=== PATIENT | male | born 1965 | race African-American/Black ===

== ENCOUNTER 2016-03-12 13:58 | Inpatient (IN) | payer MEDICARE, OTHER ==
--- NOTE | 2016-03-12 14:06 | HP ---
CIWA Score - CIWA Score Nausea/Vomitin-Mild Nausea/No Vomiting Muscle Tremors: 2 Anxiety: 4-Mod. Anxious/Guarded Agitation: 1-Slight > Activity Paroxysmal Sweats: 1-Minimal Palms Moist Orientation: 0-Oriented Tacttile Disturbances: 1-Very Mild Itch/Numbness Auditory Disturbances: 2-Mild Harshness/Frighten Visual Disturbances: 1-Very Mild Sensitivity Headache: 2-Mild CIWA-Ar Total Score: 15 Admission ROS S - HPI Chief Complaint: I want to get my life back on track, drinking doesn't help Allergies/Adverse Reactions: Allergies Allergy/AdvReac Type Severity Reaction Status Date / Time escitalopram Allergy Severe ITCHING Verified 12/10/14 14:54 WITH LEXAPRO fluphenazine [Fluphenazine] Allergy Severe Itching Verified 12/10/14 14:54 sertraline HCl [From Zoloft] Allergy Severe abdominal Verified 12/10/14 14:54 swelling ziprasidone Allergy Severe Swelling Verified 05/17/14 12:16 ziprasidone HCl [From Geodon] Allergy Severe Swelling Verified 12/10/14 14:54 ziprasidone mesylate Allergy Severe sweating Verified 05/17/14 12:16 [From Geodon] risperidone [From Risperdal] Allergy Intermediate sweating Verified 12/10/14 14: 54 History of Present Illness: 50 yo gentleman here for detox from alcohol and crack - last detox october 2015 in [place]. No seizures but does have black outs. Patient asking for thiamine to not be given - states it makes his mouth dry and asked me to discontinue it. Exam Limitations: Clinical Condition - Ebola screening Have you traveled outside of the country in the last 21 days: No Have you had contact with anyone from an Ebola affected area: No Do you have a fever: No - Review of Systems Constitutional: Loss of Appetite, Malaise, Changes in sleep EENT: reports: No Symptoms Reported Respiratory: reports: No Symptoms reported Cardiac: reports: No Symptoms Reported GI: reports: Poor Appetite, Indigestion : reports: Frequency Musculoskeletal: reports: Back Pain Integumentary: reports: Dryness Neuro: reports: Headache Endocrine: reports: No Symptoms Reported Hematology: reports: No Symptoms Reported Psychiatric: reports: Judgement Intact, Mood/Affect Appropiate, Orientated x3, Anxious Other Systems: Reviewed and Negative Patient History - Patient Medical History Hx Anemia: No Hx Asthma: No Hx Chronic Obstructive Pulmonary Disease (COPD): No Hx Cancer: No Hx Cardiac Disorders: No Hx Congestive Heart Failure: No Hx Hypertension: No Hx Hypercholesterolemia: No Hx Pacemaker: No HX Cerebrovascular Accident: No Hx Seizures: No Hx Dementia: No Hx Diabetes: No Hx Gastrointestinal Disorders: Yes (acid reflux) Hx Liver Disease: No Hx Genitourinary Disorders: No Hx Sexually Transmitted Disorders: No Hx Renal Disease (ESRD): No Hx Thyroid Disease: No Hx Human Immunodeficiency Virus (HIV): No (NEGATIVE HX) Hx Hepatitis C: No Hx Depression: Yes Hx Suicide Attempt: No Hx Bipolar Disorder: No Hx Schizophrenia: Yes - Patient Surgical History Past Surgical History: Yes Hx Neurologic Surgery: No Hx Cataract Extraction: No Hx Cardiac Surgery: No Hx Lung Surgery: No Hx Breast Surgery: No Hx Breast Biopsy: No Hx Abdominal Surgery: Yes (spleen repair 12/2014) Hx Appendectomy: Yes (IN 1987) Hx Cholecystectomy: No Hx Genitourinary Surgery: No Hx Section: No Hx Orthopedic Surgery: Yes (left ankle sx x2 1985 - plate with 5 screws) Other Surgical History: I & D abscess on right buttocks 5 years ago Anesthesia Reaction: No - PPD History Previous Implant?: Yes Documented Results: Negative w/o proof Implanted On Prior R Admission?: Yes Date: 09/02/13 Results: 0 mm PPD to be Administered?: Yes - Reproductive History Patient is a Female of Child Bearing Age (11 -55 yrs old): No (male) - Smoking Cessation Smoking history: Current every day smoker Have you smoked in the past 12 months: Yes Aproximately how many cigarettes per day: 5 Cigars Per Day: 0 Hx Chewing Tobacco Use: No Initiated information on smoking cessation: Yes 'Breaking Loose' booklet given: 03/12/16 (give on floor) - Substance & Tx. 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) - Substances Abused Alcohol Route: Oral Frequency: Daily Amount used: 4 pints liquor, 8 cans sixteen oz beer Age of first use: 15 Date of Last Use: 03/12/16 Crack Route: Inhalation Frequency: 1-2 times per week Amount used: $50 Age of first use: 20 Date of Last Use: 03/12/16 Family Disease History - Family Disease History Family Disease History: Diabetes: Brother (HTN), Heart Disease: Father (HTN ), Mother (HTN), Brother Admission Physical Exam [facility] - Vital Signs Vital Signs: Vital Signs Period Temp Pulse Resp BP Sys/Garcia Pulse Ox Last 24 Hr 95.9 F 18 18 100/72 - Physical General Appearance: Yes: Nourished, Appropriately Dressed, Mild Distress, Irritable, Anxious HEENTM: Yes: Hearing grossly Normal, Normal ENT Inspection, Normocephalic, Normal Voice, Pharynx Normal Respiratory: Yes: Normal Breath Sounds, No Respiratory Distress Neck: Yes: No masses,lesions,Nodules, Supple Breast: Yes: Breast Exam Deferred Cardiology: Yes: Regular Rhythm, Regular Rate Abdominal: Yes: Soft Genitourinary: Yes: Frequency Back: Yes: Normal Inspection Musculoskeletal: Yes: full range of Motion, Gait Steady, Joint Stiffness Extremities: Yes: Normal Inspection, Normal Range of Motion, Non-Tender Neurological: Yes: Fully Oriented, Alert, Normal Mood/Affect, Normal Response Integumentary: Yes: Normal Color, Dry, Warm Lymphatic: Yes: Within Normal Limits - Diagnostic (1) Alcohol dependence Current Visit: Yes Status: Chronic (2) Low back pain Current Visit: Yes Status: Chronic (3) Nicotine dependence Current Visit: Yes Status: Chronic (4) Cocaine abuse Current Visit: Yes Status: Chronic Cleared for Admission [facility] - Detox or Rehab [facility] Level of Care: Medically Managed Detox Regimen/Protocol: Librium S Breath Alcohol Content Breath Alcohol Content: 0
[2016-03-12] MEDS ORDERED: guaiFENesin/D-METHORPHAN HB 10 ML UNIT-DOSE CUPS PO PRN (14:12)
[2016-03-12] MEDS ORDERED: ACETAMINOPHEN 325 MG TABLET (FP) PO PRN (14:12)
[2016-03-12] MEDS ORDERED: MAGNESIUM CITRATE 300 ML BOTTLE PO PRN (14:12)
[2016-03-12] MEDS ORDERED: chlordiazePOXIDE HCL 25 MG CAPSULE PO PRN (14:12)
[2016-03-12] MEDS ORDERED: P-EPHED 60MG/TRIPROLIDI 2.5MG TABLET PO PRN (14:12)
[2016-03-12] MEDS ORDERED: MENTHOL/PHENOL 1 EACH UD MM PRN (14:12)
[2016-03-12] MEDS ORDERED: NICOTINE POLACRILEX 2 MG GUM BUC PRN (14:12)
[2016-03-12] MEDS ORDERED: MAG HYDROX/AL HYDROX/SIMETH 30 ML UNIT-DOSE CUP PO PRN (14:12)
[2016-03-12] MEDS ORDERED: MAGNESIUM HYDROX 2400MG/30ML ORAL SUSPENSION 30 ML CUP PO PRN (14:12)
[2016-03-12] MEDS ORDERED: IBUPROFEN 400 MG TABLET (FP) PO PRN (14:12)
[2016-03-12] MEDS ORDERED: LOPERAMIDE HCL 2 MG CAPSULE PO PRN (14:12)
[2016-03-12] MEDS ORDERED: CYCLOBENZAPRINE HCL 10 MG TABLET (FP) PO PRN (14:14)
[2016-03-12 14:18] VITALS: BMI 28.8
[2016-03-12] MEDS ORDERED: chlordiazePOXIDE HCL 25 MG CAPSULE PO ONE (14:30)
[2016-03-12 16:33] LABS: URINE APPEARANCE CLEAR; URINE BILIRUBIN NEGATIVE (NEGATIVE); URINE BLOOD NEGATIVE (NEGATIVE); URINE COLOR YELLOW; URINE GLUCOSE (UA) NEGATIVE (NEGATIVE); URINE KETONE NEGATIVE (NEGATIVE); URINE LEUK ESTERASE NEGATIVE (NEGATIVE); URINE NITRITE NEGATIVE (NEGATIVE); URINE PROTEIN NEGATIVE (NEGATIVE); URINE UROBILINOGEN 4.0 E.U/dl E.U./dl (0.2-1.0)
[2016-03-12] MEDS: chlordiazePOXIDE HCL 25 MG CAPSULE PO SCH ×2 (17:56→22:55)
[2016-03-12] MEDS ORDERED: diphenhydrAMINE HCL 50 MG CAPSULE PO PRN (22:00)
[2016-03-13] MEDS: chlordiazePOXIDE HCL 25 MG CAPSULE PO SCH ×4 (05:57→22:27)
--- NOTE | 2016-03-13 09:45 | EKG ---
Test Reason : Blood Pressure : / mmHG Vent. Rate : 070 BPM Atrial Rate : 070 BPM P-R Int : 140 ms QRS Dur : 086 ms QT Int : 348 ms P-R-T Axes : 057 022 045 degrees QTc Int : 375 ms NORMAL SINUS RHYTHM NORMAL ECG NO PREVIOUS ECGS AVAILABLE Confirmed by HUMA CAMARILLO MD ([id number]) on 03/13/2016 9:45:18 AM Referred By: Confirmed By:HUMA CAMARILLO MD
[2016-03-13 10:17] LABS: MCH 28.4 pg (25.7-33.7); MCHC 34.4 g/dl (32.0-35.9); MEAN CELL VOLUME 82.7 fl (80-96); MEAN PLT VOLUME 10.4 fl (7.5-11.1); PLATELET COUNT 126 K/MM3 (134-434); RDW 16.1 % (11.9-15.9); WHITE BLOOD COUNT 9.2 K/mm3 (4.0-10.0)
[2016-03-13 10:52] LABS: ALBUMIN 3.3 g/dl (3.4-5.0); BILIRUBIN,TOTAL 0.5 mg/dL (0.2-1.0); CALCIUM 8.7 mg/dL (8.5-10.1); CREATININE 1.3 mg/dL (0.7-1.3); TOT PROT 7.2 g/dl (6.4-8.2)
[2016-03-13] MEDS: PRENATAL VITAMINS W/ FOLIC ACID TABLET (FP) PO SCH (11:00)
[2016-03-13] MEDS: hydrOXYzine PAMOATE 50 MG CAPSULE (FP) PO PRN (12:17)
--- NOTE | 2016-03-13 13:41 | PN ---
S CIWA - CIWA Score Nausea/Vomitin-No Nausea/No Vomiting Muscle Tremors: 3 Anxiety: 4-Mod. Anxious/Guarded Agitation: 4-Moderately Restless Paroxysmal Sweats: 3 Orientation: 0-Oriented Tacttile Disturbances: 0-None Auditory Disturbances: 0-None Visual Disturbances: 0-None Headache: 0-None Present CIWA-Ar Total Score: 14 BHS Progress Note (SOAP) Subjective: sweating,anxiety,tremors,restless,interrupted sleep. Objective: 03/13/16 13:40 Vital Signs - 8 hr 03/13/16 03/13/16 06:00 10:00 Temperature 97.7 F 97.9 F Pulse Rate 60 103 H Respiratory 18 18 Rate Blood Pressure 104/59 111/71 Laboratory Tests 03/12/16 03/13/16 03/13/16 14:00 07:20 07:20 WBC 9.2 RBC 5.06 Hgb 14.4 Hct 41.9 MCV 82.7 MCHC 34.4 RDW 16.1 H Plt Count 126 L D MPV 10.4 Sodium 140 Potassium 4.3 Chloride 106 Carbon Dioxide 23 Anion Gap 11 BUN 17 D Creatinine 1.3 Creat Clearance w eGFR 58.43 Random Glucose 85 D Calcium 8.7 Total Bilirubin 0.5 D AST 27 D ALT 30 D Alkaline Phosphatase 58 Total Protein 7.2 Albumin 3.3 L Urine Color Yellow Urine Appearance Clear Urine pH 7.0 D Ur Specific [place] 1.021 Urine Protein Negative Urine Glucose (UA) Negative Urine Ketones Negative Urine Blood Negative Urine Nitrite Negative Urine Bilirubin Negative Urine Urobilinogen 4.0 e.u/dl Ur Leukocyte Esterase Negative RPR Titer 03/13/16 07:20 WBC RBC Hgb Hct MCV MCHC RDW Plt Count MPV Sodium Potassium Chloride Carbon Dioxide Anion Gap BUN Creatinine Creat Clearance w eGFR Random Glucose Calcium Total Bilirubin AST ALT Alkaline Phosphatase Total Protein Albumin Urine Color Urine Appearance Urine pH Ur Specific [place] Urine Protein Urine Glucose (UA) Urine Ketones Urine Blood Urine Nitrite Urine Bilirubin Urine Urobilinogen Ur Leukocyte Esterase RPR Titer Nonreactive labs noted Assessment: 03/13/16 13:41 withdrawal sx. Plan: continue detox
[2016-03-13] MEDS: DOCUSATE SODIUM 100 MG CAPSULE (FP) PO PRN ×2 (15:04→22:30)
[2016-03-14] MEDS: chlordiazePOXIDE HCL 25 MG CAPSULE PO SCH ×2 (05:19→10:09)
--- NOTE | 2016-03-14 09:29 | CONSULT ---
[id number] [facility] Identifying data: This is 50 years vold male with no psychiatric hospitalization history intoxicated with: Alcohol. Nicotine, Cocaine Substance Abuse History: - Smoking Cessation. Smoking history: Current every day smoker. Have you smoked in the past 12 months: Yes. Aproximately how many cigarettes per day: 5. Cigars Per Day: 0. Hx Chewing Tobacco Use: No. Initiated information on smoking cessation: Yes. 'Breaking Loose' booklet given : 03/12/16 (give on floor). - Substance & Tx. History. Hx Alcohol Use: Yes. Hx Substance Use: Yes. Substance Use Type: Alcohol, Cocaine. Hx Substance Use Treatment: Yes (detox, rehab). - Substances Abused. Alcohol. Route: Oral. Frequency: Daily. Amount used: 4 pints liquor, 8 cans sixteen oz beer. Age of first use: 15. Date of Last Use: 03/12/16. Crack. Route: Inhalation. Frequency: 1-2 times per week. Amount used: $50. Age of first use: 20. Date of Last Use: 03/12/16 Medical History: Denies Psychiatric History: Patient reports history of Depression, reports history of Schizophrenia, denies psychiatric admissions history, reports taking prior to admission: Zyprexa 5mg poqd. Prozac 10mg poqd Physical/Sexual Abuse/Trauma History: Denies Additional Comment: Zyprexa 5mg poqd. Prozac 10mg poqd Mental Status Exam - Mental Status Exam Alert and Oriented to: Person Cognitive Function: Fair Patient Appearance: Unkempt Mood: Sad Affect: Flat Patient Behavior: Sedated Speech Pattern: Delayed Voice Loudness: Mildly Soft/Quiet Thought Process: Circumstantial Thought Disorder: Being Controlled Hallucinations: Denies Suicidal Ideation: Denies Homicidal Ideation: Denies Insight/Judgement: Fair Sleep: Difficulty falling asleep Appetite: Weight gain Muscle strength/Tone: Normal Gait/Station: Shuffling Additional Comments: Zyprexa 5mg poqd. Prozac 10mg poqd Psychiatric Findings - Problem List ([place] 1, 2,3) (1) Alcohol dependence Status: Chronic (2) Cocaine abuse Status: Chronic (3) Nicotine dependence Status: Chronic (4) Cocaine dependence Status: Acute Comment: Abilify 10mg poqd (5) Schizophrenia, paranoid Status: Chronic - Initial Treatment Plan Initial Treatment Plan: Zyprexa 5mg poqd. Prozac 10mg poqd
[2016-03-14] MEDS ORDERED: FLUoxetine HCL 10 MG CAPSULE (FP) PO SCH (10:00)
[2016-03-14] MEDS ORDERED: OLANZapine 5 MG TABLET PO SCH (10:00)
[2016-03-14] MEDS: PRENATAL VITAMINS W/ FOLIC ACID TABLET (FP) PO SCH (10:08)
--- NOTE | 2016-03-14 10:26 | PN ---
S CIWA - CIWA Score Nausea/Vomitin-No Nausea/No Vomiting Muscle Tremors: 4-Moderate,w/Arms Extend Anxiety: 3 Agitation: 3 Paroxysmal Sweats: 3 Orientation: 0-Oriented Tacttile Disturbances: 0-None Auditory Disturbances: 0-None Visual Disturbances: 0-None Headache: 0-None Present CIWA-Ar Total Score: 13 BHS Progress Note (SOAP) Subjective: irritable agitation anxiety interrupted sleep Objective: 03/14/16 10:25 Vital Signs Temperature 97.3 F L 03/14/16 10:18 Pulse Rate 92 H 03/14/16 10:18 Respiratory Rate 18 03/14/16 10:18 Blood Pressure 128/73 03/14/16 10:18 O2 Sat by Pulse Oximetry (%) Laboratory Tests 03/12/16 03/13/16 03/13/16 14:00 07:20 07:20 WBC 9.2 RBC 5.06 Hgb 14.4 Hct 41.9 MCV 82.7 MCHC 34.4 RDW 16.1 H Plt Count 126 L D MPV 10.4 Sodium 140 Potassium 4.3 Chloride 106 Carbon Dioxide 23 Anion Gap 11 BUN 17 D Creatinine 1.3 Creat Clearance w eGFR 58.43 Random Glucose 85 D Calcium 8.7 Total Bilirubin 0.5 D AST 27 D ALT 30 D Alkaline Phosphatase 58 Total Protein 7.2 Albumin 3.3 L Urine Color Yellow Urine Appearance Clear Urine pH 7.0 D Ur Specific [place] 1.021 Urine Protein Negative Urine Glucose (UA) Negative Urine Ketones Negative Urine Blood Negative Urine Nitrite Negative Urine Bilirubin Negative Urine Urobilinogen 4.0 e.u/dl Ur Leukocyte Esterase Negative RPR Titer 03/13/16 07:20 WBC RBC Hgb Hct MCV MCHC RDW Plt Count MPV Sodium Potassium Chloride Carbon Dioxide Anion Gap BUN Creatinine Creat Clearance w eGFR Random Glucose Calcium Total Bilirubin AST ALT Alkaline Phosphatase Total Protein Albumin Urine Color Urine Appearance Urine pH Ur Specific [place] Urine Protein Urine Glucose (UA) Urine Ketones Urine Blood Urine Nitrite Urine Bilirubin Urine Urobilinogen Ur Leukocyte Esterase RPR Titer Nonreactive awake/alert ambulating no acute distress Assessment: 03/14/16 10:26 withdrawal sx Plan: continue detox increase fluids
[2016-03-14] MEDS: hydrOXYzine PAMOATE 50 MG CAPSULE (FP) PO PRN (12:10)
[2016-03-14] MEDS ORDERED: chlordiazePOXIDE 5 MG CAPSULE PO SCH (17:00)
[2016-03-14 17:12] VITALS: BP 119/66; PULSE 76; TEMP 98.1
--- NOTE | 2016-03-14 23:39 | DS ---
[facility] Detox Discharge Summary Admission Date: 03/12/16 Discharge Date: 03/14/16 - History Present History: Alcohol Dependence Additional Comments: patient insists to leave the unit to go to the court to retrieve his money patient is unwilling to wait face to face with the provider Pertinent Past History: gerd - Physical Exam Results Vital Signs: Vital Signs Temperature 98.1 F 03/14/16 17:11 Pulse Rate 76 03/14/16 17:11 Respiratory Rate 18 03/14/16 17:11 Blood Pressure 119/66 03/14/16 17:11 O2 Sat by Pulse Oximetry (%) - Treatment Hospital Course: Detox Protocol Followed, Responded well - Medication Discharge Medications: Ambulatory Orders Fluoxetine HCl [Prozac -] 10 mg PO DAILY 03/12/16 Ibuprofen [Motrin -] 400 mg PO QID PRN 03/12/16 Methocarbamol [Robaxin -] 500 mg PO TID 03/12/16 Olanzapine [Zyprexa -] 5 mg PO DAILY 03/12/16 Fluoxetine HCl [Prozac -] 10 mg PO DAILY #30 tablet 03/14/16 Olanzapine [Zyprexa -] 5 mg PO DAILY #30 tablet 03/14/16 - Diagnosis (1) GERD (gastroesophageal reflux disease) Status: Acute Qualifiers: Esophagitis presence: without esophagitis Qualified Code(s): K21.9 - Gastro-esophageal reflux disease without esophagitis (2) Schizophrenia, paranoid Status: Suspected (3) Alcohol dependence with uncomplicated withdrawal Status: Acute - AMA Did Patient Leave Against Medical Advice: Yes
[2016-03-15] MEDS ORDERED: chlordiazePOXIDE HCL 10 MG CAPSULE PO SCH (17:00)
== END 2016-03-14 19:10 | disposition left against medical advice (07) | DRG 894 ==
LOC: YASAS 13:58 → Y6N 14:20
PROVIDERS: ADMIT Internal Medicine Addiction Medicine; ATTEND Internal Medicine Addiction Medicine
PROC: HZ2ZZZZ Detoxification Services for Substance Abuse Treatment (ICD-10-PCS; principal; 2016-03-14)
DX: F19.230 Other psychoactive substance dependence with withdrawal, uncomplicated (principal); F14.20 Cocaine dependence, uncomplicated; F20.0 Paranoid schizophrenia; F10.230 Alcohol dependence with withdrawal, uncomplicated; F17.210 Nicotine dependence, cigarettes, uncomplicated; K21.9 Gastro-esophageal reflux disease without esophagitis; M54.5 Low back pain
CPT/HCPCS: 36415; 80053; 81003; 85027; 86593; 93005; 93010

== ENCOUNTER 2016-12-05 22:13 | Inpatient (IN) | payer OTHER ==
[2016-12-05 22:54] VITALS: BMI 28.7
--- NOTE | 2016-12-05 23:07 | HP ---
CIWA Score - CIWA Score Nausea/Vomitin-Mild Nausea/No Vomiting Muscle Tremors: 4-Moderate,w/Arms Extend Anxiety: 4-Mod. Anxious/Guarded Agitation: 4-Moderately Restless Paroxysmal Sweats: 1-Minimal Palms Moist Orientation: 0-Oriented Tacttile Disturbances: 0-None Auditory Disturbances: 0-None Visual Disturbances: 0-None Headache: 0-None Present CIWA-Ar Total Score: 14 Admission ROS S - HPI Chief Complaint: withdrawal sx Allergies/Adverse Reactions: Allergies Allergy/AdvReac Type Severity Reaction Status Date / Time escitalopram Allergy Severe ITCHING Verified 12/10/14 14:54 WITH LEXAPRO fluphenazine [Fluphenazine] Allergy Severe Itching Verified 12/10/14 14:54 sertraline HCl [From Zoloft] Allergy Severe abdominal Verified 12/10/14 14:54 swelling ziprasidone Allergy Severe Swelling Verified 05/17/14 12:16 ziprasidone HCl [From Geodon] Allergy Severe Swelling Verified 12/10/14 14:54 ziprasidone mesylate Allergy Severe sweating Verified 05/17/14 12:16 [From Geodon] risperidone [From Risperdal] Allergy Intermediate sweating Verified 12/10/14 14: 54 History of Present Illness: 51 years old male with long history of alcohol nicotine cocaine dependence has gerd and anxiety is admitted to detox Exam Limitations: No Limitations - Ebola screening Have you traveled outside of the country in the last 21 days: No (N) Have you had contact with anyone from an Ebola affected area: No Have you been sick,other than usual withdrawal symptoms: No Do you have a fever: No - Review of Systems Constitutional: Changes in sleep, Weight Stable EENT: reports: Blurred Vision (wear eye glasses) Respiratory: reports: No Symptoms reported GI: reports: Nausea, Poor Fluid Intake, Indigestion, Abdominal cramping : reports: No Symptoms Reported Musculoskeletal: reports: Back Pain (1985 fall) Integumentary: reports: No Symptoms Reported Neuro: reports: Tremors Endocrine: reports: No Symptoms Reported Hematology: reports: No Symptoms Reported Psychiatric: reports: Judgement Intact, Mood/Affect Appropiate, Orientated x3 Other Systems: Reviewed and Negative Patient History - Patient Medical History Hx Anemia: No Hx Asthma: No Hx Chronic Obstructive Pulmonary Disease (COPD): No Hx Cancer: No Hx Cardiac Disorders: No Hx Congestive Heart Failure: No Hx Hypertension: No Hx Hypercholesterolemia: No Hx Pacemaker: No HX Cerebrovascular Accident: No Hx Seizures: No Hx Dementia: No Hx Diabetes: No Hx Gastrointestinal Disorders: Yes (acid reflux) Hx Liver Disease: No Hx Genitourinary Disorders: No Hx Sexually Transmitted Disorders: No Hx Renal Disease (ESRD): No Hx Thyroid Disease: No Hx Human Immunodeficiency Virus (HIV): No (NEGATIVE HX) Hx Hepatitis C: No Hx Depression: Yes Hx Suicide Attempt: No Hx Bipolar Disorder: No Hx Schizophrenia: No - Patient Surgical History Past Surgical History: Yes Hx Neurologic Surgery: No Hx Cataract Extraction: No Hx Cardiac Surgery: No Hx Lung Surgery: No Hx Breast Surgery: No Hx Breast Biopsy: No Hx Abdominal Surgery: Yes (spleen repair 12/2014) Hx Appendectomy: Yes (IN 1987) Hx Cholecystectomy: No Hx Genitourinary Surgery: No Hx Orthopedic Surgery: Yes (left ankle sx x2 1986 - plate with 5 screws) Other Surgical History: I & D abscess on right buttocks 5 years ago Anesthesia Reaction: No - PPD History Previous Implant?: Yes Documented Results: Negative w/proof Implanted On Prior R Admission?: Yes Date: 03/14/16 Results: 0 mm PPD to be Administered?: No - Smoking Cessation Smoking history: Current every day smoker Have you smoked in the past 12 months: Yes Aproximately how many cigarettes per day: 5 Cigars Per Day: 0 Hx Chewing Tobacco Use: No Initiated information on smoking cessation: Yes 'Breaking Loose' booklet given: 12/05/16 - Substance & Tx. 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 Use Treatment: Yes (09/2016) - Substances Abused Alcohol Route: Oral Frequency: Daily Amount used: 3 pints kathe +3 beerx 24-16oz Age of first use: 15 Date of Last Use: 12/04/16 Alprazolam (Xanax) Route: Oral Frequency: 3-6 times per week Amount used: 5 mg Age of first use: 35 Date of Last Use: 12/03/16 Family Disease History - Family Disease History Family Disease History: Diabetes: Brother (HTN), Heart Disease: Father (HTN ), Mother (HTN), Brother Admission Physical Exam [facility] - Vital Signs Vital Signs: Vital Signs - 24 hr 12/05/16 22:51 Temperature 97.6 F Pulse Rate 64 Respiratory 18 Rate Blood Pressure 126/80 - Physical General Appearance: Yes: Appropriately Dressed, Mild Distress, Tremorous, Irritable, Sweating, Anxious HEENTM: Yes: Hearing grossly Normal, Normal ENT Inspection, Normocephalic, Normal Voice Respiratory: Yes: Chest Non-Tender, Lungs Clear, Normal Breath Sounds, No Respiratory Distress, No Accessory Muscle Use Neck: Yes: Supple, Trachea in good position Breast: Yes: Breasts Symetrical Cardiology: Yes: Regular Rhythm, Regular Rate, S1, S2 Abdominal: Yes: Non Tender, Soft Genitourinary: Yes: Within Normal Limits Back: Yes: Normal Inspection Musculoskeletal: Yes: full range of Motion, Gait Steady, Back pain, Muscle Pain Extremities: Yes: Normal Inspection, Normal Range of Motion, Non-Tender, Tremors Neurological: Yes: Fully Oriented, Alert, Motor Strength 5/5, Normal Response, Depressed Affect Integumentary: Yes: Warm Lymphatic: Yes: Within Normal Limits - Diagnostic (1) Alcohol dependence with uncomplicated withdrawal Current Visit: Yes Status: Acute (2) GERD (gastroesophageal reflux disease) Current Visit: Yes Status: Chronic Qualifiers: Esophagitis presence: without esophagitis Qualified Code(s): K21.9 - Gastro-esophageal reflux disease without esophagitis; K21.9 - Gastro- esophageal reflux disease without esophagitis; K21.9 - Gastro-esophageal reflux disease without esophagitis (3) Low back pain Current Visit: Yes Status: Chronic (4) Nicotine dependence Current Visit: Yes Status: Acute (5) Cocaine dependence, uncomplicated Current Visit: Yes Status: Chronic (6) Sedative, hypnotic or anxiolytic dependence with withdrawal, uncomplicated Current Visit: Yes Status: Acute Cleared for Admission [facility] - Detox or Rehab [facility] Level of Care: Medically Managed Detox Regimen/Protocol: Librium [facility] Breath Alcohol Content Breath Alcohol Content: 0 Urine Drug Screen - Results Drug Screen Negative: No Urine Drug Screen Results: DEBBIE-Cocaine, BZO-Benzodiazepines
[2016-12-05] MEDS ORDERED: chlordiazePOXIDE HCL 25 MG CAPSULE PO ONE (23:16)
[2016-12-05] MEDS ORDERED: guaiFENesin/D-METHORPHAN HB 10 ML UNIT-DOSE CUPS PO PRN (23:16)
[2016-12-05] MEDS ORDERED: ACETAMINOPHEN 325 MG TABLET (FP) PO PRN (23:16)
[2016-12-05] MEDS ORDERED: MAGNESIUM CITRATE 300 ML BOTTLE PO PRN (23:16)
[2016-12-05] MEDS ORDERED: chlordiazePOXIDE HCL 25 MG CAPSULE PO PRN (23:16)
[2016-12-05] MEDS ORDERED: diphenhydrAMINE HCL 50 MG CAPSULE PO PRN (23:16)
[2016-12-05] MEDS ORDERED: NICOTINE POLACRILEX 2 MG GUM BUC PRN (23:16)
[2016-12-05] MEDS ORDERED: P-EPHED 60MG/TRIPROLIDI 2.5MG TABLET PO PRN (23:16)
[2016-12-05] MEDS ORDERED: MAGNESIUM HYDROX 2400MG/30ML ORAL SUSPENSION 30 ML CUP PO PRN (23:16)
[2016-12-05] MEDS ORDERED: MENTHOL/PHENOL 1 EACH UD MM PRN (23:16)
[2016-12-05] MEDS ORDERED: LOPERAMIDE HCL 2 MG CAPSULE PO PRN (23:16)
[2016-12-06] MEDS: chlordiazePOXIDE HCL 25 MG CAPSULE PO SCH ×5 (01:40→22:45)
[2016-12-06 09:58] LABS: MCH 27.2 pg (25.7-33.7); MCHC 33.9 g/dl (32.0-35.9); MEAN CELL VOLUME 80.2 fl (80-96); MEAN PLT VOLUME 10.9 fl (7.5-11.1); PLATELET COUNT 161 K/MM3 (134-434); RDW 15.3 % (11.9-15.9)
--- NOTE | 2016-12-06 10:02 | CONSULT ---
[facility] Psychiatric Consult - Data Date of interview: 12/06/16 Admission source: Self-referred Identifying data: Mr Garsia is a 51 years old single Black male, father of 2 children, unemployed on SSD. domiciled Substance Abuse History: RReports history of alcohol, and xanax use. Refer to addiction counselor's note for further information Medical History: Significant for history of GERD, chronic LBP and a history of abdominal surgery for splenectomy, appendectomy frature left ankle and I & D abscess right buttock. Smokes 5 cigarettes daily Psychiatric History: Reports that his first psychiatric contact was in 1985 when he was admitted to [facility] and diagnosed with Paranoid Schizophrenia. Reports multiple subsequent admissions to [facility] in 2007 , [facility] for 9 months and most recently in 2014 to [facility]. Reports non-compliance with psychiatric outpatient sevices but visits [facility] ED for medication refills. Claims that he takes Zyprexa 5 mg po daily. Physical/Sexual Abuse/Trauma History: Denies history of verbal, physical or sexual abuse as well as DV relationship Additional Comment: Reports history of multiple arrests including one felony conviction Mental Status Exam - Mental Status Exam Alert and Oriented to: Time, Place, Person Cognitive Function: Fair Patient Appearance: Disheveled Mood: Hopeful, Euthymic Affect: Blunted Patient Behavior: Cooperative Speech Pattern: Clear Voice Loudness: Normal Thought Process: Intact, Goal Oriented Hallucinations: Denies Suicidal Ideation: Denies Homicidal Ideation: Denies Insight/Judgement: Poor Sleep: Well Appetite: Good Muscle strength/Tone: Normal Gait/Station: Normal Psychiatric Findings - Problem List ([place] 1, 2,3) (1) Schizophrenia, paranoid Current Visit: No Status: Chronic (2) Alcohol dependence with uncomplicated withdrawal Current Visit: Yes Status: Acute (3) Sedative, hypnotic or anxiolytic dependence with withdrawal, uncomplicated Current Visit: Yes Status: Acute (4) Cocaine dependence Current Visit: No Status: Acute Comment: Abilify 10mg poqd (5) Nicotine dependence Current Visit: Yes Status: Acute (6) GERD (gastroesophageal reflux disease) Current Visit: Yes Status: Chronic Qualifiers: Esophagitis presence: without esophagitis Qualified Code(s): K21.9 - Gastro-esophageal reflux disease without esophagitis; K21.9 - Gastro- esophageal reflux disease without esophagitis; K21.9 - Gastro-esophageal reflux disease without esophagitis (7) Low back pain Current Visit: Yes Status: Chronic - Initial Treatment Plan Initial Treatment Plan: 1) Continue Zyprexa 5 mg po daily. 2) Continue inpatient detoxification
[2016-12-06 10:29] LABS: ALBUMIN 3.4 g/dl (3.4-5.0); ANION GAP 10 (8-16); CALCIUM 8.5 mg/dL (8.5-10.1); CO2 25 mmol/L (21-32); GLUCOSE,RANDOM 82 mg/dL (74-106)
[2016-12-06 10:34] LABS: ALK PHOS 68 U/L (45-117); BILIRUBIN,TOTAL 0.9 mg/dL (0.2-1.0); SGOT/AST 18 U/L (15-37); SGPT/ALT 27 U/L (12-78); TOT PROT 7.3 g/dl (6.4-8.2)
[2016-12-06] MEDS: NICOTINE 14 MG/24 HOURS TOPICAL PATCH TD SCH (11:17)
[2016-12-06] MEDS: OLANZapine 5 MG TABLET PO SCH (11:18)
[2016-12-06] MEDS: PRENATAL VITAMINS W/ FOLIC ACID TABLET (FP) PO SCH (11:18)
[2016-12-06] MEDS: RANITIDINE HCL 150 MG TABLET (FP) PO SCH ×2 (11:18→22:45)
--- NOTE | 2016-12-06 13:45 | PN ---
S CIWA - CIWA Score Nausea/Vomitin-No Nausea/No Vomiting Muscle Tremors: 3 Anxiety: 4-Mod. Anxious/Guarded Agitation: 3 Paroxysmal Sweats: 3 Orientation: 0-Oriented Tacttile Disturbances: 2-Mild Itch/Numbness/Burn Auditory Disturbances: 1-Very Mild Visual Disturbances: 1-Very Mild Sensitivity Headache: 3-Moderate CIWA-Ar Total Score: 20 BHS Progress Note (SOAP) Subjective: Tremors, Stomach cramping, H/A, Sweating. Objective: PT. A & O X 3. NO ACUTE DISTRESS. 12/06/16 13:44 Vital Signs Temperature 98.2 F 12/06/16 09:46 Pulse Rate 76 12/06/16 09:46 Respiratory Rate 18 12/06/16 09:46 Blood Pressure 106/65 12/06/16 09:46 O2 Sat by Pulse Oximetry (%) Laboratory Tests 12/06/16 12/06/16 12/06/16 07:00 07:00 07:00 WBC 9.0 RBC 5.18 Hgb 14.1 Hct 41.5 MCV 80.2 MCH 27.2 MCHC 33.9 RDW 15.3 Plt Count 161 D MPV 10.9 Sodium 141 Potassium 3.8 Chloride 106 Carbon Dioxide 25 Anion Gap 10 BUN 11 D Creatinine 1.0 D Creat Clearance w eGFR > 60 Random Glucose 82 Calcium 8.5 Total Bilirubin 0.9 D AST 18 D ALT 27 Alkaline Phosphatase 68 Total Protein 7.3 Albumin 3.4 RPR Titer Nonreactive LABS NOTED. ADMISSION UA RESULTS PENDING. 12/06/16 13:45 Assessment: 12/06/16 13:45 WITHDRAWAL SYMPTOMS. Plan: CONTINUE DETOX. INCREASE DAILY PO FLUID INTAKE.
[2016-12-06] MEDS: MAG HYDROX/AL HYDROX/SIMETH 30 ML UNIT-DOSE CUP PO PRN (16:55)
[2016-12-06] MEDS: IBUPROFEN 400 MG TABLET (FP) PO PRN (17:00)
--- NOTE | 2016-12-06 20:26 | EKG ---
Test Reason : Blood Pressure : / mmHG Vent. Rate : 060 BPM Atrial Rate : 060 BPM P-R Int : 150 ms QRS Dur : 086 ms QT Int : 422 ms P-R-T Axes : 031 015 021 degrees QTc Int : 422 ms NORMAL SINUS RHYTHM NORMAL ECG WHEN COMPARED WITH ECG OF 12-MAR-2016 15:28, SMALL Q WAVE IN V2 REPEAT EKG IF CLINICALLY INDICATED Confirmed by REX ALVARENGA MD ([id number]) on 12/06/2016 8:25:52 PM Referred By: Confirmed By:REX ALVARENGA MD
[2016-12-06] MEDS: THIAMINE HCL 100 MG TABLET (FP) PO SCH (22:45)
[2016-12-07] MEDS: chlordiazePOXIDE HCL 25 MG CAPSULE PO SCH ×3 (06:21→17:09)
[2016-12-07 10:37] LABS: HIV 1 & 2 AB NEGATIVE; HIV 1 AGp24 NEGATIVE
[2016-12-07] MEDS: RANITIDINE HCL 150 MG TABLET (FP) PO SCH ×2 (10:54→22:27)
[2016-12-07] MEDS: PRENATAL VITAMINS W/ FOLIC ACID TABLET (FP) PO SCH (10:54)
[2016-12-07] MEDS: NICOTINE 14 MG/24 HOURS TOPICAL PATCH TD SCH (10:55)
[2016-12-07] MEDS: OLANZapine 5 MG TABLET PO SCH (10:55)
--- NOTE | 2016-12-07 11:47 | PN ---
[facility] CIWA - CIWA Score Nausea/Vomitin-No Nausea/No Vomiting Muscle Tremors: 4-Moderate,w/Arms Extend Anxiety: 4-Mod. Anxious/Guarded Agitation: 4-Moderately Restless Paroxysmal Sweats: 1-Minimal Palms Moist Orientation: 0-Oriented Tacttile Disturbances: 3-Moderate Itch/Numb/Burn Auditory Disturbances: 0-None Visual Disturbances: 0-None Headache: 0-None Present CIWA-Ar Total Score: 16 BHS Progress Note (SOAP) Subjective: ANXIETY,SWEATS,FATIGUE. Objective: 12/07/16 11:46 Vital Signs Temperature 97.2 F L 12/07/16 09:57 Pulse Rate 65 12/07/16 09:57 Respiratory Rate 18 12/07/16 09:57 Blood Pressure 109/65 12/07/16 09:57 O2 Sat by Pulse Oximetry (%) Laboratory Last Values WBC 9.0 K/mm3 (4.0-10.0) 12/06/16 07:00 RBC 5.18 M/mm3 (4.00-5.60) 12/06/16 07:00 Hgb 14.1 GM/dL (11.7-16.9) 12/06/16 07:00 Hct 41.5 % (35.4-49) 12/06/16 07:00 MCV 80.2 fl (80-96) 12/06/16 07:00 MCH 27.2 pg (25.7-33.7) 12/06/16 07:00 MCHC 33.9 g/dl (32.0-35.9) 12/06/16 07:00 RDW 15.3 % (11.9-15.9) 12/06/16 07:00 Plt Count 161 K/MM3 (134-434) D 12/06/16 07:00 MPV 10.9 fl (7.5-11.1) 12/06/16 07:00 Sodium 141 mmol/L (136-145) 12/06/16 07:00 Potassium 3.8 mmol/L (3.5-5.1) 12/06/16 07:00 Chloride 106 mmol/L (98-107) 12/06/16 07:00 Carbon Dioxide 25 mmol/L (21-32) 12/06/16 07:00 Anion Gap 10 (8-16) 12/06/16 07:00 BUN 11 mg/dL (7-18) D 12/06/16 07:00 Creatinine 1.0 mg/dL (0.7-1.3) D 12/06/16 07:00 Creat Clearance w eGFR > 60 (>60) 12/06/16 07:00 Random Glucose 82 mg/dL (74-106) 12/06/16 07:00 Calcium 8.5 mg/dL (8.5-10.1) 12/06/16 07:00 Total Bilirubin 0.9 mg/dL (0.2-1.0) D 12/06/16 07:00 AST 18 U/L (15-37) D 12/06/16 07:00 ALT 27 U/L (12-78) 12/06/16 07:00 Alkaline Phosphatase 68 U/L (45-117) 12/06/16 07:00 Total Protein 7.3 g/dl (6.4-8.2) 12/06/16 07:00 Albumin 3.4 g/dl (3.4-5.0) 12/06/16 07:00 RPR Titer Nonreactive (NONREACTIVE) 12/06/16 07:00 HIV 1&2 Antibody Screen Negative 12/07/16 07:00 HIV P24 Antigen Negative 12/07/16 07:00 Assessment: 12/07/16 11:46 WITHDRAWAL SX Plan: CONTINUE DETOX
[2016-12-07 13:25] LABS: URINE APPEARANCE SLCLOUDY; URINE BILIRUBIN NEGATIVE (NEGATIVE); URINE BLOOD NEGATIVE (NEGATIVE); URINE COLOR YELLOW; URINE GLUCOSE (UA) NEGATIVE (NEGATIVE); URINE KETONE NEGATIVE (NEGATIVE); URINE NITRITE NEGATIVE (NEGATIVE); URINE PROTEIN NEGATIVE (NEGATIVE)
[2016-12-07] MEDS: METHOCARBAMOL 500 MG TABLET PO PRN (17:10)
[2016-12-07 17:18] LABS: URINE LEUK ESTERASE 1+ (NEGATIVE)
[2016-12-07] MEDS: MAG HYDROX/AL HYDROX/SIMETH 30 ML UNIT-DOSE CUP PO PRN (17:42)
[2016-12-07 18:43] LABS: CALCIUM OXALATE CRYSTALS MODERATE /hpf (NONE SEEN); URINE BACTERIA MODERATE /hpf (NEGATIVE); URINE RBC 0-2 /hpf (0-3); URINE WBC 20-30 (3-5)
[2016-12-07] MEDS: chlordiazePOXIDE 5 MG CAPSULE PO SCH (22:27)
[2016-12-07] MEDS: THIAMINE HCL 100 MG TABLET (FP) PO SCH (22:27)
[2016-12-08] MEDS: chlordiazePOXIDE 5 MG CAPSULE PO SCH ×3 (06:18→17:23)
[2016-12-08] MEDS: METHOCARBAMOL 500 MG TABLET PO PRN (06:21)
[2016-12-08] MEDS: PRENATAL VITAMINS W/ FOLIC ACID TABLET (FP) PO SCH (10:52)
[2016-12-08] MEDS: RANITIDINE HCL 150 MG TABLET (FP) PO SCH ×2 (10:52→22:39)
[2016-12-08] MEDS: IBUPROFEN 400 MG TABLET (FP) PO PRN (10:53)
[2016-12-08] MEDS: NICOTINE 14 MG/24 HOURS TOPICAL PATCH TD SCH (10:54)
[2016-12-08] MEDS: OLANZapine 5 MG TABLET PO SCH (10:54)
--- NOTE | 2016-12-08 11:15 | PN ---
BHS Progress Note (SOAP) Subjective: ANXIETY,SWEATS,FATIGUE. Objective: 12/08/16 11:14 Vital Signs Temperature 97.4 F L 12/08/16 09:14 Pulse Rate 66 12/08/16 09:14 Respiratory Rate 18 12/08/16 09:14 Blood Pressure 99/67 12/08/16 09:14 O2 Sat by Pulse Oximetry (%) Laboratory Last Values WBC 9.0 K/mm3 (4.0-10.0) 12/06/16 07:00 RBC 5.18 M/mm3 (4.00-5.60) 12/06/16 07:00 Hgb 14.1 GM/dL (11.7-16.9) 12/06/16 07:00 Hct 41.5 % (35.4-49) 12/06/16 07:00 MCV 80.2 fl (80-96) 12/06/16 07:00 MCH 27.2 pg (25.7-33.7) 12/06/16 07:00 MCHC 33.9 g/dl (32.0-35.9) 12/06/16 07:00 RDW 15.3 % (11.9-15.9) 12/06/16 07:00 Plt Count 161 K/MM3 (134-434) D 12/06/16 07:00 MPV 10.9 fl (7.5-11.1) 12/06/16 07:00 Sodium 141 mmol/L (136-145) 12/06/16 07:00 Potassium 3.8 mmol/L (3.5-5.1) 12/06/16 07:00 Chloride 106 mmol/L (98-107) 12/06/16 07:00 Carbon Dioxide 25 mmol/L (21-32) 12/06/16 07:00 Anion Gap 10 (8-16) 12/06/16 07:00 BUN 11 mg/dL (7-18) D 12/06/16 07:00 Creatinine 1.0 mg/dL (0.7-1.3) D 12/06/16 07:00 Creat Clearance w eGFR > 60 (>60) 12/06/16 07:00 Random Glucose 82 mg/dL (74-106) 12/06/16 07:00 Calcium 8.5 mg/dL (8.5-10.1) 12/06/16 07:00 Total Bilirubin 0.9 mg/dL (0.2-1.0) D 12/06/16 07:00 AST 18 U/L (15-37) D 12/06/16 07:00 ALT 27 U/L (12-78) 12/06/16 07:00 Alkaline Phosphatase 68 U/L (45-117) 12/06/16 07:00 Total Protein 7.3 g/dl (6.4-8.2) 12/06/16 07:00 Albumin 3.4 g/dl (3.4-5.0) 12/06/16 07:00 Urine Color Yellow 12/07/16 09:50 Urine Appearance Slcloudy 12/07/16 09:50 Urine pH 6.0 (5.0-8.0) 12/07/16 09:50 Ur Specific [place] 1.015 (1.005-1.025) 12/07/16 09:50 Urine Protein Negative (NEGATIVE) 12/07/16 09:50 Urine Glucose (UA) Negative (NEGATIVE) 12/07/16 09:50 Urine Ketones Negative (NEGATIVE) 12/07/16 09:50 Urine Blood Negative (NEGATIVE) 12/07/16 09:50 Urine Nitrite Negative (NEGATIVE) 12/07/16 09:50 Urine Bilirubin Negative (NEGATIVE) 12/07/16 09:50 Urine Urobilinogen 2.0 mg/dL (0.2-1.0) 12/07/16 09:50 Ur Leukocyte Esterase 1+ (NEGATIVE) H 12/07/16 09:50 Urine RBC 0-2 /hpf (0-3) 12/07/16 09:50 Urine WBC 20-30 (3-5) 12/07/16 09:50 Calcium Oxalate Crystal Moderate /hpf (NONE SEEN) 12/07/16 09:50 Urine Bacteria Moderate /hpf (NEGATIVE) 12/07/16 09:50 RPR Titer Nonreactive (NONREACTIVE) 12/06/16 07:00 HIV 1&2 Antibody Screen Negative 12/07/16 07:00 HIV P24 Antigen Negative 12/07/16 07:00 UA RESULT NOTED. Assessment: 12/08/16 11:15 WITHDRAWAL SX R/O UTI Plan: CONTINUE DETOX REPEAT UA;UC TODAY
[2016-12-08] MEDS: THIAMINE HCL 100 MG TABLET (FP) PO SCH (22:38)
[2016-12-08] MEDS: chlordiazePOXIDE HCL 10 MG CAPSULE PO SCH (22:38)
[2016-12-09] MEDS: chlordiazePOXIDE HCL 10 MG CAPSULE PO SCH ×2 (06:09→12:19)
--- NOTE | 2016-12-09 08:45 | DS ---
[facility] Detox Discharge Summary Admission Date: 12/06/16 Discharge Date: 12/09/16 - History Present History: Alcohol Dependence, Cocaine Dependence, Sedative Dependence Pertinent Past History: nicotine dependence, GERD, depression, anxiety, insomnia - Physical Exam Results Vital Signs: Vital Signs Temperature 96.4 F L 12/09/16 06:15 Pulse Rate 54 L 12/09/16 06:15 Respiratory Rate 18 12/09/16 06:15 Blood Pressure 113/61 12/09/16 06:15 O2 Sat by Pulse Oximetry (%) Pertinent Admission Physical Exam Findings: withdrawal sx - Treatment Hospital Course: Detox Protocol Followed, Detoxed Safely, Responded well, Discharged Condition Good, Rehab Referral Accepted Patient has Accepted a Rehab Referral to: NO patient refused, given refsied f/u [facility] for medical care - Medication Discharge Medications: Ambulatory Orders Olanzapine [Zyprexa -] 5 mg PO DAILY #30 tablet 03/14/16 Ranitidine [Zantac -] 150 mg PO BID #30 tablet 12/09/16 - Diagnosis (1) Alcohol dependence with uncomplicated withdrawal Current Visit: Yes Status: Acute (2) Cocaine dependence, uncomplicated Current Visit: Yes Status: Acute (3) Nicotine dependence Current Visit: Yes Status: Acute (4) Sedative, hypnotic or anxiolytic dependence with withdrawal, uncomplicated Current Visit: Yes Status: Acute (5) GERD (gastroesophageal reflux disease) Current Visit: Yes Status: Acute Qualifiers: Esophagitis presence: without esophagitis Qualified Code(s): K21.9 - Gastro-esophageal reflux disease without esophagitis; K21.9 - Gastro- esophageal reflux disease without esophagitis; K21.9 - Gastro-esophageal reflux disease without esophagitis (6) Low back pain Current Visit: Yes Status: Chronic (7) Schizophrenia, paranoid Current Visit: No Status: Chronic - AMA Did Patient Leave Against Medical Advice: No
[2016-12-09 10:42] VITALS: BP 112/71; PULSE 70; TEMP 97
[2016-12-09] MEDS: RANITIDINE HCL 150 MG TABLET (FP) PO SCH (12:18)
[2016-12-09] MEDS: PRENATAL VITAMINS W/ FOLIC ACID TABLET (FP) PO SCH (12:18)
[2016-12-09] MEDS: NICOTINE 14 MG/24 HOURS TOPICAL PATCH TD SCH (12:18)
[2016-12-09] MEDS: OLANZapine 5 MG TABLET PO SCH (12:19)
== END 2016-12-09 09:45 | disposition home or self-care (01) | DRG 897 ==
LOC: YASAS 22:13 → Y3N 12-06 00:29
PROVIDERS: ADMIT Internal Medicine; ATTEND Internal Medicine
PROC: HZ2ZZZZ Detoxification Services for Substance Abuse Treatment (ICD-10-PCS; principal; 2016-12-06)
DX: F19.230 Other psychoactive substance dependence with withdrawal, uncomplicated (principal); F14.20 Cocaine dependence, uncomplicated; F20.0 Paranoid schizophrenia; F10.230 Alcohol dependence with withdrawal, uncomplicated; F13.230 Sedative, hypnotic or anxiolytic dependence with withdrawal, uncomplicated; F17.210 Nicotine dependence, cigarettes, uncomplicated; K21.9 Gastro-esophageal reflux disease without esophagitis; M54.5 Low back pain; Z88.8 Allergy status to other drugs, medicaments and biological substances
CPT/HCPCS: 36415; 80053; 81003; 81015; 85027; 86593; 87389; 93005; 93010

== ENCOUNTER 2017-04-02 12:54 | Inpatient (IN) | payer OTHER ==
[2017-04-02 13:21] VITALS: BMI 30.4
--- NOTE | 2017-04-02 19:33 | HP ---
CIWA Score - CIWA Score Nausea/Vomitin Muscle Tremors: 3 Anxiety: 3 Agitation: 3 Paroxysmal Sweats: 2 Orientation: 0-Oriented Tacttile Disturbances: 2-Mild Itch/Numbness/Burn Auditory Disturbances: 2-Mild Harshness/Frighten Visual Disturbances: 0-None Headache: 2-Mild CIWA-Ar Total Score: 20 Admission ROS BHS - HPI Chief Complaint: i need help to stop drinking alcohol,cocaine Allergies/Adverse Reactions: Allergies Allergy/AdvReac Type Severity Reaction Status Date / Time escitalopram Allergy Severe ITCHING Verified 01/21/17 17:39 WITH LEXAPRO fluphenazine [Fluphenazine] Allergy Severe Itching Verified 01/21/17 17:39 sertraline HCl [From Zoloft] Allergy Severe abdominal Verified 01/21/17 17:39 swelling ziprasidone Allergy Severe Swelling Verified 01/21/17 17:39 ziprasidone HCl [From Geodon] Allergy Severe Swelling Verified 01/21/17 17:39 ziprasidone mesylate Allergy Severe sweating Verified 01/21/17 17:39 [From Geodon] risperidone [From Risperdal] Allergy Intermediate sweating Verified 01/21/17 17: 39 History of Present Illness: this 51 years old male with alcohol and cocaine,seeking detox,last treatment [facility] 03/02,withdrawal symptom syncope nicotine dependence weight decreased multiple admissions longest period of sobriety 4 years anxiety,depression,insomnia gerd Exam Limitations: No Limitations - Ebola screening Have you traveled outside of the country in the last 21 days: No Have you been sick,other than usual withdrawal symptoms: No - Review of Systems Constitutional: Loss of Appetite, Malaise, Night Sweats, Changes in sleep, Unintentional Wgt. Loss EENT: reports: Tearing, Nose Congestion Respiratory: reports: No Symptoms reported Cardiac: reports: Palpitations GI: reports: Diarrhea, Nausea, Vomiting, Abdominal cramping : reports: No Symptoms Reported Musculoskeletal: reports: Back Pain, Muscle Pain Integumentary: reports: Dryness Neuro: reports: Headache, Tremors Endocrine: reports: No Symptoms Reported Hematology: reports: No Symptoms Reported Psychiatric: reports: Judgement Intact, Mood/Affect Appropiate, Orientated x3 ( insomnia), Anxious, Depressed Patient History - Patient Medical History Hx Anemia: No Hx Asthma: No Hx Chronic Obstructive Pulmonary Disease (COPD): No Hx Cancer: No Hx Cardiac Disorders: No Hx Congestive Heart Failure: No Hx Hypertension: No Hx Hypercholesterolemia: No Hx Pacemaker: No HX Cerebrovascular Accident: No Hx Seizures: No Hx Dementia: No Hx Diabetes: No Hx Gastrointestinal Disorders: Yes (gerd) Hx Liver Disease: No Hx Genitourinary Disorders: No Hx Sexually Transmitted Disorders: No Hx Renal Disease (ESRD): No Hx Thyroid Disease: No Hx Human Immunodeficiency Virus (HIV): No (last 03/17/17 negative) Hx Hepatitis C: No Hx Depression: No Hx Suicide Attempt: No Hx Bipolar Disorder: No Hx Schizophrenia: Yes (on zyprexa) Other Medical History: anxiety,depression,insomnia,bronchitis,s/p appendenctomy, spleen repair post - Patient Surgical History Past Surgical History: Yes Hx Neurologic Surgery: No Hx Cataract Extraction: No Hx Cardiac Surgery: No Hx Lung Surgery: No Hx Breast Surgery: No Hx Breast Biopsy: No Hx Abdominal Surgery: Yes (spleen repair 12/2014) Hx Appendectomy: Yes (IN 1987) Hx Cholecystectomy: No Hx Genitourinary Surgery: No Hx Section: No Hx Orthopedic Surgery: Yes (left ankle sx x2 1986 - plate with 5 screws) Other Surgical History: I & D abscess on right buttocks 5 years ago Anesthesia Reaction: No - PPD History Previous Implant?: Yes Date: 03/14/16 Results: 0 mm PPD to be Administered?: Yes - Smoking Cessation Smoking history: Current every day smoker Have you smoked in the past 12 months: Yes Aproximately how many cigarettes per day: 5 Cigars Per Day: 0 Hx Chewing Tobacco Use: No Initiated information on smoking cessation: Yes 'Breaking Loose' booklet given: 04/02/17 - Substance & Tx. 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 Use Treatment: Yes ([facility] 03/02) - Substances Abused Alcohol Route: Oral Frequency: Daily Amount used: 3pints of kathe,rum,vodka/ 4 of 16 ozs of beer Age of first use: 15 Date of Last Use: 04/01/17 Cocaine Route: Smoking Frequency: 1-3 times last 30 days Amount used: 50$ Age of first use: 20 Date of Last Use: 04/01/17 Family Disease History - Family Disease History Family Disease History: Diabetes: Brother (HTN), Heart Disease: Father (HTN ), Mother (HTN), Brother Admission Physical Exam [facility] - Vital Signs Vital Signs: Vital Signs - 24 hr 04/02/17 13:20 Temperature 96 F L Pulse Rate 87 Respiratory 18 Rate Blood Pressure 111/72 - Physical General Appearance: Yes: Moderate Distress, Tremorous, Irritable, Sweating, Anxious HEENTM: Yes: Normocephalic, SHANELL, Pharynx Normal Respiratory: Yes: Within Normal Limits, Lungs Clear, Normal Breath Sounds Neck: Yes: Within Normal Limits, Supple, Trachea in good position Breast: Yes: Within Normal Limits Cardiology: Yes: Within Normal Limits, Regular Rhythm, Regular Rate, S1, S2 Abdominal: Yes: Within Normal Limits, Normal Bowel Sounds, Non Tender, Flat, Soft Genitourinary: Yes: Within Normal Limits Back: Yes: Normal Inspection, Muscle Spasm Musculoskeletal: Yes: Back pain, Muscle Pain Extremities: Yes: Within Normal Limits, Normal Range of Motion, Tremors Neurological: Yes: stockroom 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 II-XII NML intact, Fully Oriented, Alert, Motor Strength 5/5 Integumentary: Yes: Dry Lymphatic: Yes: Within Normal Limits - Diagnostic (1) Alcohol dependence with uncomplicated withdrawal Current Visit: No Status: Acute (2) Cocaine dependence Current Visit: No Status: Acute Qualifiers: Substance use status: uncomplicated Qualified Code(s): F14.20 - Cocaine dependence, uncomplicated Comment: Abilify 10mg poqd (3) GERD (gastroesophageal reflux disease) Current Visit: No Status: Acute Qualifiers: Esophagitis presence: without esophagitis Qualified Code(s): K21.9 - Gastro -esophageal reflux disease without esophagitis (4) Nicotine dependence Current Visit: No Status: Acute (5) Low back pain Current Visit: No Status: Chronic (6) Schizophrenia, paranoid Current Visit: No Status: Chronic Cleared for Admission [facility] - Detox or Rehab [facility] Level of Care: Medically Managed Detox Regimen/Protocol: Librium S Breath Alcohol Content Breath Alcohol Content: 0 Urine Drug Screen - Results Drug Screen Negative: No Urine Drug Screen Results: DEBBIE-Cocaine, BZO-Benzodiazepines
[2017-04-02] MEDS ORDERED: chlordiazePOXIDE HCL 25 MG CAPSULE PO ONE (19:47)
[2017-04-02] MEDS ORDERED: hydrOXYzine PAMOATE 50 MG CAPSULE (FP) PO PRN (19:47)
[2017-04-02] MEDS ORDERED: guaiFENesin/D-METHORPHAN HB 10 ML UNIT-DOSE CUPS PO PRN (19:47)
[2017-04-02] MEDS ORDERED: MAGNESIUM HYDROX 2400MG/30ML ORAL SUSPENSION 30 ML CUP PO PRN (19:47)
[2017-04-02] MEDS ORDERED: MAGNESIUM CITRATE 300 ML BOTTLE PO PRN (19:47)
[2017-04-02] MEDS ORDERED: MENTHOL/PHENOL 1 EACH UD MM PRN (19:47)
[2017-04-02] MEDS ORDERED: LOPERAMIDE HCL 2 MG CAPSULE PO PRN (19:47)
[2017-04-02] MEDS ORDERED: MAG HYDROX/AL HYDROX/SIMETH 30 ML UNIT-DOSE CUP PO PRN (19:47)
[2017-04-02] MEDS ORDERED: ACETAMINOPHEN 325 MG TABLET (FP) PO PRN (19:47)
[2017-04-02] MEDS ORDERED: chlordiazePOXIDE HCL 25 MG CAPSULE PO PRN (19:47)
[2017-04-02] MEDS ORDERED: P-EPHED 60MG/TRIPROLIDI 2.5MG TABLET PO PRN (19:47)
[2017-04-02] MEDS ORDERED: NICOTINE POLACRILEX 2 MG GUM BC PRN (19:47)
[2017-04-02] MEDS ORDERED: ALBUTEROL SO4 18 GM HFA INHALER IH PRN (19:56)
[2017-04-02] MEDS: NICOTINE 21 MG/24 HOURS TOPICAL PATCH TD SCH (20:31)
[2017-04-02] MEDS: IBUPROFEN 400 MG TABLET (FP) PO PRN (20:57)
[2017-04-02] MEDS: THIAMINE HCL 100 MG TABLET (FP) PO SCH (22:51)
[2017-04-02] MEDS: RANITIDINE HCL 150 MG TABLET (FP) PO SCH (22:51)
[2017-04-02 23:41] LABS: URINE APPEARANCE SLCLOUDY; URINE BILIRUBIN NEGATIVE (NEGATIVE); URINE BLOOD NEGATIVE (NEGATIVE); URINE COLOR YELLOW; URINE GLUCOSE (UA) NEGATIVE (NEGATIVE); URINE KETONE NEGATIVE (NEGATIVE); URINE LEUK ESTERASE NEGATIVE (NEGATIVE); URINE NITRITE NEGATIVE (NEGATIVE); URINE PROTEIN NEGATIVE (NEGATIVE); URINE UROBILINOGEN 4.0 E.U/dl mg/dL (0.2-1.0)
[2017-04-02] MEDS: chlordiazePOXIDE HCL 25 MG CAPSULE PO SCH (23:57)
[2017-04-03] MEDS: chlordiazePOXIDE HCL 25 MG CAPSULE PO SCH ×4 (05:28→22:11)
--- NOTE | 2017-04-03 10:09 | PN ---
S CIWA - CIWA Score Nausea/Vomitin Muscle Tremors: 3 Anxiety: 3 Agitation: 2 Paroxysmal Sweats: 1-Minimal Palms Moist Orientation: 0-Oriented Tacttile Disturbances: 1-Very Mild Itch/Numbness Auditory Disturbances: 1-Very Mild Visual Disturbances: 0-None Headache: 2-Mild CIWA-Ar Total Score: 16 BHS Progress Note (SOAP) Subjective: ALERT,IRRITABLE,ANXIOUS,INTERRUPTED SLEEP,TREMOR,PAIN IN THE BODY AND BACK Objective: 04/03/17 10:08 Vital Signs Temperature 97.1 F L 04/03/17 06:39 Pulse Rate 89 04/03/17 06:39 Respiratory Rate 18 04/03/17 06:39 Blood Pressure 100/60 04/03/17 06:39 O2 Sat by Pulse Oximetry (%) EKG NSR,NORMAL ECG Laboratory Last Values Urine Color Yellow 04/02/17 23:25 Urine Appearance Slcloudy 04/02/17 23:25 Urine pH 6.0 (5.0-8.0) 04/02/17 23:25 Ur Specific [place] 1.018 (1.001-1.035) 04/02/17 23:25 Urine Protein Negative (NEGATIVE) 04/02/17 23:25 Urine Glucose (UA) Negative (NEGATIVE) 04/02/17 23:25 Urine Ketones Negative (NEGATIVE) 04/02/17 23:25 Urine Blood Negative (NEGATIVE) 04/02/17 23:25 Urine Nitrite Negative (NEGATIVE) 04/02/17 23:25 Urine Bilirubin Negative (NEGATIVE) 04/02/17 23:25 Urine Urobilinogen 4.0 e.u/dl mg/dL (0.2-1.0) 04/02/17 23:25 Ur Leukocyte Esterase Negative (NEGATIVE) 04/02/17 23:25 LAB PENDING Assessment: 04/03/17 10:09 WITHDRAWAL SYMPTOM Plan: CONTINUE DETOX
[2017-04-03] MEDS: NICOTINE 21 MG/24 HOURS TOPICAL PATCH TD SCH (10:29)
[2017-04-03] MEDS: RANITIDINE HCL 150 MG TABLET (FP) PO SCH ×2 (10:29→22:11)
[2017-04-03] MEDS: PRENATAL VITAMINS W/ FOLIC ACID TABLET (FP) PO SCH (10:29)
[2017-04-03] MEDS: IBUPROFEN 400 MG TABLET (FP) PO PRN (10:31)
[2017-04-03 10:42] LABS: HEMATOCRIT 40.7 % (35.4-49); HEMOGLOBIN 13.9 GM/dL (11.7-16.9); MCH 27.3 pg (25.7-33.7); MCHC 34.2 g/dl (32.0-35.9); MEAN CELL VOLUME 79.7 fl (80-96); MEAN PLT VOLUME 9.5 fl (7.5-11.1); PLATELET COUNT 180 K/MM3 (134-434); RBC 5.11 M/mm3 (4.00-5.60); RDW 15.8 % (11.9-15.9); WHITE BLOOD COUNT 7.8 K/mm3 (4.0-10.0)
[2017-04-03 10:53] LABS: CHLORIDE 108 mmol/L (98-107); POTASSIUM 4.1 mmol/L (3.5-5.1); SODIUM 141 mmol/L (136-145)
[2017-04-03 11:13] LABS: ALBUMIN 3.2 g/dl (3.4-5.0); ALK PHOS 61 U/L (45-117); ANION GAP 5 (8-16); BILIRUBIN,TOTAL 0.3 mg/dL (0.2-1.0); BLOOD UREA NITROGEN 13 mg/dL (7-18); CALCIUM 8.1 mg/dL (8.5-10.1); CO2 28 mmol/L (21-32); CREATININE 1.1 mg/dL (0.7-1.3); GLUCOSE,RANDOM 103 mg/dL (74-106); SGOT/AST 21 U/L (15-37); SGPT/ALT 24 U/L (12-78); TOT PROT 6.8 g/dl (6.4-8.2)
--- NOTE | 2017-04-03 11:47 | CONSULT ---
[facility] Psychiatric Consult - Data Date of interview: 04/03/17 Admission source: [facility] Identifying data: Pt. is a 51 year old single male, father of three, unemployed , and homeless. This is one of multiple admissions for patient. Pt. admitted to for alcohol and cocaine dependence. Substance Abuse History: Following information confirmed with Mr. Garsia: Smoking Cessation. Smoking history: Current every day smoker. Have you smoked in the past 12 months: Yes. Aproximately how many cigarettes per day: 5. Cigars Per Day: 0. Hx Chewing Tobacco Use: No. Initiated information on smoking cessation: Yes. 'Breaking Loose' booklet given: 04/02/17. - Substance & Tx. History. Hx Alcohol Use: Yes. Hx Substance Use: Yes. Substance Use Type : Alcohol, Cocaine. Hx Substance Use Treatment: Yes ([facility] 03/02). - Substances Abused. Alcohol. Route: Oral. Frequency: Daily. Amount used: 3pints of kathe,rum,vodka/ 4 of 16 ozs of beer. Age of first use: 15. Date of Last Use: 04/01/17. Cocaine. Route: Smoking. Frequency: 1-3 times last 30 days. Amount used: 50$. Age of first use: 20. Date of Last Use: 04/01/17 Medical History: GERD Psychiatric History: Pt. reports several psychiatric hospitalizations with the most recent hospitalization occuring at [facility] in 2014 for "anxiety and needing rest." Reports a diagnosis of schizophrenia, paranoid type and is prescribed zyprexa 5mg. Pt. denies outpatient psychiatric care. Pt. reports getting his refills from different emergency rooms. Pt denies h/o suicide attempt. Pt. denies suicidal and homicidal ideation. Physical/Sexual Abuse/Trauma History: Denies. Mental Status Exam - Mental Status Exam Alert and Oriented to: Time, Place, Person Cognitive Function: Good Patient Appearance: Well Groomed Mood: Euthymic Affect: Mood Congruent Patient Behavior: Guarded, Cooperative Speech Pattern: Delayed Voice Loudness: Normal Thought Process: Goal Oriented Thought Disorder: Not Present Hallucinations: Denies Suicidal Ideation: Denies Homicidal Ideation: Denies Insight/Judgement: Poor Sleep: Fair Appetite: Good Muscle strength/Tone: Normal Gait/Station: Normal Psychiatric Findings - Problem List ([place] 1, 2,3) (1) Schizophrenia, paranoid Current Visit: Yes Status: Chronic Comment: History. (2) Alcohol dependence with uncomplicated withdrawal Current Visit: Yes Status: Acute (3) Cocaine dependence Current Visit: Yes Status: Chronic Qualifiers: Substance use status: uncomplicated Qualified Code(s): F14.20 - Cocaine dependence, uncomplicated Comment: Abilify 10mg poqd (4) Nicotine dependence Current Visit: Yes Status: Acute (5) Alcohol dependence Current Visit: Yes Status: Chronic
[2017-04-03] MEDS: METHOCARBAMOL 500 MG TABLET PO SCH ×2 (14:03→22:11)
[2017-04-03] MEDS ORDERED: OLANZapine 5 MG TABLET PO SCH (22:00)
[2017-04-03] MEDS: THIAMINE HCL 100 MG TABLET (FP) PO SCH (22:11)
--- NOTE | 2017-04-03 23:29 | EKG ---
Test Reason : Blood Pressure : / mmHG Vent. Rate : 066 BPM Atrial Rate : 066 BPM P-R Int : 146 ms QRS Dur : 084 ms QT Int : 418 ms P-R-T Axes : 041 005 027 degrees QTc Int : 438 ms NORMAL SINUS RHYTHM NORMAL ECG WHEN COMPARED WITH ECG OF 21-JAN-2017 19:40, NO SIGNIFICANT CHANGE WAS FOUND Confirmed by EZEQUIEL GLASS MD ([id number]) on 04/03/2017 11:28:42 PM Referred By: Tip Slade Confirmed By:EZEQUIEL GLASS MD
[2017-04-04] MEDS: chlordiazePOXIDE HCL 25 MG CAPSULE PO SCH ×2 (05:26→10:26)
[2017-04-04] MEDS: METHOCARBAMOL 500 MG TABLET PO SCH (05:26)
--- NOTE | 2017-04-04 10:04 | PN ---
S CIWA - CIWA Score Nausea/Vomitin Muscle Tremors: 3 Anxiety: 3 Agitation: 2 Paroxysmal Sweats: 1-Minimal Palms Moist Orientation: 0-Oriented Tacttile Disturbances: 1-Very Mild Itch/Numbness Auditory Disturbances: 1-Very Mild Visual Disturbances: 1-Very Mild Sensitivity Headache: 2-Mild CIWA-Ar Total Score: 17 BHS Progress Note (SOAP) Subjective: ALERT,IRRITABLE,ANXIOUS,INTERRUPTED SLEEP,TREMOR Objective: 04/04/17 10:02 Vital Signs Temperature 97.7 F 04/04/17 06:00 Pulse Rate 69 04/04/17 06:00 Respiratory Rate 18 04/04/17 06:00 Blood Pressure 106/64 04/04/17 06:00 O2 Sat by Pulse Oximetry (%) Laboratory Last Values WBC 7.8 K/mm3 (4.0-10.0) 04/03/17 08:10 RBC 5.11 M/mm3 (4.00-5.60) 04/03/17 08:10 Hgb 13.9 GM/dL (11.7-16.9) D 04/03/17 08:10 Hct 40.7 % (35.4-49) 04/03/17 08:10 MCV 79.7 fl (80-96) L 04/03/17 08:10 MCH 27.3 pg (25.7-33.7) 04/03/17 08:10 MCHC 34.2 g/dl (32.0-35.9) 04/03/17 08:10 RDW 15.8 % (11.9-15.9) 04/03/17 08:10 Plt Count 180 K/MM3 (134-434) 04/03/17 08:10 MPV 9.5 fl (7.5-11.1) 04/03/17 08:10 Sodium 141 mmol/L (136-145) 04/03/17 08:10 Potassium 4.1 mmol/L (3.5-5.1) 04/03/17 08:10 Chloride 108 mmol/L (98-107) H 04/03/17 08:10 Carbon Dioxide 28 mmol/L (21-32) 04/03/17 08:10 Anion Gap 5 (8-16) L 04/03/17 08:10 BUN 13 mg/dL (7-18) D 04/03/17 08:10 Creatinine 1.1 mg/dL (0.7-1.3) 04/03/17 08:10 Creat Clearance w eGFR > 60 (>60) 04/03/17 08:10 Random Glucose 103 mg/dL (74-106) 04/03/17 08:10 Calcium 8.1 mg/dL (8.5-10.1) L 04/03/17 08:10 Total Bilirubin 0.3 mg/dL (0.2-1.0) D 04/03/17 08:10 AST 21 U/L (15-37) D 04/03/17 08:10 ALT 24 U/L (12-78) D 04/03/17 08:10 Alkaline Phosphatase 61 U/L (45-117) 04/03/17 08:10 Total Protein 6.8 g/dl (6.4-8.2) 04/03/17 08:10 Albumin 3.2 g/dl (3.4-5.0) L 04/03/17 08:10 Urine Color Yellow 04/02/17 23:25 Urine Appearance Slcloudy 04/02/17 23:25 Urine pH 6.0 (5.0-8.0) 04/02/17 23:25 Ur Specific [place] 1.018 (1.001-1.035) 04/02/17 23:25 Urine Protein Negative (NEGATIVE) 04/02/17 23:25 Urine Glucose (UA) Negative (NEGATIVE) 04/02/17 23:25 Urine Ketones Negative (NEGATIVE) 04/02/17 23:25 Urine Blood Negative (NEGATIVE) 04/02/17 23:25 Urine Nitrite Negative (NEGATIVE) 04/02/17 23:25 Urine Bilirubin Negative (NEGATIVE) 04/02/17 23:25 Urine Urobilinogen 4.0 e.u/dl mg/dL (0.2-1.0) 04/02/17 23:25 Ur Leukocyte Esterase Negative (NEGATIVE) 04/02/17 23:25 RPR Titer Nonreactive (NONREACTIVE) 04/03/17 08:10 Assessment: 04/04/17 10:03 WITHDRAWAL SYMPTOM Plan: CONTINUE DETOX
[2017-04-04] MEDS: RANITIDINE HCL 150 MG TABLET (FP) PO SCH (10:24)
[2017-04-04] MEDS: NICOTINE 21 MG/24 HOURS TOPICAL PATCH TD SCH (10:24)
[2017-04-04] MEDS: PRENATAL VITAMINS W/ FOLIC ACID TABLET (FP) PO SCH (10:24)
[2017-04-04] MEDS ORDERED: METHOCARBAMOL 500 MG TABLET PO ONE (11:29)
[2017-04-04] MEDS ORDERED: METHOCARBAMOL 500 MG TABLET PO PRN (11:31)
[2017-04-04 13:07] VITALS: BP 107/65; PULSE 89; TEMP 97.2
--- NOTE | 2017-04-04 13:27 | PN ---
S Progress Note Note: patient did not want to complete treatment,seen by counselor,did not want to wait,signed release ama
--- NOTE | 2017-04-04 13:32 | DS ---
[facility] Detox Discharge Summary Admission Date: 04/02/17 Discharge Date: 04/04/17 - History Present History: Alcohol Dependence, Cocaine Dependence Additional Comments: patient did not want to complete treatment,seen by counselor,signed release ama, did not want to wait Pertinent Past History: gerd nicotine dependence - Physical Exam Results Vital Signs: Vital Signs Temperature 97.2 F L 04/04/17 13:06 Pulse Rate 89 04/04/17 13:06 Respiratory Rate 18 04/04/17 13:06 Blood Pressure 107/65 04/04/17 13:06 O2 Sat by Pulse Oximetry (%) Pertinent Admission Physical Exam Findings: withdrawal symptom and finding - Medication Discharge Medications: Ambulatory Orders Olanzapine [Zyprexa -] 5 mg PO DAILY #30 tablet 03/14/16 Ranitidine [Zantac -] 150 mg PO BID #30 tablet 12/09/16 Methocarbamol [Robaxin -] 500 mg PO BID 04/02/17 - Diagnosis (1) Alcohol dependence with uncomplicated withdrawal Status: Acute (2) Cocaine dependence Status: Chronic Qualifiers: Substance use status: uncomplicated Qualified Code(s): F14.20 - Cocaine dependence, uncomplicated (3) GERD (gastroesophageal reflux disease) Status: Acute Qualifiers: Esophagitis presence: without esophagitis Qualified Code(s): K21.9 - Gastro -esophageal reflux disease without esophagitis (4) Nicotine dependence Status: Acute (5) Low back pain Status: Chronic (6) Schizophrenia, paranoid Status: Chronic - AMA Did Patient Leave Against Medical Advice: Yes
[2017-04-04] MEDS ORDERED: chlordiazePOXIDE 5 MG CAPSULE PO SCH (23:00)
[2017-04-05] MEDS ORDERED: chlordiazePOXIDE HCL 10 MG CAPSULE PO SCH (23:00)
== END 2017-04-04 13:10 | disposition left against medical advice (07) | DRG 894 ==
LOC: YASAS 12:54 → Y6N 17:30
PROVIDERS: ADMIT Internal Medicine; ATTEND Internal Medicine
PROC: HZ2ZZZZ Detoxification Services for Substance Abuse Treatment (ICD-10-PCS; principal; 2017-04-02)
DX: F10.230 Alcohol dependence with withdrawal, uncomplicated (principal); F14.20 Cocaine dependence, uncomplicated; F20.0 Paranoid schizophrenia; F17.210 Nicotine dependence, cigarettes, uncomplicated; F41.8 Other specified anxiety disorders; G47.00 Insomnia, unspecified; M54.5 Low back pain; G89.29 Other chronic pain; K21.9 Gastro-esophageal reflux disease without esophagitis
CPT/HCPCS: 36415; 80053; 81003; 85027; 86593; 93005; 93010

== ENCOUNTER 2017-05-18 10:02 | Inpatient (IN) | payer OTHER ==
[2017-05-18 10:39] VITALS: BMI 24.1
--- NOTE | 2017-05-18 14:40 | HP ---
CIWA Score - CIWA Score Nausea/Vomitin Muscle Tremors: 3 Anxiety: 3 Agitation: 3 Paroxysmal Sweats: 3 Orientation: 0-Oriented Tacttile Disturbances: 0-None Auditory Disturbances: 0-None Visual Disturbances: 0-None Headache: 1-Very Mild CIWA-Ar Total Score: 16 Admission ROS S - HPI Chief Complaint: alcohol withdrawal sx Allergies/Adverse Reactions: Allergies Allergy/AdvReac Type Severity Reaction Status Date / Time escitalopram Allergy Severe ITCHING Verified 05/18/17 11:03 WITH LEXAPRO fluphenazine [Fluphenazine] Allergy Severe Itching Verified 05/18/17 11:03 sertraline HCl [From Zoloft] Allergy Severe abdominal Verified 05/18/17 11:03 swelling ziprasidone Allergy Severe Swelling Verified 05/18/17 11:03 ziprasidone HCl [From Geodon] Allergy Severe Swelling Verified 05/18/17 11:03 ziprasidone mesylate Allergy Severe sweating Verified 05/18/17 11:03 [From Geodon] risperidone [From Risperdal] Allergy Intermediate sweating Verified 05/18/17 11: 03 History of Present Illness: 51 yo m with h/o alchol use disorder , severe, multiple inaptietn detoxification froma lcohol at [facility] reports alcohol withdrawal sx when he does not use, no h/o seizures, DTS, no SI. smoke crack most days, smokes <1/ 2PPD. denies benzo use was recently in an ED where he was given benzos at [facility] for body aches and pains. thirsty PMHX depression, anxiety, and insomnia Exam Limitations: No Limitations - Ebola screening Have you traveled outside of the country in the last 21 days: No Have you had contact with anyone from an Ebola affected area: No Have you been sick,other than usual withdrawal symptoms: No Do you have a fever: No - Review of Systems Constitutional: Chills, Diaphoresis, Night Sweats, Changes in sleep, Weight Stable EENT: reports: No Symptoms Reported Respiratory: reports: No Symptoms reported Cardiac: reports: No Symptoms Reported GI: reports: Diarrhea, Nausea, Poor Appetite, Poor Fluid Intake, Vomiting, Indigestion, Abdominal cramping : reports: No Symptoms Reported Integumentary: reports: Flushing, Sweating Neuro: reports: Headache, Tremors Endocrine: reports: Increased Thirst Hematology: reports: No Symptoms Reported Psychiatric: reports: Judgement Intact, Mood/Affect Appropiate, Orientated x3, Anxious, Depressed Other Systems: Reviewed and Negative Patient History - Patient Medical History Hx Anemia: No Hx Asthma: No Hx Chronic Obstructive Pulmonary Disease (COPD): No Hx Cancer: No Hx Cardiac Disorders: No Hx Congestive Heart Failure: No Hx Hypertension: No Hx Hypercholesterolemia: No Hx Pacemaker: No HX Cerebrovascular Accident: No Hx Seizures: No Hx Dementia: No Hx Diabetes: No Hx Gastrointestinal Disorders: Yes (acid reflux) Hx Liver Disease: No Hx Genitourinary Disorders: No Hx Sexually Transmitted Disorders: No Hx Renal Disease (ESRD): No Hx Thyroid Disease: No Hx Human Immunodeficiency Virus (HIV): No (last 03/17/17 negative) Hx Hepatitis C: No Hx Depression: No Hx Suicide Attempt: No Hx Bipolar Disorder: No Hx Schizophrenia: Yes (paranoid schizophrenia) - Patient Surgical History Past Surgical History: Yes Hx Neurologic Surgery: No Hx Cataract Extraction: No Hx Cardiac Surgery: No Hx Lung Surgery: No Hx Breast Surgery: No Hx Breast Biopsy: No Hx Abdominal Surgery: Yes (spleen repair 12/2014) Hx Appendectomy: Yes (IN 1987) Hx Cholecystectomy: No Hx Genitourinary Surgery: No Hx Section: No Hx Orthopedic Surgery: Yes (left ankle sx x2 1986 - plate with 5 screws) Other Surgical History: I & D abscess on right buttocks 5 years ago Anesthesia Reaction: No - PPD History Previous Implant?: Yes Documented Results: Negative w/proof Implanted On Prior [facility] Admission?: Yes Date: 03/14/16 Results: 0 mm PPD to be Administered?: Yes - Reproductive History Patient is a Female of Child Bearing Age (11 -55 yrs old): No Patient : No - Smoking Cessation Smoking history: Current every day smoker Have you smoked in the past 12 months: Yes Aproximately how many cigarettes per day: 4 Cigars Per Day: 0 Hx Chewing Tobacco Use: No Initiated information on smoking cessation: Yes 'Breaking Loose' booklet given: 05/18/17 - Substance & Tx. 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 Use Treatment: Yes (03/2017 [facility] detox) - Substances Abused Crack Route: Smoking Frequency: 1-2 times per week Amount used: $50 Age of first use: 20 Date of Last Use: 05/18/17 Alcohol-vodka/beer Route: Oral Frequency: Daily Amount used: 3-4 pts./4 (16 oz.) Age of first use: 15 Date of Last Use: 05/18/17 Family Disease History - Family Disease History Family Disease History: Diabetes: Brother (HTN), Heart Disease: Father (HTN ), Mother (HTN), Brother Admission Physical Exam [facility] - Vital Signs Vital Signs: Vital Signs - 24 hr 05/18/17 10:34 Temperature 95.8 F L Pulse Rate 60 Respiratory 18 Rate Blood Pressure 126/76 - Physical General Appearance: Yes: Nourished, Appropriately Dressed, Disheveled, Mild Distress, Thin, Tremorous, Irritable, Sweating, Anxious HEENTM: Yes: Within Normal Limits, EOMI, Hearing grossly Normal, Normal ENT Inspection, Normocephalic, Normal Voice, SHANELL, Pharynx Normal Respiratory: Yes: Within Normal Limits, Chest Non-Tender, Lungs Clear, Normal Breath Sounds, No Respiratory Distress, No Accessory Muscle Use Neck: Yes: Within Normal Limits, No masses,lesions,Nodules, Supple, Trachea in good position Breast: Yes: Breast Exam Deferred Cardiology: Yes: Within Normal Limits, Regular Rhythm, Regular Rate, S1, S2 Abdominal: Yes: Within Normal Limits, Normal Bowel Sounds, Non Tender, Flat, Soft, Increased Bowel Sounds Genitourinary: Yes: Within Normal Limits Back: Yes: Within Normal Limits, Normal Inspection Musculoskeletal: Yes: full range of Motion, Gait Steady, Pelvis Stable, Back pain, Joint Stiffness, Muscle Pain Extremities: Yes: Normal Capillary Refill, Normal Range of Motion, Non-Tender, Tremors Neurological: Yes: layout inspector II-XII NML intact, Fully Oriented, Alert, Motor Strength 5/5, Normal Response, Depressed Affect Integumentary: Yes: Normal Color, Warm, Diaphoresis, Moist Lymphatic: Yes: Within Normal Limits - Addiitonal Findings: withdrawal sx - Diagnostic (1) Alcohol dependence with uncomplicated withdrawal Current Visit: No Status: Acute (2) Cocaine dependence, uncomplicated Current Visit: No Status: Acute (3) GERD (gastroesophageal reflux disease) Current Visit: No Status: Acute Qualifiers: Esophagitis presence: without esophagitis Qualified Code(s): K21.9 - Gastro -esophageal reflux disease without esophagitis (4) Nicotine dependence Current Visit: No Status: Acute (5) Weight loss Current Visit: No Status: Acute (6) Low back pain Current Visit: No Status: Chronic (7) Schizophrenia, paranoid Current Visit: No Status: Chronic Comment: History. Cleared for Admission [facility] - Detox or Rehab [facility] Level of Care: Medically Managed Detox Regimen/Protocol: Librium S Breath Alcohol Content Breath Alcohol Content: 0 Urine Drug Screen - Results Drug Screen Negative: No Urine Drug Screen Results: DEBBIE-Cocaine, BZO-Benzodiazepines
[2017-05-18] MEDS ORDERED: MENTHOL/PHENOL 1 EACH UD MM PRN (14:41)
[2017-05-18] MEDS ORDERED: IBUPROFEN 400 MG TABLET (FP) PO PRN (14:41)
[2017-05-18] MEDS ORDERED: LOPERAMIDE HCL 2 MG CAPSULE PO PRN (14:41)
[2017-05-18] MEDS ORDERED: NICOTINE POLACRILEX 2 MG GUM BUC PRN (14:41)
[2017-05-18] MEDS ORDERED: hydrOXYzine PAMOATE 50 MG CAPSULE (FP) PO PRN (14:41)
[2017-05-18] MEDS ORDERED: P-EPHED 60MG/TRIPROLIDI 2.5MG TABLET PO PRN (14:41)
[2017-05-18] MEDS ORDERED: MAGNESIUM HYDROX 2400MG/30ML ORAL SUSPENSION 30 ML CUP PO PRN (14:41)
[2017-05-18] MEDS ORDERED: chlordiazePOXIDE HCL 25 MG CAPSULE PO PRN (14:41)
[2017-05-18] MEDS ORDERED: MAG HYDROX/AL HYDROX/SIMETH 30 ML UNIT-DOSE CUP PO PRN (14:41)
[2017-05-18] MEDS ORDERED: MAGNESIUM CITRATE 300 ML BOTTLE PO PRN (14:41)
[2017-05-18] MEDS ORDERED: guaiFENesin/D-METHORPHAN HB 10 ML UNIT-DOSE CUPS PO PRN (14:41)
[2017-05-18] MEDS ORDERED: chlordiazePOXIDE HCL 25 MG CAPSULE PO ONE (15:00)
[2017-05-18] MEDS: NICOTINE 7 MG/24 HOURS TOPICAL PATCH TD SCH (15:19)
--- NOTE | 2017-05-18 15:51 | CONSULT ---
[facility] Psychiatric Consult - Data Date of interview: 05/18/17 Admission source: [facility] Identifying data: Pt. is a 51 year old single male, father of five, unemployed, collecting SSI, and currently homeless. This is one of multiple admissions for patient. Pt. admitted to for alcohol and cocaine dependence. Substance Abuse History: Following information confirmed with Mr. Garsia: Smoking Cessation. Smoking history: Current every day smoker. Have you smoked in the past 12 months: Yes. Aproximately how many cigarettes per day: 4. Cigars Per Day: 0. Hx Chewing Tobacco Use: No. Initiated information on smoking cessation: Yes. 'Breaking Loose' booklet given: 05/18/17. - Substance & Tx. History. Hx Alcohol Use: Yes. Hx Substance Use: Yes. Substance Use Type : Alcohol, Cocaine. Hx Substance Use Treatment: Yes (03/2017 [facility] inpatient detox). - Substances Abused. Crack. Route: Smoking. Frequency: 1-2 times per week. Amount used: $50. Age of first use: 20. Date of Last Use : 05/18/17. Alcohol-vodka/beer. Route: Oral. Frequency: Daily. Amount used: 3-4 pts./4 (16 oz.). Age of first use: 15. Date of Last Use: 05/18/17 Medical History: left ankle sx x2 1986 - plate with 5 screws, acid reflux Psychiatric History: Pt. reports three psychiatric hospitalizations, most recently at [facility] in 2007 for depression. Pt has also been hospitalized at [facility]. Pt. has a diagnosis of paranoid schizophrenia. Pt. is prescribed zyprexa 5mg. Pt. is nonadherent to outpatient care. Reports receiving prescriptions of zyprexa from various emergency rooms. Reports taking his most recent dose two days ago. Pt. denies h /o suicide attempt. Pt. currently denies suicidal and homicidal ideation. Physical/Sexual Abuse/Trauma History: Denies. Mental Status Exam - Mental Status Exam Alert and Oriented to: Time, Place, Person Cognitive Function: Good Patient Appearance: Unkempt Mood: Euthymic Affect: Flat Patient Behavior: Appropriate, Cooperative Speech Pattern: Appropriate Voice Loudness: Normal Thought Process: Goal Oriented Thought Disorder: Not Present Hallucinations: Denies Suicidal Ideation: Denies Homicidal Ideation: Denies Insight/Judgement: Poor Sleep: Fair Appetite: Good Muscle strength/Tone: Normal Gait/Station: Normal Psychiatric Findings - Problem List ([place] 1, 2,3) (1) Alcohol dependence with uncomplicated withdrawal Current Visit: Yes Status: Acute (2) Cocaine dependence, uncomplicated Current Visit: Yes Status: Acute (3) Schizophrenia, paranoid Current Visit: Yes Status: Chronic Comment: History. (4) Nicotine dependence Current Visit: Yes Status: Chronic - Initial Treatment Plan Initial Treatment Plan: Psychoeducation provided. Detoxification provided. Zyprexa 5mg qhs ordered. Benefits and side effects discussed. Verbal consent given. Will continue to monitor.
[2017-05-18] MEDS: chlordiazePOXIDE HCL 25 MG CAPSULE PO SCH ×2 (17:28→22:34)
[2017-05-18 19:43] LABS: URINE APPEARANCE CLEAR; URINE BILIRUBIN NEGATIVE (<2.0 mg/dL); URINE BLOOD NEGATIVE (NEGATIVE); URINE COLOR YELLOW; URINE GLUCOSE (UA) NEGATIVE (NEGATIVE); URINE KETONE NEGATIVE (NEGATIVE); URINE LEUK ESTERASE NEGATIVE (NEGATIVE); URINE NITRITE NEGATIVE (NEGATIVE); URINE PROTEIN NEGATIVE (NEGATIVE); URINE UROBILINOGEN 4.0 E.U/dl mg/dL (0.2-1.0)
[2017-05-18] MEDS ORDERED: OLANZapine 5 MG TABLET PO SCH (22:00)
[2017-05-18] MEDS ORDERED: MELATONIN 5 MG TABLETS PO PRN (22:00)
[2017-05-18] MEDS: THIAMINE HCL 100 MG TABLET (FP) PO SCH (22:33)
[2017-05-18] MEDS: RANITIDINE HCL 150 MG TABLET (FP) PO SCH (22:34)
[2017-05-19] MEDS: chlordiazePOXIDE HCL 25 MG CAPSULE PO SCH ×4 (05:50→22:28)
--- NOTE | 2017-05-19 10:07 | EKG ---
Test Reason : Blood Pressure : / mmHG Vent. Rate : 055 BPM Atrial Rate : 055 BPM P-R Int : 150 ms QRS Dur : 096 ms QT Int : 426 ms P-R-T Axes : 040 018 019 degrees QTc Int : 407 ms SINUS BRADYCARDIA SEPTAL INFARCT , AGE UNDETERMINED ABNORMAL ECG WHEN COMPARED WITH ECG OF 02-APR-2017 20:49, SEPTAL INFARCT IS NOW PRESENT Confirmed by MALLORY NOVOA, JAMAL ([id number]) on 05/19/2017 10:07:25 AM Referred By: Lien BUTT Confirmed By:JAMAL TEJADA MD
[2017-05-19] MEDS: NICOTINE 7 MG/24 HOURS TOPICAL PATCH TD SCH (10:20)
[2017-05-19] MEDS: RANITIDINE HCL 150 MG TABLET (FP) PO SCH ×2 (10:20→22:27)
[2017-05-19] MEDS: PRENATAL VITAMINS W/ FOLIC ACID TABLET (FP) PO SCH (10:20)
[2017-05-19 10:21] LABS: HEMATOCRIT 39.8 % (35.4-49); HEMOGLOBIN 13.6 GM/dL (11.7-16.9); MCH 28.4 pg (25.7-33.7); MCHC 34.2 g/dl (32.0-35.9); MEAN CELL VOLUME 82.8 fl (80-96); MEAN PLT VOLUME 11.7 fl (7.5-11.1); PLATELET COUNT 150 K/MM3 (134-434); RBC 4.81 M/mm3 (4.00-5.60); RDW 16.3 % (11.9-15.9); WHITE BLOOD COUNT 8.4 K/mm3 (4.0-10.0)
[2017-05-19 10:29] LABS: CHLORIDE 106 mmol/L (98-107); POTASSIUM 4.3 mmol/L (3.5-5.1); SODIUM 141 mmol/L (136-145)
[2017-05-19 10:50] LABS: ALBUMIN 3.9 g/dl (3.4-5.0); ALK PHOS 60 U/L (45-117); ANION GAP 6 (8-16); BILIRUBIN,TOTAL 0.3 mg/dL (0.2-1.0); BLOOD UREA NITROGEN 13 mg/dL (7-18); CALCIUM 9.8 mg/dL (8.5-10.1); CO2 29 mmol/L (21-32); CREATININE 0.9 mg/dL (0.7-1.3); GLUCOSE,RANDOM 70 mg/dL (74-106); SGOT/AST 21 U/L (15-37); SGPT/ALT 26 U/L (12-78); TOT PROT 7.7 g/dl (6.4-8.2)
--- NOTE | 2017-05-19 11:29 | PN ---
[facility] CIWA - CIWA Score Nausea/Vomitin-No Nausea/No Vomiting Muscle Tremors: 4-Moderate,w/Arms Extend Anxiety: 5 Agitation: 4-Moderately Restless Paroxysmal Sweats: 1-Minimal Palms Moist Orientation: 0-Oriented Tacttile Disturbances: 3-Moderate Itch/Numb/Burn (BODYACHES) Auditory Disturbances: 0-None Visual Disturbances: 0-None Headache: 0-None Present CIWA-Ar Total Score: 17 BHS Progress Note (SOAP) Subjective: ANXIETY,IRRITABILITY,BODY ACHES, BACK PAIN, SWEATS,"DIZZY". Objective: 05/19/17 11:28 Vital Signs Temperature 97.3 F L 05/19/17 09:17 Pulse Rate 73 05/19/17 09:17 Respiratory Rate 16 05/19/17 09:17 Blood Pressure 107/70 05/19/17 09:17 O2 Sat by Pulse Oximetry (%) Laboratory Last Values WBC 8.4 K/mm3 (4.0-10.0) 05/19/17 05:50 RBC 4.81 M/mm3 (4.00-5.60) 05/19/17 05:50 Hgb 13.6 GM/dL (11.7-16.9) 05/19/17 05:50 Hct 39.8 % (35.4-49) 05/19/17 05:50 MCV 82.8 fl (80-96) 05/19/17 05:50 MCH 28.4 pg (25.7-33.7) 05/19/17 05:50 MCHC 34.2 g/dl (32.0-35.9) 05/19/17 05:50 RDW 16.3 % (11.9-15.9) H 05/19/17 05:50 Plt Count 150 K/MM3 (134-434) 05/19/17 05:50 MPV 11.7 fl (7.5-11.1) H D 05/19/17 05:50 Sodium 141 mmol/L (136-145) 05/19/17 05:50 Potassium 4.3 mmol/L (3.5-5.1) 05/19/17 05:50 Chloride 106 mmol/L (98-107) 05/19/17 05:50 Carbon Dioxide 29 mmol/L (21-32) 05/19/17 05:50 Anion Gap 6 (8-16) L 05/19/17 05:50 BUN 13 mg/dL (7-18) 05/19/17 05:50 Creatinine 0.9 mg/dL (0.7-1.3) 05/19/17 05:50 Creat Clearance w eGFR > 60 (>60) 05/19/17 05:50 Random Glucose 70 mg/dL (74-106) L D 05/19/17 05:50 Calcium 9.8 mg/dL (8.5-10.1) D 05/19/17 05:50 Total Bilirubin 0.3 mg/dL (0.2-1.0) 05/19/17 05:50 AST 21 U/L (15-37) 05/19/17 05:50 ALT 26 U/L (12-78) 05/19/17 05:50 Alkaline Phosphatase 60 U/L (45-117) 05/19/17 05:50 Total Protein 7.7 g/dl (6.4-8.2) 05/19/17 05:50 Albumin 3.9 g/dl (3.4-5.0) D 05/19/17 05:50 Urine Color Yellow 05/18/17 19:00 Urine Appearance Clear 05/18/17 19:00 Urine pH 7.0 (5.0-8.0) 05/18/17 19:00 Ur Specific [place] 1.025 (1.001-1.035) 05/18/17 19:00 Urine Protein Negative (NEGATIVE) 05/18/17 19:00 Urine Glucose (UA) Negative (NEGATIVE) 05/18/17 19:00 Urine Ketones Negative (NEGATIVE) 05/18/17 19:00 Urine Blood Negative (NEGATIVE) 05/18/17 19:00 Urine Nitrite Negative (NEGATIVE) 05/18/17 19:00 Urine Bilirubin Negative (<2.0 mg/dL) 05/18/17 19:00 Urine Urobilinogen 4.0 e.u/dl mg/dL (0.2-1.0) 05/18/17 19:00 Ur Leukocyte Esterase Negative (NEGATIVE) 05/18/17 19:00 Assessment: 05/19/17 11:29 WITHDRAWAL SX Plan: CONTINUE DETOX START BACLOFEN DIRECTED
--- NOTE | 2017-05-19 12:46 | PN ---
S Progress Note Note: Psychiatry Patient wants zyprexa during daytime. Instead of HS.Discussed at bedside. Plan : Discontinue zyprexa 5 mg po daily Zyprexa 5 mg po daily
[2017-05-19] MEDS: BACLOFEN 10 MG TABLET (FP) PO SCH ×2 (13:52→22:28)
[2017-05-19] MEDS: THIAMINE HCL 100 MG TABLET (FP) PO SCH (22:28)
[2017-05-19] MEDS: ACETAMINOPHEN 325 MG TABLET (FP) PO PRN (22:28)
[2017-05-20] MEDS: chlordiazePOXIDE HCL 25 MG CAPSULE PO SCH ×2 (05:51→10:34)
[2017-05-20] MEDS: BACLOFEN 10 MG TABLET (FP) PO SCH (05:51)
[2017-05-20] MEDS: ACETAMINOPHEN 325 MG TABLET (FP) PO PRN (05:51)
[2017-05-20] MEDS ORDERED: OLANZapine 5 MG TABLET PO SCH (10:00)
[2017-05-20] MEDS: RANITIDINE HCL 150 MG TABLET (FP) PO SCH ×2 (10:34→23:38)
[2017-05-20] MEDS: NICOTINE 7 MG/24 HOURS TOPICAL PATCH TD SCH (10:34)
[2017-05-20] MEDS: PRENATAL VITAMINS W/ FOLIC ACID TABLET (FP) PO SCH (10:34)
[2017-05-20] MEDS ORDERED: METHOCARBAMOL 500 MG TABLET PO PRN (10:58)
--- NOTE | 2017-05-20 13:34 | PN ---
[facility] CIWA - CIWA Score Nausea/Vomitin-No Nausea/No Vomiting Muscle Tremors: 3 Anxiety: 5 Agitation: 4-Moderately Restless Paroxysmal Sweats: 3 Orientation: 0-Oriented Tacttile Disturbances: 3-Moderate Itch/Numb/Burn Auditory Disturbances: 0-None Visual Disturbances: 0-None Headache: 0-None Present CIWA-Ar Total Score: 18 BHS Progress Note (SOAP) Subjective: Sweating, Body Aches, Anxious, Tremors. Objective: PATIENT A & O X 3, OBSERVED AMBULATING ON UNIT. NO ACUTE DISTRESS. 05/20/17 13:35 Vital Signs Temperature 96.6 F L 05/20/17 13:05 Pulse Rate 65 05/20/17 13:05 Respiratory Rate 18 05/20/17 13:05 Blood Pressure 83/50 05/20/17 13:05 O2 Sat by Pulse Oximetry (%) Laboratory Tests 05/18/17 05/18/17 05/19/17 12:15 19:00 05:50 WBC 8.4 RBC 4.81 Hgb 13.6 Hct 39.8 MCV 82.8 MCH 28.4 MCHC 34.2 RDW 16.3 H Plt Count 150 MPV 11.7 H D Sodium Potassium Chloride Carbon Dioxide Anion Gap BUN Creatinine Creat Clearance w eGFR Random Glucose Calcium Total Bilirubin AST ALT Alkaline Phosphatase Total Protein Albumin Urine Color Yellow Urine Appearance Clear Urine pH 7.0 Ur Specific [place] 1.025 Urine Protein Negative Urine Glucose (UA) Negative Urine Ketones Negative Urine Blood Negative Urine Nitrite Negative Urine Bilirubin Negative Urine Urobilinogen 4.0 e.u/dl Ur Leukocyte Esterase Negative RPR Titer HIV 1&2 Antibody Screen Negative HIV P24 Antigen Negative 05/19/17 05/19/17 05:50 05:50 WBC RBC Hgb Hct MCV MCH MCHC RDW Plt Count MPV Sodium 141 Potassium 4.3 Chloride 106 Carbon Dioxide 29 Anion Gap 6 L BUN 13 Creatinine 0.9 Creat Clearance w eGFR > 60 Random Glucose 70 L D Calcium 9.8 D Total Bilirubin 0.3 AST 21 ALT 26 Alkaline Phosphatase 60 Total Protein 7.7 Albumin 3.9 D Urine Color Urine Appearance Urine pH Ur Specific [place] Urine Protein Urine Glucose (UA) Urine Ketones Urine Blood Urine Nitrite Urine Bilirubin Urine Urobilinogen Ur Leukocyte Esterase RPR Titer Nonreactive HIV 1&2 Antibody Screen HIV P24 Antigen LABS NOTED. Assessment: 05/20/17 13:36 WITHDRAWAL SYMPTOMS. Plan: CONTINUE DETOX. INCREASE DAILY PO FLUID INTAKE. PATIENT REPORTS THAT BACLOFEN MINMALLY EFFECTIVE FOR PAIN / MUSCLSE SPASMS. SWITCH TO ROBAXIN PRN (PATIENT REQUESTED).
[2017-05-20] MEDS: chlordiazePOXIDE 5 MG CAPSULE PO SCH ×2 (17:08→23:38)
[2017-05-20] MEDS: THIAMINE HCL 100 MG TABLET (FP) PO SCH (23:38)
[2017-05-21] MEDS: chlordiazePOXIDE 5 MG CAPSULE PO SCH (05:42)
[2017-05-21 09:20] VITALS: BP 118/76; PULSE 63; TEMP 95.6
--- NOTE | 2017-05-21 12:08 | DS ---
[facility] Detox Discharge Summary Admission Date: 05/18/17 Discharge Date: 05/21/17 - History Present History: Alcohol Dependence, Cocaine Dependence Additional Comments: Senior Rd Engineer and counselor educated and encouraged patient on importance of completing detox and educated him on possible dangerous withdrawal symptoms if he leaves AMA. 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 Patient denies any withdrawal symptoms. Pertinent Past History: GERD LBP - Physical Exam Results Vital Signs: Vital Signs Temperature 95.6 F L 05/21/17 09:19 Pulse Rate 63 05/21/17 09:19 Respiratory Rate 18 05/21/17 09:19 Blood Pressure 118/76 05/21/17 09:19 O2 Sat by Pulse Oximetry (%) Pertinent Admission Physical Exam Findings: Withdrawal symptoms Laboratory Tests 05/18/17 05/18/17 05/19/17 12:15 19:00 05:50 WBC 8.4 RBC 4.81 Hgb 13.6 Hct 39.8 MCV 82.8 MCH 28.4 MCHC 34.2 RDW 16.3 H Plt Count 150 MPV 11.7 H D Sodium Potassium Chloride Carbon Dioxide Anion Gap BUN Creatinine Creat Clearance w eGFR Random Glucose Calcium Total Bilirubin AST ALT Alkaline Phosphatase Total Protein Albumin Urine Color Yellow Urine Appearance Clear Urine pH 7.0 Ur Specific [place] 1.025 Urine Protein Negative Urine Glucose (UA) Negative Urine Ketones Negative Urine Blood Negative Urine Nitrite Negative Urine Bilirubin Negative Urine Urobilinogen 4.0 e.u/dl Ur Leukocyte Esterase Negative RPR Titer HIV 1&2 Antibody Screen Negative HIV P24 Antigen Negative 05/19/17 05/19/17 05:50 05:50 WBC RBC Hgb Hct MCV MCH MCHC RDW Plt Count MPV Sodium 141 Potassium 4.3 Chloride 106 Carbon Dioxide 29 Anion Gap 6 L BUN 13 Creatinine 0.9 Creat Clearance w eGFR > 60 Random Glucose 70 L D Calcium 9.8 D Total Bilirubin 0.3 AST 21 ALT 26 Alkaline Phosphatase 60 Total Protein 7.7 Albumin 3.9 D Urine Color Urine Appearance Urine pH Ur Specific [place] Urine Protein Urine Glucose (UA) Urine Ketones Urine Blood Urine Nitrite Urine Bilirubin Urine Urobilinogen Ur Leukocyte Esterase RPR Titer Nonreactive HIV 1&2 Antibody Screen HIV P24 Antigen Labs noted - Medication Discharge Medications: Ambulatory Orders Ranitidine [Zantac -] 150 mg PO BID #30 tablet 12/09/16 Acetaminophen [Tylenol] 325 mg PO TID PRN 05/18/17 Multivitamins [Tab-A-Vit -] 1 tab PO DAILY 05/18/17 Olanzapine [Zyprexa -] 5 mg PO HS 05/18/17 - Diagnosis (1) Anxiety Current Visit: Yes Status: Chronic (2) Depression Current Visit: Yes Status: Chronic (3) Alcohol dependence with uncomplicated withdrawal Current Visit: Yes Status: Acute (4) Cocaine dependence, uncomplicated Current Visit: Yes Status: Chronic (5) Nicotine dependence Current Visit: Yes Status: Chronic (6) GERD (gastroesophageal reflux disease) Current Visit: Yes Status: Chronic Qualifiers: Esophagitis presence: without esophagitis Qualified Code(s): K21.9 - Gastro -esophageal reflux disease without esophagitis (7) Low back pain Current Visit: Yes Status: Chronic (8) Schizophrenia, paranoid Current Visit: Yes Status: Chronic - AMA Did Patient Leave Against Medical Advice: Yes (Proceed to ER stat if feels sick , follow up with your PCP within 1 week)
[2017-05-21] MEDS ORDERED: chlordiazePOXIDE HCL 10 MG CAPSULE PO SCH (17:00)
== END 2017-05-21 09:41 | disposition home or self-care (01) | DRG 897 ==
LOC: YASAS 10:02 → Y3N 14:52
PROVIDERS: ADMIT Internal Medicine; ATTEND Internal Medicine
PROC: HZ2ZZZZ Detoxification Services for Substance Abuse Treatment (ICD-10-PCS; principal; 2017-05-18)
DX: F10.230 Alcohol dependence with withdrawal, uncomplicated (principal); F14.20 Cocaine dependence, uncomplicated; F20.0 Paranoid schizophrenia; F17.210 Nicotine dependence, cigarettes, uncomplicated; F41.9 Anxiety disorder, unspecified; F32.9 Major depressive disorder, single episode, unspecified; K21.9 Gastro-esophageal reflux disease without esophagitis; M54.5 Low back pain; G89.29 Other chronic pain; R63.4 Abnormal weight loss; Z68.24 Body mass index [BMI] 24.0-24.9, adult
CPT/HCPCS: 36415; 80053; 81003; 85027; 86593; 87389; 93005; 93010; J0475

== ENCOUNTER 2017-06-27 12:30 | Inpatient (IN) | payer OTHER ==
[2017-06-27 13:40] VITALS: BMI 28.8
--- NOTE | 2017-06-27 19:43 | HP ---
CIWA Score - CIWA Score Nausea/Vomitin Muscle Tremors: 2 Anxiety: 1-Mildly Anxious Agitation: 2 Paroxysmal Sweats: 2 Orientation: 1-Uncertain about Date Tacttile Disturbances: 1-Very Mild Itch/Numbness (both legs) Auditory Disturbances: 0-None Visual Disturbances: 1-Very Mild Sensitivity Headache: 2-Mild CIWA-Ar Total Score: 14 Admission ROS BHS - HPI Chief Complaint: " I want to kick the habit, I've been hitting the bottle" Allergies/Adverse Reactions: Allergies Allergy/AdvReac Type Severity Reaction Status Date / Time escitalopram Allergy Severe ITCHING Verified 06/27/17 16:31 WITH LEXAPRO fluphenazine [Fluphenazine] Allergy Severe Itching Verified 06/27/17 16:31 sertraline HCl [From Zoloft] Allergy Severe abdominal Verified 06/27/17 16:31 swelling ziprasidone Allergy Severe Swelling Verified 06/27/17 16:31 ziprasidone HCl [From Geodon] Allergy Severe Swelling Verified 06/27/17 16:31 ziprasidone mesylate Allergy Severe sweating Verified 06/27/17 16:31 [From Geodon] risperidone [From Risperdal] Allergy Intermediate sweating Verified 06/27/17 16: 31 History of Present Illness: 52 yo m with h/o alcohol, THC, crack/ cocaine dependence is here seeking detox. Patient has multiple inpatient detoxification for ETOH at [facility] reports alcohol withdrawal. Denies hx of seizures, last episode of black out 2015. PMHX depression, anxiety, and insomnia. Longest period of sobrieirty 5 years. Last detox [facility] 05/18/17 - 05/21/17. Exam Limitations: No Limitations - Ebola screening Have you traveled outside of the country in the last 21 days: No Have you had contact with anyone from an Ebola affected area: No Have you been sick,other than usual withdrawal symptoms: No Do you have a fever: No - Review of Systems Constitutional: Chills, Diaphoresis, Changes in sleep, Unintentional Wgt. Loss EENT: reports: Other (teary eyes) Respiratory: reports: No Symptoms reported Cardiac: reports: No Symptoms Reported GI: reports: Constipated (last BM), Nausea, Poor Fluid Intake : reports: No Symptoms Reported Musculoskeletal: reports: Back Pain, Joint Pain Integumentary: reports: Pruritus (around face) Neuro: reports: Headache, Numbness, Dizziness Endocrine: reports: Increased Thirst Hematology: reports: No Symptoms Reported Psychiatric: reports: Orientated x3, Anxious, Depressed Other Systems: Reviewed and Negative Patient History - Patient Medical History Hx Anemia: No Hx Asthma: No Hx Chronic Obstructive Pulmonary Disease (COPD): No Hx Cancer: No Hx Cardiac Disorders: No Hx Congestive Heart Failure: No Hx Hypertension: No Hx Hypercholesterolemia: No Hx Pacemaker: No HX Cerebrovascular Accident: No Hx Seizures: No Hx Dementia: No Hx Diabetes: No Hx Gastrointestinal Disorders: Yes (acid reflux) Hx Liver Disease: No Hx Genitourinary Disorders: No Hx Sexually Transmitted Disorders: No Hx Renal Disease (ESRD): No Hx Thyroid Disease: No Hx Human Immunodeficiency Virus (HIV): No (last 03/17/17 negative) Hx Hepatitis C: No Hx Depression: Yes Hx Suicide Attempt: No Hx Bipolar Disorder: No Hx Schizophrenia: Yes (paranoid schizophrenia) - Patient Surgical History Past Surgical History: Yes Hx Neurologic Surgery: No Hx Cataract Extraction: No Hx Cardiac Surgery: No Hx Lung Surgery: No Hx Breast Surgery: No Hx Breast Biopsy: No Hx Abdominal Surgery: Yes (spleen repair 12/2014) Hx Appendectomy: Yes (IN 1987) Hx Cholecystectomy: No Hx Genitourinary Surgery: No Hx Section: No Hx Orthopedic Surgery: Yes (left ankle sx x2 1985 - plate with 5 screws) Other Surgical History: I & D abscess on right buttocks 5 years ago Anesthesia Reaction: No - PPD History Previous Implant?: Yes Documented Results: Negative w/proof Date: 05/20/17 Results: 0 mm PPD to be Administered?: No - Reproductive History Patient is a Female of Child Bearing Age (11 -55 yrs old): No - Smoking Cessation Smoking history: Current every day smoker Have you smoked in the past 12 months: Yes Aproximately how many cigarettes per day: 4 Cigars Per Day: 0 Hx Chewing Tobacco Use: No Initiated information on smoking cessation: Yes 'Breaking Loose' booklet given: 06/27/17 - Substance & Tx. History Hx Alcohol Use: Yes Hx Substance Use: Yes Substance Use Type: Alcohol, Cocaine, Marijuana Hx Substance Use Treatment: Yes ([facility] 05/18/17 - 05/21/17.) - Substances Abused Alcohol Route: Oral Frequency: Daily Amount used: LIQUOR- 4, BEER- 1 SIX PACK Age of first use: 15 Date of Last Use: 06/27/17 Crack Route: Smoking Frequency: Daily Amount used: $30 WORTH Age of first use: 20 Date of Last Use: 06/27/17 Marijuana/Hashish Route: Smoking Frequency: 1-2 times per week Amount used: 2 BAGS Age of first use: 15 Date of Last Use: 06/27/17 Family Disease History - Family Disease History Family Disease History: Diabetes: Brother (HTN), Heart Disease: Father (HTN ), Mother (HTN), Brother Admission Physical Exam [facility] - Vital Signs Vital Signs: Vital Signs - 24 hr 06/27/17 13:37 Temperature 96.8 F L Pulse Rate 74 Respiratory 18 Rate Blood Pressure 105/63 - Physical General Appearance: Yes: Disheveled, Anxious, Other (maldorous) HEENTM: Yes: Hearing grossly Normal, Normal ENT Inspection, Normocephalic, Normal Voice, SHANELL, Pharynx Normal, Tm's normal Respiratory: Yes: Chest Non-Tender, Lungs Clear, Normal Breath Sounds Neck: Yes: Within Normal Limits, Thyroid tenderness Cardiology: Yes: Regular Rhythm, Regular Rate Abdominal: Yes: Normal Bowel Sounds, Non Tender, Flat, Soft Genitourinary: Yes: Within Normal Limits Back: Yes: Within Normal Limits Musculoskeletal: Yes: full range of Motion, Gait Steady, Pelvis Stable Extremities: Yes: Normal Capillary Refill, Normal Inspection, Normal Range of Motion, Non-Tender 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 - Detox or Rehab [facility] Level of Care: Medically Managed Detox Regimen/Protocol: Librium [facility] Breath Alcohol Content Breath Alcohol Content: 0 Urine Drug Screen - Results Drug Screen Negative: No Urine Drug Screen Results: DEBBIE-Cocaine, BZO-Benzodiazepines
[2017-06-27] MEDS ORDERED: MAGNESIUM CITRATE 300 ML BOTTLE PO PRN (19:47)
[2017-06-27] MEDS ORDERED: MENTHOL/PHENOL 1 EACH UD MM PRN (19:47)
[2017-06-27] MEDS ORDERED: P-EPHED 60MG/TRIPROLIDI 2.5MG TABLET PO PRN (19:47)
[2017-06-27] MEDS ORDERED: guaiFENesin/D-METHORPHAN HB 10 ML UNIT-DOSE CUPS PO PRN (19:47)
[2017-06-27] MEDS ORDERED: MAGNESIUM HYDROX 2400MG/30ML ORAL SUSPENSION 30 ML CUP PO PRN (19:47)
[2017-06-27] MEDS ORDERED: NICOTINE POLACRILEX 2 MG GUM BC PRN (19:47)
[2017-06-27] MEDS ORDERED: chlordiazePOXIDE HCL 25 MG CAPSULE PO ONE (19:47)
[2017-06-27] MEDS ORDERED: MAG HYDROX/AL HYDROX/SIMETH 30 ML UNIT-DOSE CUP PO PRN (19:47)
[2017-06-27] MEDS ORDERED: LOPERAMIDE HCL 2 MG CAPSULE PO PRN (19:47)
[2017-06-27] MEDS: LIDOCAINE 5% TOPICAL PATCH TP SCH (20:36)
[2017-06-27] MEDS ORDERED: MELATONIN 5 MG TABLETS PO PRN (22:00)
[2017-06-27] MEDS: RANITIDINE HCL 150 MG TABLET (FP) PO SCH (22:08)
[2017-06-27] MEDS: THIAMINE HCL 100 MG TABLET (FP) PO SCH (22:08)
[2017-06-27] MEDS: chlordiazePOXIDE HCL 25 MG CAPSULE PO PRN (22:11)
[2017-06-27] MEDS: chlordiazePOXIDE HCL 25 MG CAPSULE PO SCH (22:11)
[2017-06-27] MEDS: LIDOCAINE PATCH REMOVAL MC SCH (23:21)
[2017-06-28] MEDS: chlordiazePOXIDE HCL 25 MG CAPSULE PO SCH ×4 (06:16→22:29)
[2017-06-28 10:13] LABS: HEMATOCRIT 40.8 % (35.4-49); MCH 28.6 pg (25.7-33.7); MCHC 34.4 g/dl (32.0-35.9); MEAN PLT VOLUME 9.9 fl (7.5-11.1); PLATELET COUNT 159 K/MM3 (134-434); RBC 4.91 M/mm3 (4.00-5.60); RDW 16.1 % (11.9-15.9); WHITE BLOOD COUNT 8.1 K/mm3 (4.0-10.0)
[2017-06-28 10:15] LABS: ALBUMIN 3.2 g/dl (3.4-5.0); ALK PHOS 59 U/L (45-117); ANION GAP 6 (8-16); BILIRUBIN,TOTAL 0.4 mg/dL (0.2-1.0); BLOOD UREA NITROGEN 15 mg/dL (7-18); CALCIUM 8.4 mg/dL (8.5-10.1); CHLORIDE 107 mmol/L (98-107); CO2 28 mmol/L (21-32); CREATININE 1.3 mg/dL (0.7-1.3); GLUCOSE,RANDOM 84 mg/dL (74-106); POTASSIUM 4.4 mmol/L (3.5-5.1); SGOT/AST 16 U/L (15-37); SGPT/ALT 25 U/L (12-78); SODIUM 141 mmol/L (136-145); TOT PROT 7.2 g/dl (6.4-8.2)
[2017-06-28] MEDS: LIDOCAINE 5% TOPICAL PATCH TP SCH (10:38)
[2017-06-28] MEDS: PRENATAL VITAMINS W/ FOLIC ACID TABLET (FP) PO SCH (10:38)
[2017-06-28] MEDS: RANITIDINE HCL 150 MG TABLET (FP) PO SCH ×2 (10:38→22:29)
[2017-06-28] MEDS: NICOTINE 14 MG/24 HOURS TOPICAL PATCH TD SCH (10:38)
[2017-06-28] MEDS: IBUPROFEN 400 MG TABLET (FP) PO PRN ×2 (10:39→17:50)
--- NOTE | 2017-06-28 12:04 | EKG ---
Test Reason : Blood Pressure : / mmHG Vent. Rate : 056 BPM Atrial Rate : 056 BPM P-R Int : 142 ms QRS Dur : 092 ms QT Int : 440 ms P-R-T Axes : 046 024 032 degrees QTc Int : 424 ms SINUS BRADYCARDIA OTHERWISE NORMAL ECG WHEN COMPARED WITH ECG OF 18-MAY-2017 15:35, CRITERIA FOR SEPTAL INFARCT ARE NO LONGER PRESENT Confirmed by JAMAL TEJADA MD ([id number]) on 06/28/2017 12:03:56 PM Referred By: Confirmed By:JAMAL TEJADA MD
--- NOTE | 2017-06-28 12:14 | PN ---
S CIWA - CIWA Score Nausea/Vomitin Muscle Tremors: 3 Anxiety: 3 Agitation: 3 Paroxysmal Sweats: 1-Minimal Palms Moist Orientation: 0-Oriented Tacttile Disturbances: 1-Very Mild Itch/Numbness Auditory Disturbances: 1-Very Mild Visual Disturbances: 0-None Headache: 2-Mild CIWA-Ar Total Score: 17 BHS Progress Note (SOAP) Subjective: ALERT,IRRITABLE,ANXIOUS,INTERRUPTED SLEEP,TREMOR Objective: 06/28/17 12:10 Vital Signs Temperature 98.2 F 06/28/17 10:10 Pulse Rate 78 06/28/17 10:10 Respiratory Rate 19 06/28/17 10:10 Blood Pressure 110/69 06/28/17 10:10 O2 Sat by Pulse Oximetry (%) EKG SINUS BRADYCARDIA,56/MIN,PROLONG QT 440/424 NO CHEST PAIN,NO SOB,NO DIZZINESS Laboratory Last Values WBC 8.1 K/mm3 (4.0-10.0) 06/28/17 07:30 RBC 4.91 M/mm3 (4.00-5.60) 06/28/17 07:30 Hgb 14.0 GM/dL (11.7-16.9) 06/28/17 07:30 Hct 40.8 % (35.4-49) 06/28/17 07:30 MCV 83.0 fl (80-96) 06/28/17 07:30 MCH 28.6 pg (25.7-33.7) 06/28/17 07:30 MCHC 34.4 g/dl (32.0-35.9) 06/28/17 07:30 RDW 16.1 % (11.9-15.9) H 06/28/17 07:30 Plt Count 159 K/MM3 (134-434) 06/28/17 07:30 MPV 9.9 fl (7.5-11.1) D 06/28/17 07:30 Sodium 141 mmol/L (136-145) 06/28/17 07:30 Potassium 4.4 mmol/L (3.5-5.1) 06/28/17 07:30 Chloride 107 mmol/L (98-107) 06/28/17 07:30 Carbon Dioxide 28 mmol/L (21-32) 06/28/17 07:30 Anion Gap 6 (8-16) L 06/28/17 07:30 BUN 15 mg/dL (7-18) 06/28/17 07:30 Creatinine 1.3 mg/dL (0.7-1.3) D 06/28/17 07:30 Creat Clearance w eGFR 57.97 (>60) 06/28/17 07:30 Random Glucose 84 mg/dL (74-106) 06/28/17 07:30 Calcium 8.4 mg/dL (8.5-10.1) L 06/28/17 07:30 Total Bilirubin 0.4 mg/dL (0.2-1.0) D 06/28/17 07:30 AST 16 U/L (15-37) D 06/28/17 07:30 ALT 25 U/L (12-78) 06/28/17 07:30 Alkaline Phosphatase 59 U/L (45-117) 06/28/17 07:30 Total Protein 7.2 g/dl (6.4-8.2) 06/28/17 07:30 Albumin 3.2 g/dl (3.4-5.0) L 06/28/17 07:30 Assessment: 06/28/17 12:13 WITHDRAWAL SYMPTOM Plan: CONTINUE DETOX,CANE FOR AMBULATION AID,HISTORY OF OLD INJURY TO ANKLE
--- NOTE | 2017-06-28 17:33 | CONSULT ---
[facility] Psychiatric Consult - Data Date of interview: 06/28/17 Admission source: [facility] Identifying data: Readmission to [facility] for this 52 y/o AA male seeking detox treatment on for alcohol,cocaine and cannabis dependence.Patient is ,a father of three,domiciled,unemployed and supported on [facility] benefits. Substance Abuse History: Confirmed by the opatient in this session.Smoking history: Current every day smoker. Have you smoked in the past 12 months: Yes. Aproximately how many cigarettes per day: 4. Cigars Per Day: 0. Hx Chewing Tobacco Use: No. Initiated information on smoking cessation: Yes. 'Breaking Loose' booklet given: 06/27/17. - Substance & Tx. History. Hx Alcohol Use: Yes. Hx Substance Use: Yes. Substance Use Type: Alcohol, Cocaine, Marijuana. Hx Substance Use Treatment: Yes ([facility] 05/18/17 - 05/21/17.). - Substances Abused. Alcohol. Route: Oral. Frequency: Daily. Amount used: LIQUOR- 4, BEER- 1 SIX PACK. Age of first use: 15. Date of Last Use: 06/27/17. Crack. Route : Smoking. Frequency: Daily. Amount used: $30 WORTH. Age of first use: 20. Date of Last Use: 06/27/17. Marijuana/Hashish. Route: Smoking. Frequency: 1-2 times per week. Amount used: 2 BAGS. Age of first use: 15. Date of Last Use: 06/27/17 Medical History: GERD,chronic lumbar pain and history of orthosurgery for fracture of left ankle (hardware in place). Psychiatric History: Diagnosed with Paranoid Schizophrenia.Onset of psychiatric disturbances : 1985.Patient endorses a history of multiple psychiatric hospitalizations,which includes involuntary committments at [facility] and [facility].Mr Garsia reports chronic non-adherence to psychiatric OPD care and psychotropic medications.Admits to a pattern of utilzation of CPEP services for medications refills.In this interview, the patient states that he has been prescribed prozac 10 mg/day and zyprexa 5 mg/ hs.Last taken : no information.No reported history of suicide attempts. Physical/Sexual Abuse/Trauma History: Patient denies. Additional Comment: Urine Drug Screen Results: DEBBIE-Cocaine, BZO- Benzodiazepines.Noted. Mental Status Exam - Mental Status Exam Alert and Oriented to: Time, Place, Person Cognitive Function: Good Patient Appearance: Well Groomed Mood: Nervous, Withdrawn Affect: Mood Congruent, Constricted Patient Behavior: Fatigued, Cooperative Speech Pattern: Clear, Appropriate Voice Loudness: Normal Thought Process: Intact, Goal Oriented Thought Disorder: Not Present Hallucinations: Denies Suicidal Ideation: Denies Homicidal Ideation: Denies Insight/Judgement: Poor Sleep: Well (on vistaril at bedtime ) Muscle strength/Tone: Normal Gait/Station: Other (not observed ; patient did not get out of bed for the duration of interview ; noted cane at bedside) Psychiatric Findings - Problem List ([place] 1, 2,3) (1) Alcohol dependence with uncomplicated withdrawal Current Visit: Yes Status: Acute (2) Cocaine dependence, uncomplicated Current Visit: Yes Status: Acute (3) Nicotine dependence Current Visit: Yes Status: Acute Qualifiers: Nicotine product type: cigarettes Substance use status: in withdrawal Qualified Code(s): F17.213 - Nicotine dependence, cigarettes, with withdrawal (4) Nicotine dependence Current Visit: Yes Status: Acute (5) Schizophrenia, paranoid Current Visit: Yes Status: Chronic Comment: As per existing records. (6) Depressive disorder Current Visit: Yes Status: Chronic Comment: As per self-report. (7) Substance induced mood disorder Current Visit: Yes Status: Acute (8) Insomnia Current Visit: Yes Status: Acute - Initial Treatment Plan Initial Treatment Plan: Psychoeducaton.Records revisited.Sleep hygiene.Medications : zyprexa 5 mg po hs + prozac 5 mg po daily (patient's specific request).Side effects/benefits of both drugs are discussed with the patient.Mr Garsia agrees with this careplan.Observation.
[2017-06-28 17:34] LABS: URINE APPEARANCE CLOUDY; URINE BILIRUBIN NEGATIVE (<2.0 mg/dL); URINE COLOR YELLOW; URINE GLUCOSE (UA) NEGATIVE (NEGATIVE); URINE KETONE NEGATIVE (NEGATIVE); URINE LEUK ESTERASE NEGATIVE (NEGATIVE); URINE NITRITE NEGATIVE (NEGATIVE); URINE UROBILINOGEN 4.0 E.U/dl mg/dL (0.2-1.0)
[2017-06-28 17:52] LABS: URINE PROTEIN 2+ (NEGATIVE)
[2017-06-28 17:56] LABS: URINE BACTERIA MANY /hpf (NONE SEEN); URINE MUCUS FEW
[2017-06-28] MEDS: THIAMINE HCL 100 MG TABLET (FP) PO SCH (22:29)
[2017-06-28] MEDS: OLANZapine 5 MG TABLET PO SCH (22:30)
[2017-06-28] MEDS: LIDOCAINE PATCH REMOVAL MC SCH (22:30)
[2017-06-28] MEDS: ACETAMINOPHEN 325 MG TABLET (FP) PO PRN (22:31)
[2017-06-28] MEDS: hydrOXYzine PAMOATE 50 MG CAPSULE (FP) PO PRN (22:31)
[2017-06-29] MEDS: chlordiazePOXIDE HCL 25 MG CAPSULE PO SCH ×3 (06:29→17:52)
[2017-06-29] MEDS: PRENATAL VITAMINS W/ FOLIC ACID TABLET (FP) PO SCH (11:18)
[2017-06-29] MEDS: NICOTINE 14 MG/24 HOURS TOPICAL PATCH TD SCH (11:18)
[2017-06-29] MEDS: LIDOCAINE 5% TOPICAL PATCH TP SCH (11:18)
[2017-06-29] MEDS: RANITIDINE HCL 150 MG TABLET (FP) PO SCH ×2 (11:19→22:41)
[2017-06-29] MEDS: FLUoxetine HCL 10 MG CAPSULE (FP) PO SCH (11:19)
--- NOTE | 2017-06-29 12:04 | PN ---
S CIWA - CIWA Score Nausea/Vomitin Muscle Tremors: 3 Anxiety: 2 Agitation: 2 Paroxysmal Sweats: 1-Minimal Palms Moist Orientation: 0-Oriented Tacttile Disturbances: 1-Very Mild Itch/Numbness Auditory Disturbances: 1-Very Mild Visual Disturbances: 0-None Headache: 2-Mild CIWA-Ar Total Score: 15 BHS Progress Note (SOAP) Subjective: ALERT,IRRITABLE,ANXIOUS,INTERRUPTED SLEEP,PAIN IN THE BODY Objective: 06/29/17 12:03 Vital Signs Temperature 98.0 F 06/29/17 10:12 Pulse Rate 73 06/29/17 10:12 Respiratory Rate 18 06/29/17 10:12 Blood Pressure 120/78 06/29/17 10:12 O2 Sat by Pulse Oximetry (%) Laboratory Last Values WBC 8.1 K/mm3 (4.0-10.0) 06/28/17 07:30 RBC 4.91 M/mm3 (4.00-5.60) 06/28/17 07:30 Hgb 14.0 GM/dL (11.7-16.9) 06/28/17 07:30 Hct 40.8 % (35.4-49) 06/28/17 07:30 MCV 83.0 fl (80-96) 06/28/17 07:30 MCH 28.6 pg (25.7-33.7) 06/28/17 07:30 MCHC 34.4 g/dl (32.0-35.9) 06/28/17 07:30 RDW 16.1 % (11.9-15.9) H 06/28/17 07:30 Plt Count 159 K/MM3 (134-434) 06/28/17 07:30 MPV 9.9 fl (7.5-11.1) D 06/28/17 07:30 Sodium 141 mmol/L (136-145) 06/28/17 07:30 Potassium 4.4 mmol/L (3.5-5.1) 06/28/17 07:30 Chloride 107 mmol/L (98-107) 06/28/17 07:30 Carbon Dioxide 28 mmol/L (21-32) 06/28/17 07:30 Anion Gap 6 (8-16) L 06/28/17 07:30 BUN 15 mg/dL (7-18) 06/28/17 07:30 Creatinine 1.3 mg/dL (0.7-1.3) D 06/28/17 07:30 Creat Clearance w eGFR 57.97 (>60) 06/28/17 07:30 Random Glucose 84 mg/dL (74-106) 06/28/17 07:30 Calcium 8.4 mg/dL (8.5-10.1) L 06/28/17 07:30 Total Bilirubin 0.4 mg/dL (0.2-1.0) D 06/28/17 07:30 AST 16 U/L (15-37) D 06/28/17 07:30 ALT 25 U/L (12-78) 06/28/17 07:30 Alkaline Phosphatase 59 U/L (45-117) 06/28/17 07:30 Total Protein 7.2 g/dl (6.4-8.2) 06/28/17 07:30 Albumin 3.2 g/dl (3.4-5.0) L 06/28/17 07:30 Urine Color Yellow 06/28/17 13:40 Urine Appearance Cloudy 06/28/17 13:40 Urine pH 5.0 (5.0-8.0) D 06/28/17 13:40 Ur Specific [place] 1.026 (1.001-1.035) 06/28/17 13:40 Urine Protein 2+ (NEGATIVE) H 06/28/17 13:40 Urine Glucose (UA) Negative (NEGATIVE) 06/28/17 13:40 Urine Ketones Negative (NEGATIVE) 06/28/17 13:40 Urine Blood Negative (NEGATIVE) 06/28/17 13:40 Urine Nitrite Negative (NEGATIVE) 06/28/17 13:40 Urine Bilirubin Negative (<2.0 mg/dL) 06/28/17 13:40 Urine Urobilinogen 4.0 e.u/dl mg/dL (0.2-1.0) 06/28/17 13:40 Ur Leukocyte Esterase Negative (NEGATIVE) 06/28/17 13:40 Urine WBC (Auto) 9 /hpf (3-5) 06/28/17 13:40 Urine RBC (Auto) 10 /hpf (0-3) 06/28/17 13:40 Urine Bacteria Many /hpf (NONE SEEN) 06/28/17 13:40 Urine Mucus Few 05/16/18 13:40 RPR Titer Nonreactive (NONREACTIVE) 06/28/17 07:30 Assessment: 06/29/17 12:04 WITHDRAWAL SYMPTOM Plan: CONTINUE DETOX,REPEAT UA
[2017-06-29] MEDS: IBUPROFEN 400 MG TABLET (FP) PO PRN (15:21)
[2017-06-29] MEDS: hydrOXYzine PAMOATE 50 MG CAPSULE (FP) PO PRN (15:22)
[2017-06-29] MEDS: chlordiazePOXIDE HCL 25 MG CAPSULE PO PRN (15:22)
[2017-06-29] MEDS: THIAMINE HCL 100 MG TABLET (FP) PO SCH (22:41)
[2017-06-29] MEDS: chlordiazePOXIDE 5 MG CAPSULE PO SCH (22:41)
[2017-06-29] MEDS: OLANZapine 5 MG TABLET PO SCH (22:43)
[2017-06-29] MEDS: LIDOCAINE PATCH REMOVAL MC SCH (22:43)
[2017-06-30] MEDS: chlordiazePOXIDE 5 MG CAPSULE PO SCH ×3 (05:39→17:54)
[2017-06-30] MEDS: IBUPROFEN 400 MG TABLET (FP) PO PRN (05:41)
[2017-06-30] MEDS: NAPROXEN 500 MG TABLET (FP) PO SCH ×2 (09:17→22:55)
[2017-06-30] MEDS: FLUoxetine HCL 10 MG CAPSULE (FP) PO SCH (11:15)
[2017-06-30] MEDS: RANITIDINE HCL 150 MG TABLET (FP) PO SCH ×2 (11:15→22:55)
[2017-06-30] MEDS: PRENATAL VITAMINS W/ FOLIC ACID TABLET (FP) PO SCH (11:15)
[2017-06-30] MEDS: NICOTINE 14 MG/24 HOURS TOPICAL PATCH TD SCH (11:16)
[2017-06-30] MEDS: LIDOCAINE 5% TOPICAL PATCH TP SCH (11:18)
--- NOTE | 2017-06-30 11:32 | PN ---
S Progress Note (SOAP) Subjective: ALERT,IRRITABLE,ANXIOUS,INTERRUPTED SLEEP Objective: 06/30/17 11:31 Vital Signs Temperature 98.1 F 06/30/17 09:46 Pulse Rate 80 06/30/17 09:46 Respiratory Rate 18 06/30/17 09:46 Blood Pressure 122/77 06/30/17 09:46 O2 Sat by Pulse Oximetry (%) Assessment: 06/30/17 11:31 WITHDRAWAL SYMPTOM Plan: CONTINUE DETOX,DISCHARGE IN AM
[2017-06-30 15:04] LABS: URINE APPEARANCE CLEAR; URINE BILIRUBIN NEGATIVE (<2.0 mg/dL); URINE COLOR YELLOW; URINE GLUCOSE (UA) NEGATIVE (NEGATIVE); URINE KETONE NEGATIVE (NEGATIVE); URINE LEUK ESTERASE NEGATIVE (NEGATIVE); URINE NITRITE NEGATIVE (NEGATIVE); URINE PROTEIN NEGATIVE (NEGATIVE); URINE UROBILINOGEN NEGATIVE mg/dL (0.2-1.0)
[2017-06-30] MEDS: LIDOCAINE PATCH REMOVAL MC SCH (22:50)
[2017-06-30] MEDS: THIAMINE HCL 100 MG TABLET (FP) PO SCH (22:55)
[2017-06-30] MEDS: OLANZapine 5 MG TABLET PO SCH (22:55)
[2017-06-30] MEDS: chlordiazePOXIDE HCL 10 MG CAPSULE PO SCH (23:41)
[2017-07-01] MEDS: chlordiazePOXIDE HCL 10 MG CAPSULE PO SCH ×3 (05:38→18:27)
[2017-07-01] MEDS: ACETAMINOPHEN 325 MG TABLET (FP) PO PRN (05:40)
[2017-07-01] MEDS: RANITIDINE HCL 150 MG TABLET (FP) PO SCH ×2 (11:00→23:37)
[2017-07-01] MEDS: NAPROXEN 500 MG TABLET (FP) PO SCH ×2 (11:00→23:37)
[2017-07-01] MEDS: PRENATAL VITAMINS W/ FOLIC ACID TABLET (FP) PO SCH (11:00)
[2017-07-01] MEDS: FLUoxetine HCL 10 MG CAPSULE (FP) PO SCH (11:00)
[2017-07-01] MEDS: LIDOCAINE 5% TOPICAL PATCH TP SCH (11:01)
[2017-07-01] MEDS: NICOTINE 14 MG/24 HOURS TOPICAL PATCH TD SCH (11:01)
[2017-07-01] MEDS: hydrOXYzine PAMOATE 50 MG CAPSULE (FP) PO PRN (11:45)
--- NOTE | 2017-07-01 15:46 | PN ---
BHS Progress Note (SOAP) Subjective: Sweats shakes Objective: 07/01/17 15:44 A & ox 3 No distress noted Vital Signs Temperature 97.7 F 07/01/17 13:59 Pulse Rate 66 07/01/17 13:59 Respiratory Rate 18 07/01/17 13:59 Blood Pressure 122/76 07/01/17 13:59 O2 Sat by Pulse Oximetry (%) Assessment: 07/01/17 15:45 Withdrawal sx Plan: continue detox
--- NOTE | 2017-07-01 15:47 | PN ---
[facility] Progress Note Note: Per counselor Mitzi pt will be going to rehab @ [facility] on monday
[2017-07-01] MEDS: THIAMINE HCL 100 MG TABLET (FP) PO SCH (23:37)
[2017-07-01] MEDS: LIDOCAINE PATCH REMOVAL MC SCH (23:37)
[2017-07-01] MEDS: OLANZapine 5 MG TABLET PO SCH (23:38)
[2017-07-02] MEDS: PRENATAL VITAMINS W/ FOLIC ACID TABLET (FP) PO SCH (10:35)
[2017-07-02] MEDS: NICOTINE 14 MG/24 HOURS TOPICAL PATCH TD SCH (10:35)
[2017-07-02] MEDS: NAPROXEN 500 MG TABLET (FP) PO SCH (10:36)
[2017-07-02] MEDS: RANITIDINE HCL 150 MG TABLET (FP) PO SCH (10:36)
[2017-07-02] MEDS: FLUoxetine HCL 10 MG CAPSULE (FP) PO SCH (10:38)
[2017-07-02] MEDS: LIDOCAINE 5% TOPICAL PATCH TP SCH (10:39)
--- NOTE | 2017-07-02 10:57 | PN ---
BHS Progress Note (SOAP) Subjective: back pain Objective: 07/02/17 10:56 Vital Signs Temperature 96.1 F L 07/02/17 06:00 Pulse Rate 65 07/02/17 06:00 Respiratory Rate 18 07/02/17 06:00 Blood Pressure 127/68 07/02/17 06:00 O2 Sat by Pulse Oximetry (%) aaox3 ambulating no acute distress Assessment: 07/02/17 10:57 mild withdrawal sx Plan: continue detox naproxen prn d/c in am
[2017-07-02 17:11] VITALS: BP 147/90; PULSE 67; TEMP 98.6
--- NOTE | 2017-07-02 21:54 | DS ---
[facility] Detox Discharge Summary Admission Date: 06/27/17 Discharge Date: 07/02/17 - History Present History: Alcohol Dependence, Cocaine Dependence Additional Comments: Patient is being discharged to home. As per the nurse, Muna Elizabeth Cummings, he was scheduled to be discharged today but was waiting to go to rehab. tomorrow. According to the patient, he has changed his mind and does not want to go to rehab again. Patient is alert and oriented to person, place and time. Detoxification is completed. He is medically stable to be discharged to home.. Pertinent Past History: GERD, Anxiety, Depression, nicotine dependence - Physical Exam Results Vital Signs: Vital Signs Temperature 98.6 F 07/02/17 17:11 Pulse Rate 67 07/02/17 17:11 Respiratory Rate 20 07/02/17 17:11 Blood Pressure 147/90 07/02/17 17:11 O2 Sat by Pulse Oximetry (%) - Treatment Hospital Course: Detox Protocol Followed, Detoxed Safely, Responded well, Discharged Condition Good - Medication Discharge Medications: Ambulatory Orders Ranitidine [Zantac -] 150 mg PO BID #30 tablet 12/09/16 Acetaminophen [Tylenol] 325 mg PO TID PRN 05/18/17 Multivitamins [Tab-A-Vit -] 1 tab PO DAILY 05/18/17 Olanzapine [Zyprexa -] 5 mg PO HS 05/18/17 Fluoxetine HCl [Prozac -] 10 mg PO DAILY 06/27/17 Fluoxetine HCl [Prozac -] 10 mg PO DAILY #30 capsule 06/30/17 Olanzapine [Zyprexa] 5 mg PO HS #30 tablet 06/30/17 - Diagnosis (1) Alcohol dependence with uncomplicated withdrawal Status: Chronic (2) Cocaine dependence, uncomplicated Status: Chronic (3) Nicotine dependence Status: Chronic (4) Anxiety Status: Chronic (5) Depression Status: Chronic (6) GERD (gastroesophageal reflux disease) Status: Chronic Qualifiers: Esophagitis presence: without esophagitis Qualified Code(s): K21.9 - Gastro -esophageal reflux disease without esophagitis (7) Low back pain Status: Chronic - AMA Did Patient Leave Against Medical Advice: No
== END 2017-07-02 20:35 | disposition home or self-care (01) | DRG 897 ==
LOC: YASAS 12:30 → Y6N 17:23
PROVIDERS: ADMIT Surgery; ATTEND Surgery
PROC: HZ2ZZZZ Detoxification Services for Substance Abuse Treatment (ICD-10-PCS; principal; 2017-06-27)
DX: F10.230 Alcohol dependence with withdrawal, uncomplicated (principal); F14.20 Cocaine dependence, uncomplicated; F20.0 Paranoid schizophrenia; F17.210 Nicotine dependence, cigarettes, uncomplicated; F41.9 Anxiety disorder, unspecified; F32.9 Major depressive disorder, single episode, unspecified; F19.24 Other psychoactive substance dependence with psychoactive substance-induced mood disorder; K21.9 Gastro-esophageal reflux disease without esophagitis; M54.5 Low back pain; G89.29 Other chronic pain; R63.4 Abnormal weight loss; Z68.28 Body mass index [BMI] 28.0-28.9, adult
CPT/HCPCS: 36415; 80053; 81003; 81015; 85027; 86593; 93005; 93010

== ENCOUNTER 2017-12-21 11:29 | Inpatient (IN) | payer OTHER ==
[2017-12-21 11:53] VITALS: BMI 27.3
[2017-12-21] MEDS ORDERED: hydrOXYzine PAMOATE 50 MG CAPSULE (FP) PO PRN (13:59)
[2017-12-21] MEDS ORDERED: NICOTINE POLACRILEX 2 MG GUM BUC PRN (13:59)
[2017-12-21] MEDS ORDERED: LOPERAMIDE HCL 2 MG CAPSULE PO PRN (13:59)
[2017-12-21] MEDS ORDERED: MAG HYDROX/AL HYDROX/SIMETH 30 ML UNIT-DOSE CUP PO PRN (13:59)
[2017-12-21] MEDS ORDERED: ACETAMINOPHEN 325 MG TABLET (FP) PO PRN (13:59)
[2017-12-21] MEDS ORDERED: MAGNESIUM CITRATE 300 ML BOTTLE PO PRN (13:59)
[2017-12-21] MEDS ORDERED: MENTHOL/PHENOL 1 EACH UD MM PRN (13:59)
[2017-12-21] MEDS ORDERED: MAGNESIUM HYDROX 2400MG/30ML ORAL SUSPENSION 30 ML CUP PO PRN (13:59)
[2017-12-21] MEDS ORDERED: chlordiazePOXIDE HCL 25 MG CAPSULE PO PRN (14:02)
--- NOTE | 2017-12-21 14:08 | HP ---
CIWA Score Nausea/Vomitin Muscle Tremors: 1-None Visible, but [place] Anxiety: 2 Agitation: 2 Paroxysmal Sweats: No Perspiration Orientation: 0-Oriented Tacttile Disturbances: 0-None Auditory Disturbances: 3-Moderate Harsh/Frighten Visual Disturbances: 0-None Headache: 3-Moderate CIWA-Ar Total Score: 13 - Admission Criteria OASAS Guidelines: Admission for Medically Managed Detox: Requires at least one of the followin. CIWA greater than 12 2. Seizures within the past 24 hours 3. Delirium tremens within the past 24 hours 4. Hallucinations within the past 24 hours 5. Acute intervention needed for co occurring medical disorder 6. Acute intervention needed for co occurring psychiatric disorder 7. Severe withdrawal that cannot be handled at a lower level of care (continued vomiting, continued diarrhea, abnormal vital signs) requiring intravenous medication and/or fluids 8. Admission ROS [facility] Chief Complaint: ETOH WITHDRAWAL SYMPTOMS AND COCAINE DEPENDENCE Allergies/Adverse Reactions: Allergies Allergy/AdvReac Type Severity Reaction Status Date / Time escitalopram Allergy Severe ITCHING Verified 12/21/17 13:28 WITH LEXAPRO fluphenazine [Fluphenazine] Allergy Severe Itching Verified 12/21/17 13:28 sertraline HCl [From Zoloft] Allergy Severe abdominal Verified 12/21/17 13:28 swelling ziprasidone Allergy Severe Swelling Verified 12/21/17 13:28 ziprasidone HCl [From Geodon] Allergy Severe Swelling Verified 12/21/17 13:28 ziprasidone mesylate Allergy Severe sweating Verified 12/21/17 13:28 [From Geodon] risperidone [From Risperdal] Allergy Intermediate sweating Verified 12/21/17 13: 28 History of Present Illness: PATIENT IS KNOWN PATIENT TO [facility]. HAS HAD MULTIPLE ADMISSIONS TO DETOX FOR ETOH WITHDRAWAL SYMPTOMS. PATIENT LAST ADMISSION WAS IN 09/23/17. PATIENT RECENTLY WENT TO [facility] FOR URI AND TREATED WITH ANTIBIOTICS AUGMENTIN 875MG BID X 7 DAYS. COMPLETED ONE DAY OF TREATMENT. PATIENT ALSO GIVEN LIBRIUM IN ER UDS SHOWS BZO. PATIENT DENIES HX OF BLACKOUTS, SEIZURES. PATIENT DENIES DRINKING FIRST THING IN THE MORNING. PATIENT STARTED DRINKING AT AGE 15 AND DRINKS UP TO 2 PINTS DAILY. LAST DRINK WAS LAST NIGHT. PMH INCLUDES DEPRESSION, SCHIZOPHRENIA. DENIES SI/HI AND SUICIDE ATTEMPTS. PATIENT ALSO SMOKES CRACK/ COCAINE, 40 DOLLARS DAILY. LAST TIME HE SMOKED WAS LAST NIGHT. Exam Limitations: No Limitations - Ebola screening Have you traveled outside of the country in the last 21 days: No Have you had contact with anyone from an Ebola affected area: No Have you been sick,other than usual withdrawal symptoms: No - Review of Systems Constitutional: Chills, Changes in sleep EENT: reports: Tearing, Nose Congestion Respiratory: reports: Cough Cardiac: reports: No Symptoms Reported GI: reports: Diarrhea, Nausea, Poor Fluid Intake : reports: No Symptoms Reported Musculoskeletal: reports: Back Pain, Muscle Pain Integumentary: reports: No Symptoms Reported Neuro: reports: Headache, Tremors Endocrine: reports: No Symptoms Reported Hematology: reports: No Symptoms Reported Psychiatric: reports: Orientated x3, Anxious, Depressed Patient History - Patient Medical History Hx Anemia: No Hx Asthma: No Hx Chronic Obstructive Pulmonary Disease (COPD): No Hx Cancer: No Hx Cardiac Disorders: No Hx Congestive Heart Failure: No Hx Hypertension: No Hx Hypercholesterolemia: No Hx Pacemaker: No HX Cerebrovascular Accident: No Hx Seizures: No Hx Dementia: No Hx Diabetes: No Hx Gastrointestinal Disorders: Yes (gastritis nexium otc) Hx Liver Disease: No Hx Genitourinary Disorders: No Hx Sexually Transmitted Disorders: No Hx Renal Disease (ESRD): No Hx Thyroid Disease: No Hx Human Immunodeficiency Virus (HIV): No Hx Hepatitis C: No Hx Depression: Yes Hx Suicide Attempt: No Hx Bipolar Disorder: No Hx Schizophrenia: Yes (paranoid schizophrenia) - Patient Surgical History Past Surgical History: Yes Hx Neurologic Surgery: No Hx Cataract Extraction: No Hx Cardiac Surgery: No Hx Lung Surgery: No Hx Breast Surgery: No Hx Breast Biopsy: No Hx Abdominal Surgery: Yes (spleen repair 12/2014) Hx Appendectomy: Yes (IN 1987) Hx Cholecystectomy: No Hx Genitourinary Surgery: No Hx Section: No Hx Orthopedic Surgery: Yes (left ankle sx x2 1985 - plate with 5 screws) Other Surgical History: I & D abscess on right buttocks 5 years ago Anesthesia Reaction: No - PPD History Previous Implant?: Yes Documented Results: Negative w/proof Implanted On Prior R Admission?: Yes Date: 05/20/17 Results: 0 PPD to be Administered?: No - Smoking Cessation Smoking history: Current every day smoker Have you smoked in the past 12 months: Yes Aproximately how many cigarettes per day: 4 Cigars Per Day: 0 Hx Chewing Tobacco Use: No Initiated information on smoking cessation: Yes 'Breaking Loose' booklet given: 12/21/17 - Substance & Tx. 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 Use Treatment: Yes - Substances Abused Alcohol Route: Oral Frequency: Daily Amount used: 3 pints of kathe Age of first use: 15 Date of Last Use: 12/20/17 Crack Route: Smoking Frequency: 1-3 times last 30 days Amount used: $40 Age of first use: 20 Date of Last Use: 12/20/17 Family Disease History - Family Disease History Family History: Denies Admission Physical Exam [facility] - Vital Signs Vital Signs: Vital Signs - 24 hr 12/21/17 11:52 Temperature 95.8 F L Pulse Rate 72 Respiratory 18 Rate Blood Pressure 118/67 - Physical General Appearance: Yes: No Apparent Distress, Appropriately Dressed, Tremorous , Anxious HEENTM: Yes: EOMI, Hearing grossly Normal, Normocephalic, Normal Voice, SHANELL, Pharynx Normal, Nasal Congestion Respiratory: Yes: Chest Non-Tender, Normal Breath Sounds, No Respiratory Distress, No Accessory Muscle Use, Rhonchi Neck: Yes: No masses,lesions,Nodules, Supple, Trachea in good position Breast: Yes: Breast Exam Deferred Cardiology: Yes: Regular Rhythm, Regular Rate, S1, S2 Abdominal: Yes: Normal Bowel Sounds, Non Tender, Soft Genitourinary: Yes: Within Normal Limits Back: Yes: Normal Inspection, Muscle Spasm Musculoskeletal: Yes: full range of Motion, Gait Steady, Back pain, Muscle Pain Extremities: Yes: Normal Inspection, Normal Range of Motion, Non-Tender, Tremors Neurological: Yes: rn flight II-XII NML intact, Fully Oriented, Alert, Motor Strength 5/5, Normal Response, Depressed Affect Integumentary: Yes: Normal Color, Dry, Warm Lymphatic: Yes: Within Normal Limits - Diagnostic (1) Alcohol dependence with uncomplicated withdrawal Current Visit: Yes Status: Acute (2) Cocaine dependence, uncomplicated Current Visit: Yes Status: Chronic (3) Depressive disorder Current Visit: Yes Status: Chronic Comment: As per self-report. (4) Nicotine dependence Current Visit: Yes Status: Chronic Cleared for Admission [facility] - Detox or Rehab [facility] Level of Care: Medically Managed Detox [facility] Alcohol Content Breath Alcohol Content: 0 Urine Drug Screen - Results Drug Screen Negative: No Urine Drug Screen Results: DEBBIE-Cocaine, BAR-Barbiturates, BZO-Benzodiazepines
[2017-12-21] MEDS: chlordiazePOXIDE HCL 25 MG CAPSULE PO SCH ×2 (16:39→22:23)
[2017-12-21] MEDS: AMOX TR/POT CLAV 875MG/125MG TABLETS (FP) PO SCH (16:39)
[2017-12-21] MEDS: IBUPROFEN 400 MG TABLET (FP) PO PRN (16:41)
[2017-12-21] MEDS ORDERED: PNEUMOCOCCAL 23 VACCINE 0.5 ML VIAL IM ONE (18:00)
[2017-12-21] MEDS ORDERED: MELATONIN 5 MG TABLETS PO PRN (22:00)
[2017-12-21] MEDS: THIAMINE HCL 100 MG TABLET (FP) PO SCH (22:23)
[2017-12-21 23:28] LABS: URINE APPEARANCE CLEAR; URINE BILIRUBIN NEGATIVE (<2.0 mg/dL); URINE COLOR AMBER; URINE GLUCOSE (UA) NEGATIVE (NEGATIVE); URINE KETONE TRACE (NEGATIVE); URINE LEUK ESTERASE NEGATIVE (NEGATIVE); URINE NITRITE NEGATIVE (NEGATIVE); URINE PROTEIN 1+ (NEGATIVE); URINE UROBILINOGEN 4.0 E.U/dl mg/dL (0.2-1.0)
[2017-12-21 23:58] LABS: EPI CELLS RARE /HPF (FEW); URINE BACTERIA RARE /hpf (NONE SEEN); URINE MUCUS MANY
[2017-12-22] MEDS: chlordiazePOXIDE HCL 25 MG CAPSULE PO SCH ×4 (05:38→22:16)
[2017-12-22] MEDS: AMOX TR/POT CLAV 875MG/125MG TABLETS (FP) PO SCH ×2 (07:29→16:54)
[2017-12-22 10:17] LABS: HEMATOCRIT 39.6 % (35.4-49); HEMOGLOBIN 13.5 GM/dL (11.7-16.9); MCH 28.1 pg (25.7-33.7); MCHC 34.2 g/dl (32.0-35.9); MEAN CELL VOLUME 82.4 fl (80-96); MEAN PLT VOLUME 11.3 fl (7.5-11.1); PLATELET COUNT 161 K/MM3 (134-434); RBC 4.81 M/mm3 (4.00-5.60); RDW 15.1 % (11.9-15.9); WHITE BLOOD COUNT 12.7 K/mm3 (4.0-10.0)
[2017-12-22] MEDS: PRENATAL VITAMINS W/ FOLIC ACID TABLET (FP) PO SCH (10:19)
[2017-12-22] MEDS: NICOTINE 14 MG/24 HOURS TOPICAL PATCH TD SCH (10:20)
[2017-12-22] MEDS: P-EPHED 60MG/TRIPROLIDI 2.5MG TABLET PO PRN ×3 (10:23→22:18)
[2017-12-22] MEDS: guaiFENesin/D-METHORPHAN HB 10 ML UNIT-DOSE CUPS PO PRN ×2 (10:23→16:52)
[2017-12-22] MEDS: IBUPROFEN 400 MG TABLET (FP) PO PRN ×3 (10:24→23:07)
[2017-12-22 10:51] LABS: ALBUMIN 3.8 g/dl (3.4-5.0); ALK PHOS 68 U/L (45-117); ANION GAP 10 MMOL/L (8-16); BILIRUBIN,TOTAL 0.6 mg/dL (0.2-1); BLOOD UREA NITROGEN 15 mg/dL (7-18); CALCIUM 9.1 mg/dL (8.5-10.1); CHLORIDE 106 mmol/L (98-107); CO2 27 mmol/L (21-32); GLUCOSE,RANDOM 88 mg/dL (74-106); POTASSIUM 4.2 mmol/L (3.5-5.1); SGOT/AST 18 U/L (15-37); SGPT/ALT 24 U/L (13-61); SODIUM 142 mmol/L (136-145); TOT PROT 7.8 g/dl (6.4-8.2)
[2017-12-22] MEDS ORDERED: PNEUMOC 13-VAL CONJ-DIP CRM/PF 0.5 ML DISP.SYRIN IM ONE (12:00)
[2017-12-22] MEDS ORDERED: FLU VACCINE QUAD 60 MCG/0.5 ML (MDV 18-19) IM ONE (12:00)
--- NOTE | 2017-12-22 14:28 | PN ---
[facility] CIWA - CIWA Score Nausea/Vomitin-Mild Nausea/No Vomiting Muscle Tremors: 3 Anxiety: 3 Agitation: 3 Paroxysmal Sweats: 3 Orientation: 0-Oriented Tacttile Disturbances: 1-Very Mild Itch/Numbness Auditory Disturbances: 0-None Visual Disturbances: 0-None Headache: 1-Very Mild CIWA-Ar Total Score: 15 S Progress Note (SOAP) Subjective: Diarrhea, stuffy nose, body ache Objective: 12/22/17 14:24 Last Vital Signs Temp Pulse Resp BP Pulse Ox 96.9 F L 80 18 104/69 12/22/17 09:00 12/22/17 09:00 12/22/17 09:00 12/22/17 09:00 Laboratory Tests 12/21/17 12/22/17 12/22/17 23:10 06:00 06:00 WBC 12.7 H RBC 4.81 Hgb 13.5 Hct 39.6 MCV 82.4 MCH 28.1 MCHC 34.2 RDW 15.1 Plt Count 161 MPV 11.3 H D Sodium 142 Potassium 4.2 Chloride 106 Carbon Dioxide 27 Anion Gap 10 BUN 15 Creatinine 1.0 Creat Clearance w eGFR > 60 Random Glucose 88 Calcium 9.1 Total Bilirubin 0.6 AST 18 ALT 24 Alkaline Phosphatase 68 Total Protein 7.8 Albumin 3.8 Urine Color [place] Urine Appearance Clear Urine pH 5.0 Ur Specific [place] 1.034 Urine Protein 1+ H Urine Glucose (UA) Negative Urine Ketones Trace H Urine Blood Negative Urine Nitrite Negative Urine Bilirubin Negative Urine Urobilinogen 4.0 e.u/dl Ur Leukocyte Esterase Negative Urine WBC (Auto) 1 Urine RBC (Auto) 1 Ur Epithelial Cells Rare Urine Bacteria Rare Urine Mucus Many RPR Titer 12/22/17 06:00 WBC RBC Hgb Hct MCV MCH MCHC RDW Plt Count MPV Sodium Potassium Chloride Carbon Dioxide Anion Gap BUN Creatinine Creat Clearance w eGFR Random Glucose Calcium Total Bilirubin AST ALT Alkaline Phosphatase Total Protein Albumin Urine Color Urine Appearance Urine pH Ur Specific [place] Urine Protein Urine Glucose (UA) Urine Ketones Urine Blood Urine Nitrite Urine Bilirubin Urine Urobilinogen Ur Leukocyte Esterase Urine WBC (Auto) Urine RBC (Auto) Ur Epithelial Cells Urine Bacteria Urine Mucus RPR Titer Nonreactive Labs reviewed: wbc 12.7, abnormal UA Assessment: 12/22/17 14:26 Withdrawal sxs Noted with leukocytosis and abnormal UA Plan: Continue detox Leukocytosis: asymptomatic, on augmentin, repeat CBC Abnormal UA: encouraged PO water intake, repeat UA
--- NOTE | 2017-12-22 16:13 | CONSULT ---
[facility] Psychiatric Consult - Data Date of interview: 12/22/17 Admission source: [facility] Identifying data: This is one of multiple admissions to [facility] for this 52 y/ o AA male seeking detoxification treatment, on , for alcohol and cocaine dependence. Patient is , a father of three, domiciled, unemployed and supported on [employer] benefits. Substance Abuse History: Confirmed by the patient in this interview. Details in current [facility] report : Smoking history: Current every day smoker. Have you smoked in the past 12 months: Yes. Aproximately how many cigarettes per day: 4. Cigars Per Day: 0. Hx Chewing Tobacco Use: No. Initiated information on smoking cessation: Yes. 'Breaking Loose' booklet given: 12/21/17. - Substance & Tx. History. Hx Alcohol Use: Yes. Hx Substance Use: Yes. Substance Use Type : Alcohol, Cocaine. Hx Substance Use Treatment: Yes. - Substances Abused. Alcohol. Route: Oral. Frequency: Daily. Amount used: 3 pints of kathe. Age of first use: 15. Date of Last Use: 12/20/17. Crack. Route: Smoking. Frequency: 1-3 times last 30 days. Amount used: $40. Age of first use: 20. Date of Last Use: 12/20/17 Medical History: Remarkable for GERD,chronic lumbar pain and history of orthosurgery for fracture of left ankle (hardware in place). Psychiatric History: Patient reports the diagnosis of Paranoid Schizophrenia. First psychiatric meltdown occurred in 1985. Mr Huffman presents with a history of multiple psychiatric hospitalizations, which includes involuntary committments at [facility], [facility], [facility], [facility] and [facility]. Known history of chronic non-adherence to psychiatric OPD care and psychotropic medications. Patient indicates that he has dropped out of psychiatric follow up at the [facility] OPD clinic for several years. Last hospitalized in [id number] ( self-report). Patient admits to a preference for CPEP visits to local hospitals where he gets refills. Currently maitained on olanzapine 2.5 mg po hs. No reported history of suicide attempts. Physical/Sexual Abuse/Trauma History: Patient denies. Additional Comment: Urine Drug Screen Results: DEBBIE-Cocaine, BAR-Barbiturates, BZO-Benzodiazepines. Noted. Mental Status Exam - Mental Status Exam Alert and Oriented to: Time, Place, Person Cognitive Function: Good Patient Appearance: Unkempt, Disheveled Mood: Withdrawn (calm) Affect: Flat Patient Behavior: Appropriate, Cooperative Speech Pattern: Rambling, Tangential Voice Loudness: Normal Thought Process: Loose Associations, Disorganized Thought Disorder: Bizarre Hallucinations: Denies Suicidal Ideation: Denies Homicidal Ideation: Denies Insight/Judgement: Poor Sleep: Well Appetite: Good Muscle strength/Tone: Normal Gait/Station: Normal Psychiatric Findings - Problem List ([place] 1, 2,3) (1) Alcohol dependence with uncomplicated withdrawal Current Visit: Yes Status: Acute (2) Cocaine dependence, uncomplicated Current Visit: Yes Status: Acute (3) Nicotine dependence Current Visit: Yes Status: Acute (4) Schizophrenia, paranoid Current Visit: Yes Status: Chronic Comment: As per existing records. (5) Non-compliant patient Current Visit: Yes Status: Acute - Initial Treatment Plan Initial Treatment Plan: Psychoeducation. Sleep hygiene. Detoxification in progress. Zyprexa 2.5 mg po hs. Side effects/benefits discussed with the patient. Group, supportive psychotherapy. Mr Garsia agrees to follow this careplan. Observation.
[2017-12-22] MEDS ORDERED: OLANZapine 2.5 MG TABLET PO SCH (22:00)
[2017-12-22] MEDS: THIAMINE HCL 100 MG TABLET (FP) PO SCH (22:16)
[2017-12-23] MEDS: chlordiazePOXIDE HCL 25 MG CAPSULE PO SCH ×2 (06:07→10:17)
[2017-12-23] MEDS: P-EPHED 60MG/TRIPROLIDI 2.5MG TABLET PO PRN (06:09)
[2017-12-23] MEDS: AMOX TR/POT CLAV 875MG/125MG TABLETS (FP) PO SCH (07:40)
--- NOTE | 2017-12-23 09:36 | PN ---
[facility] CIWA - CIWA Score Nausea/Vomitin-No Nausea/No Vomiting Muscle Tremors: 4-Moderate,w/Arms Extend Anxiety: 3 Agitation: 3 Paroxysmal Sweats: 2 Orientation: 0-Oriented Tacttile Disturbances: 1-Very Mild Itch/Numbness Auditory Disturbances: 0-None Visual Disturbances: 1-Very Mild Sensitivity Headache: 0-None Present CIWA-Ar Total Score: 14 S Progress Note (SOAP) Subjective: tremors, shakes, chills, irritable, sweats Objective: 12/23/17 09:36 Vital Signs Temperature 97.1 F L 12/23/17 06:09 Pulse Rate 63 12/23/17 06:09 Respiratory Rate 18 12/23/17 06:09 Blood Pressure 108/66 12/23/17 06:09 O2 Sat by Pulse Oximetry (%) Laboratory Last Values WBC 12.7 K/mm3 (4.0-10.0) H 12/22/17 06:00 RBC 4.81 M/mm3 (4.00-5.60) 12/22/17 06:00 Hgb 13.5 GM/dL (11.7-16.9) 12/22/17 06:00 Hct 39.6 % (35.4-49) 12/22/17 06:00 MCV 82.4 fl (80-96) 12/22/17 06:00 MCH 28.1 pg (25.7-33.7) 12/22/17 06:00 MCHC 34.2 g/dl (32.0-35.9) 12/22/17 06:00 RDW 15.1 % (11.9-15.9) 12/22/17 06:00 Plt Count 161 K/MM3 (134-434) 12/22/17 06:00 MPV 11.3 fl (7.5-11.1) H D 12/22/17 06:00 Sodium 142 mmol/L (136-145) 12/22/17 06:00 Potassium 4.2 mmol/L (3.5-5.1) 12/22/17 06:00 Chloride 106 mmol/L (98-107) 12/22/17 06:00 Carbon Dioxide 27 mmol/L (21-32) 12/22/17 06:00 Anion Gap 10 MMOL/L (8-16) 12/22/17 06:00 BUN 15 mg/dL (7-18) 12/22/17 06:00 Creatinine 1.0 mg/dL (0.55-1.3) 12/22/17 06:00 Creat Clearance w eGFR > 60 (>60) 12/22/17 06:00 Random Glucose 88 mg/dL (74-106) 12/22/17 06:00 Calcium 9.1 mg/dL (8.5-10.1) 12/22/17 06:00 Total Bilirubin 0.6 mg/dL (0.2-1) 12/22/17 06:00 AST 18 U/L (15-37) 12/22/17 06:00 ALT 24 U/L (13-61) 12/22/17 06:00 Alkaline Phosphatase 68 U/L (45-117) 12/22/17 06:00 Total Protein 7.8 g/dl (6.4-8.2) 12/22/17 06:00 Albumin 3.8 g/dl (3.4-5.0) 12/22/17 06:00 Urine Color [place] 12/21/17 23:10 Urine Appearance Clear 12/21/17 23:10 Urine pH 5.0 (5.0-8.0) 12/21/17 23:10 Ur Specific [place] 1.034 (1.010-1.035) 12/21/17 23:10 Urine Protein 1+ (NEGATIVE) H 12/21/17 23:10 Urine Glucose (UA) Negative (NEGATIVE) 12/21/17 23:10 Urine Ketones Trace (NEGATIVE) H 12/21/17 23:10 Urine Blood Negative (NEGATIVE) 12/21/17 23:10 Urine Nitrite Negative (NEGATIVE) 12/21/17 23:10 Urine Bilirubin Negative (<2.0 mg/dL) 12/21/17 23:10 Urine Urobilinogen 4.0 e.u/dl mg/dL (0.2-1.0) 12/21/17 23:10 Ur Leukocyte Esterase Negative (NEGATIVE) 12/21/17 23:10 Urine WBC (Auto) 1 /hpf (3-5) 12/21/17 23:10 Urine RBC (Auto) 1 /hpf (0-3) 12/21/17 23:10 Ur Epithelial Cells Rare /HPF (FEW) 12/21/17 23:10 Urine Bacteria Rare /hpf (NONE SEEN) 12/21/17 23:10 Urine Mucus Many 12/21/17 23:10 RPR Titer Nonreactive (NONREACTIVE) 12/22/17 06:00 AOx3 no distress + hands tremors full ROM, ambulatory skin intact, diaphoresis Assessment: 12/23/17 10:27 withdrawal sx Plan: increase fluids continue detox continue to monitor
[2017-12-23] MEDS: PRENATAL VITAMINS W/ FOLIC ACID TABLET (FP) PO SCH (10:17)
[2017-12-23] MEDS: NICOTINE 14 MG/24 HOURS TOPICAL PATCH TD SCH (10:18)
[2017-12-23 10:34] VITALS: BP 106/72; PULSE 90; TEMP 97.5
[2017-12-23 11:13] LABS: URINE APPEARANCE CLEAR; URINE BILIRUBIN NEGATIVE (<2.0 mg/dL); URINE COLOR LTYELLOW; URINE GLUCOSE (UA) NEGATIVE (NEGATIVE); URINE KETONE NEGATIVE (NEGATIVE); URINE LEUK ESTERASE NEGATIVE (NEGATIVE); URINE NITRITE NEGATIVE (NEGATIVE); URINE PROTEIN NEGATIVE (NEGATIVE); URINE UROBILINOGEN NEGATIVE mg/dL (0.2-1.0)
[2017-12-23 11:31] LABS: BASO % 0.4 % (0-2.0); EOS % 10.9 % (0-4.5); HEMATOCRIT 41.1 % (35.4-49); HEMOGLOBIN 14.1 GM/dL (11.7-16.9); LYMPH % 27.1 % (8-40); MCH 28.4 pg (25.7-33.7); MCHC 34.4 g/dl (32.0-35.9); MEAN CELL VOLUME 82.5 fl (80-96); MEAN PLT VOLUME 10.7 fl (7.5-11.1); MONO % 7.7 % (3.8-10.2); NEUT % 53.9 % (42.8-82.8); PLATELET COUNT 173 K/MM3 (134-434); RBC 4.99 M/mm3 (4.00-5.60); RDW 14.9 % (11.9-15.9); WHITE BLOOD COUNT 10.8 K/mm3 (4.0-10.0)
[2017-12-23] MEDS ORDERED: PNEUMOC 13-VAL CONJ-DIP CRM/PF 0.5 ML DISP.SYRIN IM ONE (12:00)
[2017-12-23] MEDS ORDERED: PNEUMOCOCCAL 23 VACCINE 0.5 ML VIAL IM ONE (12:00)
--- NOTE | 2017-12-23 15:06 | PN ---
[facility] Progress Note Note: informed by nurse stated thomson has to leave de to personal issue,seen by counselor, all convince and attempted to convince patient to stay with no avail,advise to go to emergency room if emergency medical problem patient did no want to wait,signed release ama,
--- NOTE | 2017-12-23 15:30 | DS ---
[facility] Detox Discharge Summary Admission Date: 12/21/17 Discharge Date: 12/23/17 - History Present History: Alcohol Dependence, Cocaine Dependence Additional Comments: patient signed ama,had personal issue to take care off,seen by counselor,all attempts to convince patient to stay with no avail,signed release ama, did not want to wait,advise to go to er if any medical emergency Pertinent Past History: depression nicotine dependence uri - Physical Exam Results Vital Signs: Vital Signs Temperature 97.5 F L 12/23/17 10:33 Pulse Rate 90 12/23/17 10:33 Respiratory Rate 20 12/23/17 10:33 Blood Pressure 106/72 12/23/17 10:33 O2 Sat by Pulse Oximetry (%) Pertinent Admission Physical Exam Findings: withdrawal signs and symptom Laboratory Last Values WBC 10.8 K/mm3 (4.0-10.0) H 12/23/17 07:30 RBC 4.99 M/mm3 (4.00-5.60) 12/23/17 07:30 Hgb 14.1 GM/dL (11.7-16.9) 12/23/17 07:30 Hct 41.1 % (35.4-49) 12/23/17 07:30 MCV 82.5 fl (80-96) 12/23/17 07:30 MCH 28.4 pg (25.7-33.7) 12/23/17 07:30 MCHC 34.4 g/dl (32.0-35.9) 12/23/17 07:30 RDW 14.9 % (11.9-15.9) 12/23/17 07:30 Plt Count 173 K/MM3 (134-434) 12/23/17 07:30 MPV 10.7 fl (7.5-11.1) 12/23/17 07:30 Absolute Neuts (auto) 5.8 K/mm3 (1.5-8.0) 12/23/17 07:30 Neutrophils % 53.9 % (42.8-82.8) 12/23/17 07:30 Lymphocytes % 27.1 % (8-40) 12/23/17 07:30 Monocytes % 7.7 % (3.8-10.2) 12/23/17 07:30 Eosinophils % 10.9 % (0-4.5) H 12/23/17 07:30 Basophils % 0.4 % (0-2.0) 12/23/17 07:30 Nucleated RBC % 0 % (0-0) 12/23/17 07:30 Sodium 142 mmol/L (136-145) 12/22/17 06:00 Potassium 4.2 mmol/L (3.5-5.1) 12/22/17 06:00 Chloride 106 mmol/L (98-107) 12/22/17 06:00 Carbon Dioxide 27 mmol/L (21-32) 12/22/17 06:00 Anion Gap 10 MMOL/L (8-16) 12/22/17 06:00 BUN 15 mg/dL (7-18) 12/22/17 06:00 Creatinine 1.0 mg/dL (0.55-1.3) 12/22/17 06:00 Creat Clearance w eGFR > 60 (>60) 12/22/17 06:00 Random Glucose 88 mg/dL (74-106) 12/22/17 06:00 Calcium 9.1 mg/dL (8.5-10.1) 12/22/17 06:00 Total Bilirubin 0.6 mg/dL (0.2-1) 12/22/17 06:00 AST 18 U/L (15-37) 12/22/17 06:00 ALT 24 U/L (13-61) 12/22/17 06:00 Alkaline Phosphatase 68 U/L (45-117) 12/22/17 06:00 Total Protein 7.8 g/dl (6.4-8.2) 12/22/17 06:00 Albumin 3.8 g/dl (3.4-5.0) 12/22/17 06:00 Urine Color [place] 12/23/17 08:30 Urine Appearance Clear 12/23/17 08:30 Urine pH 6.0 (5.0-8.0) 12/23/17 08:30 Ur Specific [place] 1.016 (1.010-1.035) 12/23/17 08:30 Urine Protein Negative (NEGATIVE) 12/23/17 08:30 Urine Glucose (UA) Negative (NEGATIVE) 12/23/17 08:30 Urine Ketones Negative (NEGATIVE) 12/23/17 08:30 Urine Blood Negative (NEGATIVE) 12/23/17 08:30 Urine Nitrite Negative (NEGATIVE) 12/23/17 08:30 Urine Bilirubin Negative (<2.0 mg/dL) 12/23/17 08:30 Urine Urobilinogen Negative mg/dL (0.2-1.0) 12/23/17 08:30 Ur Leukocyte Esterase Negative (NEGATIVE) 12/23/17 08:30 Urine WBC (Auto) 1 /hpf (3-5) 12/21/17 23:10 Urine RBC (Auto) 1 /hpf (0-3) 12/21/17 23:10 Ur Epithelial Cells Rare /HPF (FEW) 12/21/17 23:10 Urine Bacteria Rare /hpf (NONE SEEN) 12/21/17 23:10 Urine Mucus Many 12/21/17 23:10 RPR Titer Nonreactive (NONREACTIVE) 12/22/17 06:00 Vital Signs Temperature 97.5 F L 12/23/17 10:33 Pulse Rate 90 12/23/17 10:33 Respiratory Rate 20 12/23/17 10:33 Blood Pressure 106/72 12/23/17 10:33 O2 Sat by Pulse Oximetry (%) - Medication Discharge Medications: Ambulatory Orders Olanzapine [Zyprexa -] 2.5 mg PO HS #30 tablet 09/24/17 Amoxicillin - [Amoxicillin 875mg Tablet -] 875 mg PO BID 12/21/17 Ibuprofen 400 mg PO Q4H PRN 12/21/17 Olanzapine [Zyprexa -] 2.5 mg PO HS #30 tablet 12/22/17 - AMA Did Patient Leave Against Medical Advice: Yes
[2017-12-23] MEDS ORDERED: chlordiazePOXIDE 5 MG CAPSULE PO SCH (17:00)
[2017-12-24] MEDS ORDERED: chlordiazePOXIDE HCL 10 MG CAPSULE PO SCH (17:00)
== END 2017-12-23 15:35 | disposition left against medical advice (07) | DRG 894 ==
LOC: YASAS 11:29 → Y3N 14:22
PROC: HZ2ZZZZ Detoxification Services for Substance Abuse Treatment (ICD-10-PCS; principal; 2017-12-21)
DX: F10.230 Alcohol dependence with withdrawal, uncomplicated (principal); F14.20 Cocaine dependence, uncomplicated; F20.0 Paranoid schizophrenia; F17.213 Nicotine dependence, cigarettes, with withdrawal; F32.9 Major depressive disorder, single episode, unspecified; J06.9 Acute upper respiratory infection, unspecified; K21.9 Gastro-esophageal reflux disease without esophagitis; M54.5 Low back pain; D72.829 Elevated white blood cell count, unspecified; R82.90 Unspecified abnormal findings in urine; R63.4 Abnormal weight loss; Z68.27 Body mass index [BMI] 27.0-27.9, adult; Z91.19 Patient's noncompliance with other medical treatment and regimen; Z88.8 Allergy status to other drugs, medicaments and biological substances
CPT/HCPCS: 36415; 80053; 81003; 81015; 85025; 85027; 86593; 90688; 90732; G0008; G0009

== ENCOUNTER 2018-03-16 13:35 | Inpatient (IN) | payer OTHER ==
[2018-03-16 14:24] VITALS: BMI 27.8
--- NOTE | 2018-03-16 19:36 | HP ---
CIWA Score Nausea/Vomitin-Mild Nausea/No Vomiting Muscle Tremors: 3 Anxiety: 6 Agitation: 3 Paroxysmal Sweats: 1-Minimal Palms Moist Orientation: 0-Oriented Tacttile Disturbances: 0-None Auditory Disturbances: 0-None Visual Disturbances: 0-None Headache: 0-None Present CIWA-Ar Total Score: 14 - Admission Criteria OASAS Guidelines: Admission for Medically Managed Detox: Requires at least one of the followin. CIWA greater than 12 2. Seizures within the past 24 hours 3. Delirium tremens within the past 24 hours 4. Hallucinations within the past 24 hours 5. Acute intervention needed for co occurring medical disorder 6. Acute intervention needed for co occurring psychiatric disorder 7. Severe withdrawal that cannot be handled at a lower level of care (continued vomiting, continued diarrhea, abnormal vital signs) requiring intravenous medication and/or fluids 8. Patient presents the following: CIWA greater than 12 Admission Criteria Met: Admission criteria met Admission ROS [facility] Chief Complaint: Here for alcohol withdrawal. Allergies/Adverse Reactions: Allergies Allergy/AdvReac Type Severity Reaction Status Date / Time escitalopram Allergy Severe ITCHING Verified 03/16/18 17:44 WITH LEXAPRO fluphenazine [Fluphenazine] Allergy Severe Itching Verified 03/16/18 17:44 sertraline HCl [From Zoloft] Allergy Severe abdominal Verified 03/16/18 17:44 swelling ziprasidone Allergy Severe Swelling Verified 03/16/18 17:44 ziprasidone HCl [From Geodon] Allergy Severe Swelling Verified 03/16/18 17:44 ziprasidone mesylate Allergy Severe sweating Verified 03/16/18 17:44 [From Geodon] risperidone [From Risperdal] Allergy Intermediate sweating Verified 03/16/18 17: 44 History of Present Illness: Here for detox from alcohol. [facility] also needs rehab for crack/cocaine. Alcohol use began at age 15. Cocaine use began at age 20. Nicotine use began at age 14. Denies hx seizures or overdoses. [facility] last blackout was in 2005. STATES INTERESTED IN STARTING NALTREXONE IN REHAB AND UPON DISCHARGE. Hx LBP since 1985. Pain alternates between sharp and achy and goes up to a "10 ". Pain being treated by indomethacin. States also takes Robaxin 500 Q6H, and ibuprofen 800 mg, a naproxen. (Meds prescribed during ER visits) Hx: GERD. Blood clots treated years ago. Denies calf pain, chest pain, SOB. Hx; Depression and anxiety. Denies thoughts of harming self or others. Not being followed by a psychiatrist. States gets MH meds from the emergency room. Patient w/ a hx of septal infarct on previous EKG's @ [facility]. Declined ASA 81 mg despite explanation of benefits. Denies cardiac hx, chest pain or hx HTN. Search Terms: Ezequiel Garsia, 1965 Search Date: 03/16/2018 07:30:45 PM The Drug Utilization Report below displays all of the controlled substance prescriptions, if any, that your patient has filled in the last twelve months. The information displayed on this report is compiled from pharmacy submissions to the Department, and accurately reflects the information as submitted by the pharmacies. This report was requested by: Luz Callahan | Reference #: [id number] There are no results for the search terms that you entered. Exam Limitations: No Limitations - Ebola screening Have you traveled outside of the country in the last 21 days: No Have you had contact with anyone from an Ebola affected area: No Have you been sick,other than usual withdrawal symptoms: No Do you have a fever: No - Review of Systems Constitutional: Changes in sleep (Difficulty falling asleep.) EENT: reports: Blurred Vision, Dental Problems (Missing teeth. Denies pain. Chews and swallows okay.), Other (States runny nose r/t cold weather.) Respiratory: reports: No Symptoms reported Cardiac: reports: No Symptoms Reported GI: reports: Nausea, Indigestion (Hx acid reflux) : reports: No Symptoms Reported Musculoskeletal: reports: Back Pain (Hx LBP since 1985. Pain alternates between sharp and achy. Pain being treated by indomethacin.), Joint Stiffness ( Stiffness in both legs x 1 week r/t walking alot.) Integumentary: reports: No Symptoms Reported Neuro: reports: Numbness ((R) thumb) Endocrine: reports: Increased Thirst Hematology: reports: Blood Clots (Treated many years ago. None recently) Psychiatric: reports: Judgement Intact, Orientated x3, Agitated, Anxious, Depressed (Denies thoughts of harming self or others.) Patient History - Patient Medical History Hx Anemia: No Hx Asthma: No Hx Chronic Obstructive Pulmonary Disease (COPD): No Hx Cancer: No Hx Cardiac Disorders: No Hx Congestive Heart Failure: No Hx Hypertension: No Hx Hypercholesterolemia: No Hx Pacemaker: No HX Cerebrovascular Accident: No Hx Seizures: No Hx Dementia: No Hx Diabetes: No Hx Gastrointestinal Disorders: Yes (gastritis nexium otc) Hx Liver Disease: No Hx Genitourinary Disorders: No Hx Sexually Transmitted Disorders: No Hx Renal Disease (ESRD): No Hx Thyroid Disease: No Hx Human Immunodeficiency Virus (HIV): No Hx Hepatitis C: No Hx Depression: Yes Hx Suicide Attempt: No Hx Bipolar Disorder: No Hx Schizophrenia: Yes (paranoid schizophrenia) - Patient Surgical History Past Surgical History: Yes Hx Neurologic Surgery: No Hx Cataract Extraction: No Hx Cardiac Surgery: No Hx Lung Surgery: No Hx Breast Surgery: No Hx Breast Biopsy: No Hx Abdominal Surgery: Yes (spleen repair 12/2014) Hx Appendectomy: Yes (IN 1987) Hx Cholecystectomy: No Hx Genitourinary Surgery: No Hx Section: No Hx Orthopedic Surgery: Yes (left ankle sx x2 1986 - plate with 5 screws) Other Surgical History: I & D abscess on right buttocks 5 years ago Anesthesia Reaction: No - PPD History Previous Implant?: Yes Documented Results: Negative w/proof Implanted On Prior R Admission?: Yes Date: 05/20/17 Results: 0 PPD to be Administered?: No - Smoking Cessation Smoking history: Current every day smoker Have you smoked in the past 12 months: Yes Aproximately how many cigarettes per day: 10 Cigars Per Day: 0 Hx Chewing Tobacco Use: No Initiated information on smoking cessation: Yes 'Breaking Loose' booklet given: 03/16/18 - Substance & Tx. 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)) - Substances Abused Alcohol Route: Oral Frequency: Daily Amount used: LIQUOR- 3 PINTS, BEER- 2 SIX PACKS Age of first use: 15 Date of Last Use: 03/15/18 Crack Route: Smoking Frequency: Daily Amount used: $100 WORTH Age of first use: 20 Date of Last Use: 03/15/18 Family Disease History - Family Disease History Family Disease History: Diabetes: Brother (HTN), Heart Disease: Father (HTN ), Mother (HTN), Brother Admission Physical Exam BHS - Vital Signs Vital Signs: Vital Signs - 24 hr 03/16/18 14:21 Temperature 96.3 F L Pulse Rate 53 L Respiratory 18 Rate Blood Pressure 155/96 - Physical General Appearance: Yes: Nourished, Appropriately Dressed, Mild Distress, Irritable, Sweating, Anxious HEENTM: Yes: EOMI, Hearing grossly Normal, Normocephalic, Normal Voice, SHANELL, Rhinorrhea Respiratory: Yes: Lungs Clear, Normal Breath Sounds, No Respiratory Distress Neck: Yes: No masses,lesions,Nodules, Supple Breast: Yes: Breast Exam Deferred Cardiology: Yes: Regular Rhythm, Regular Rate, S1, S2, Bradycardia Abdominal: Yes: Soft, Increased Bowel Sounds, Protuberent (Increased abdominal diposity), Tenderness (Mid-epigastric tenderness. No rebound. No guarding.) Genitourinary: Yes: Within Normal Limits Back: Yes: Normal Inspection Musculoskeletal: Yes: full range of Motion, Gait Steady Extremities: Yes: Normal Capillary Refill, Normal Range of Motion, Non-Tender ( No calf pain. Nehative Liyah's.), Tremors (Mild temors of hands upon extension.) , Other ((L) ankle > (R) r/t ORIF - in ) Neurological: Yes: mold parter II-XII NML intact, Fully Oriented, Alert, Motor Strength 5/5, Normal Mood/Affect, Normal Response Integumentary: Yes: Normal Color, Dry (Decreased skin turogor), Warm Lymphatic: Yes: Within Normal Limits - Diagnostic (1) History of abnormal electrocardiogram Current Visit: Yes Status: Chronic (2) Alcohol dependence with uncomplicated withdrawal Current Visit: Yes Status: Acute (3) Cocaine dependence, uncomplicated Current Visit: Yes Status: Chronic (4) Nicotine dependence Current Visit: Yes Status: Chronic (5) GERD (gastroesophageal reflux disease) Current Visit: No Status: Chronic Qualifiers: Esophagitis presence: without esophagitis Qualified Code(s): K21.9 - Gastro -esophageal reflux disease without esophagitis (6) Low back pain Current Visit: No Status: Chronic Cleared for Admission [facility] - Detox or Rehab [facility] Level of Care: Medically Managed Detox Regimen/Protocol: Librium [facility] Breath Alcohol Content Breath Alcohol Content: 0 Urine Drug Screen - Results Drug Screen Negative: No Urine Drug Screen Results: DEBBIE-Cocaine, BZO-Benzodiazepines
[2018-03-16] MEDS ORDERED: P-EPHED 60MG/TRIPROLIDI 2.5MG TABLET PO PRN (20:10)
[2018-03-16] MEDS ORDERED: MAGNESIUM CITRATE 300 ML BOTTLE PO PRN (20:10)
[2018-03-16] MEDS ORDERED: MENTHOL/PHENOL 1 EACH UD MM PRN (20:10)
[2018-03-16] MEDS ORDERED: MAGNESIUM HYDROX 2400MG/30ML ORAL SUSPENSION 30 ML CUP PO PRN (20:10)
[2018-03-16] MEDS ORDERED: NICOTINE POLACRILEX 2 MG GUM BC PRN (20:10)
[2018-03-16] MEDS ORDERED: LOPERAMIDE HCL 2 MG CAPSULE PO PRN (20:10)
[2018-03-16] MEDS ORDERED: ACETAMINOPHEN 325 MG TABLET (FP) PO PRN (20:10)
[2018-03-16] MEDS ORDERED: guaiFENesin 200 MG/10 ML 10 ML UNIT-DOSE CUPS PO PRN (20:14)
[2018-03-16] MEDS ORDERED: chlordiazePOXIDE HCL 25 MG CAPSULE PO ONE (20:45)
[2018-03-16] MEDS ORDERED: MELATONIN 5 MG TABLETS PO PRN (22:00)
[2018-03-16] MEDS: chlordiazePOXIDE HCL 25 MG CAPSULE PO SCH (22:48)
[2018-03-16] MEDS: METHOCARBAMOL 500 MG TABLET PO SCH (22:48)
[2018-03-16] MEDS: THIAMINE HCL 100 MG TABLET (FP) PO SCH (22:49)
[2018-03-17] MEDS: INDOMETHACIN 25 MG CAPSULE PO SCH ×3 (00:26→22:37)
[2018-03-17] MEDS: chlordiazePOXIDE HCL 25 MG CAPSULE PO SCH ×4 (05:50→22:37)
[2018-03-17] MEDS: METHOCARBAMOL 500 MG TABLET PO SCH ×3 (05:50→22:36)
[2018-03-17] MEDS: MAG HYDROX/AL HYDROX/SIMETH 30 ML UNIT-DOSE CUP PO PRN (05:51)
[2018-03-17 10:33] LABS: HEMATOCRIT 40.1 % (35.4-49); HEMOGLOBIN 14.1 GM/dL (11.7-16.9); MCH 29.3 pg (25.7-33.7); MCHC 35.3 g/dl (32.0-35.9); MEAN CELL VOLUME 83.1 fl (80-96); MEAN PLT VOLUME 10.4 fl (7.5-11.1); PLATELET COUNT 155 K/MM3 (134-434); RBC 4.82 M/mm3 (4.00-5.60); RDW 15.6 % (11.9-15.9); WHITE BLOOD COUNT 7.8 K/mm3 (4.0-10.0)
[2018-03-17 10:46] LABS: URINE APPEARANCE CLEAR; URINE BILIRUBIN NEGATIVE (<2.0 mg/dL); URINE COLOR YELLOW; URINE GLUCOSE (UA) NEGATIVE (NEGATIVE); URINE KETONE NEGATIVE (NEGATIVE); URINE LEUK ESTERASE 1+ (NEGATIVE); URINE NITRITE NEGATIVE (NEGATIVE); URINE PROTEIN NEGATIVE (NEGATIVE); URINE UROBILINOGEN 4.0 E.U/dl mg/dL (0.2-1.0)
--- NOTE | 2018-03-17 11:01 | PN ---
S CIWA - CIWA Score Nausea/Vomitin Muscle Tremors: 2 Anxiety: 2 Agitation: 2 Paroxysmal Sweats: 2 Orientation: 0-Oriented Tacttile Disturbances: 2-Mild Itch/Numbness/Burn Auditory Disturbances: 1-Very Mild Visual Disturbances: 1-Very Mild Sensitivity Headache: 1-Very Mild CIWA-Ar Total Score: 15 BHS Progress Note (SOAP) Subjective: Back pain, chills, tremors and interrupted sleep Objective: 03/17/18 11:00 Vital Signs 03/17/18 03/17/18 06:41 09:18 Temperature 97.5 F L 98.2 F Pulse Rate 58 L 63 Respiratory 20 18 Rate Blood Pressure 106/66 111/60 Laboratory Last Values WBC 7.8 K/mm3 (4.0-10.0) 03/17/18 08:00 RBC 4.82 M/mm3 (4.00-5.60) 03/17/18 08:00 Hgb 14.1 GM/dL (11.7-16.9) 03/17/18 08:00 Hct 40.1 % (35.4-49) 03/17/18 08:00 MCV 83.1 fl (80-96) 03/17/18 08:00 MCH 29.3 pg (25.7-33.7) 03/17/18 08:00 MCHC 35.3 g/dl (32.0-35.9) 03/17/18 08:00 RDW 15.6 % (11.9-15.9) 03/17/18 08:00 Plt Count 155 K/MM3 (134-434) 03/17/18 08:00 MPV 10.4 fl (7.5-11.1) 03/17/18 08:00 CBC wnl, chemistry pending Assessment: 03/17/18 11:00 Withdrawal sx Plan: Continue detox
[2018-03-17 11:09] LABS: ALBUMIN 3.2 g/dl (3.4-5.0); ALK PHOS 52 U/L (45-117); ANION GAP 9 MMOL/L (8-16); BILIRUBIN,TOTAL 0.4 mg/dL (0.2-1); BLOOD UREA NITROGEN 13 mg/dL (7-18); CALCIUM 8.9 mg/dL (8.5-10.1); CHLORIDE 107 mmol/L (98-107); CO2 26 mmol/L (21-32); CREATININE 1.1 mg/dL (0.55-1.3); GLUCOSE,RANDOM 96 mg/dL (74-106); POTASSIUM 4.1 mmol/L (3.5-5.1); SGOT/AST 18 U/L (15-37); SGPT/ALT 24 U/L (13-61); SODIUM 142 mmol/L (136-145); TOT PROT 6.5 g/dl (6.4-8.2)
[2018-03-17] MEDS: NICOTINE 14 MG/24 HOURS TOPICAL PATCH TD SCH (11:30)
[2018-03-17] MEDS: PRENATAL VITAMINS W/ FOLIC ACID TABLET (FP) PO SCH (11:30)
[2018-03-17] MEDS: chlordiazePOXIDE HCL 25 MG CAPSULE PO PRN ×2 (11:30→15:23)
[2018-03-17] MEDS: IBUPROFEN 400 MG TABLET (FP) PO PRN ×2 (11:32→22:40)
[2018-03-17 12:15] LABS: CALCIUM OXALATE CRYSTALS FEW /hpf (NONE SEEN); EPI CELLS RARE /HPF (FEW); URINE MUCUS RARE
--- NOTE | 2018-03-17 16:36 | CONSULT ---
[facility] Psychiatric Consult - Data Date of interview: 03/17/18 Admission source: [facility] Identifying data: Readmission to [facility] for this 52 y/o AA male who requested detoxification treatment for alcohol and cocaine dependence. Examined on . Patient is , a father of one (claims one biological + two stepchildren), undomiciled, unemployed and supported on [facility] benefits. Substance Abuse History: Discussed with patient. Confirmed enduring history of crack and alcohol abuse. Details in current [facility] report as follows : Smoking history: Current every day smoker. Have you smoked in the past 12 months: Yes. Aproximately how many cigarettes per day: 10. Cigars Per Day: 0. Hx Chewing Tobacco Use: No. Initiated information on smoking cessation: Yes. 'Breaking Loose' booklet given: 03/16/18. - Substance & Tx. History. Hx Alcohol Use: Yes. Hx Substance Use: Yes. Substance Use Type: Alcohol, Cocaine. 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 - Substances Abused. Alcohol. Route: Oral. Frequency: Daily. Amount used: LIQUOR- 3 PINTS, BEER- 2 SIX PACKS. Age of first use: 15. Date of Last Use: . Crack. Route: Smoking. Frequency: Daily. Amount used: $100 WORTH. Age of first use: 20. Date of Last Use: 03/15/18 Medical History: Consistent with GERD, gout (self-report), chronic lumbar pain and history of orthosurgery for fracture of left ankle (hardware in place). Psychiatric History: Diagnosed with Paranoid Schizophrenia. First psychiatric breakdown : 1985. Mr Garsia presents with a history of multiple psychiatric hospitalizations, which includes involuntary committments at [facility], [facility], [facility], [facility] and [facility]. Patient admits to a long standing history of non-adherence to psychiatric OPD care. Dropped affiliation with OPD care settings. Has shown a preference for sporadic CPEP visits for medications refills. In this hospitalization, patient requests the resumption of olanzapine 2.5 mg/day. No reported history of suicide attempts. Physical/Sexual Abuse/Trauma History: Not discussed. Patrient declines . Additional Comment: Urine Drug Screen Results: DEBBIE-Cocaine, BZO- Benzodiazepines. Noted. Mental Status Exam - Mental Status Exam Alert and Oriented to: Time, Place, Person Cognitive Function: Grossly Intact Patient Appearance: Unkempt, Disheveled Mood: Withdrawn Affect: Blunted Patient Behavior: Fatigued, Cooperative Speech Pattern: Clear Voice Loudness: Normal Thought Process: Goal Oriented Thought Disorder: Not Present Hallucinations: Denies Suicidal Ideation: Denies Homicidal Ideation: Denies Insight/Judgement: Poor Sleep: Fair Appetite: Good Muscle strength/Tone: Normal Gait/Station: Normal Psychiatric Findings - Problem List ([place] 1, 2,3) (1) Alcohol dependence with uncomplicated withdrawal Current Visit: Yes Status: Acute (2) Cocaine dependence, uncomplicated Current Visit: Yes Status: Chronic (3) Nicotine dependence Current Visit: Yes Status: Chronic (4) Substance induced mood disorder Current Visit: Yes Status: Chronic (5) Schizophrenia, paranoid Current Visit: No Status: Chronic Comment: As per existing records. (6) Insomnia Current Visit: Yes Status: Chronic Qualifiers: Insomnia type: alcohol-induced Qualified Code(s): F10.982 - Alcohol use, unspecified with alcohol-induced sleep disorder (7) Non-compliant patient Current Visit: Yes Status: Chronic - Initial Treatment Plan Initial Treatment Plan: Psychoeducation. Sleep hygiene. Detoxification. AA meetings. Support. Zyprexa 2.5 mg po daily (patient's request to receive this medication in the morning). Side effects/benefits discussed with patient. Informed of potential for the metabolic syndrome. Consent (verbal) granted to MD. Ochoa.
--- NOTE | 2018-03-17 16:52 | EKG ---
Test Reason : Blood Pressure : / mmHG Vent. Rate : 061 BPM Atrial Rate : 061 BPM P-R Int : 140 ms QRS Dur : 096 ms QT Int : 430 ms P-R-T Axes : 046 008 032 degrees QTc Int : 432 ms NORMAL SINUS RHYTHM SEPTAL INFARCT (CITED ON OR BEFORE 18-MAY-2017) ABNORMAL ECG WHEN COMPARED WITH ECG OF 23-SEP-2017 22:32, QUESTIONABLE CHANGE IN INITIAL FORCES OF SEPTAL LEADS QT HAS LENGTHENED Confirmed by Julianna Kenny ([id number]) on 03/17/2018 4:52:26 PM Referred By: Tenzin SPRAGUE Confirmed By:Julianna Kenny
[2018-03-17] MEDS: THIAMINE HCL 100 MG TABLET (FP) PO SCH (22:36)
[2018-03-18] MEDS: METHOCARBAMOL 500 MG TABLET PO SCH ×2 (06:09→13:26)
[2018-03-18] MEDS: chlordiazePOXIDE HCL 25 MG CAPSULE PO SCH ×3 (06:09→17:12)
[2018-03-18] MEDS: IBUPROFEN 400 MG TABLET (FP) PO PRN (06:11)
[2018-03-18] MEDS ORDERED: OLANZapine 2.5 MG TABLET PO SCH (10:00)
[2018-03-18] MEDS: NICOTINE 14 MG/24 HOURS TOPICAL PATCH TD SCH (10:22)
[2018-03-18] MEDS: INDOMETHACIN 25 MG CAPSULE PO SCH (10:22)
[2018-03-18] MEDS: PRENATAL VITAMINS W/ FOLIC ACID TABLET (FP) PO SCH (10:22)
--- NOTE | 2018-03-18 15:38 | PN ---
S CIWA - CIWA Score Nausea/Vomitin-No Nausea/No Vomiting Muscle Tremors: None Anxiety: 1-Mildly Anxious Agitation: 1-Slight > Activity Paroxysmal Sweats: No Perspiration Orientation: 0-Oriented Tacttile Disturbances: 3-Moderate Itch/Numb/Burn Auditory Disturbances: 0-None Visual Disturbances: 0-None Headache: 1-Very Mild CIWA-Ar Total Score: 6 BHS Progress Note (SOAP) Subjective: pt states has back ache, doing well on alcohol detox protocol O: Vital Signs - 24 hr 03/17/18 03/18/18 03/18/18 22:10 00:30 03:30 Temperature 98.2 F Pulse Rate 61 Respiratory 20 18 18 Rate Blood Pressure 104/67 03/18/18 03/18/18 03/18/18 06:53 09:20 13:52 Temperature 97.5 F L 97.0 F L 97.9 F Pulse Rate 56 L 76 63 Respiratory 18 16 16 Rate Blood Pressure 126/74 122/69 108/63 Laboratory Tests 03/17/18 03/17/18 03/17/18 08:00 08:00 08:00 WBC 7.8 RBC 4.82 Hgb 14.1 Hct 40.1 MCV 83.1 MCH 29.3 MCHC 35.3 RDW 15.6 Plt Count 155 MPV 10.4 Sodium 142 Potassium 4.1 Chloride 107 Carbon Dioxide 26 Anion Gap 9 BUN 13 Creatinine 1.1 Creat Clearance w eGFR > 60 Random Glucose 96 Calcium 8.9 Total Bilirubin 0.4 AST 18 ALT 24 Alkaline Phosphatase 52 Total Protein 6.5 Albumin 3.2 L Urine Color Urine Appearance Urine pH Ur Specific [place] Urine Protein Urine Glucose (UA) Urine Ketones Urine Blood Urine Nitrite Urine Bilirubin Urine Urobilinogen Ur Leukocyte Esterase Urine WBC (Auto) Urine RBC (Auto) Ur Epithelial Cells Calcium Oxalate Crystal Urine Mucus RPR Titer HIV 1&2 Antibody Screen Negative HIV P24 Antigen Negative 03/17/18 03/17/18 08:00 08:00 WBC RBC Hgb Hct MCV MCH MCHC RDW Plt Count MPV Sodium Potassium Chloride Carbon Dioxide Anion Gap BUN Creatinine Creat Clearance w eGFR Random Glucose Calcium Total Bilirubin AST ALT Alkaline Phosphatase Total Protein Albumin Urine Color Yellow Urine Appearance Clear Urine pH 6.0 Ur Specific [place] 1.021 Urine Protein Negative Urine Glucose (UA) Negative Urine Ketones Negative Urine Blood Negative Urine Nitrite Negative Urine Bilirubin Negative Urine Urobilinogen 4.0 e.u/dl Ur Leukocyte Esterase 1+ H Urine WBC (Auto) 15 Urine RBC (Auto) 2 Ur Epithelial Cells Rare Calcium Oxalate Crystal Few Urine Mucus Rare RPR Titer Nonreactive HIV 1&2 Antibody Screen HIV P24 Antigen a/p: continue alcohol detox protocol prn meds for back pain 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
[2018-03-18] MEDS: MAG HYDROX/AL HYDROX/SIMETH 30 ML UNIT-DOSE CUP PO PRN (17:14)
[2018-03-18 17:48] VITALS: BP 117/83; PULSE 73; TEMP 98.2
[2018-03-18] MEDS ORDERED: HALOPERIDOL 5 MG TABLET (FP) PO PRN (18:04)
[2018-03-18] MEDS ORDERED: BENZTROPINE MESYLATE 1 MG TABLET (FP) PO PRN (18:04)
--- NOTE | 2018-03-18 18:57 | PN ---
[facility] Progress Note Note: informed by Nurse that he would like to leave ,could not complete the treatment due to personal issue and has to go back to work,he feel good,all attempts to convince patient to stay by me,counselor and nurse with no avail, no suicidal or homicidal ideation,explained to patient for the risk of relapsing ,advise to go to nearest emergency room if any emergency problems,patient signed release ama,follow up with medical provider in [place],patient left the unit in stable condition,no suicidal,no homicidal ideation
--- NOTE | 2018-03-18 19:20 | DS ---
[facility] Detox Discharge Summary Admission Date: 03/16/18 Discharge Date: 03/18/18 - History Present History: Alcohol Dependence, Cocaine Dependence Additional Comments: patient left ama,please see the progress note Pertinent Past History: low back pain gerd nicotine dependence paranoid schizophrenia - Physical Exam Results Vital Signs: Vital Signs Temperature 98.2 F 03/18/18 17:45 Pulse Rate 73 03/18/18 17:45 Respiratory Rate 18 03/18/18 17:45 Blood Pressure 117/83 03/18/18 17:45 O2 Sat by Pulse Oximetry (%) Pertinent Admission Physical Exam Findings: withdrawal signs and symptom - Medication Discharge Medications: Ambulatory Orders Olanzapine [Zyprexa -] 2.5 mg PO HS #30 tablet 12/22/17 Indomethacin [Indocin -] 25 mg PO BID 03/16/18 - AMA Did Patient Leave Against Medical Advice: Yes
[2018-03-18] MEDS ORDERED: chlordiazePOXIDE 5 MG CAPSULE PO SCH (23:00)
[2018-03-19] MEDS ORDERED: chlordiazePOXIDE HCL 10 MG CAPSULE PO SCH (23:00)
== END 2018-03-18 18:50 | disposition left against medical advice (07) | DRG 894 ==
LOC: YASAS 13:35 → Y6N 20:59
PROVIDERS: ADMIT Neuromusculoskeletal Medicine & OMM; ATTEND Neuromusculoskeletal Medicine & OMM
PROC: HZ2ZZZZ Detoxification Services for Substance Abuse Treatment (ICD-10-PCS; principal; 2018-03-16)
DX: F10.230 Alcohol dependence with withdrawal, uncomplicated (principal); F14.20 Cocaine dependence, uncomplicated; F19.282 Other psychoactive substance dependence with psychoactive substance-induced sleep disorder; F20.0 Paranoid schizophrenia; F17.210 Nicotine dependence, cigarettes, uncomplicated; F19.24 Other psychoactive substance dependence with psychoactive substance-induced mood disorder; F32.9 Major depressive disorder, single episode, unspecified; K21.9 Gastro-esophageal reflux disease without esophagitis; M54.5 Low back pain; G89.29 Other chronic pain; R00.1 Bradycardia, unspecified; R94.31 Abnormal electrocardiogram [ECG] [EKG]; Z91.19 Patient's noncompliance with other medical treatment and regimen; Z88.8 Allergy status to other drugs, medicaments and biological substances
CPT/HCPCS: 36415; 80053; 81003; 81015; 85027; 86593; 87389; 93005; 93010

== ENCOUNTER 2018-05-07 19:31 | Inpatient (IN) | payer OTHER ==
[2018-05-07 21:46] VITALS: BMI 28.8
--- NOTE | 2018-05-08 01:47 | HP ---
CIWA Score Nausea/Vomitin-Mild Nausea/No Vomiting Muscle Tremors: 4-Moderate,w/Arms Extend Anxiety: 4-Mod. Anxious/Guarded Agitation: 4-Moderately Restless Paroxysmal Sweats: 1-Minimal Palms Moist Orientation: 0-Oriented Tacttile Disturbances: 0-None Auditory Disturbances: 0-None Visual Disturbances: 0-None Headache: 3-Moderate CIWA-Ar Total Score: 17 - Admission Criteria OASAS Guidelines: Admission for Medically Managed Detox: Requires at least one of the followin. CIWA greater than 12 2. Seizures within the past 24 hours 3. Delirium tremens within the past 24 hours 4. Hallucinations within the past 24 hours 5. Acute intervention needed for co occurring medical disorder 6. Acute intervention needed for co occurring psychiatric disorder 7. Severe withdrawal that cannot be handled at a lower level of care (continued vomiting, continued diarrhea, abnormal vital signs) requiring intravenous medication and/or fluids 8. Admission ROS S - [facility] Chief Complaint: Alcohol withdrawal symptom Allergies/Adverse Reactions: Allergies Allergy/AdvReac Type Severity Reaction Status Date / Time escitalopram Allergy Severe ITCHING Verified 03/16/18 17:44 WITH LEXAPRO fluphenazine [Fluphenazine] Allergy Severe Itching Verified 03/16/18 17:44 sertraline HCl [From Zoloft] Allergy Severe abdominal Verified 03/16/18 17:44 swelling ziprasidone Allergy Severe Swelling Verified 03/16/18 17:44 ziprasidone HCl [From Geodon] Allergy Severe Swelling Verified 03/16/18 17:44 ziprasidone mesylate Allergy Severe sweating Verified 03/16/18 17:44 [From Geodon] risperidone [From Risperdal] Allergy Intermediate sweating Verified 03/16/18 17: 44 History of Present Illness: 52 years old male with a long history of alcohol dependence is seeking admission to detox. Patient has been in previous detox, last at [facility] and reports 3 years of sobriety. He has medical history of low back, gout, GERD and depression. He denies suicide attempt and suicidal ideation at this time. [id number] reports back out while drinking Exam Limitations: No Limitations - Ebola screening Have you traveled outside of the country in the last 21 days: No (N) Have you had contact with anyone from an Ebola affected area: No Have you been sick,other than usual withdrawal symptoms: No Do you have a fever: No - Review of Systems Constitutional: Chills, Malaise, Changes in sleep, Unintentional Wgt. Loss EENT: reports: Sinus Pressure Respiratory: reports: No Symptoms reported Cardiac: reports: No Symptoms Reported GI: reports: Nausea, Poor Appetite, Poor Fluid Intake, Vomiting : reports: No Symptoms Reported Musculoskeletal: reports: Back Pain, Gout Integumentary: reports: Dryness, Flushing Neuro: reports: Tremors Endocrine: reports: No Symptoms Reported Hematology: reports: Anemia Psychiatric: reports: Mood/Affect Appropiate, Anxious, Depressed Other Systems: Reviewed and Negative Patient History - Patient Medical History Hx Anemia: No Hx Asthma: No Hx Chronic Obstructive Pulmonary Disease (COPD): No Hx Cancer: No Hx Cardiac Disorders: No Hx Congestive Heart Failure: No Hx Hypertension: No Hx Hypercholesterolemia: No Hx Pacemaker: No HX Cerebrovascular Accident: No Hx Seizures: No Hx Dementia: No Hx Diabetes: No Hx Gastrointestinal Disorders: Yes (GERD- nexium otc) Hx Liver Disease: No Hx Genitourinary Disorders: No Hx Sexually Transmitted Disorders: No Hx Renal Disease (ESRD): No Hx Thyroid Disease: No Hx Human Immunodeficiency Virus (HIV): No (Negative 2017) Hx Hepatitis C: No Hx Depression: Yes (Not on medication) Hx Suicide Attempt: No (Deniers suicidal ideation at this time) Hx Bipolar Disorder: No Hx Schizophrenia: Yes (paranoid schizophrenia) Other Medical History: Gout - Not on medication - Patient Surgical History Past Surgical History: Yes Hx Neurologic Surgery: No Hx Cataract Extraction: No Hx Cardiac Surgery: No Hx Lung Surgery: No Hx Breast Surgery: No Hx Breast Biopsy: No Hx Abdominal Surgery: Yes (spleen repair 12/2014) Hx Appendectomy: Yes (IN 1987) Hx Cholecystectomy: No Hx Genitourinary Surgery: No Hx Section: No Hx Orthopedic Surgery: Yes (left ankle sx x2 1985 - plate with 5 screws) Other Surgical History: I & D abscess on right buttocks 5 years ago Anesthesia Reaction: No - PPD History Previous Implant?: Yes Documented Results: Positive w/o proof Date: 05/20/17 Results: 0 PPD to be Administered?: Yes - Smoking Cessation Smoking history: Current every day smoker Have you smoked in the past 12 months: Yes Aproximately how many cigarettes per day: 10 Cigars Per Day: 0 Hx Chewing Tobacco Use: No Initiated information on smoking cessation: Yes 'Breaking Loose' booklet given: 05/08/18 - Substance & Tx. 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 Use Treatment: Yes ([facility]) - Substances Abused Alcohol Route: Oral Frequency: Daily Amount used: Malka - 2 pints Age of first use: 15 Date of Last Use: 05/07/18 Family Disease History - Family Disease History Family Disease History: Diabetes: Brother (HTN), Heart Disease: Father (HTN ), Mother (HTN), Brother Admission Physical Exam [facility] - Vital Signs Vital Signs: Vital Signs - 24 hr 05/07/18 21:44 Temperature 97.5 F L Pulse Rate 62 Respiratory 18 Rate Blood Pressure 130/85 - Physical General Appearance: Yes: Moderate Distress, Tremorous, Sweating, Anxious HEENTM: Yes: EOMI, Normal ENT Inspection, Normal Voice, SHANELL Respiratory: Yes: Lungs Clear, Normal Breath Sounds, No Respiratory Distress Neck: Yes: Supple Breast: Yes: Breast Exam Deferred Cardiology: Yes: Regular Rhythm, Regular Rate Abdominal: Yes: Normal Bowel Sounds, Soft Genitourinary: Yes: Within Normal Limits Back: Yes: Normal Inspection Musculoskeletal: Yes: Muscle weakness (low back pain) Extremities: Yes: Tremors Neurological: Yes: Alert, Normal Mood/Affect Integumentary: Yes: Warm Lymphatic: Yes: Within Normal Limits - Diagnostic (1) Alcohol dependence with uncomplicated withdrawal Current Visit: Yes Status: Acute (2) Anxiety Current Visit: Yes Status: Chronic (3) Cocaine dependence, uncomplicated Current Visit: Yes Status: Chronic (4) Depression Current Visit: Yes Status: Chronic (5) GERD (gastroesophageal reflux disease) Current Visit: Yes Status: Chronic Qualifiers: Esophagitis presence: without esophagitis Qualified Code(s): K21.9 - Gastro -esophageal reflux disease without esophagitis (6) Low back pain Current Visit: Yes Status: Chronic (7) Gout Current Visit: Yes Status: Chronic Qualifiers: Gout site: toe Laterality: right Cleared for Admission [facility] - Detox or Rehab [facility] Level of Care: Medically Managed Detox Regimen/Protocol: Librium S Breath Alcohol Content Breath Alcohol Content: 0 Urine Drug Screen - Results Drug Screen Negative: No Urine Drug Screen Results: DEBBIE-Cocaine, BZO-Benzodiazepines Inpatient Rehab Admission - Rehab Decision to Admit Inpatient rehab admission?: No
[2018-05-08] MEDS ORDERED: MAGNESIUM CITRATE 300 ML BOTTLE PO PRN (01:59)
[2018-05-08] MEDS ORDERED: MELATONIN 5 MG TABLETS PO PRN (01:59)
[2018-05-08] MEDS ORDERED: IBUPROFEN 400 MG TABLET (FP) PO PRN (01:59)
[2018-05-08] MEDS ORDERED: MAGNESIUM HYDROX 2400MG/30ML ORAL SUSPENSION 30 ML CUP PO PRN (01:59)
[2018-05-08] MEDS ORDERED: MAG HYDROX/AL HYDROX/SIMETH 30 ML UNIT-DOSE CUP PO PRN (01:59)
[2018-05-08] MEDS ORDERED: hydrOXYzine PAMOATE 25 MG CAPSULE (FP) PO PRN (01:59)
[2018-05-08] MEDS ORDERED: MENTHOL/PHENOL 1 EACH UD MM PRN (01:59)
[2018-05-08] MEDS ORDERED: NICOTINE POLACRILEX 2 MG GUM BUC PRN (01:59)
[2018-05-08] MEDS ORDERED: BISMUTH SUBSALICYLATE 524 MG/30 ML UD PO PRN (01:59)
[2018-05-08] MEDS ORDERED: ACETAMINOPHEN 325 MG TABLET (FP) PO PRN ×2 (01:59)
[2018-05-08] MEDS ORDERED: chlordiazePOXIDE HCL 25 MG CAPSULE PO PRN (01:59)
[2018-05-08] MEDS: chlordiazePOXIDE HCL 25 MG CAPSULE PO SCH ×4 (06:07→23:25)
--- NOTE | 2018-05-08 09:54 | CONSULT ---
[facility] Psychiatric Consult - Data Date of interview: 05/08/18 Admission source: Self-referred Identifying data: Mr Garsia is a 52 years old Black male, father of a 29 years old daughter, homeless seeking detox treatment for alcohol Substance Abuse History: Reports history of alcohol use. Refer to addiction counselor's summary for further information Medical History: Significant for GERD, gout, chronic lumbar pain, history of orthosurgery for fracture of left ankle (hardware in place), appendectomy and splenectomy. Smokes 10 cigarettes daily Psychiatric History: Reports being diagnosed with Paranoid Schizophrenia in 1985 and started on psychotropic medications. Reports history of multiple psychiatric hospitalizations at various facilities including [facility], [facility], [facility], [facility] and [facility]. Patient admits to a long standing history of non-adherence to psychiatric OPD care. Has shown a preference for sporadic CPEP visits for medications refills. External medications search shows scripts for 14 days supply of Abilify 10 mg/day prescribed by Evan Byers, filled on 02/17/18 and 14 days supply of Prozac 10 mg/d prescribed by Freddie Hernandez , filled on 05/01/18. He was seen on 03/17/[address] Lentz while in detox in this facility and he was prescribed Zyprexa 2.5 mg po grier. No reported history of suicide attempt. At present, Denies experiencing psychotic or depressive symptoms, S/H ideations Physical/Sexual Abuse/Trauma History: Denies history of verbal, physical or sexual abuse as well as DV relationship Additional Comment: Reports history of multiple arrests including one felony conviction Mental Status Exam - Mental Status Exam Alert and Oriented to: Person Cognitive Function: Fair Patient Appearance: Well Groomed Mood: Hopeful, Euthymic Affect: Blunted Patient Behavior: Cooperative Speech Pattern: Clear Voice Loudness: Normal Thought Process: Intact, Goal Oriented Hallucinations: Denies Suicidal Ideation: Denies Homicidal Ideation: Denies Insight/Judgement: Poor Sleep: Poorly Muscle strength/Tone: Normal Gait/Station: Other (uses a cane as ambulatory aid) Psychiatric Findings - Problem List ([place] 1, 2,3) (1) Schizophrenia, paranoid Current Visit: No Status: Chronic Comment: As per existing records. (2) Schizoaffective disorder Current Visit: Yes Status: Ruled-out (3) Alcohol-induced sleep disorder Current Visit: Yes Status: Acute (4) Alcohol dependence with uncomplicated withdrawal Current Visit: Yes Status: Acute (5) Nicotine dependence Current Visit: No Status: Chronic (6) GERD (gastroesophageal reflux disease) Current Visit: Yes Status: Chronic Qualifiers: Esophagitis presence: without esophagitis Qualified Code(s): K21.9 - Gastro -esophageal reflux disease without esophagitis (7) Gout Current Visit: Yes Status: Chronic Qualifiers: Gout site: toe Laterality: right (8) Low back pain Current Visit: Yes Status: Chronic - Initial Treatment Plan Initial Treatment Plan: 1) Resume Prozac 10 mg po daily and Zyprexa 2.5 mg po daily. 2) Continue inpatient detoxification
[2018-05-08] MEDS: PRENATAL VITAMINS W/ FOLIC ACID TABLET (FP) PO SCH (10:18)
[2018-05-08] MEDS: NICOTINE 14 MG/24 HOURS TOPICAL PATCH TD SCH (10:19)
--- NOTE | 2018-05-08 10:20 | PN ---
S CIWA - CIWA Score Nausea/Vomitin Muscle Tremors: 2 Anxiety: 2 Agitation: 2 Paroxysmal Sweats: 2 Orientation: 1-Uncertain about Date Tacttile Disturbances: 1-Very Mild Itch/Numbness Auditory Disturbances: 1-Very Mild Visual Disturbances: 0-None Headache: 2-Mild CIWA-Ar Total Score: 15 BHS Progress Note (SOAP) Subjective: alert,irritable,anxious,tremor,interrupted sleep Objective: 05/08/18 10:19 Vital Signs Temperature 98.1 F 05/08/18 09:15 Pulse Rate 63 05/08/18 09:15 Respiratory Rate 18 05/08/18 09:15 Blood Pressure 124/70 05/08/18 09:15 O2 Sat by Pulse Oximetry (%) 05/08/18 10:19 labs pending Assessment: 05/08/18 10:20 withdrawal symptom Plan: continue detox
[2018-05-08] MEDS: INDOMETHACIN 25 MG CAPSULE PO SCH ×2 (10:30→23:25)
[2018-05-08] MEDS: OLANZapine 2.5 MG TABLET PO SCH (11:00)
[2018-05-08] MEDS: FLUoxetine HCL 10 MG CAPSULE (FP) PO SCH (11:05)
[2018-05-08] MEDS: THIAMINE HCL 100 MG TABLET (FP) PO SCH (23:25)
[2018-05-09] MEDS: chlordiazePOXIDE HCL 25 MG CAPSULE PO SCH ×4 (06:09→23:58)
[2018-05-09] MEDS: METHOCARBAMOL 500 MG TABLET PO PRN (06:10)
[2018-05-09] MEDS: INDOMETHACIN 25 MG CAPSULE PO SCH ×2 (10:27→23:58)
[2018-05-09] MEDS: FLUoxetine HCL 10 MG CAPSULE (FP) PO SCH (10:27)
[2018-05-09] MEDS: PRENATAL VITAMINS W/ FOLIC ACID TABLET (FP) PO SCH (10:28)
[2018-05-09] MEDS: NICOTINE 14 MG/24 HOURS TOPICAL PATCH TD SCH (10:28)
[2018-05-09] MEDS: OLANZapine 2.5 MG TABLET PO SCH (10:34)
[2018-05-09 12:50] LABS: HEMATOCRIT 42.6 % (35.4-49); HEMOGLOBIN 14.5 GM/dL (11.7-16.9); MCH 28.1 pg (25.7-33.7); MCHC 34.1 g/dl (32.0-35.9); MEAN CELL VOLUME 82.6 fl (80-96); MEAN PLT VOLUME 9.9 fl (7.5-11.1); PLATELET COUNT 164 K/MM3 (134-434); RBC 5.16 M/mm3 (4.00-5.60); WHITE BLOOD COUNT 8.9 K/mm3 (4.0-10.0)
[2018-05-09 13:01] LABS: ALBUMIN 3.6 g/dl (3.4-5.0); ALK PHOS 75 U/L (45-117); ANION GAP 8 MMOL/L (8-16); BILIRUBIN,TOTAL 0.6 mg/dL (0.2-1); BLOOD UREA NITROGEN 12 mg/dL (7-18); CALCIUM 8.6 mg/dL (8.5-10.1); CHLORIDE 104 mmol/L (98-107); CO2 26 mmol/L (21-32); CREATININE 1.3 mg/dL (0.55-1.3); GLUCOSE,RANDOM 92 mg/dL (74-106); SGOT/AST 16 U/L (15-37); SGPT/ALT 30 U/L (13-61); SODIUM 138 mmol/L (136-145); TOT PROT 7.4 g/dl (6.4-8.2)
[2018-05-09] MEDS ORDERED: cloNIDine HCL 0.1 MG TABLET PO PRN (13:50)
--- NOTE | 2018-05-09 13:50 | PN ---
S CIWA - CIWA Score Nausea/Vomitin-Mild Nausea/No Vomiting Muscle Tremors: 2 Anxiety: 2 Agitation: 2 Paroxysmal Sweats: 1-Minimal Palms Moist Orientation: 0-Oriented Tacttile Disturbances: 0-None Auditory Disturbances: 0-None Visual Disturbances: 0-None Headache: 0-None Present CIWA-Ar Total Score: 8 BHS Progress Note (SOAP) Subjective: pt states he is still having hot and cold flashes/sweating, on alcohol detox protocol, today is day #3 after admission. O: Vital Signs - 24 hr 05/08/18 05/08/18 05/09/18 17:06 21:20 00:30 Temperature 97.7 F 97 F L Pulse Rate 69 60 Respiratory 18 18 18 Rate Blood Pressure 132/74 117/86 05/09/18 05/09/18 05/09/18 03:30 07:07 09:40 Temperature 98.2 F 98.2 F Pulse Rate 57 L 65 Respiratory 18 18 18 Rate Blood Pressure 108/62 114/70 05/09/18 12:58 Temperature 97.7 F Pulse Rate 61 Respiratory 18 Rate Blood Pressure 98/57 L Laboratory Tests 05/09/18 05/09/18 08:00 08:00 WBC 8.9 RBC 5.16 Hgb 14.5 Hct 42.6 MCV 82.6 MCH 28.1 MCHC 34.1 RDW 16.0 H Plt Count 164 MPV 9.9 Sodium 138 Potassium 4.0 Chloride 104 Carbon Dioxide 26 Anion Gap 8 BUN 12 Creatinine 1.3 Creat Clearance w eGFR 57.97 Random Glucose 92 Calcium 8.6 Total Bilirubin 0.6 AST 16 ALT 30 Alkaline Phosphatase 75 Total Protein 7.4 Albumin 3.6 a/p: continue alcohol detox protocol prn clonidine/vistaril for Sx treatment
[2018-05-09] MEDS ORDERED: hydrOXYzine PAMOATE 25 MG CAPSULE (FP) PO PRN (13:51)
[2018-05-09] MEDS: THIAMINE HCL 100 MG TABLET (FP) PO SCH (23:58)
[2018-05-10] MEDS ORDERED: chlordiazePOXIDE HCL 10 MG CAPSULE PO PRN (05:00)
[2018-05-10] MEDS: chlordiazePOXIDE HCL 10 MG CAPSULE PO SCH ×4 (05:32→21:59)
--- NOTE | 2018-05-10 09:51 | PN ---
[facility] Progress Note (SOAP) Subjective: alert,irritable,anxious,interrupted sleep,pain in the body Objective: 05/10/18 10:12 Vital Signs Temperature 97.0 F L 05/10/18 09:19 Pulse Rate 84 05/10/18 09:19 Respiratory Rate 18 05/10/18 09:19 Blood Pressure 112/76 05/10/18 09:19 O2 Sat by Pulse Oximetry (%) Assessment: 05/10/18 10:13 withdrawal symptom Plan: continue detox
[2018-05-10] MEDS: INDOMETHACIN 25 MG CAPSULE PO SCH ×2 (10:18→22:00)
[2018-05-10] MEDS: PRENATAL VITAMINS W/ FOLIC ACID TABLET (FP) PO SCH (10:18)
[2018-05-10] MEDS: FLUoxetine HCL 10 MG CAPSULE (FP) PO SCH (10:18)
[2018-05-10] MEDS: NICOTINE 14 MG/24 HOURS TOPICAL PATCH TD SCH (10:19)
[2018-05-10] MEDS: OLANZapine 2.5 MG TABLET PO SCH (10:24)
[2018-05-10] MEDS: METHOCARBAMOL 500 MG TABLET PO PRN (10:24)
[2018-05-10] MEDS: THIAMINE HCL 100 MG TABLET (FP) PO SCH (21:59)
[2018-05-11] MEDS ORDERED: chlordiazePOXIDE HCL 10 MG CAPSULE PO SCH (05:00)
--- NOTE | 2018-05-11 08:56 | DS ---
[facility] Detox Discharge Summary Admission Date: 05/08/18 Discharge Date: 05/11/18 - History Present History: Alcohol Dependence, Cocaine Dependence - Physical Exam Results Vital Signs: Vital Signs Temperature 95.5 F L 05/11/18 06:00 Pulse Rate 55 L 05/11/18 06:00 Respiratory Rate 18 05/11/18 06:30 Blood Pressure 114/72 05/11/18 06:00 O2 Sat by Pulse Oximetry (%) - Treatment Hospital Course: Detox Protocol Followed, Detoxed Safely, Responded well, Discharged Condition Good, Rehab Referral Accepted - Medication Discharge Medications: Ambulatory Orders Olanzapine [Zyprexa -] 2.5 mg PO HS #30 tablet 12/22/17 Indomethacin [Indocin -] 25 mg PO BID #60 capsule 05/11/18 Methocarbamol [Robaxin -] 500 mg PO BID #60 tablet 05/11/18 - Diagnosis (1) Alcohol dependence with uncomplicated withdrawal Current Visit: Yes Status: Chronic (2) Alcohol-induced sleep disorder Current Visit: Yes Status: Acute (3) Anxiety Current Visit: Yes Status: Chronic (4) Cocaine dependence, uncomplicated Current Visit: Yes Status: Chronic (5) Depression Current Visit: Yes Status: Chronic (6) GERD (gastroesophageal reflux disease) Current Visit: Yes Status: Chronic Qualifiers: Esophagitis presence: without esophagitis Qualified Code(s): K21.9 - Gastro -esophageal reflux disease without esophagitis (7) Gout Current Visit: Yes Status: Chronic Qualifiers: Gout site: toe Laterality: right (8) Low back pain Current Visit: Yes Status: Chronic (9) Schizoaffective disorder Current Visit: Yes Status: Ruled-out (10) Abnormal finding on urinalysis Current Visit: No Status: Acute (11) Leukocytosis Current Visit: No Status: Acute (12) URI (upper respiratory infection) Current Visit: No Status: Acute (13) Weight loss Current Visit: No Status: Acute (14) Depressive disorder Current Visit: No Status: Chronic (15) History of abnormal electrocardiogram Current Visit: No Status: Chronic (16) Insomnia Current Visit: No Status: Chronic Qualifiers: Insomnia type: alcohol-induced Qualified Code(s): F10.982 - Alcohol use, unspecified with alcohol-induced sleep disorder (17) Nicotine dependence Current Visit: Yes Status: Chronic Qualifiers: Nicotine product type: cigarettes Substance use status: uncomplicated Qualified Code(s): F17.210 - Nicotine dependence, cigarettes, uncomplicated (18) Non-compliant patient Current Visit: No Status: Chronic (19) Schizophrenia, paranoid Current Visit: No Status: Chronic (20) Substance induced mood disorder Current Visit: No Status: Chronic (21) Psychiatric disorder Current Visit: Yes Status: Chronic - AMA Did Patient Leave Against Medical Advice: No (going to [facility])
--- NOTE | 2018-05-11 09:28 | PN ---
[facility] Progress Note Note: Psychiatric nurse practitioner note: Patient will be attending [facility] for rehab. A 30 day prescription of prozac 10mg + zyprexa 2.5mg was electronically sent to [facility] at [id number] [place], [place] [id number].
[2018-05-11 09:41] VITALS: BP 122/73; PULSE 83; TEMP 98.6
== END 2018-05-11 09:15 | disposition home or self-care (01) | DRG 897 ==
LOC: YASAS 19:31 → Y6N 05-08 01:10
PROVIDERS: ADMIT Surgery; ATTEND Surgery
PROC: HZ2ZZZZ Detoxification Services for Substance Abuse Treatment (ICD-10-PCS; principal; 2018-05-08)
DX: F10.230 Alcohol dependence with withdrawal, uncomplicated (principal); F14.20 Cocaine dependence, uncomplicated; F20.0 Paranoid schizophrenia; F17.210 Nicotine dependence, cigarettes, uncomplicated; F10.282 Alcohol dependence with alcohol-induced sleep disorder; F19.24 Other psychoactive substance dependence with psychoactive substance-induced mood disorder; F41.8 Other specified anxiety disorders; F32.9 Major depressive disorder, single episode, unspecified; G47.00 Insomnia, unspecified; D72.829 Elevated white blood cell count, unspecified; K21.9 Gastro-esophageal reflux disease without esophagitis; M10.9 Gout, unspecified; M54.5 Low back pain; R63.4 Abnormal weight loss; Z68.28 Body mass index [BMI] 28.0-28.9, adult; Z88.8 Allergy status to other drugs, medicaments and biological substances; Z91.19 Patient's noncompliance with other medical treatment and regimen
CPT/HCPCS: 36415; 80053; 85027; 86593

== ENCOUNTER 2018-09-09 12:28 | Inpatient (IN) | payer OTHER | END 2018-09-11 18:09 | disposition home or self-care (01) | LOC: YASAS 12:28 → Y3N 16:37 | DX: F10.10 Alcohol abuse, uncomplicated (principal) ==

== ENCOUNTER 2018-11-24 10:56 | Inpatient (IN) | payer MEDICARE, OTHER ==
[2018-11-24 11:30] VITALS: BMI 30.1
--- NOTE | 2018-11-24 12:25 | HP ---
CIWA Score Nausea/Vomitin Muscle Tremors: 3 Anxiety: 2 Agitation: 1-Slight > Activity Paroxysmal Sweats: 2 Orientation: 0-Oriented Tacttile Disturbances: 1-Very Mild Itch/Numbness Auditory Disturbances: 1-Very Mild Visual Disturbances: 1-Very Mild Sensitivity Headache: 2-Mild CIWA-Ar Total Score: 16 - Admission Criteria OASAS Guidelines: Admission for Medically Managed Detox: Requires at least one of the followin. CIWA greater than 12 2. Seizures within the past 24 hours 3. Delirium tremens within the past 24 hours 4. Hallucinations within the past 24 hours 5. Acute intervention needed for co occurring medical disorder 6. Acute intervention needed for co occurring psychiatric disorder 7. Severe withdrawal that cannot be handled at a lower level of care (continued vomiting, continued diarrhea, abnormal vital signs) requiring intravenous medication and/or fluids 8. Patient presents the following: CIWA greater than 12 Admission Criteria Met: Admission criteria met Admitting History and Physical - Smoking History Smoking history: Current every day smoker Have you smoked in the past 12 months: Yes Aproximately how many cigarettes per day: 10 - Alcohol/Substance Use Hx Alcohol Use: Yes Admission ROS S - HPI Chief Complaint: "I need help with withdrawal, I also need help to quit and go to rehab." Allergies/Adverse Reactions: Allergies Allergy/AdvReac Type Severity Reaction Status Date / Time escitalopram Allergy Severe ITCHING Verified 11/24/18 11:19 WITH LEXAPRO fluphenazine [Fluphenazine] Allergy Severe Itching Verified 11/24/18 11:19 sertraline HCl [From Zoloft] Allergy Severe abdominal Verified 11/24/18 11:19 swelling ziprasidone Allergy Severe Swelling Verified 11/24/18 11:19 ziprasidone HCl [From Geodon] Allergy Severe Swelling Verified 11/24/18 11:19 ziprasidone mesylate Allergy Severe Swelling Verified 11/24/18 11:19 [From Geodon] risperidone [From Risperdal] Allergy Intermediate Swelling Verified 11/24/18 11: 19 History of Present Illness: Patient is a 53 year old man who presents for detox from alcohol. His last treatment was in August at this facility. He reports last blackout in 2005, denies any seizures. Exam Limitations: No Limitations - Ebola screening Have you traveled outside of the country in the last 21 days: No Have you had contact with anyone from an Ebola affected area: No Have you been sick,other than usual withdrawal symptoms: No Do you have a fever: No - Review of Systems Constitutional: Chills, Loss of Appetite, Changes in sleep EENT: reports: No Symptoms Reported Respiratory: reports: No Symptoms reported Cardiac: reports: No Symptoms Reported GI: reports: Diarrhea, Nausea, Poor Appetite, Poor Fluid Intake, Vomiting, Abdominal cramping : reports: No Symptoms Reported Musculoskeletal: reports: Back Pain, Joint Pain, Muscle Pain, Muscle Weakness Integumentary: reports: Sweating Neuro: reports: Headache, Numbness, Tremors Endocrine: reports: No Symptoms Reported Hematology: reports: No Symptoms Reported Psychiatric: reports: Anxious, Depressed Other Systems: Reviewed and Negative Patient History - Patient Medical History Hx Anemia: No Hx Asthma: No Hx Chronic Obstructive Pulmonary Disease (COPD): No Hx Cancer: No Hx Cardiac Disorders: No Hx Congestive Heart Failure: No Hx Hypertension: No Hx Hypercholesterolemia: No Hx Pacemaker: No HX Cerebrovascular Accident: No Hx Seizures: No Hx Dementia: No Hx Diabetes: No Hx Gastrointestinal Disorders: Yes (GERD) Hx Liver Disease: No Hx Genitourinary Disorders: No Hx Sexually Transmitted Disorders: No Hx Renal Disease (ESRD): No Hx Thyroid Disease: No Hx Human Immunodeficiency Virus (HIV): No Hx Hepatitis C: No Hx Depression: Yes (Not on medication) Hx Suicide Attempt: No Hx Bipolar Disorder: No Hx Schizophrenia: Yes (paranoid schizophrenia remote h/o) - Patient Surgical History Past Surgical History: Yes Hx Neurologic Surgery: No Hx Cataract Extraction: No Hx Cardiac Surgery: No Hx Lung Surgery: No Hx Breast Surgery: No Hx Breast Biopsy: No Hx Abdominal Surgery: Yes Hx Appendectomy: Yes Hx Cholecystectomy: No Hx Genitourinary Surgery: No Hx Section: No Hx Orthopedic Surgery: Yes (left ankle sx x2 1986 - plate with 5 screws) Other Surgical History: I & D abscess on right buttocks 5 years ago Anesthesia Reaction: No - PPD History Previous Implant?: Yes Documented Results: Negative w/proof Implanted On Prior R Admission?: Yes Date: 05/10/18 Results: 0 PPD to be Administered?: No - Smoking Cessation Smoking history: Current every day smoker Have you smoked in the past 12 months: Yes Aproximately how many cigarettes per day: 5 Cigars Per Day: 0 Hx Chewing Tobacco Use: No Initiated information on smoking cessation: Yes 'Breaking Loose' booklet given: 11/24/18 - Substances abused Alcohol Substance route: Oral Frequency: Daily Amount used: 1 pints of vodka, 1 PINT OF MARICARMEN Age of first use: 15 Date of last use: 11/23/18 Cocaine Substance route: Smoking Frequency: 1-3 times last 30 days Amount used: $60 Age of first use: 20 Date of last use: 11/22/18 Admission Physical Exam S - Vital Signs Vital Signs: Vital Signs - 24 hr 11/24/18 11:17 Temperature 98.5 F Pulse Rate 85 Respiratory 20 Rate Blood Pressure 118/82 - Physical General Appearance: Yes: No Apparent Distress, Appropriately Dressed HEENTM: Yes: Hearing grossly Normal, Normal ENT Inspection, Normocephalic, Normal Voice Respiratory: Yes: Chest Non-Tender, Lungs Clear, Normal Breath Sounds, No Respiratory Distress, No Accessory Muscle Use Neck: Yes: No masses,lesions,Nodules, Supple Breast: Yes: Breast Exam Deferred Cardiology: Yes: Regular Rhythm, Regular Rate, S1, S2 Abdominal: Yes: Normal Bowel Sounds, Non Tender, Soft Genitourinary: Yes: Within Normal Limits Back: Yes: Normal Inspection Musculoskeletal: Yes: full range of Motion, Gait Steady, Pelvis Stable Extremities: Yes: Normal Inspection, Non-Tender, Tremors Neurological: Yes: cloud infrastructure architect II-XII NML intact, Fully Oriented, Alert, Motor Strength 5/5, Normal Mood/Affect, Normal Response Integumentary: Yes: Clammy Lymphatic: Yes: Within Normal Limits - Diagnostic (1) Alcohol dependence with uncomplicated withdrawal Current Visit: Yes Status: Acute (2) Cocaine dependence, uncomplicated Current Visit: Yes Status: Acute (3) Depression Current Visit: No Status: Chronic Qualifiers: Depression Type: major depressive disorder Major depression recurrence: recurrent (4) GERD (gastroesophageal reflux disease) Current Visit: Yes Status: Chronic Qualifiers: Esophagitis presence: without esophagitis Qualified Code(s): K21.9 - Gastro -esophageal reflux disease without esophagitis (5) Low back pain Current Visit: Yes Status: Chronic (6) Nicotine dependence Current Visit: Yes Status: Acute Qualifiers: Nicotine product type: cigarettes Substance use status: uncomplicated Qualified Code(s): F17.210 - Nicotine dependence, cigarettes, uncomplicated (7) Schizophrenia, paranoid Current Visit: Yes Status: Chronic Comment: As per existing records. Cleared for Admission S - Detox or Rehab [facility] Level of Care: Medically Managed Detox Regimen/Protocol: Librium Claeared for Rehab Admission: No Breathalyzer - Breathalyzer Breathalyzer: 0 Urine Drug Screen - Test Device Lot number: [id number] Expiration date: 06/12/20 - Control Is test valid?: Yes - Results Drug screen NEGATIVE: No Urine drug screen results: DEBBIE-Cocaine, BZO-Benzodiazepines Inpatient Rehab Admission - Rehab Decision to Admit Inpatient rehab admission?: No
[2018-11-24] MEDS ORDERED: BISMUTH SUBSALICYLATE 524 MG/30 ML UD PO PRN (12:37)
[2018-11-24] MEDS ORDERED: MENTHOL/PHENOL 1 EACH UD MM PRN (12:37)
[2018-11-24] MEDS ORDERED: hydrOXYzine PAMOATE 25 MG CAPSULE (FP) PO PRN (12:37)
[2018-11-24] MEDS ORDERED: IBUPROFEN 400 MG TABLET (FP) PO PRN (12:37)
[2018-11-24] MEDS ORDERED: NICOTINE POLACRILEX 2 MG GUM BUC PRN (12:37)
[2018-11-24] MEDS ORDERED: ACETAMINOPHEN 325 MG TABLET (FP) PO PRN ×2 (12:37)
[2018-11-24] MEDS ORDERED: MELATONIN 5 MG TABLETS PO PRN (12:37)
[2018-11-24] MEDS ORDERED: MAG HYDROX/AL HYDROX/SIMETH 30 ML UNIT-DOSE CUP PO PRN (12:37)
[2018-11-24] MEDS ORDERED: MAGNESIUM HYDROX 2400MG/30ML ORAL SUSPENSION 30 ML CUP PO PRN (12:37)
[2018-11-24] MEDS ORDERED: chlordiazePOXIDE HCL 10 MG CAPSULE PO PRN (12:37)
[2018-11-24] MEDS ORDERED: MAGNESIUM CITRATE 300 ML BOTTLE PO PRN (12:37)
[2018-11-24] MEDS: chlordiazePOXIDE HCL 25 MG CAPSULE PO SCH ×2 (14:16→21:07)
[2018-11-24] MEDS: METHOCARBAMOL 500 MG TABLET PO PRN (14:18)
[2018-11-24] MEDS: THIAMINE HCL 100 MG TABLET (FP) PO SCH (21:07)
[2018-11-25] MEDS: chlordiazePOXIDE HCL 25 MG CAPSULE PO SCH ×3 (05:47→22:31)
[2018-11-25] MEDS ORDERED: PRENATAL VITAMINS W/ FOLIC ACID TABLET (FP) PO SCH (10:00)
[2018-11-25 10:24] LABS: ALBUMIN 3.2 g/dl (3.4-5.0); BILIRUBIN,TOTAL 0.2 mg/dL (0.2-1); BLOOD UREA NITROGEN 8.1 mg/dL (7-18); CALCIUM 8.4 mg/dL (8.5-10.1); CREATININE 1.1 mg/dL (0.55-1.3); POTASSIUM 4.1 mmol/L (3.5-5.1); TOT PROT 6.9 g/dl (6.4-8.2)
[2018-11-25 10:28] LABS: HEMATOCRIT 41.8 % (35.4-49); HEMOGLOBIN 14.5 GM/dL (11.7-16.9); MCH 28.9 pg (25.7-33.7); MCHC 34.7 g/dl (32.0-35.9); MEAN CELL VOLUME 83.5 fl (80-96); MEAN PLT VOLUME 10.2 fl (7.5-11.1); PLATELET COUNT 149 K/MM3 (134-434); RBC 5.01 M/mm3 (4.00-5.60); RDW 16.1 % (11.9-15.9); WHITE BLOOD COUNT 7.1 K/mm3 (4.0-10.0)
[2018-11-25] MEDS: METHOCARBAMOL 500 MG TABLET PO PRN ×2 (11:16→22:33)
--- NOTE | 2018-11-25 11:34 | CONSULT ---
[facility] Psychiatric Consult - Data Date of interview: 11/25/18 Admission source: [facility] Identifying data: Patient is a 53 year old single male, father of one, unemployed, homeless, and is supported by [facility]. This is one of multiple admissions for patient. Patient admitted to for alcohol dependence. Substance Abuse History: Smoking Cessation. Smoking history: Current every day smoker. Have you smoked in the past 12 months: Yes. Aproximately how many cigarettes per day: 5. Cigars Per Day: 0. Hx Chewing Tobacco Use: No. Initiated information on smoking cessation: Yes. 'Breaking Loose' booklet given : 11/24/18. - Substances abused. Alcohol. Substance route: Oral. Frequency: Daily. Amount used: 1 pints of vodka, 1 PINT OF MARICARMEN. Age of first use: 15. Date of last use: 11/23/18. Cocaine. Substance route: Smoking. Frequency: 1-3 times last 30 days. Amount used: $60. Age of first use: 20. Date of last use: 11/22/18 Medical History: Significant for GERD, gout, chronic lumbar pain, history of orthosurgery for fracture of left ankle (hardware in place), appendectomy and splenectomy. Psychiatric History: Patient reports history of multiple psychatric hospitalizations, most recently two months ago at [facility] for medication management. Patient reports history of auditory hallucinations in the s and . States his current diagnosis is depression and is prescribed zyprexa 2.5mg + Prozac 10mg daily. Patient denies current outpatient psychiatric care and suicide attempt. As per previous notes patient has a history of paranoid schizophrenia with prior hospitalizations at various facilities including [facility], [facility], [facility], and [facility]. Patient has been treated in the past with abilify 10mg , prozac 20mg , and Zyprexa 5mg. Patient has a long standing history of non-adherence to psychiatric OPD care. At present patient denies auditory/visual hallucinations, and suicidal/homicidal ideation. Physical/Sexual Abuse/Trauma History: denies. Mental Status Exam - Mental Status Exam Alert and Oriented to: Time, Place, Person Cognitive Function: Good Patient Appearance: Well Groomed Mood: Euthymic Affect: Blunted Patient Behavior: Cooperative Speech Pattern: Appropriate Voice Loudness: Normal Thought Process: Goal Oriented Thought Disorder: Not Present Hallucinations: Denies Suicidal Ideation: Denies Homicidal Ideation: Denies Insight/Judgement: Poor Sleep: Fair Appetite: Fair Muscle strength/Tone: Normal Gait/Station: Normal Psychiatric Findings - Problem List ([place] 1, 2,3) (1) Alcohol dependence with uncomplicated withdrawal Status: Chronic (2) Cocaine dependence, uncomplicated Status: Chronic (3) Substance induced mood disorder Status: Chronic (4) Schizophrenia, paranoid Status: Chronic Comment: As per existing records. - Initial Treatment Plan Initial Treatment Plan: Psychoeducation provided. Detoxification in progress. Will order Prozac 10mg daily + Zyprexa 2.5mg daily. Benefits and side effects discussed. Verbal consent given.
[2018-11-25] MEDS ORDERED: FLUoxetine HCL 10 MG CAPSULE (FP) PO SCH (11:45)
[2018-11-25] MEDS ORDERED: OLANZapine 2.5 MG TABLET PO SCH ×2 (11:45→13:15)
[2018-11-25] MEDS: INDOMETHACIN 25 MG CAPSULE PO SCH ×2 (12:53→22:31)
--- NOTE | 2018-11-25 13:05 | PN ---
S CIWA - CIWA Score Nausea/Vomitin-Mild Nausea/No Vomiting Muscle Tremors: 3 Anxiety: 4-Mod. Anxious/Guarded Agitation: 4-Moderately Restless Paroxysmal Sweats: 3 Orientation: 0-Oriented Tacttile Disturbances: 0-None Auditory Disturbances: 0-None Visual Disturbances: 0-None Headache: 0-None Present CIWA-Ar Total Score: 15 BHS Progress Note (SOAP) Subjective: Feeling a little dizzy (encouraged PO water intake), body ache, chills, interrupted sleep. Patient requesting to resume his Indocin stating he takes 25mg PO bid at home for gout (resumed as per patient's request). Objective: 11/25/18 13:02 Vital Signs Last Vital Signs Temp Pulse Resp BP Pulse Ox 97.7 F 57 L 18 118/66 11/25/18 09:12 11/25/18 09:12 11/25/18 09:12 11/25/18 09:12 Laboratory Tests 11/25/18 11/25/18 11/25/18 07:15 07:15 07:15 WBC 7.1 RBC 5.01 Hgb 14.5 Hct 41.8 MCV 83.5 MCH 28.9 MCHC 34.7 RDW 16.1 H Plt Count 149 MPV 10.2 Sodium 139 Potassium 4.1 Chloride 107 Carbon Dioxide 27 Anion Gap 6 L BUN 8.1 Creatinine 1.1 Est GFR (CKD-EPI)AfAm 88.36 Est GFR (CKD-EPI)NonAf 76.24 Random Glucose 113 H Calcium 8.4 L Total Bilirubin 0.2 AST 18 ALT 30 Alkaline Phosphatase 52 Total Protein 6.9 Albumin 3.2 L RPR Titer Nonreactive Labs reviewed: mild hyperglycemia noted (patient denies DM/Prediabetes) Assessment: 11/25/18 13:05 Withdrawal sxs Noted with mild hyperglycemia Plan: Continue detox Encouraged PO water intake Mild hyperglycemia: could be r/t withdrawal, follow up with PCP for monitoring
[2018-11-25] MEDS: THIAMINE HCL 100 MG TABLET (FP) PO SCH (22:31)
[2018-11-26] MEDS ORDERED: chlordiazePOXIDE 5 MG CAPSULE PO SCH (05:00)
[2018-11-26 09:18] VITALS: BP 111/60; PULSE 69; TEMP 97.7
--- NOTE | 2018-11-26 11:38 | PN ---
[facility] Progress Note Note: pt did not want to stay and continue with detox. pt states he has things to do at home. pt refused to elaborate. Pt was advised about the risks of relapse, seizures, OD and or loss however, pt chose to sign out AMA.
--- NOTE | 2018-11-26 11:46 | DS ---
[facility] Detox Discharge Summary Admission Date: 11/24/18 - History Present History: Alcohol Dependence, Cocaine Dependence - Physical Exam Results Vital Signs: Vital Signs Temperature 97.7 F 11/26/18 09:16 Pulse Rate 69 11/26/18 09:16 Respiratory Rate 18 11/26/18 09:16 Blood Pressure 111/60 11/26/18 09:16 O2 Sat by Pulse Oximetry (%) - Treatment Hospital Course: Rehab Referral Accepted - Medication Discharge Medications: Ambulatory Orders Fluoxetine HCl [Prozac -] 10 mg PO DAILY #30 capsule 05/11/18 Indomethacin [Indocin -] 25 mg PO BID #60 capsule 05/11/18 Methocarbamol [Robaxin -] 500 mg PO BID #60 tablet 05/11/18 Ibuprofen 400 mg PO TID PRN 11/24/18 Olanzapine [Zyprexa -] 5 mg PO DAILY 11/24/18 - Diagnosis (1) Alcohol dependence with uncomplicated withdrawal Status: Chronic (2) Alcohol-induced sleep disorder Status: Acute (3) Cocaine dependence, uncomplicated Status: Chronic (4) Nicotine dependence Status: Chronic Qualifiers: Nicotine product type: cigarettes Substance use status: uncomplicated Qualified Code(s): F17.210 - Nicotine dependence, cigarettes, uncomplicated (5) Weight loss Status: Acute (6) Anxiety Status: Chronic (7) Cocaine abuse, episodic Status: Chronic (8) Depression Status: Chronic Qualifiers: Depression Type: major depressive disorder Major depression recurrence: recurrent (9) Depressive disorder Status: Chronic (10) GERD (gastroesophageal reflux disease) Status: Chronic Qualifiers: Esophagitis presence: without esophagitis Qualified Code(s): K21.9 - Gastro -esophageal reflux disease without esophagitis (11) Gout Status: Chronic Qualifiers: Gout site: toe Laterality: right (12) History of abnormal electrocardiogram Status: Chronic (13) Insomnia Status: Chronic Qualifiers: Insomnia type: alcohol-induced Qualified Code(s): F10.982 - Alcohol use, unspecified with alcohol-induced sleep disorder (14) Low back pain Status: Chronic (15) Non-compliant patient Status: Chronic (16) Psychiatric disorder Status: Chronic (17) Schizophrenia, paranoid Status: Chronic (18) Substance induced mood disorder Status: Chronic (19) Schizoaffective disorder Status: Ruled-out - AMA Did Patient Leave Against Medical Advice: Yes
[2018-11-27] MEDS ORDERED: chlordiazePOXIDE HCL 10 MG CAPSULE PO PRN
[2018-11-27] MEDS ORDERED: chlordiazePOXIDE HCL 10 MG CAPSULE PO SCH (05:00)
[2018-11-28] MEDS ORDERED: chlordiazePOXIDE HCL 10 MG CAPSULE PO ONE (05:00)
== END 2018-11-26 10:57 | disposition left against medical advice (07) | DRG 894 ==
LOC: YASAS 10:56 → Y6N 12:37
PROVIDERS: ADMIT Allergy & Immunology; ATTEND Allergy & Immunology
PROC: HZ2ZZZZ Detoxification Services for Substance Abuse Treatment (ICD-10-PCS; principal; 2018-11-24)
DX: F10.230 Alcohol dependence with withdrawal, uncomplicated (principal); F14.20 Cocaine dependence, uncomplicated; F19.282 Other psychoactive substance dependence with psychoactive substance-induced sleep disorder; F33.9 Major depressive disorder, recurrent, unspecified; F10.282 Alcohol dependence with alcohol-induced sleep disorder; F17.210 Nicotine dependence, cigarettes, uncomplicated; F19.24 Other psychoactive substance dependence with psychoactive substance-induced mood disorder; F25.9 Schizoaffective disorder, unspecified; F41.9 Anxiety disorder, unspecified; F99 Mental disorder, not otherwise specified; K21.9 Gastro-esophageal reflux disease without esophagitis; R63.4 Abnormal weight loss; M10.9 Gout, unspecified; M45.4 Ankylosing spondylitis of thoracic region; G89.29 Other chronic pain; R73.9 Hyperglycemia, unspecified; Z91.19 Patient's noncompliance with other medical treatment and regimen; Z88.8 Allergy status to other drugs, medicaments and biological substances
CPT/HCPCS: 36415; 80053; 85027; 86593

== ENCOUNTER 2018-12-20 11:59 | Inpatient (IN) | payer MEDICARE, OTHER ==
[2018-12-20 13:04] VITALS: BMI 29.5
--- NOTE | 2018-12-20 14:32 | HP ---
CIWA Score Nausea/Vomitin-No Nausea/No Vomiting Muscle Tremors: 1-None Visible, but [place] Anxiety: 2 Agitation: 2 Paroxysmal Sweats: 2 Orientation: 0-Oriented Tacttile Disturbances: 0-None Auditory Disturbances: 0-None Visual Disturbances: 3-Moderate Sensitivity Headache: 3-Moderate CIWA-Ar Total Score: 13 - Admission Criteria OASAS Guidelines: Admission for Medically Managed Detox: Requires at least one of the followin. CIWA greater than 12 2. Seizures within the past 24 hours 3. Delirium tremens within the past 24 hours 4. Hallucinations within the past 24 hours 5. Acute intervention needed for co occurring medical disorder 6. Acute intervention needed for co occurring psychiatric disorder 7. Severe withdrawal that cannot be handled at a lower level of care (continued vomiting, continued diarrhea, abnormal vital signs) requiring intravenous medication and/or fluids 8. Admitting History and Physical - Smoking History Smoking history: Current every day smoker Have you smoked in the past 12 months: Yes Aproximately how many cigarettes per day: 5 - Alcohol/Substance Use Hx Alcohol Use: Yes Admission ROS [facility] Allergies/Adverse Reactions: Allergies Allergy/AdvReac Type Severity Reaction Status Date / Time escitalopram Allergy Severe ITCHING Verified 12/20/18 12:55 WITH LEXAPRO fluphenazine [Fluphenazine] Allergy Severe Itching Verified 12/20/18 12:55 sertraline HCl [From Zoloft] Allergy Severe abdominal Verified 12/20/18 12:55 swelling ziprasidone Allergy Severe Swelling Verified 12/20/18 12:55 ziprasidone HCl [From Geodon] Allergy Severe Swelling Verified 12/20/18 12:55 ziprasidone mesylate Allergy Severe Swelling Verified 12/20/18 12:55 [From Geodon] risperidone [From Risperdal] Allergy Intermediate Swelling Verified 12/20/18 12: 55 History of Present Illness: pt here requesting detox from etoh use , first age of use 15 , current daily use 2 pints /day and some nips , reports relapse 3 days after leaving this facility 11/26/18, drinking all day , denies seizures, blackout x 1 in 2005, reports occasional tremors if not drinking , latest use this morning , was at [facility], no beds available . cocaine : 20-40 $ 1-2 x /week admits to occasional pcp use tobacco : 02/16 ppd PMHX : chronic lbp , gout r foot , left ankle orif 32 years ago PSych ; anxiety , depression , SAD , drug-induced paranoia ( PCP ) SHX : lives w/ family , unemployed , SSI since 1991 Exam Limitations: No Limitations - Ebola screening Have you traveled outside of the country in the last 21 days: No Have you had contact with anyone from an Ebola affected area: No Do you have a fever: No - Review of Systems Constitutional: No Symptoms Reported EENT: reports: Other (glasses- reading) Respiratory: reports: No Symptoms reported Cardiac: reports: No Symptoms Reported GI: reports: Diarrhea, Abdominal cramping : reports: No Symptoms Reported Musculoskeletal: reports: Back Pain (chronic) Integumentary: reports: Dryness Neuro: reports: See HPI Endocrine: reports: No Symptoms Reported Psychiatric: reports: Orientated x3, Anxious Patient History - Patient Medical History Hx Anemia: No Hx Asthma: No Hx Chronic Obstructive Pulmonary Disease (COPD): No Hx Cancer: No Hx Cardiac Disorders: No Hx Congestive Heart Failure: No Hx Hypertension: No Hx Hypercholesterolemia: No Hx Pacemaker: No HX Cerebrovascular Accident: No Hx Seizures: No Hx Dementia: No Hx Diabetes: No Hx Gastrointestinal Disorders: Yes (GERD) Hx Liver Disease: No Hx Genitourinary Disorders: No Hx Sexually Transmitted Disorders: No Hx Renal Disease (ESRD): No Hx Thyroid Disease: No Hx Human Immunodeficiency Virus (HIV): No Hx Hepatitis C: No Hx Depression: Yes (Not on medication) Hx Suicide Attempt: No Hx Bipolar Disorder: No Hx Schizophrenia: Yes (paranoid schizophrenia remote h/o) - Patient Surgical History Past Surgical History: Yes Hx Neurologic Surgery: No Hx Cataract Extraction: No Hx Cardiac Surgery: No Hx Lung Surgery: No Hx Breast Surgery: No Hx Breast Biopsy: No Hx Abdominal Surgery: Yes Hx Appendectomy: Yes Hx Cholecystectomy: No Hx Genitourinary Surgery: No Hx Section: No Hx Orthopedic Surgery: Yes (left ankle sx x2 1986 - plate with 5 screws) Other Surgical History: I & D abscess on right buttocks 5 years ago Anesthesia Reaction: No - PPD History Date: 05/10/18 Results: 0 - Smoking Cessation Smoking history: Current every day smoker Have you smoked in the past 12 months: Yes Aproximately how many cigarettes per day: 5 Cigars Per Day: 0 Hx Chewing Tobacco Use: No Initiated information on smoking cessation: Yes 'Breaking Loose' booklet given: 12/20/18 - Substances abused Alcohol Substance route: Oral Frequency: Daily Amount used: 2 pints of kathe & 5 nips Age of first use: 15 Date of last use: 12/20/18 Cocaine Other (specify): crack Substance route: Smoking Frequency: 1-2 times per week Amount used: $60 Age of first use: 20 Date of last use: 12/19/18 Admission Physical Exam BHS - Vital Signs Vital Signs: Vital Signs - 24 hr 12/20/18 12:58 Temperature 97.0 F L Pulse Rate 71 Respiratory 20 Rate Blood Pressure 95/55 L - Physical General Appearance: Yes: Mild Distress, Anxious HEENTM: Yes: EOMI, Hearing grossly Normal, Normocephalic, Normal Voice Respiratory: Yes: Chest Non-Tender, Lungs Clear, Normal Breath Sounds, No Respiratory Distress, No Accessory Muscle Use Neck: Yes: No masses,lesions,Nodules, Trachea in good position Cardiology: Yes: Regular Rhythm, Regular Rate, S1, S2 Abdominal: Yes: Non Tender, Soft Musculoskeletal: Yes: Gait Steady, Back pain Extremities: Yes: Normal Range of Motion, Non-Tender Neurological: Yes: Fully Oriented, Alert, Motor Strength 5/5, Depressed Affect, Other (tangential) Integumentary: Yes: Dry, Warm - Diagnostic (1) Alcohol dependence with uncomplicated withdrawal Current Visit: Yes Status: Chronic (2) Cocaine abuse, episodic Current Visit: Yes Status: Chronic (3) Nicotine dependence Current Visit: Yes Status: Chronic Qualifiers: Nicotine product type: cigarettes Breathalyzer - Breathalyzer Breathalyzer: 0 Urine Drug Screen - Test Device Lot number: [id number] Expiration date: 08/12/20 - Control Is test valid?: Yes - Results Drug screen NEGATIVE: No Urine drug screen results: DEBBIE-Cocaine, BZO-Benzodiazepines Inpatient Rehab Admission - Rehab Decision to Admit Inpatient rehab admission?: No
[2018-12-20] MEDS ORDERED: MELATONIN 5 MG TABLETS PO PRN (15:30)
[2018-12-20] MEDS ORDERED: MENTHOL/PHENOL 1 EACH UD MM PRN (15:30)
[2018-12-20] MEDS ORDERED: hydrOXYzine PAMOATE 25 MG CAPSULE (FP) PO PRN (15:30)
[2018-12-20] MEDS ORDERED: BISMUTH SUBSALICYLATE 262 MG/15 ML BTL PO PRN (15:30)
[2018-12-20] MEDS ORDERED: ACETAMINOPHEN 325 MG TABLET (FP) PO PRN (15:30)
[2018-12-20] MEDS ORDERED: METHOCARBAMOL 500 MG TABLET PO PRN (15:30)
[2018-12-20] MEDS ORDERED: MAGNESIUM HYDROX 2400MG/30ML ORAL SUSPENSION 30 ML CUP PO PRN (15:30)
[2018-12-20] MEDS ORDERED: MAGNESIUM CITRATE 300 ML BOTTLE PO PRN (15:30)
[2018-12-20] MEDS ORDERED: MAG HYDROX/AL HYDROX/SIMETH 30 ML UNIT-DOSE CUP PO PRN (15:30)
[2018-12-20] MEDS ORDERED: IBUPROFEN 400 MG TABLET (FP) PO PRN (15:30)
[2018-12-20] MEDS ORDERED: chlordiazePOXIDE HCL 10 MG CAPSULE PO PRN (15:31)
[2018-12-20] MEDS: ACETAMINOPHEN 325 MG TABLET (FP) PO PRN (16:50)
[2018-12-20] MEDS: chlordiazePOXIDE HCL 25 MG CAPSULE PO SCH (21:35)
[2018-12-20] MEDS: THIAMINE HCL 100 MG TABLET (FP) PO SCH (21:35)
[2018-12-21] MEDS: chlordiazePOXIDE HCL 25 MG CAPSULE PO SCH ×3 (06:22→20:03)
[2018-12-21] MEDS: ACETAMINOPHEN 325 MG TABLET (FP) PO PRN ×2 (07:45→19:54)
[2018-12-21] MEDS: PRENATAL VITAMINS W/ FOLIC ACID TABLET (FP) PO SCH (09:36)
--- NOTE | 2018-12-21 10:55 | CONSULT ---
[facility] Psychiatric Consult - Data Date of interview: 12/21/18 Admission source: [facility] Identifying data: This is one one of multiple admissions to [facility] for this 53 y/o AA male self-referred for detoxification (JOHN issues : alcohol, nicotine , cocaine). Examined on . Patient is , a father of two (variable number of dependents), homeless, unemployed and supported on [facility] benefits. Substance Abuse History: Discussed in this session. Patient confirms details contained in current [facility] report as follows : Smoking history: Current every day smoker. Have you smoked in the past 12 months: Yes. Aproximately how many cigarettes per day: 5. Cigars Per Day: 0. Hx Chewing Tobacco Use: No. Initiated information on smoking cessation: Yes. 'Breaking Loose' booklet given : 12/20/18. - Substances abused. Alcohol. Substance route: Oral. Frequency: Daily. Amount used: 2 pints of kathe & 5 nips. Age of first use: 15. Date of last use: 12/20/18. Cocaine. Other (specify): crack. Substance route: Smoking. Frequency: 1-2 times per week. Amount used: $60. Age of first use: 20. Date of last use: 12/19/18 Medical History: Medical profile is remarkable for GERD, gout (self-report), chronic lumbar pain and history of orthosurgery for fracture of left ankle ( hardware in place). Psychiatric History: Patient confirms history of paranoid schizophrenia. Had his first psychiatric breakdown in 1985. Mr Garsia presents with a history of multiple psychiatric hospitalizations ([facility], [facility], [facility], [facility], [facility] and [facility]). Patient admits to a long standing history of non- adherence to psychiatric OPD care. Has distanced himself from OPD care providers. He makes sporadic CPEP visits for medications refills (in times of crisis). Patient requests, in the interview, the inclusion of olanzapine 5 mg/ day + fluoxetine 10 mg/day in the current regimen of medications. Denies history of suicide attempts. Additional Comment: Urine drug screen results: DEBBIE-Cocaine, BZO- Benzodiazepines. Noted. Mental Status Exam - Mental Status Exam Alert and Oriented to: Time, Place, Person Cognitive Function: Good Patient Appearance: Unkempt, Disheveled Mood: Withdrawn Affect: Mood Congruent, Blunted Patient Behavior: Fatigued, Cooperative Speech Pattern: Clear Voice Loudness: Normal Thought Process: Disorganized (moderately disorganized) Thought Disorder: Present (chronically thought-disordered : mildly paranoid, not always coherent), Bizarre Hallucinations: Denies Suicidal Ideation: Denies Homicidal Ideation: Denies (" I am minding my own business. I don't have anything against anyone.") Insight/Judgement: Poor Sleep: Fair Appetite: Good Muscle strength/Tone: Normal Gait/Station: Normal Psychiatric Findings - Problem List ([place] 1, 2,3) (1) Alcohol dependence with uncomplicated withdrawal Current Visit: Yes Status: Acute (2) Nicotine dependence Current Visit: Yes Status: Chronic Qualifiers: Nicotine product type: cigarettes (3) Cocaine dependence, uncomplicated Current Visit: Yes Status: Chronic (4) Substance induced mood disorder Current Visit: Yes Status: Chronic (5) Schizophrenia Current Visit: Yes Status: Acute (6) Non-compliant patient Current Visit: Yes Status: Chronic - Initial Treatment Plan Initial Treatment Plan: Records ([facility]) revisited. Psychoeducation. Sleep hygiene. Detoxification. Medications resumed as : olanzapine 5 mg po daily + prozac 10 mg po daily. Specifically at patient's request. Side effects/benefits discussed. Mr Garsia gave his verbal consent to Observation.
[2018-12-21] MEDS ORDERED: FLU VACCINE QUAD 60 MCG/0.5 ML (MDV 19-20) IM ONE (12:00)
[2018-12-21] MEDS: FLUoxetine HCL 10 MG CAPSULE (FP) PO SCH (12:18)
[2018-12-21] MEDS: OLANZapine 5 MG TABLET PO SCH (12:18)
--- NOTE | 2018-12-21 15:39 | PN ---
S CIWA - CIWA Score Nausea/Vomitin-Mild Nausea/No Vomiting Muscle Tremors: 1-None Visible, but [place] Anxiety: 2 Agitation: 2 Paroxysmal Sweats: No Perspiration Orientation: 0-Oriented Tacttile Disturbances: 1-Very Mild Itch/Numbness Auditory Disturbances: 0-None Visual Disturbances: 0-None Headache: 1-Very Mild CIWA-Ar Total Score: 8 BHS Progress Note (SOAP) Subjective: alert,irritable,anxious,interrupted sleep Objective: 12/21/18 15:38 Vital Signs Temperature 98.3 F 12/21/18 13:21 Pulse Rate 71 12/21/18 13:21 Respiratory Rate 18 12/21/18 13:21 Blood Pressure 109/65 12/21/18 13:21 O2 Sat by Pulse Oximetry (%) 12/21/18 15:38 labs pending Assessment: 12/21/18 15:38 withdrawal symptom Plan: continue deto librium regimen
[2018-12-21] MEDS: THIAMINE HCL 100 MG TABLET (FP) PO SCH (22:14)
[2018-12-22] MEDS: chlordiazePOXIDE HCL 10 MG CAPSULE PO SCH ×3 (06:00→22:05)
[2018-12-22] MEDS: ACETAMINOPHEN 325 MG TABLET (FP) PO PRN ×2 (06:01→22:06)
[2018-12-22] MEDS: PRENATAL VITAMINS W/ FOLIC ACID TABLET (FP) PO SCH (10:37)
[2018-12-22] MEDS: OLANZapine 5 MG TABLET PO SCH (10:37)
[2018-12-22] MEDS: FLUoxetine HCL 10 MG CAPSULE (FP) PO SCH (10:37)
--- NOTE | 2018-12-22 13:51 | PN ---
S CIWA - CIWA Score Nausea/Vomitin-No Nausea/No Vomiting Muscle Tremors: None Anxiety: 2 Agitation: 0-Normal Activity Paroxysmal Sweats: 1-Minimal Palms Moist Orientation: 0-Oriented Tacttile Disturbances: 0-None Auditory Disturbances: 0-None Visual Disturbances: 0-None Headache: 0-None Present CIWA-Ar Total Score: 3 BHS Progress Note (SOAP) Subjective: c/o mild sweats and anxiety. Objective: 12/22/18 13:50 Vital Signs 12/22/18 12/22/18 06:19 09:36 Temperature 97.5 F L 97.1 F L Pulse Rate 62 71 Respiratory 20 18 Rate Blood Pressure 116/70 107/67 Assessment: 12/22/18 13:51 AOX3, in no acute respiratory distress. Full rom, ambulating in the unit. mild Withdrawal symptoms. Plan: continue detox.
[2018-12-22] MEDS: THIAMINE HCL 100 MG TABLET (FP) PO SCH (22:05)
[2018-12-23] MEDS ORDERED: chlordiazePOXIDE HCL 10 MG CAPSULE PO ONE (05:00)
[2018-12-23 09:10] VITALS: BP 133/78; PULSE 99; TEMP 98.7
[2018-12-23] MEDS: FLUoxetine HCL 10 MG CAPSULE (FP) PO SCH (09:19)
[2018-12-23] MEDS: PRENATAL VITAMINS W/ FOLIC ACID TABLET (FP) PO SCH (09:19)
[2018-12-23] MEDS: ACETAMINOPHEN 325 MG TABLET (FP) PO PRN (09:19)
[2018-12-23] MEDS: OLANZapine 5 MG TABLET PO SCH (09:19)
--- NOTE | 2018-12-23 14:31 | DS ---
[facility] Detox Discharge Summary Admission Date: 12/20/18 Discharge Date: 12/23/18 - History Present History: Alcohol Dependence Additional Comments: 53 years old male admitted on 12/20/18 for alcohol withdrawal sx management treated with librium detox regimen patient is alert oriented x 3 cardiac S1S2 regular rate rhythm respiratory clear lung bilaterally on auscultation skin warm and dry - Physical Exam Results Vital Signs: Vital Signs Temperature 98.7 F 12/23/18 09:09 Pulse Rate 99 H 12/23/18 09:09 Respiratory Rate 18 12/23/18 09:09 Blood Pressure 133/78 12/23/18 09:09 O2 Sat by Pulse Oximetry (%) Pertinent Admission Physical Exam Findings: alcohol withdrawal sx see lab 11/25/18 report - Treatment Hospital Course: Detox Protocol Followed, Detoxed Safely, Responded well, Discharged Condition Good, Rehab Referral Accepted Patient has Accepted a Rehab Referral to: community support approach - Medication Discharge Medications: Ambulatory Orders Fluoxetine HCl [Prozac -] 10 mg PO DAILY #30 capsule 05/11/18 Indomethacin [Indocin -] 25 mg PO BID #60 capsule 05/11/18 Methocarbamol [Robaxin -] 500 mg PO BID #60 tablet 05/11/18 Ibuprofen 400 mg PO TID PRN 11/24/18 Olanzapine [Zyprexa -] 5 mg PO DAILY 11/24/18 - Diagnosis (1) Alcohol dependence with uncomplicated withdrawal Status: Acute (2) GERD (gastroesophageal reflux disease) Status: Chronic Qualifiers: Esophagitis presence: without esophagitis Qualified Code(s): K21.9 - Gastro -esophageal reflux disease without esophagitis (3) Gout Status: Chronic Qualifiers: Gout site: toe Laterality: right (4) Nicotine dependence Status: Acute Qualifiers: Nicotine product type: cigarettes Substance use status: in withdrawal Qualified Code(s): F17.213 - Nicotine dependence, cigarettes, with withdrawal (5) Substance induced mood disorder Status: Resolved - AMA Did Patient Leave Against Medical Advice: No CIWA Score - CIWA Score Nausea/Vomitin-No Nausea/No Vomiting Muscle Tremors: None Anxiety: 1-Mildly Anxious Agitation: 0-Normal Activity Paroxysmal Sweats: No Perspiration Orientation: 0-Oriented Tacttile Disturbances: 0-None Auditory Disturbances: 0-None Visual Disturbances: 0-None Headache: 0-None Present CIWA-Ar Total Score: 1
== END 2018-12-23 10:49 | disposition home or self-care (01) | DRG 897 ==
LOC: YASAS 11:59 → Y3N 15:08
PROVIDERS: ADMIT Allergy & Immunology; ATTEND Allergy & Immunology
PROC: HZ2ZZZZ Detoxification Services for Substance Abuse Treatment (ICD-10-PCS; principal; 2018-12-20)
DX: F10.230 Alcohol dependence with withdrawal, uncomplicated (principal); F14.20 Cocaine dependence, uncomplicated; F20.0 Paranoid schizophrenia; F17.210 Nicotine dependence, cigarettes, uncomplicated; F19.24 Other psychoactive substance dependence with psychoactive substance-induced mood disorder; K21.9 Gastro-esophageal reflux disease without esophagitis; M10.9 Gout, unspecified; Z88.8 Allergy status to other drugs, medicaments and biological substances; Z91.19 Patient's noncompliance with other medical treatment and regimen
CPT/HCPCS: G0008; Q2036

== ENCOUNTER 2019-03-01 08:55 | Inpatient (IN) | payer MEDICARE, OTHER ==
[2019-03-01 09:33] VITALS: BMI 29.5
[2019-03-01] MEDS ORDERED: MAG HYDROX/AL HYDROX/SIMETH 30 ML UNIT-DOSE CUP PO PRN (10:41)
[2019-03-01] MEDS ORDERED: IBUPROFEN 400 MG TABLET (FP) PO PRN (10:41)
[2019-03-01] MEDS ORDERED: P-EPHED 60MG/TRIPROLIDI 2.5MG TABLET PO PRN (10:41)
[2019-03-01] MEDS ORDERED: MENTHOL/PHENOL 1 EACH UD MM PRN (10:41)
[2019-03-01] MEDS ORDERED: LOPERAMIDE HCL 2 MG CAPSULE PO PRN (10:41)
[2019-03-01] MEDS ORDERED: MAGNESIUM CITRATE 300 ML BOTTLE PO PRN (10:41)
[2019-03-01] MEDS ORDERED: guaiFENesin 200 MG/10 ML 10 ML UNIT-DOSE CUPS PO PRN (10:41)
[2019-03-01] MEDS ORDERED: hydrOXYzine PAMOATE 25 MG CAPSULE (FP) PO PRN (10:41)
[2019-03-01] MEDS ORDERED: MAGNESIUM HYDROX 2400MG/30ML ORAL SUSPENSION 30 ML CUP PO PRN (10:41)
--- NOTE | 2019-03-01 10:53 | HP ---
CIWA Score - Admission Criteria OASAS Guidelines: Admission for Medically Managed Detox: Requires at least one of the followin. CIWA greater than 12 2. Seizures within the past 24 hours 3. Delirium tremens within the past 24 hours 4. Hallucinations within the past 24 hours 5. Acute intervention needed for co occurring medical disorder 6. Acute intervention needed for co occurring psychiatric disorder 7. Severe withdrawal that cannot be handled at a lower level of care (continued vomiting, continued diarrhea, abnormal vital signs) requiring intravenous medication and/or fluids 8. Admitting History and Physical - Smoking History Smoking history: Current every day smoker Have you smoked in the past 12 months: Yes Aproximately how many cigarettes per day: 5 - Alcohol/Substance Use Hx Alcohol Use: Yes Admission ROS [facility] Allergies/Adverse Reactions: Allergies Allergy/AdvReac Type Severity Reaction Status Date / Time escitalopram Allergy Severe ITCHING Verified 03/01/19 09:21 WITH LEXAPRO fluphenazine [Fluphenazine] Allergy Severe Itching Verified 03/01/19 09:21 sertraline HCl [From Zoloft] Allergy Severe abdominal Verified 03/01/19 09:21 swelling ziprasidone HCl [From Geodon] Allergy Severe Swelling Verified 03/01/19 09:21 risperidone [From Risperdal] Allergy Intermediate Swelling Verified 03/01/19 09: 21 History of Present Illness: pt here requesting rehab from etoh use , completed detox @ [facility] on Monday , denies ETOH use since . cocaine : 20-40 $ 1-2 x /week occasional pcp use tobacco : 02/16 ppd PMHX : chronic lbp , gout r foot , left ankle orif 32 years ago PSych ; anxiety , depression , SAD , drug-induced paranoia ( PCP ) SHX : lives w/ family , unemployed , SSI since 1991 Exam Limitations: No Limitations - Ebola screening Have you traveled outside of the country in the last 21 days: No Have you had contact with anyone from an Ebola affected area: No Do you have a fever: No - Review of Systems Constitutional: No Symptoms Reported EENT: reports: No Symptoms Reported Respiratory: reports: No Symptoms reported Cardiac: reports: No Symptoms Reported GI: reports: Constipated, Nausea : reports: No Symptoms Reported Musculoskeletal: reports: Back Pain (chronic) Integumentary: reports: No Symptoms Reported Neuro: reports: No Symptoms reported Endocrine: reports: No Symptoms Reported Psychiatric: reports: Mood/Affect Appropiate, Orientated x3 Patient History - Patient Medical History Hx Anemia: No Hx Asthma: No Hx Chronic Obstructive Pulmonary Disease (COPD): No Hx Cancer: No Hx Cardiac Disorders: No Hx Congestive Heart Failure: No Hx Hypertension: No Hx Hypercholesterolemia: No Hx Pacemaker: No HX Cerebrovascular Accident: No Hx Seizures: No Hx Dementia: No Hx Diabetes: No Hx Gastrointestinal Disorders: Yes (GERD) Hx Liver Disease: No Hx Genitourinary Disorders: No Hx Sexually Transmitted Disorders: No Hx Renal Disease (ESRD): No Hx Thyroid Disease: No Hx Human Immunodeficiency Virus (HIV): No Hx Hepatitis C: No Hx Depression: Yes (Not on medication) Hx Suicide Attempt: No Hx Bipolar Disorder: No Hx Schizophrenia: Yes (paranoid schizophrenia remote h/o) - Patient Surgical History Past Surgical History: Yes Hx Neurologic Surgery: No Hx Cataract Extraction: No Hx Cardiac Surgery: No Hx Lung Surgery: No Hx Breast Surgery: No Hx Breast Biopsy: No Hx Abdominal Surgery: Yes Hx Appendectomy: Yes Hx Cholecystectomy: No Hx Genitourinary Surgery: No Hx Section: No Hx Orthopedic Surgery: Yes (left ankle sx x2 1986 - plate with 5 screws) Other Surgical History: I & D abscess on right buttocks 5 years ago Anesthesia Reaction: No - PPD History Date: 05/10/18 Results: 0 - Smoking Cessation Smoking history: Current every day smoker Have you smoked in the past 12 months: Yes Aproximately how many cigarettes per day: 5 Cigars Per Day: 0 Hx Chewing Tobacco Use: No Initiated information on smoking cessation: No - Substances abused Alcohol Substance route: Oral Frequency: Daily Amount used: liquor- 2-3/ beer 6cans -12oz Age of first use: 15 Date of last use: 02/23/19 Crack Substance route: Smoking Frequency: 1-3 times last 30 days Amount used: $50 Age of first use: 20 Date of last use: 02/23/19 Admission Physical Exam BHS - Vital Signs Vital Signs: Vital Signs - 24 hr 03/01/19 09:20 Temperature 97.3 F L Pulse Rate 73 Respiratory 18 Rate Blood Pressure 108/66 - Physical General Appearance: Yes: No Apparent Distress HEENTM: Yes: EOMI, Hearing grossly Normal, Normocephalic, Normal Voice Respiratory: Yes: Chest Non-Tender, Lungs Clear, Normal Breath Sounds, No Respiratory Distress, No Accessory Muscle Use Neck: Yes: No masses,lesions,Nodules, Trachea in good position Cardiology: Yes: Regular Rhythm, Regular Rate, S1, S2 Abdominal: Yes: Normal Bowel Sounds, Non Tender, Soft Back: Yes: Normal Inspection Musculoskeletal: Yes: full range of Motion, Gait Steady Extremities: Yes: Normal Capillary Refill, Normal Inspection, Normal Range of Motion, Non-Tender Neurological: Yes: Fully Oriented, Alert, Motor Strength 5/5, Normal Mood/Affect Integumentary: Yes: Warm - Diagnostic (1) Alcohol dependence in early full remission Current Visit: Yes Status: Acute (2) Cocaine abuse, episodic Current Visit: Yes Status: Chronic Breathalyzer - Breathalyzer Breathalyzer: 0 Urine Drug Screen - Test Device Lot number: [id number] Expiration date: 09/12/20 - Control Is test valid?: Yes - Results Drug screen NEGATIVE: No Urine drug screen results: DEBBIE-Cocaine, BZO-Benzodiazepines Inpatient Rehab Admission - Rehab Decision to Admit Inpatient rehab admission?: Yes - Initial Determination Are CD services needed?: Yes Free of communicable disease: Yes Not in need of hospitalization: Yes - Rehab Admission Criteria Previous failed treatment: Yes Poor recovery environment: Yes Comorbidities: No Lacks judgement: Yes Patient is meeting Inpatient Rehab admission criteria:: Yes
[2019-03-01 14:31] LABS: HEMATOCRIT 42.5 % (35.4-49); HEMOGLOBIN 14.7 GM/dL (11.7-16.9); MCH 28.7 pg (25.7-33.7); MCHC 34.6 g/dl (32.0-35.9); MEAN CELL VOLUME 82.8 fl (80-96); PLATELET COUNT 215 K/MM3 (134-434); RBC 5.13 M/mm3 (4.00-5.60); RDW 16.2 % (11.9-15.9); WHITE BLOOD COUNT 9.1 K/mm3 (4.0-10.0)
[2019-03-01 14:46] LABS: ALBUMIN 4.1 g/dl (3.4-5.0); BILIRUBIN,TOTAL 0.9 mg/dL (0.2-1); CALCIUM 9.6 mg/dL (8.5-10.1); CREATININE 1.2 mg/dL (0.55-1.3); POTASSIUM 4.1 mmol/L (3.5-5.1); TOT PROT 8.6 g/dl (6.4-8.2)
--- NOTE | 2019-03-01 15:24 | PN ---
[facility] Progress Note Note: PATIENT ADMITTED TO REHAB FOR ETOH/COCAINE/PCP DEPENDENCE AFTER COMPLETING DETOX AT [facility]. PATIENT IS ALERT AND ORIENTED X 3, IN NAD. HE STATES "I FEEL TIRED AND WANT TO REST". PMH INCLUDES GOUT, SAD, AND DRUG INDUCED PSYCHOSIS. Vital Signs Temperature 97.5 F L 03/01/19 11:54 Pulse Rate 59 L 03/01/19 11:54 Respiratory Rate 18 03/01/19 11:54 Blood Pressure 118/70 03/01/19 11:54 O2 Sat by Pulse Oximetry (%) Laboratory Tests 03/01/19 03/01/19 03/01/19 10:45 10:45 10:45 WBC 9.1 RBC 5.13 Hgb 14.7 Hct 42.5 MCV 82.8 MCH 28.7 MCHC 34.6 RDW 16.2 H Plt Count 215 D MPV 10.0 Sodium 139 Potassium 4.1 Chloride 108 H Carbon Dioxide 26 Anion Gap 5 L BUN 18.0 Creatinine 1.2 Est GFR (CKD-EPI)AfAm 79.53 Est GFR (CKD-EPI)NonAf 68.62 Random Glucose 121 H Calcium 9.6 Total Bilirubin 0.9 AST 21 ALT 33 Alkaline Phosphatase 67 Total Protein 8.6 H Albumin 4.1 RPR Titer Nonreactive PE: ALERT AND ORIENTED X 3 SKIN WARM AND DRY +PERRLA, EOMS INTACT BL GI NT ND EXT FULL ROM, NO TREMORS DENIES SI/HI A/P ETOH/DEBBIE/PCP DEPENDENCE CONTINUE WITH REHAB SERVICES
[2019-03-01] MEDS: ACETAMINOPHEN 325 MG TABLET (FP) PO PRN (20:00)
[2019-03-01] MEDS: THIAMINE HCL 100 MG TABLET (FP) PO SCH (21:07)
[2019-03-01] MEDS: MELATONIN 5 MG TABLETS PO PRN (21:08)
[2019-03-02] MEDS: ACETAMINOPHEN 325 MG TABLET (FP) PO PRN ×2 (06:18→21:48)
[2019-03-02] MEDS: PRENATAL VITAMINS W/ FOLIC ACID TABLET (FP) PO SCH (10:54)
--- NOTE | 2019-03-02 19:25 | CONSULT ---
[facility] Psychiatric Consult - Data Date of interview: 03/02/19 Admission source: [facility] Identifying data: Direct admission to [address] for this 53 y/o AA male self-referred for rehabilitation treatment. JOHN issues : alcohol, nicotine , cocaine. Patient is , a father of two (variable number of dependents) , homeless, unemployed and supported on [facility] benefits. Substance Abuse History: Discussed with patient. Details in current [facility] report as follows : Smoking history: Current every day smoker. Have you smoked in the past 12 months: Yes. Aproximately how many cigarettes per day: 5. Cigars Per Day: 0. Hx Chewing Tobacco Use: No. Initiated information on smoking cessation : No. - Substances abused. Alcohol. Substance route: Oral. Frequency: Daily. Amount used: liquor- 2-3/ beer 6cans -12oz. Age of first use: 15. Date of last use: 02/23/19. Crack. Substance route: Smoking. Frequency: 1- 3 times last 30 days. Amount used: $50. Age of first use: 20. Date of last use: 02/23/19 Medical History: Medical profile is remarkable for GERD, gout (self-report), chronic lumbar pain and history of orthosurgery for fracture of left ankle ( hardware in place). Psychiatric History: No changes since previous encounter of december 2018. 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 He presents with a history of paranoid schizophrenia. Had his first psychiatric breakdown in 1985. Mr Ady presents with a history of multiple psychiatric hospitalizations ([facility], [facility], [facility], [facility], [facility] and [facility]). Patient admits to a long standing history of non-adherence to psychiatric OPD care. Has distanced himself from OPD care providers. He makes sporadic CPEP visits for medications refills (in times of crisis). Patient requests, in the interview, the inclusion of olanzapine 5 mg/day + fluoxetine 10 mg/day in the current regimen of medications. Denies history of suicide attempts. Physical/Sexual Abuse/Trauma History: No reported history of abuse. Additional Comment: Urine drug screen results: DEBBIE-Cocaine, BZO- Benzodiazepines. Noted. Mental Status Exam - Mental Status Exam Alert and Oriented to: Time, Place, Person Patient Appearance: Well Groomed Mood: Hopeful, Euthymic (calm) Patient Behavior: Appropriate, Cooperative Speech Pattern: Clear, Appropriate Voice Loudness: Normal Thought Process: Goal Oriented Thought Disorder: Not Present Hallucinations: Denies Suicidal Ideation: Denies Homicidal Ideation: Denies Insight/Judgement: Fair Sleep: Well Appetite: Good Gait/Station: Normal Psychiatric Findings - Problem List ([place] 1, 2,3) (1) Schizophrenia Current Visit: Yes Status: Chronic (2) Alcohol use disorder Current Visit: Yes Status: Acute (3) Cocaine dependence, uncomplicated Current Visit: Yes Status: Chronic (4) Nicotine dependence Current Visit: Yes Status: Chronic Qualifiers: Nicotine product type: cigarettes Substance use status: in withdrawal Qualified Code(s): F17.213 - Nicotine dependence, cigarettes, with withdrawal - Initial Treatment Plan Initial Treatment Plan: Psychoeducation. Sleep hygiene. Support. AA meetings. Resumed : olanzapine 5 mg po daily + prozac 10 mg po daily. Side effects/ benfits discussed with patient. He agrees with this plan of care. Observation.
[2019-03-02] MEDS: THIAMINE HCL 100 MG TABLET (FP) PO SCH (21:49)
[2019-03-02] MEDS: MELATONIN 5 MG TABLETS PO PRN (21:49)
[2019-03-03] MEDS: PRENATAL VITAMINS W/ FOLIC ACID TABLET (FP) PO SCH (10:37)
[2019-03-03] MEDS: OLANZapine 5 MG TABLET PO SCH (10:37)
[2019-03-03] MEDS: FLUoxetine HCL 10 MG CAPSULE PO SCH (10:37)
[2019-03-03] MEDS: METHOCARBAMOL 500 MG TABLET PO SCH ×2 (10:40→22:05)
[2019-03-03 11:24] LABS: PH,URINE 7.5 (5.0-8.0); URINE APPEARANCE CLEAR; URINE BILIRUBIN NEGATIVE (NEGATIVE); URINE COLOR YELLOW; URINE GLUCOSE (UA) NEGATIVE (NEGATIVE); URINE KETONE NEGATIVE (NEGATIVE); URINE LEUK ESTERASE NEGATIVE (NEGATIVE); URINE NITRITE NEGATIVE (NEGATIVE); URINE PROTEIN NEGATIVE (NEGATIVE)
[2019-03-03] MEDS: THIAMINE HCL 100 MG TABLET (FP) PO SCH (22:05)
[2019-03-04] MEDS: ACETAMINOPHEN 325 MG TABLET (FP) PO PRN (07:33)
[2019-03-04] MEDS: METHOCARBAMOL 500 MG TABLET PO SCH ×4 (10:02→21:32)
[2019-03-04] MEDS: FLUoxetine HCL 10 MG CAPSULE PO SCH (10:12)
[2019-03-04] MEDS: OLANZapine 5 MG TABLET PO SCH (10:12)
[2019-03-04] MEDS: PRENATAL VITAMINS W/ FOLIC ACID TABLET (FP) PO SCH (10:12)
[2019-03-04] MEDS: THIAMINE HCL 100 MG TABLET (FP) PO SCH (21:32)
[2019-03-04] MEDS: MELATONIN 5 MG TABLETS PO PRN (21:32)
[2019-03-05] MEDS: OLANZapine 5 MG TABLET PO SCH (10:44)
[2019-03-05] MEDS: METHOCARBAMOL 500 MG TABLET PO SCH ×4 (10:44→21:09)
[2019-03-05] MEDS: PRENATAL VITAMINS W/ FOLIC ACID TABLET (FP) PO SCH (10:44)
[2019-03-05] MEDS: FLUoxetine HCL 10 MG CAPSULE PO SCH (10:44)
[2019-03-05] MEDS: ACETAMINOPHEN 325 MG TABLET (FP) PO PRN ×2 (10:45→18:48)
[2019-03-05] MEDS: THIAMINE HCL 100 MG TABLET (FP) PO SCH (21:09)
[2019-03-05] MEDS: MELATONIN 5 MG TABLETS PO PRN (21:09)
[2019-03-06] MEDS: METHOCARBAMOL 500 MG TABLET PO SCH ×4 (10:19→21:41)
[2019-03-06] MEDS: PRENATAL VITAMINS W/ FOLIC ACID TABLET (FP) PO SCH (10:19)
[2019-03-06] MEDS: OLANZapine 5 MG TABLET PO SCH (10:19)
[2019-03-06] MEDS: FLUoxetine HCL 10 MG CAPSULE PO SCH (10:19)
[2019-03-06] MEDS: MELATONIN 5 MG TABLETS PO PRN (21:41)
[2019-03-06] MEDS: THIAMINE HCL 100 MG TABLET (FP) PO SCH (21:41)
[2019-03-07 06:40] VITALS: BP 112/67; PULSE 63; TEMP 97.4
[2019-03-07] MEDS: OLANZapine 5 MG TABLET PO SCH (10:05)
[2019-03-07] MEDS: FLUoxetine HCL 10 MG CAPSULE PO SCH (10:05)
[2019-03-07] MEDS: ACETAMINOPHEN 325 MG TABLET (FP) PO PRN (10:05)
[2019-03-07] MEDS: METHOCARBAMOL 500 MG TABLET PO SCH (10:05)
[2019-03-07] MEDS: PRENATAL VITAMINS W/ FOLIC ACID TABLET (FP) PO SCH (10:05)
--- NOTE | 2019-03-07 10:08 | DS ---
[facility] Rehab Discharge Summary - [facility] Rehab Discharge Summary Admission Date: 03/01/19 Discharge Date: 03/07/19 - History Present History: Alcohol dependence, Cocaine dependence Pertinent Past History: rehab from etoh use , completed detox @ [facility] cocaine : 20-40 $ 1-2 x /week occasional pcp use tobacco : 02/16 ppd PMHX : chronic lbp , gout r foot , left ankle orif 32 years ago PSych ; anxiety , depression , SAD , drug-induced paranoia ( PCP ) SHX : lives w/ family , unemployed , SSI since 1991 Exam Limitations: No Limitations - Discharge Physical Exam Vital Signs: Vital Signs Temperature 97.4 F L 03/07/19 06:39 Pulse Rate 63 03/07/19 06:39 Respiratory Rate 18 03/07/19 06:39 Blood Pressure 112/67 03/07/19 06:39 O2 Sat by Pulse Oximetry (%) Pertinent Admission Physical Exam Findings: Physical General Appearance: No Apparent Distress HEENTM: Normocephalic, Respiratory: Lungs Clear, Neck: Trachea in good position Cardiology: S1, S2 Abdominal: +Bowel Sounds, Non Tender, Soft Musculoskeletal: full range of Motion, Gait Steady Neurological: CN 2-12 intact - Treatment Discharge Condition: Outpatient referral accepted (Patient will go to [facility], medically stable for discharge.) Hospital Course: attended groups, had 1:1 with counselor, was seen by psychiatric service. He had not urgent or acute medical problems while in rehab. - Medication Discharge Medications: Ambulatory Orders Fluoxetine HCl [Prozac -] 10 mg PO DAILY #30 capsule 05/11/18 Olanzapine [Zyprexa -] 5 mg PO DAILY 11/24/18 Indomethacin [Indocin -] 25 mg PO BID #60 capsule 03/07/19 - Medication-Assisted Treatment (MAT) Medication-Assisted Treatment (MAT): No - Discharge Instructions Diet, activity, other medical instructions: Diet: as tolerated Activity: as tolerated Other medical instructions: Please follow up with aftercare referral. - Diagnosis (1) Alcohol use disorder Current Visit: Yes Status: Chronic (2) Cocaine dependence, uncomplicated Current Visit: Yes Status: Chronic - Follow-up Referral Minutes to complete discharge: 20 - AMA Did Patient Leave Against Medical Advice: No
== END 2019-03-07 10:25 | disposition home or self-care (01) | DRG 895 ==
LOC: YASAS 08:55 → Y3W 11:28
PROVIDERS: ADMIT Neuromusculoskeletal Medicine & OMM; ATTEND Neuromusculoskeletal Medicine & OMM
PROC: HZ42ZZZ Group Counseling for Substance Abuse Treatment, Cognitive-Behavioral (ICD-10-PCS; principal; 2019-03-01)
DX: F10.20 Alcohol dependence, uncomplicated (principal); F14.20 Cocaine dependence, uncomplicated; F16.20 Hallucinogen dependence, uncomplicated; F17.210 Nicotine dependence, cigarettes, uncomplicated; F20.9 Schizophrenia, unspecified; F41.9 Anxiety disorder, unspecified; M10.9 Gout, unspecified; M54.5 Low back pain; G89.29 Other chronic pain; K21.9 Gastro-esophageal reflux disease without esophagitis; Z88.8 Allergy status to other drugs, medicaments and biological substances
CPT/HCPCS: 36415; 80053; 81003; 85027; 86593; 87389

== ENCOUNTER 2019-04-22 13:38 | Inpatient (IN) | payer MEDICARE, OTHER ==
--- NOTE | 2019-04-22 14:02 | BHS.RME ---
Substance Use & Tx History - Substance Use History Alcohol Substance amount: 2-3 pints, 8 nips, 4 x24 ounce beer, 2 x 16 ounce beer Frequency of use: Daily Substance route: Oral Date of Last Use: 04/21/19 Cocaine (Crack) Substance amount: $20 Frequency of use: Once a month Substance route: Smoking Date of Last Use: 04/21/19 Nicotine Substance amount: 3-5 per day Frequency of use: Daily Substance route: Smoking Date of Last Use: 04/22/19 Physical/Psych/Mental Status - Behavior General Behavior: Decreased activity Eye Contact: Decreased - Cooperativeness Cooperativeness: Cooperative - Thinking Thought Processes: Tight Thought content: Future oriented - Physical Health Problems Is patient presently having any pain?: Yes (right great toe gout) Does patient presently have any injuries (include location): No Does patient currently have a fever: No CIWA Nausea/Vomitin Muscle Tremors: 3 Anxiety: 3 Agitation: 0-Normal Activity Paroxysmal Sweats: 2 Orientation: 0-Oriented Tacttile Disturbances: 0-None Auditory Disturbances: 0-None Visual Disturbances: 1-Very Mild Sensitivity Headache: 1-Very Mild CIWA-Ar Total Score: 12
[2019-04-22 17:20] VITALS: BMI 30.1
--- NOTE | 2019-04-22 17:39 | HP ---
CIWA Score Nausea/Vomitin Muscle Tremors: 3 Anxiety: 3 Agitation: 0-Normal Activity Paroxysmal Sweats: 2 Orientation: 0-Oriented Tacttile Disturbances: 0-None Auditory Disturbances: 0-None Visual Disturbances: 1-Very Mild Sensitivity Headache: 1-Very Mild CIWA-Ar Total Score: 12 - Admission Criteria OASAS Guidelines: Admission for Medically Managed Detox: Requires at least one of the followin. CIWA greater than 12 2. Seizures within the past 24 hours 3. Delirium tremens within the past 24 hours 4. Hallucinations within the past 24 hours 5. Acute intervention needed for co occurring medical disorder 6. Acute intervention needed for co occurring psychiatric disorder 7. Severe withdrawal that cannot be handled at a lower level of care (continued vomiting, continued diarrhea, abnormal vital signs) requiring intravenous medication and/or fluids 8. Admitting History and Physical - Admission Chief Complaint: 53 year old male with h/o depression and schizophrenia presented to [facility] for ETOH Detox and cocain History of Present Illness: 53 year old male with h/o depression and schizophrenia presented to [facility] for ETOH and cocain detox. last use of alcohol yesterday 2 pints kathe and vodka, daily last use of cocain yesterday 20 dollar, use it few times a month gain 5 pinds within one month last admission to March [id number]. ROS: headache, nausea , no vomiting , back pain , diarrhea 3 time today and 2 time yesterday, watery non bloody, upset stomack. denies any fever, chills, chest pain , sob , joint pain , easy bleedy or oscar bruising PMHX: ETOH and cocain dependence PShx: left ankle, spleen esnpection , appendicitis , ' Social: lives with family , mother ad 2 sisters smoke cigaret 3-5 /day since 2007, before that 1/2 PPD start at age of 14 Alcohol 2 pints daily of hard lecker, Drugs: smoke cocain last use yesterday. Legal: non domicile History Source: Patient Limitations to Obtaining History: Intoxication - Smoking History Smoking history: Current every day smoker Have you smoked in the past 12 months: Yes Aproximately how many cigarettes per day: 5 - Alcohol/Substance Use Hx Alcohol Use: Yes Admission ROS S - [facility] Allergies/Adverse Reactions: Allergies Allergy/AdvReac Type Severity Reaction Status Date / Time escitalopram Allergy Severe ITCHING Verified 04/22/19 17:14 WITH LEXAPRO fluphenazine [Fluphenazine] Allergy Severe Itching Verified 04/22/19 17:14 sertraline HCl [From Zoloft] Allergy Severe abdominal Verified 04/22/19 17:14 swelling ziprasidone HCl [From Geodon] Allergy Severe Swelling Verified 04/22/19 17:14 risperidone [From Risperdal] Allergy Intermediate Swelling Verified 04/22/19 17:14 Exam Limitations: No Limitations - Ebola screening Have you traveled outside of the country in the last 21 days: No Have you had contact with anyone from an Ebola affected area: No Have you been sick,other than usual withdrawal symptoms: No Do you have a fever: No - Review of Systems Constitutional: Other (gain 5 pounds) EENT: reports: No Symptoms Reported Respiratory: reports: No Symptoms reported Cardiac: reports: No Symptoms Reported GI: reports: Diarrhea (3 times daily), Nausea, Abdominal cramping : reports: No Symptoms Reported Musculoskeletal: reports: Back Pain Integumentary: reports: No Symptoms Reported Neuro: reports: Headache Endocrine: reports: No Symptoms Reported Hematology: reports: No Symptoms Reported Psychiatric: reports: Depressed (on prozac) Patient History - Patient Medical History Hx Anemia: No Hx Asthma: No Hx Chronic Obstructive Pulmonary Disease (COPD): No Hx Cancer: No Hx Cardiac Disorders: No Hx Congestive Heart Failure: No Hx Hypertension: No Hx Hypercholesterolemia: No Hx Pacemaker: No HX Cerebrovascular Accident: No Hx Seizures: No Hx Dementia: No Hx Diabetes: No Hx Gastrointestinal Disorders: Yes (GERD) Hx Liver Disease: No Hx Genitourinary Disorders: No Hx Sexually Transmitted Disorders: No Hx Renal Disease (ESRD): No Hx Thyroid Disease: No Hx Human Immunodeficiency Virus (HIV): No Hx Hepatitis C: No Hx Depression: Yes (Not on medication) Hx Suicide Attempt: No Hx Bipolar Disorder: No Hx Schizophrenia: Yes (paranoid schizophrenia remote h/o) - Patient Surgical History Past Surgical History: Yes Hx Neurologic Surgery: No Hx Cataract Extraction: No Hx Cardiac Surgery: No Hx Lung Surgery: No Hx Breast Surgery: No Hx Breast Biopsy: No Hx Abdominal Surgery: Yes Hx Appendectomy: Yes Hx Cholecystectomy: No Hx Genitourinary Surgery: No Hx Section: No Hx Orthopedic Surgery: Yes (left ankle sx x2 1986 - plate with 5 screws) Other Surgical History: I & D abscess on right buttocks 5 years ago Anesthesia Reaction: No - PPD History Previous Implant?: Yes Documented Results: Negative w/proof Date: 05/10/18 Results: 0 - Smoking Cessation Smoking history: Current every day smoker Have you smoked in the past 12 months: Yes Aproximately how many cigarettes per day: 5 Cigars Per Day: 0 Hx Chewing Tobacco Use: No Initiated information on smoking cessation: Yes 'Breaking Loose' booklet given: 04/22/19 - Substances abused Alcohol Substance route: Oral Frequency: Daily Amount used: 8 NIPS, 4X24oz BEERS, 2X16oz BEERS Age of first use: 15 Date of last use: 04/21/19 Crack Substance route: Smoking Frequency: 1-3 times last 30 days Amount used: $20 Age of first use: 20 Date of last use: 04/21/19 Admission Physical Exam S - Vital Signs Vital Signs: Vital Signs - 24 hr 04/22/19 17:16 Temperature 97.8 F Pulse Rate 67 Respiratory 18 Rate Blood Pressure 110/73 - Physical General Appearance: Yes: Within Normal Limits HEENTM: Yes: EOMI, Hearing grossly Normal, Normocephalic, Normal Voice Respiratory: Yes: Lungs Clear Neck: Yes: Supple Breast: Yes: Breast Exam Deferred Cardiology: Yes: Regular Rhythm, Regular Rate, S1, S2 Abdominal: Yes: Normal Bowel Sounds Genitourinary: Yes: Other (deffered) Back: No: CVA Tenderness Musculoskeletal: Yes: full range of Motion Extremities: No: Non-Tender, Coldness, Cyanosis, Pedal Edema Neurological: Yes: Motor Strength 5/5. No: Facial Droop, Numbness Integumentary: Yes: Within Normal Limits - Diagnostic (1) Alcohol dependence with uncomplicated withdrawal Current Visit: Yes Status: Acute (2) Cocaine dependence, uncomplicated Current Visit: Yes Status: Chronic (3) Depression Current Visit: Yes Status: Chronic Qualifiers: Depression Type: major depressive disorder Major depression recurrence: unspecified whether recurrent Active/Remission status: remission status unspecified Qualified Code(s): F32.9 - Major depressive disorder, single episode, unspecified (4) GERD (gastroesophageal reflux disease) Current Visit: Yes Status: Chronic Qualifiers: Esophagitis presence: without esophagitis Qualified Code(s): K21.9 - Gastro-esophageal reflux disease without esophagitis (5) Low back pain Current Visit: No Status: Chronic (6) Nicotine dependence Current Visit: Yes Status: Chronic Qualifiers: Nicotine product type: cigarettes Substance use status: uncomplicated Qualified Code(s): F17.210 - Nicotine dependence, cigarettes, uncomplicated (7) Schizophrenia Current Visit: Yes Status: Chronic Qualifiers: Schizophrenia type: unspecified Qualified Code(s): F20.9 - Schizophrenia, unspecified (8) Gout Current Visit: Yes Status: Chronic Cleared for Admission [facility] - Detox or Rehab [facility] Level of Care: Medically Managed Detox Regimen/Protocol: Librium Claeared for Rehab Admission: No Breathalyzer - Breathalyzer Breathalyzer: 0 Urine Drug Screen - Test Device Lot number: [id number] Expiration date: 01/12/21 - Control Is test valid?: Yes - Results Drug screen NEGATIVE: No Urine drug screen results: DEBBIE-Cocaine, BZO-Benzodiazepines Inpatient Rehab Admission - Rehab Decision to Admit Inpatient rehab admission?: No
[2019-04-22] MEDS ORDERED: NICOTINE POLACRILEX 2 MG GUM BUC PRN (17:53)
[2019-04-22] MEDS ORDERED: MAGNESIUM CITRATE 300 ML BOTTLE PO PRN (17:53)
[2019-04-22] MEDS ORDERED: IBUPROFEN 400 MG TABLET (FP) PO PRN (17:53)
[2019-04-22] MEDS ORDERED: BISMUTH SUBSALICYLATE 524 MG/30 ML UD PO PRN (17:53)
[2019-04-22] MEDS ORDERED: chlordiazePOXIDE HCL 25 MG CAPSULE PO PRN ×2 (17:53)
[2019-04-22] MEDS ORDERED: MAGNESIUM HYDROX 2400MG/30ML ORAL SUSPENSION 30 ML CUP PO PRN (17:53)
[2019-04-22] MEDS ORDERED: MENTHOL/PHENOL 1 EACH UD MM PRN (17:53)
[2019-04-22] MEDS ORDERED: MAG HYDROX/AL HYDROX/SIMETH 30 ML UNIT-DOSE CUP PO PRN (17:53)
[2019-04-22] MEDS ORDERED: ACETAMINOPHEN 325 MG TABLET (FP) PO PRN ×2 (17:53)
[2019-04-22] MEDS ORDERED: hydrOXYzine PAMOATE 25 MG CAPSULE (FP) PO SCH (18:00)
[2019-04-22] MEDS ORDERED: NICOTINE 14 MG/24 HOURS TOPICAL PATCH TD SCH (18:00)
[2019-04-22] MEDS ORDERED: hydrOXYzine PAMOATE 25 MG CAPSULE (FP) PO PRN (18:12)
[2019-04-22] MEDS ORDERED: chlordiazePOXIDE HCL 25 MG CAPSULE PO SCH (18:30)
[2019-04-22] MEDS ORDERED: ONDANSETRON *ODT* 4 MG TABLET SL ONE (18:45)
[2019-04-22] MEDS: NICOTINE 14 MG/24 HOURS TOPICAL PATCH TD SCH (19:04)
[2019-04-22] MEDS: PRENATAL VITAMINS W/ FOLIC ACID TABLET (FP) PO SCH (19:05)
[2019-04-22] MEDS: MELATONIN 5 MG TABLETS PO SCH (23:46)
[2019-04-22] MEDS: INDOMETHACIN 25 MG CAPSULE PO SCH (23:46)
[2019-04-22] MEDS: chlordiazePOXIDE HCL 25 MG CAPSULE PO SCH (23:46)
[2019-04-22] MEDS: THIAMINE HCL 100 MG TABLET (FP) PO SCH (23:46)
[2019-04-23] MEDS: chlordiazePOXIDE HCL 25 MG CAPSULE PO SCH ×4 (06:13→22:28)
[2019-04-23 10:06] LABS: HEMATOCRIT 43.9 % (35.4-49); HEMOGLOBIN 15.2 GM/dL (11.7-16.9); MCH 28.6 pg (25.7-33.7); MCHC 34.6 g/dl (32.0-35.9); MEAN CELL VOLUME 82.9 fl (80-96); PLATELET COUNT 189 K/MM3 (134-434); WHITE BLOOD COUNT 8.8 K/mm3 (4.0-10.0)
[2019-04-23 10:15] LABS: ALBUMIN 3.5 g/dl (3.4-5.0); BILIRUBIN,TOTAL 0.6 mg/dL (0.2-1); CALCIUM 8.7 mg/dL (8.5-10.1); CREATININE 1.3 mg/dL (0.55-1.3); POTASSIUM 3.9 mmol/L (3.5-5.1)
[2019-04-23] MEDS: PRENATAL VITAMINS W/ FOLIC ACID TABLET (FP) PO SCH (10:32)
[2019-04-23] MEDS: INDOMETHACIN 25 MG CAPSULE PO SCH ×2 (10:32→22:27)
[2019-04-23] MEDS: NICOTINE 14 MG/24 HOURS TOPICAL PATCH TD SCH (10:35)
[2019-04-23] MEDS: METHOCARBAMOL 500 MG TABLET PO PRN ×2 (10:36→22:25)
--- NOTE | 2019-04-23 11:03 | EKG ---
Test Reason : Blood Pressure : / mmHG Vent. Rate : 073 BPM Atrial Rate : 073 BPM P-R Int : 146 ms QRS Dur : 084 ms QT Int : 394 ms P-R-T Axes : 048 -11 030 degrees QTc Int : 434 ms NORMAL SINUS RHYTHM NORMAL ECG WHEN COMPARED WITH ECG OF 16-MAR-2018 22:02, CRITERIA FOR SEPTAL INFARCT ARE NO LONGER PRESENT Confirmed by Julien Lara MD ([id number]) on 04/23/2019 11:02:47 AM Referred By: Confirmed By:Julien Lara MD
--- NOTE | 2019-04-23 11:41 | CONSULT ---
[facility] Psychiatric Consult - Data Date of interview: 04/23/19 Admission source: [facility] Identifying data: Two visits at bedside. Patient found asleep. Psychiatric examination is deferred.
--- NOTE | 2019-04-23 14:07 | PN ---
[facility] CIWA - CIWA Score Nausea/Vomitin-No Nausea/No Vomiting Muscle Tremors: 4-Moderate,w/Arms Extend Anxiety: 3 Agitation: 0-Normal Activity Paroxysmal Sweats: 2 Orientation: 0-Oriented Tacttile Disturbances: 0-None Auditory Disturbances: 0-None Visual Disturbances: 2-Mild Sensitivity Headache: 0-None Present CIWA-Ar Total Score: 11 S Progress Note (SOAP) Subjective: 53 years old male admitted on 04/22/19 for alcohol withdrawal sx management treating with librium detox regiment feeling tired resting in bed prefers to stay in bed today alert easy to aroused Objective: 04/23/19 14:06 Vital Signs Temperature 97.6 F 04/23/19 12:32 Pulse Rate 103 H 04/23/19 12:32 Respiratory Rate 18 04/23/19 12:32 Blood Pressure 121/81 04/23/19 12:32 O2 Sat by Pulse Oximetry (%) Laboratory Last Values WBC 8.8 K/mm3 (4.0-10.0) 04/23/19 07:45 RBC 5.30 M/mm3 (4.00-5.60) 04/23/19 07:45 Hgb 15.2 GM/dL (11.7-16.9) 04/23/19 07:45 Hct 43.9 % (35.4-49) 04/23/19 07:45 MCV 82.9 fl (80-96) 04/23/19 07:45 MCH 28.6 pg (25.7-33.7) 04/23/19 07:45 MCHC 34.6 g/dl (32.0-35.9) 04/23/19 07:45 RDW 16.0 % (11.9-15.9) H 04/23/19 07:45 Plt Count 189 K/MM3 (134-434) 04/23/19 07:45 MPV 10.0 fl (7.5-11.1) 04/23/19 07:45 Sodium 140 mmol/L (136-145) 04/23/19 07:45 Potassium 3.9 mmol/L (3.5-5.1) 04/23/19 07:45 Chloride 108 mmol/L (98-107) H 04/23/19 07:45 Carbon Dioxide 24 mmol/L (21-32) 04/23/19 07:45 Anion Gap 7 MMOL/L (8-16) L 04/23/19 07:45 BUN 11.0 mg/dL (7-18) 04/23/19 07:45 Creatinine 1.3 mg/dL (0.55-1.3) 04/23/19 07:45 Est GFR (CKD-EPI)AfAm 72.20 04/23/19 07:45 Est GFR (CKD-EPI)NonAf 62.29 04/23/19 07:45 Random Glucose 107 mg/dL (74-106) H 04/23/19 07:45 Calcium 8.7 mg/dL (8.5-10.1) 04/23/19 07:45 Total Bilirubin 0.6 mg/dL (0.2-1) 04/23/19 07:45 AST 24 U/L (15-37) 04/23/19 07:45 ALT 30 U/L (13-61) 04/23/19 07:45 Alkaline Phosphatase 71 U/L (45-117) 04/23/19 07:45 Total Protein 8.0 g/dl (6.4-8.2) 04/23/19 07:45 Albumin 3.5 g/dl (3.4-5.0) 04/23/19 07:45 RPR Titer Nonreactive (NONREACTIVE) 04/23/19 07:45 lab noted Assessment: 04/23/19 14:07 alcohol withdrawal Plan: librium regiment
[2019-04-23] MEDS: MELATONIN 5 MG TABLETS PO SCH (22:24)
[2019-04-23] MEDS: THIAMINE HCL 100 MG TABLET (FP) PO SCH (22:28)
[2019-04-24] MEDS ORDERED: chlordiazePOXIDE HCL 25 MG CAPSULE PO SCH (05:00)
[2019-04-24] MEDS: chlordiazePOXIDE HCL 25 MG CAPSULE PO SCH ×2 (05:18→10:16)
[2019-04-24] MEDS: INDOMETHACIN 25 MG CAPSULE PO SCH (10:16)
[2019-04-24] MEDS: NICOTINE 14 MG/24 HOURS TOPICAL PATCH TD SCH (10:18)
[2019-04-24] MEDS: PRENATAL VITAMINS W/ FOLIC ACID TABLET (FP) PO SCH (10:18)
--- NOTE | 2019-04-24 10:18 | PN ---
[facility] CIWA - CIWA Score Nausea/Vomitin-No Nausea/No Vomiting Muscle Tremors: 3 Anxiety: 3 Agitation: 1-Slight > Activity Paroxysmal Sweats: 2 Orientation: 0-Oriented Tacttile Disturbances: 0-None Auditory Disturbances: 0-None Visual Disturbances: 0-None Headache: 1-Very Mild CIWA-Ar Total Score: 10 S Progress Note (SOAP) Subjective: 53 years old male admitted on 04/22/19 for alcohol withdrawal sx management treating with librium detox regiment feeling ok today ate breakfast resting in bed discuss aftercare with staff [facility] encourage the patient to attend behavior and psychosocial therapies groups and meetings as part of recovery Objective: 04/24/19 10:19 Vital Signs Temperature 97.0 F L 04/24/19 08:33 Pulse Rate 75 04/24/19 08:33 Respiratory Rate 18 04/24/19 08:33 Blood Pressure 109/71 04/24/19 08:33 O2 Sat by Pulse Oximetry (%) Laboratory Last Values WBC 8.8 K/mm3 (4.0-10.0) 04/23/19 07:45 RBC 5.30 M/mm3 (4.00-5.60) 04/23/19 07:45 Hgb 15.2 GM/dL (11.7-16.9) 04/23/19 07:45 Hct 43.9 % (35.4-49) 04/23/19 07:45 MCV 82.9 fl (80-96) 04/23/19 07:45 MCH 28.6 pg (25.7-33.7) 04/23/19 07:45 MCHC 34.6 g/dl (32.0-35.9) 04/23/19 07:45 RDW 16.0 % (11.9-15.9) H 04/23/19 07:45 Plt Count 189 K/MM3 (134-434) 04/23/19 07:45 MPV 10.0 fl (7.5-11.1) 04/23/19 07:45 Sodium 140 mmol/L (136-145) 04/23/19 07:45 Potassium 3.9 mmol/L (3.5-5.1) 04/23/19 07:45 Chloride 108 mmol/L (98-107) H 04/23/19 07:45 Carbon Dioxide 24 mmol/L (21-32) 04/23/19 07:45 Anion Gap 7 MMOL/L (8-16) L 04/23/19 07:45 BUN 11.0 mg/dL (7-18) 04/23/19 07:45 Creatinine 1.3 mg/dL (0.55-1.3) 04/23/19 07:45 Est GFR (CKD-EPI)AfAm 72.20 04/23/19 07:45 Est GFR (CKD-EPI)NonAf 62.29 04/23/19 07:45 Random Glucose 107 mg/dL (74-106) H 04/23/19 07:45 Calcium 8.7 mg/dL (8.5-10.1) 04/23/19 07:45 Total Bilirubin 0.6 mg/dL (0.2-1) 04/23/19 07:45 AST 24 U/L (15-37) 04/23/19 07:45 ALT 30 U/L (13-61) 04/23/19 07:45 Alkaline Phosphatase 71 U/L (45-117) 04/23/19 07:45 Total Protein 8.0 g/dl (6.4-8.2) 04/23/19 07:45 Albumin 3.5 g/dl (3.4-5.0) 04/23/19 07:45 RPR Titer Nonreactive (NONREACTIVE) 04/23/19 07:45 lab noted Assessment: 04/24/19 10:20 alcohol withdrawal Plan: librium regiment
--- NOTE | 2019-04-24 12:29 | CONSULT ---
[facility] Psychiatric Consult - Data Date of interview: 04/24/19 Admission source: [facility] Identifying data: Readmission to [address] [place] [address] for this 53 y/o AA male self-referred for detoxification treatment. JOHN issues : alcohol, nicotine, cocaine. Patient is , a father of two (claims no dependents in this interview), homeless, unemployed and supported on [employer] benefits. Substance Abuse History: Discussed in this interview. JOHN as follows : Smoking history: Current every day smoker. Have you smoked in the past 12 months: Yes. Aproximately how many cigarettes per day: 5. Cigars Per Day: 0. Hx Chewing Tobacco Use: No. Initiated information on smoking cessation: Yes. 'Breaking Loose' booklet given: 04/22/19. - Substances abused. Alcohol. Substance route: Oral. Frequency: Daily. Amount used: 8 NIPS, 4X24oz BEERS, 2X16oz BEERS. Age of first use: 15. Date of last use: 04/21/19. Crack. Substance route: Smoking. Frequency: 1-3 times last 30 days. Amount used: $20. Age of first use: 20. Date of last use: 04/21/19 Medical History: Medical history is remarkable for GERD, gout (self-report), chronic lumbar pain and history of orthosurgery for fracture of left ankle (hardware in place). Psychiatric History: Patient is a frequent user of JOHN treatment services at [facility]. Diagnosed with Paranoid Schizophrenia. First psychiatric breakdown had occurred in 1985. Mr Garsia presents with a history of multiple psychiatric hospitalizations ([facility], [facility], [facility], [facility], [facility] and [facility]). Patient admits to a long standing history of non-adherence to psychiatric OPD care. Makes sporadic CPEP visits for medications refills (in times of crisis). Denies history of suicide attempts. Physical/Sexual Abuse/Trauma History: Patient denies. Additional Comment: Urine drug screen results: DEBBIE-Cocaine, BZO-Benzodiazepines. Noted. Mental Status Exam - Mental Status Exam Alert and Oriented to: Time, Place, Person Cognitive Function: Good Patient Appearance: Unkempt, Disheveled Mood: Angry, Hostile, Withdrawn, Irritable Affect: Mood Congruent, Blunted, Constricted Patient Behavior: Inappropriate, Fatigued, Suspicious, Belligerent, Agitated Speech Pattern: Inappropriate, Rambling, Excessive (incoherent) Voice Loudness: Moderately Loud Thought Process: Loose Associations, Disorganized Thought Disorder: Present, Paranoid Ideation (" I am getting bad vibes from people. They are upsetting me." ), Ideas of Reference, Bizarre, Delusional Hallucinations: Denies Suicidal Ideation: Denies Homicidal Ideation: Current (feels like fighting people, hurting others) Insight/Judgement: Poor, Impaired Sleep: Well Appetite: Good Gait/Station: Normal Psychiatric Findings - Problem List ([place] 1, 2,3) (1) Acute psychosis Current Visit: Yes Status: Acute (2) Schizophrenia Current Visit: Yes Status: Chronic Qualifiers: Schizophrenia type: unspecified Qualified Code(s): F20.9 - Schizophrenia, unspecified (3) Alcohol dependence with uncomplicated withdrawal Current Visit: Yes Status: Acute (4) Cocaine dependence, uncomplicated Current Visit: Yes Status: Chronic (5) Nicotine dependence Current Visit: Yes Status: Chronic Qualifiers: Nicotine product type: cigarettes Substance use status: uncomplicated Qualified Code(s): F17.210 - Nicotine dependence, cigarettes, uncomplicated (6) Substance induced mood disorder Current Visit: Yes Status: Chronic (7) Non-compliant patient Current Visit: Yes Status: Chronic Comment: Non-adherence to psychiatric aftercare. - Initial Treatment Plan Initial Treatment Plan: Patient is acutely psychotic (disorganized, paranoid, agitated, incoherent). Pacing in hallways. Talking loudly to self. [place] saying (by magazine writer + other staff) that he is " tired of getting bad vibes from people " and that he feels like hurting others. Mr Garsia has been offered antipsychotic medications. He refuses. This patient has been lost to follow-up for months. He is clearly decompensating. He cannot be managed in a JOHN treatment setting (detox). Case discussed with package line relief operator Genna Norman ([phone]) from [facility]. Patient has created a situation of psychiatric emergency. He will be transferred to the psychiatric section at [facility] emergency department for higher level of psychiatric care. LION TAMER Ana Laura Austin is in agreement with this disposition. EMS + [place] [employer] are called for assistance. Discussed with the Multidisciplinary treatment team.
[2019-04-24 13:23] VITALS: BP 123/80; PULSE 76; TEMP 98
--- NOTE | 2019-04-24 14:55 | PN ---
[facility] Progress Note Note: Mr Garsia presented buzzard behavior, pressure speech, disorganized, incoherent, word salad, paranoid about people sending bad vibe to him, patient denies problem drinking alcohol "other people make me" drink alcohol, constant "defending myself" to avoid "" meeting with the psychiatrist and nurse, 2 PC to [facility] for paranoid psychosis information provided to the ER psychiatrist by Dr. Lentz
[2019-04-24] MEDS ORDERED: OLANZapine 5 MG TABLET PO SCH (22:00)
[2019-04-25] MEDS ORDERED: chlordiazePOXIDE HCL 10 MG CAPSULE PO PRN ×2
[2019-04-25] MEDS ORDERED: chlordiazePOXIDE HCL 10 MG CAPSULE PO SCH ×2 (05:00)
[2019-04-26] MEDS ORDERED: chlordiazePOXIDE HCL 10 MG CAPSULE PO SCH ×2 (05:00)
[2019-04-27] MEDS ORDERED: chlordiazePOXIDE HCL 10 MG CAPSULE PO ONE ×2 (05:00)
== END 2019-04-24 15:00 | DRG 897 ==
LOC: YASAS 13:38 → Y3N 17:31
PROVIDERS: ADMIT Allergy & Immunology; ATTEND Allergy & Immunology
PROC: HZ2ZZZZ Detoxification Services for Substance Abuse Treatment (ICD-10-PCS; principal; 2019-04-22)
DX: F19.230 Other psychoactive substance dependence with withdrawal, uncomplicated (principal); F14.20 Cocaine dependence, uncomplicated; F10.230 Alcohol dependence with withdrawal, uncomplicated; F17.210 Nicotine dependence, cigarettes, uncomplicated; F19.24 Other psychoactive substance dependence with psychoactive substance-induced mood disorder; F20.9 Schizophrenia, unspecified; F32.9 Major depressive disorder, single episode, unspecified; F29 Unspecified psychosis not due to a substance or known physiological condition; K21.9 Gastro-esophageal reflux disease without esophagitis; M54.5 Low back pain; G89.29 Other chronic pain; M10.9 Gout, unspecified; Z91.19 Patient's noncompliance with other medical treatment and regimen; Z88.8 Allergy status to other drugs, medicaments and biological substances
CPT/HCPCS: 36415; 80053; 85027; 86593; 93005; 93010; Q0162

== ENCOUNTER 2019-10-20 10:24 | Inpatient (IN) | payer OTHER ==
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
[2019-10-20] MEDS ORDERED: ONDANSETRON *ODT* 4 MG TABLET SL ONE (12:37)
[2019-10-20] MEDS ORDERED: MAGNESIUM CITRATE 300 ML BOTTLE PO PRN (12:37)
[2019-10-20] MEDS ORDERED: ACETAMINOPHEN 325 MG TABLET (FP) PO PRN ×2 (12:37)
[2019-10-20] MEDS ORDERED: MAGNESIUM HYDROX 2400MG/30ML ORAL SUSPENSION 30 ML CUP PO PRN (12:37)
[2019-10-20] MEDS ORDERED: MENTHOL/PHENOL 1 EACH UD MM PRN (12:37)
[2019-10-20] MEDS ORDERED: chlordiazePOXIDE HCL 10 MG CAPSULE PO PRN (12:37)
[2019-10-20] MEDS ORDERED: MAG HYDROX/AL HYDROX/SIMETH 30 ML UNIT-DOSE CUP PO PRN (12:37)
[2019-10-20] MEDS ORDERED: NICOTINE POLACRILEX 2 MG GUM BUC PRN (12:37)
[2019-10-20] MEDS ORDERED: IBUPROFEN 400 MG TABLET (FP) PO PRN (12:37)
[2019-10-20] MEDS ORDERED: BISMUTH SUBSALICYLATE 524 MG/30 ML UD PO PRN (12:37)
[2019-10-20] MEDS ORDERED: METHOCARBAMOL 500 MG TABLET PO PRN (12:37)
[2019-10-20 12:38] VITALS: BMI 27.6
[2019-10-20] MEDS: hydrOXYzine PAMOATE 25 MG CAPSULE (FP) PO PRN (14:02)
[2019-10-20] MEDS: chlordiazePOXIDE HCL 25 MG CAPSULE PO SCH ×2 (14:02→22:34)
[2019-10-20] MEDS: MELATONIN 5 MG TABLETS PO SCH (22:35)
[2019-10-20] MEDS: THIAMINE HCL 100 MG TABLET (FP) PO SCH (22:35)
[2019-10-21] MEDS: chlordiazePOXIDE HCL 25 MG CAPSULE PO SCH ×3 (06:35→22:22)
--- NOTE | 2019-10-21 10:04 | CONSULT ---
[facility] Psychiatric Consult - Data Date of interview: 10/21/19 Admission source: [facility] Identifying data: Patient is 52 year old single male, father of two, unemployed, domiciled, and and is supported with SSD. This is one of multiple admissions for patient. Patient admitted to for alcohol and cocaine dependence. Substance Abuse History: Smoking Cessation. Smoking history: Current every day smoker. Have you smoked in the past 12 months: Yes. Aproximately how many cigarettes per day: 5. Cigars Per Day: 0. Hx Chewing Tobacco Use: No. Initiated information on smoking cessation: Yes. 'Breaking Loose' booklet given: 10/20/19. - Substance & Tx. History. Hx Alcohol Use: Yes. Hx Substance Use: Yes. Substance Use Type: Alcohol, Cocaine. Hx Substance Use Treatment: Yes. - Substances abused. Alcohol. Other (specify): r. Substance route: Oral. Frequency: Daily. Amount used: liqour-2-3 pints 6-8 24 oz cans of bee. Age of first use: 15. Date of last use: 10/19/19. Cocaine. Substance route: Smoking. Amount used: $15. Age of first use: 20. Date of last use: 10/19/19 Medical History: GERD, gout (self-report), chronic lumbar pain and history of orthosurgery for fracture of left ankle (hardware in place). Psychiatric History: Patient with a history of multiple psychiatric hospitalizations ( [facility], [facility], [facility], [facility], [facility] and [facility]). Diagnosis of paranoid schizophrenia. Patient with a chronic history of noncompliance to outpatient psychiatric treatment. Patient reports history of taking prozac 10mg daily + zyprexa 2.5mg HS. No reported history of suicide attempt. Patient denies auditory/visual hallucinations, suicidal/ homicidal ideation. Physical/Sexual Abuse/Trauma History: denies. Mental Status Exam - Mental Status Exam Alert and Oriented to: Time, Place, Person Cognitive Function: Good Patient Appearance: Well Groomed Mood: Withdrawn Affect: Mood Congruent, Blunted Patient Behavior: Cooperative Speech Pattern: Appropriate Voice Loudness: Normal Thought Process: Goal Oriented Thought Disorder: Not Present Hallucinations: Denies Suicidal Ideation: Denies Homicidal Ideation: Denies Insight/Judgement: Poor Sleep: Fair Appetite: Fair Muscle strength/Tone: Normal Gait/Station: Normal Psychiatric Findings - Problem List ([place] 1, 2,3) (1) Alcohol dependence with uncomplicated withdrawal Current Visit: Yes Status: Acute (2) Cocaine dependence, uncomplicated Current Visit: Yes Status: Chronic (3) Nicotine dependence Current Visit: Yes Status: Chronic Qualifiers: Nicotine product type: cigarettes Substance use status: in withdrawal Qualified Code(s): F17.213 - Nicotine dependence, cigarettes, with withdrawal (4) Schizophrenia Current Visit: Yes Status: Chronic Qualifiers: Schizophrenia type: unspecified Qualified Code(s): F20.9 - Schizophrenia, unspecified - Initial Treatment Plan Initial Treatment Plan: Psychoeducation provided. Detoxification in progress. Will order Prozac 10mg daily + Zyprexa 2.5mg daily ( patient requesting to take zyprexa in the morning). Benefits and side effects discussed. Verbal consent given.
[2019-10-21 10:06] LABS: HEMOGLOBIN 14.1 GM/dL (11.7-16.9); MCH 28.3 pg (25.7-33.7); MCHC 33.5 g/dl (32.0-35.9); MEAN CELL VOLUME 84.6 fl (80-96); MEAN PLT VOLUME 10.6 fl (7.5-11.1); PLATELET COUNT 136 K/MM3 (134-434); RBC 4.97 M/mm3 (4.00-5.60); RDW 15.7 % (11.9-15.9); WHITE BLOOD COUNT 7.9 K/mm3 (4.0-10.0)
[2019-10-21 10:16] LABS: ALBUMIN 3.4 g/dl (3.4-5.0); BILIRUBIN,TOTAL 0.6 mg/dL (0.2-1); BLOOD UREA NITROGEN 9.8 mg/dL (7-18); CALCIUM 8.7 mg/dL (8.5-10.1); CREATININE 1.1 mg/dL (0.55-1.3); POTASSIUM 4.2 mmol/L (3.5-5.1); TOT PROT 6.9 g/dl (6.4-8.2)
[2019-10-21] MEDS: PRENATAL VITAMINS W/ FOLIC ACID TABLET (FP) PO SCH (10:38)
[2019-10-21] MEDS: hydrOXYzine PAMOATE 25 MG CAPSULE (FP) PO PRN (10:39)
[2019-10-21] MEDS: OLANZapine 2.5 MG TABLET PO SCH (10:58)
[2019-10-21] MEDS: FLUoxetine HCL 10 MG TABLET PO SCH (10:58)
[2019-10-21] MEDS ORDERED: predniSONE 20 MG TABLET (UD) PO SCH ×2 (12:11→12:30)
--- NOTE | 2019-10-21 12:23 | PN ---
[facility] CIWA - CIWA Score Nausea/Vomitin-No Nausea/No Vomiting Muscle Tremors: 1-None Visible, but [place] Anxiety: 1-Mildly Anxious Agitation: 0-Normal Activity Paroxysmal Sweats: 1-Minimal Palms Moist Orientation: 0-Oriented Tacttile Disturbances: 1-Very Mild Itch/Numbness Auditory Disturbances: 0-None Visual Disturbances: 2-Mild Sensitivity Headache: 4-Moderately Severe (gout joints pain) CIWA-Ar Total Score: 10 S Progress Note (SOAP) Subjective: 54 years old male was admitted on 10/20/19 for alcohol withdrawal sx management treating with librium detox regiment muscle ache and joints pain due to gout that feet great toes and knees are painful on weight bearing offer cane and prednison kiesha Objective: 10/21/19 12:31 Vital Signs - 24 hr 10/20/19 10/20/19 10/20/19 12:35 13:49 17:05 Temperature 97.6 F 97.2 F L 97.5 F L Pulse Rate 68 56 L 54 L Respiratory 20 18 16 Rate Blood Pressure 132/80 116/76 125/82 O2 Sat by Pulse 100 Oximetry (%) 10/20/19 10/21/19 10/21/19 20:58 06:49 08:32 Temperature 98.0 F 97.0 F L 97.9 F Pulse Rate 53 L 55 L 64 Respiratory 18 16 18 Rate Blood Pressure 117/69 114/74 119/83 O2 Sat by Pulse 98 98 Oximetry (%) Laboratory Tests 10/21/19 10/21/19 10/21/19 07:40 07:40 07:40 WBC 7.9 RBC 4.97 Hgb 14.1 Hct 42.0 MCV 84.6 MCH 28.3 MCHC 33.5 RDW 15.7 Plt Count 136 MPV 10.6 Sodium 144 Potassium 4.2 Chloride 109 H Carbon Dioxide 30 Anion Gap 6 L BUN 9.8 Creatinine 1.1 Est GFR (CKD-EPI)AfAm 87.74 Est GFR (CKD-EPI)NonAf 75.70 Random Glucose 107 H Calcium 8.7 Total Bilirubin 0.6 AST 16 ALT 25 Alkaline Phosphatase 58 Total Protein 6.9 Albumin 3.4 Syphilis Serology Reactive A* HIV Ag/Ab Combo Qual 10/21/19 07:40 WBC RBC Hgb Hct MCV MCH MCHC RDW Plt Count MPV Sodium Potassium Chloride Carbon Dioxide Anion Gap BUN Creatinine Est GFR (CKD-EPI)AfAm Est GFR (CKD-EPI)NonAf Random Glucose Calcium Total Bilirubin AST ALT Alkaline Phosphatase Total Protein Albumin Syphilis Serology HIV Ag/Ab Combo Qual Negative wait for rpr Assessment: 10/21/19 12:31 alcohol withdrawal Plan: librium regiment
[2019-10-21] MEDS ORDERED: predniSONE 10 MG TABLET (UD) PO ONE (12:30)
[2019-10-21] MEDS: predniSONE 10 MG TABLET (UD) PO SCH (22:21)
[2019-10-21] MEDS: MELATONIN 5 MG TABLETS PO SCH (22:22)
[2019-10-21] MEDS: THIAMINE HCL 100 MG TABLET (FP) PO SCH (22:22)
[2019-10-22] MEDS: chlordiazePOXIDE 5 MG CAPSULE PO SCH ×2 (06:21→12:41)
[2019-10-22] MEDS ORDERED: predniSONE 20 MG TABLET (UD) PO SCH (10:00)
[2019-10-22] MEDS: PRENATAL VITAMINS W/ FOLIC ACID TABLET (FP) PO SCH (10:07)
[2019-10-22] MEDS: FLUoxetine HCL 10 MG TABLET PO SCH (10:07)
[2019-10-22] MEDS: OLANZapine 2.5 MG TABLET PO SCH (10:07)
[2019-10-22] MEDS: predniSONE 10 MG TABLET (UD) PO SCH (10:07)
--- NOTE | 2019-10-22 12:18 | PN ---
S CIWA - CIWA Score Nausea/Vomitin-No Nausea/No Vomiting Muscle Tremors: 1-None Visible, but [place] Anxiety: 1-Mildly Anxious Agitation: 3 Paroxysmal Sweats: No Perspiration Orientation: 0-Oriented Tacttile Disturbances: 0-None Auditory Disturbances: 0-None Visual Disturbances: 1-Very Mild Sensitivity Headache: 0-None Present CIWA-Ar Total Score: 6 BHS Progress Note (SOAP) Subjective: 54 years old male was admitted on 10/20/19 for alcohol withdrawal sx management treating with [facility] detox regiment ate breakfast and lunch in room social with peers in day room encourage mr barger to discuss aftercare with staff Objective: 10/22/19 12:21 Vital Signs - 24 hr 10/21/19 10/21/19 10/21/19 12:39 16:59 20:54 Temperature 97.1 F L 97.5 F L 97.5 F L Pulse Rate 60 64 49 L Respiratory 18 16 18 Rate Blood Pressure 122/75 118/78 153/86 O2 Sat by Pulse 98 95 Oximetry (%) 10/22/19 10/22/19 05:27 09:03 Temperature 96.9 F L 98.4 F Pulse Rate 52 L 108 H Respiratory 16 18 Rate Blood Pressure 99/54 L 111/80 O2 Sat by Pulse 99 Oximetry (%) Laboratory Tests 10/21/19 10/21/19 10/21/19 07:40 07:40 07:40 WBC 7.9 RBC 4.97 Hgb 14.1 Hct 42.0 MCV 84.6 MCH 28.3 MCHC 33.5 RDW 15.7 Plt Count 136 MPV 10.6 Sodium 144 Potassium 4.2 Chloride 109 H Carbon Dioxide 30 Anion Gap 6 L BUN 9.8 Creatinine 1.1 Est GFR (CKD-EPI)AfAm 87.74 Est GFR (CKD-EPI)NonAf 75.70 Random Glucose 107 H Calcium 8.7 Total Bilirubin 0.6 AST 16 ALT 25 Alkaline Phosphatase 58 Total Protein 6.9 Albumin 3.4 Syphilis Serology Reactive A* RPR Titer HIV Ag/Ab Combo Qual 10/21/19 10/21/19 07:40 07:40 WBC RBC Hgb Hct MCV MCH MCHC RDW Plt Count MPV Sodium Potassium Chloride Carbon Dioxide Anion Gap BUN Creatinine Est GFR (CKD-EPI)AfAm Est GFR (CKD-EPI)NonAf Random Glucose Calcium Total Bilirubin AST ALT Alkaline Phosphatase Total Protein Albumin Syphilis Serology RPR Titer Reactive 1:1 H HIV Ag/Ab Combo Qual Negative 10/22/19 12:22 syphilis contacted treated Assessment: 10/22/19 12:23 alcohol withdrawal Plan: librium regiment
--- NOTE | 2019-10-22 12:44 | DS ---
[facility] Detox Discharge Summary Admission Date: 10/20/19 Discharge Date: 10/22/19 - History Present History: Alcohol Dependence Additional Comments: 54 years old male was admitted on 10/20/19 for alcohol withdrawal sx management treated with [facility]rium detox regiment seen by psychiatrist bertrand medina mr barger prefers to leave the detox unit today to go to [facility] for medical mental issues General Appearance: Yes: No Apparent Distress HEENTM: Yes: Hearing grossly Normal, Normocephalic, Normal Voice Respiratory: Yes: Chest Non-Tender, Lungs Clear Neck: Yes: No masses,lesions,Nodules, Supple Breast: Yes: Breast Exam Deferred Cardiology: Yes: Regular Rhythm, Regular Rate, S1, S2 Abdominal: Yes: Normal Bowel Sounds, Non Tender, Soft Back: Yes: Normal Inspection 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 intact, Fully Oriented, Alert, Normal Mood/Affect, Normal Response Integumentary: Yes: Normal Color, Warm Lymphatic: Yes: Within Normal Limits Pertinent Past History: time for discharge 44 minutes treatment team met with mr barger to discuss benefits of librium regiment completion mr barger insists to return to [facility] for medical and mental issues - Physical Exam Results Vital Signs: Vital Signs Temperature 98.4 F 10/22/19 09:03 Pulse Rate 108 H 10/22/19 09:03 Respiratory Rate 18 10/22/19 09:03 Blood Pressure 111/80 10/22/19 09:03 O2 Sat by Pulse Oximetry (%) 99 10/22/19 05:27 Pertinent Admission Physical Exam Findings: alcohol withdrawal Laboratory Tests 10/20/19 10/21/19 10/21/19 12:58 07:40 07:40 WBC 7.9 RBC 4.97 Hgb 14.1 Hct 42.0 MCV 84.6 MCH 28.3 MCHC 33.5 RDW 15.7 Plt Count 136 MPV 10.6 Sodium Potassium Chloride Carbon Dioxide Anion Gap BUN Creatinine Est GFR (CKD-EPI)AfAm Est GFR (CKD-EPI)NonAf Random Glucose Calcium Total Bilirubin AST ALT Alkaline Phosphatase Total Protein Albumin Syphilis Serology Reactive A* RPR Titer COVID-19 ([facility]) Not detected HIV Ag/Ab Combo Qual 10/21/19 10/21/19 10/21/19 07:40 07:40 07:40 WBC RBC Hgb Hct MCV MCH MCHC RDW Plt Count MPV Sodium 144 Potassium 4.2 Chloride 109 H Carbon Dioxide 30 Anion Gap 6 L BUN 9.8 Creatinine 1.1 Est GFR (CKD-EPI)AfAm 87.74 Est GFR (CKD-EPI)NonAf 75.70 Random Glucose 107 H Calcium 8.7 Total Bilirubin 0.6 AST 16 ALT 25 Alkaline Phosphatase 58 Total Protein 6.9 Albumin 3.4 Syphilis Serology RPR Titer Reactive 1:1 H COVID-19 ([facility]) HIV Ag/Ab Combo Qual Negative mr barger agrees to bring in lab report to [facility] Hospital Course: Detox Protocol Followed, Detoxed Safely, Responded well, Discharged Condition Good, Rehab Referral Accepted Patient has Accepted a Rehab Referral to: [facility] - Medication Discharge Medications: Ambulatory Orders Olanzapine [Zyprexa -] 5 mg PO HS 11/24/18 Indomethacin [Indocin -] 25 mg PO BID #60 capsule 03/07/19 Cetirizine HCl 10 mg PO DAILY 07/20/19 Fluoxetine HCl [Prozac -] 20 mg PO DAILY 07/20/19 - Diagnosis (1) Alcohol dependence with uncomplicated withdrawal Status: Acute (2) GERD (gastroesophageal reflux disease) Status: Chronic Qualifiers: Esophagitis presence: without esophagitis Qualified Code(s): K21.9 - Gastro-esophageal reflux disease without esophagitis (3) Gout Status: Chronic Qualifiers: Gout site: toe Gout etiology: unspecified cause Chronicity: chronic Laterality: right Presence of tophus: with tophus Qualified Code(s): [id number] - Chronic gout, unspecified, with tophus (tophi) (4) Nicotine dependence Status: Acute Qualifiers: Nicotine product type: cigarettes Substance use status: in withdrawal Qualified Code(s): F17.213 - Nicotine dependence, cigarettes, with withdrawal (5) Schizophrenia, paranoid Status: Suspected (6) Syphilis contact, untreated Status: Chronic (7) Substance induced mood disorder Status: Suspected - AMA Did Patient Leave Against Medical Advice: No CIWA Score - CIWA Score Nausea/Vomitin-No Nausea/No Vomiting Muscle Tremors: 1-None Visible, but [place] Anxiety: 1-Mildly Anxious Agitation: 3 Paroxysmal Sweats: No Perspiration Orientation: 0-Oriented Tacttile Disturbances: 0-None Auditory Disturbances: 0-None Visual Disturbances: 0-None Headache: 0-None Present CIWA-Ar Total Score: 5
[2019-10-22 13:04] VITALS: BP 157/93; PULSE 90; TEMP 97.3
[2019-10-23] MEDS ORDERED: chlordiazePOXIDE HCL 10 MG CAPSULE PO PRN
[2019-10-23] MEDS ORDERED: chlordiazePOXIDE HCL 10 MG CAPSULE PO SCH (05:00)
[2019-10-23] MEDS ORDERED: predniSONE 20 MG TABLET (UD) PO SCH (10:00)
[2019-10-24] MEDS ORDERED: chlordiazePOXIDE HCL 10 MG CAPSULE PO ONE (05:00)
[2019-10-25] MEDS ORDERED: predniSONE 20 MG TABLET (UD) PO SCH (10:00)
== END 2019-10-22 13:02 | disposition home or self-care (01) | DRG 897 ==
LOC: YASAS 10:24 → Y3N 12:47
PROVIDERS: ADMIT Allergy & Immunology; ATTEND Allergy & Immunology
PROC: HZ2ZZZZ Detoxification Services for Substance Abuse Treatment (ICD-10-PCS; principal; 2019-10-20)
DX: F10.230 Alcohol dependence with withdrawal, uncomplicated (principal); F14.20 Cocaine dependence, uncomplicated; F20.0 Paranoid schizophrenia; F17.213 Nicotine dependence, cigarettes, with withdrawal; F41.9 Anxiety disorder, unspecified; F32.9 Major depressive disorder, single episode, unspecified; F19.24 Other psychoactive substance dependence with psychoactive substance-induced mood disorder; K21.9 Gastro-esophageal reflux disease without esophagitis; M1A.9XX0 Chronic gout, unspecified, without tophus (tophi); M54.5 Low back pain; G89.29 Other chronic pain; Z86.19 Personal history of other infectious and parasitic diseases; Z87.81 Personal history of (healed) traumatic fracture; Z88.8 Allergy status to other drugs, medicaments and biological substances
CPT/HCPCS: 36415; 80053; 85027; 86593; 86780; 87389; Q0162; U0003

== ENCOUNTER 2020-01-08 18:45 | Inpatient (IN) | payer OTHER ==
[2020-01-08 19:56] VITALS: BMI 28.1
[2020-01-08] MEDS ORDERED: hydrOXYzine PAMOATE 25 MG CAPSULE (FP) PO PRN (20:26)
[2020-01-08] MEDS ORDERED: MAGNESIUM CITRATE 300 ML BOTTLE PO PRN (20:26)
[2020-01-08] MEDS ORDERED: MENTHOL/PHENOL 1 EACH UD MM PRN (20:26)
[2020-01-08] MEDS ORDERED: BISMUTH SUBSALICYLATE 524 MG/30 ML UD PO PRN (20:26)
[2020-01-08] MEDS ORDERED: guaiFENesin 200 MG/10 ML 10 ML UNIT-DOSE CUPS PO PRN (20:26)
[2020-01-08] MEDS ORDERED: ACETAMINOPHEN 325 MG TABLET (FP) PO PRN ×2 (20:26)
[2020-01-08] MEDS ORDERED: P-EPHED 60MG/TRIPROLIDI 2.5MG TABLET PO PRN (20:26)
[2020-01-08] MEDS ORDERED: MAGNESIUM HYDROX 2400MG/30ML ORAL SUSPENSION 30 ML CUP PO PRN (20:26)
[2020-01-08] MEDS ORDERED: DICYCLOMINE HCL 10 MG CAPSULE PO PRN (20:26)
[2020-01-08] MEDS ORDERED: ONDANSETRON *ODT* 4 MG TABLET SL PRN (20:26)
[2020-01-08] MEDS ORDERED: LORazepam 1 MG TABLET PO PRN (20:26)
[2020-01-08] MEDS ORDERED: MAG HYDROX/AL HYDROX/SIMETH 30 ML UNIT-DOSE CUP PO PRN (20:26)
[2020-01-08] MEDS ORDERED: NICOTINE POLACRILEX 2 MG GUM BUC PRN (20:26)
[2020-01-08] MEDS ORDERED: LOPERAMIDE HCL 2 MG CAPSULE PO PRN (20:26)
[2020-01-08] MEDS: THIAMINE HCL 100 MG TABLET (FP) PO SCH (21:49)
[2020-01-08] MEDS: IBUPROFEN 400 MG TABLET (FP) PO PRN (21:49)
[2020-01-08] MEDS: LORazepam 2 MG TABLET PO SCH (23:45)
[2020-01-08] MEDS: MELATONIN 5 MG TABLETS PO SCH (23:46)
[2020-01-09] MEDS: LORazepam 2 MG TABLET PO SCH ×4 (05:35→22:15)
[2020-01-09] MEDS: IBUPROFEN 400 MG TABLET (FP) PO PRN (05:39)
[2020-01-09] MEDS: METHOCARBAMOL 500 MG TABLET PO PRN (05:39)
[2020-01-09 09:44] LABS: BASO % 0.7 % (0-2.0); EOS % 7.8 % (0-4.5); HEMATOCRIT 40.6 % (35.4-49); HEMOGLOBIN 13.9 GM/dL (11.7-16.9); LYMPH % 30.8 % (8-40); MCH 29.2 pg (25.7-33.7); MCHC 34.3 g/dl (32.0-35.9); MEAN CELL VOLUME 85.2 fl (80-96); MEAN PLT VOLUME 9.9 fl (7.5-11.1); MONO % 15.3 % (3.8-10.2); NEUT % 45.4 % (42.8-82.8); PLATELET COUNT 143 K/MM3 (134-434); RBC 4.77 M/mm3 (4.00-5.60); RDW 15.6 % (11.9-15.9); WHITE BLOOD COUNT 6.9 K/mm3 (4.0-10.0)
[2020-01-09 09:54] LABS: CALCIUM 8.7 mg/dL (8.5-10.1)
[2020-01-09 09:55] LABS: ALBUMIN 3.2 g/dl (3.4-5.0); BLOOD UREA NITROGEN 15.7 mg/dL (7-18)
[2020-01-09 09:58] LABS: CREATININE 1.3 mg/dL (0.55-1.3)
[2020-01-09 10:00] LABS: BILIRUBIN,TOTAL 0.6 mg/dL (0.2-1); TOT PROT 6.4 g/dl (6.4-8.2)
[2020-01-09] MEDS ORDERED: NICOTINE 14 MG/24 HOURS TOPICAL PATCH TD SCH (10:00)
[2020-01-09] MEDS ORDERED: PRENATAL VITAMINS W/ FOLIC ACID TABLET (FP) PO SCH (10:00)
[2020-01-09] MEDS: NAPROXEN 500 MG TABLET PO PRN (10:30)
[2020-01-09] MEDS ORDERED: OLANZapine 2.5 MG TABLET PO SCH ×2 (10:45→22:00)
[2020-01-09] MEDS ORDERED: FLUoxetine HCL 20 MG CAPSULE PO SCH (10:45)
[2020-01-09] MEDS ORDERED: FLUoxetine HCL 10 MG TABLET PO SCH (11:00)
[2020-01-09] MEDS: THIAMINE HCL 100 MG TABLET (FP) PO SCH (22:15)
[2020-01-09] MEDS: MELATONIN 5 MG TABLETS PO SCH (22:15)
[2020-01-10] MEDS ORDERED: LORazepam 1 MG TABLET PO SCH (05:00)
[2020-01-10] MEDS: NAPROXEN 500 MG TABLET PO PRN (05:47)
[2020-01-10 06:51] VITALS: BP 106/75; PULSE 72; TEMP 97.5
[2020-01-10] MEDS: METHOCARBAMOL 500 MG TABLET PO PRN (07:06)
[2020-01-10] MEDS ORDERED: FLUoxetine HCL 10 MG CAPSULE PO SCH (10:00)
[2020-01-11] MEDS ORDERED: LORazepam 0.5 MG TABLET PO PRN
[2020-01-11] MEDS ORDERED: LORazepam 0.5 MG TABLET PO SCH (05:00)
[2020-01-12] MEDS ORDERED: LORazepam 0.5 MG TABLET PO ONE (05:00)
== END 2020-01-10 08:48 | disposition left against medical advice (07) | DRG 894 ==
LOC: YASAS 18:45 → Y6N 20:23
PROVIDERS: ADMIT Allergy & Immunology; ATTEND Allergy & Immunology
PROC: HZ2ZZZZ Detoxification Services for Substance Abuse Treatment (ICD-10-PCS; principal; 2020-01-08)
DX: F10.230 Alcohol dependence with withdrawal, uncomplicated (principal); F19.282 Other psychoactive substance dependence with psychoactive substance-induced sleep disorder; F20.0 Paranoid schizophrenia; F17.210 Nicotine dependence, cigarettes, uncomplicated; F19.24 Other psychoactive substance dependence with psychoactive substance-induced mood disorder; F41.9 Anxiety disorder, unspecified; F32.9 Major depressive disorder, single episode, unspecified; K21.9 Gastro-esophageal reflux disease without esophagitis; M1A.0711 Idiopathic chronic gout, right ankle and foot, with tophus (tophi); M54.5 Low back pain; G89.29 Other chronic pain; R63.8 Other symptoms and signs concerning food and fluid intake; Z86.19 Personal history of other infectious and parasitic diseases; Z98.890 Other specified postprocedural states; Z56.0 Unemployment, unspecified; Z59.0 Homelessness; Z88.8 Allergy status to other drugs, medicaments and biological substances
CPT/HCPCS: 36415; 80053; 85025; 86593; 86780; C9803; U0003

== ENCOUNTER 2020-02-28 10:53 | Inpatient (IN) | payer OTHER ==
[2020-02-28 11:47] VITALS: BMI 27.3
[2020-02-28] MEDS ORDERED: MENTHOL/PHENOL 1 EACH UD MM PRN (13:58)
[2020-02-28] MEDS ORDERED: ONDANSETRON *ODT* 4 MG TABLET SL PRN (13:58)
[2020-02-28] MEDS ORDERED: MAGNESIUM CITRATE 300 ML BOTTLE PO PRN (13:58)
[2020-02-28] MEDS ORDERED: ACETAMINOPHEN 325 MG TABLET (FP) PO PRN ×2 (13:58)
[2020-02-28] MEDS ORDERED: MAGNESIUM HYDROX 2400MG/30ML ORAL SUSPENSION 30 ML CUP PO PRN (13:58)
[2020-02-28] MEDS ORDERED: chlordiazePOXIDE HCL 25 MG CAPSULE PO PRN (13:58)
[2020-02-28] MEDS ORDERED: BISMUTH SUBSALICYLATE 524 MG/30 ML UD PO PRN (13:58)
[2020-02-28] MEDS ORDERED: NICOTINE POLACRILEX 2 MG GUM BUC PRN (13:58)
[2020-02-28] MEDS ORDERED: MAG HYDROX/AL HYDROX/SIMETH 30 ML UNIT-DOSE CUP PO PRN (13:58)
[2020-02-28] MEDS: hydrOXYzine PAMOATE 25 MG CAPSULE (FP) PO SCH ×3 (14:51→22:24)
[2020-02-28] MEDS: NICOTINE 7 MG/24 HOURS TOPICAL PATCH TD SCH (14:51)
[2020-02-28] MEDS: PRENATAL VITAMINS W/ FOLIC ACID TABLET (FP) PO SCH (14:56)
[2020-02-28 17:24] LABS: POTASSIUM 4.2 mmol/L (3.5-5.1)
[2020-02-28 17:26] LABS: HEMATOCRIT 40.2 % (35.4-49); HEMOGLOBIN 13.8 GM/dL (11.7-16.9); MCH 29.3 pg (25.7-33.7); MCHC 34.2 g/dl (32.0-35.9); MEAN CELL VOLUME 85.6 fl (80-96); MEAN PLT VOLUME 10.4 fl (7.5-11.1); PLATELET COUNT 196 K/MM3 (134-434); RBC 4.69 M/mm3 (4.00-5.60); RDW 15.1 % (11.9-15.9); WHITE BLOOD COUNT 7.9 K/mm3 (4.0-10.0)
[2020-02-28 17:31] LABS: ALBUMIN 3.7 g/dl (3.4-5.0); BLOOD UREA NITROGEN 16.8 mg/dL (7-18); CALCIUM 9.1 mg/dL (8.5-10.1)
[2020-02-28 17:34] LABS: CREATININE 1.1 mg/dL (0.55-1.3)
[2020-02-28 17:36] LABS: BILIRUBIN,TOTAL 0.4 mg/dL (0.2-1); TOT PROT 7.7 g/dl (6.4-8.2)
[2020-02-28] MEDS: chlordiazePOXIDE HCL 25 MG CAPSULE PO SCH ×2 (17:53→22:24)
[2020-02-28 18:21] LABS: HIV INTERPRETATION NEGATIVE (NEGATIVE)
[2020-02-28] MEDS: MELATONIN 5 MG TABLETS PO SCH (22:24)
[2020-02-28] MEDS: THIAMINE HCL 100 MG TABLET (FP) PO SCH (22:24)
[2020-02-28] MEDS: OLANZapine 2.5 MG TABLET PO SCH (22:24)
[2020-02-28] MEDS: INDOMETHACIN 25 MG CAPSULE PO SCH (23:39)
[2020-02-29] MEDS: chlordiazePOXIDE HCL 25 MG CAPSULE PO SCH ×4 (06:03→22:46)
[2020-02-29] MEDS: hydrOXYzine PAMOATE 25 MG CAPSULE (FP) PO SCH ×5 (06:05→22:51)
[2020-02-29] MEDS: PRENATAL VITAMINS W/ FOLIC ACID TABLET (FP) PO SCH (10:40)
[2020-02-29] MEDS: FLUoxetine HCL 10 MG CAPSULE PO SCH (10:40)
[2020-02-29] MEDS: NICOTINE 7 MG/24 HOURS TOPICAL PATCH TD SCH (10:40)
[2020-02-29] MEDS: INDOMETHACIN 25 MG CAPSULE PO SCH ×2 (10:40→22:46)
[2020-02-29] MEDS: METHOCARBAMOL 500 MG TABLET PO PRN (17:38)
[2020-02-29] MEDS: OLANZapine 2.5 MG TABLET PO SCH (22:46)
[2020-02-29] MEDS: THIAMINE HCL 100 MG TABLET (FP) PO SCH (22:46)
[2020-02-29] MEDS: MELATONIN 5 MG TABLETS PO SCH (22:51)
[2020-03-01] MEDS: chlordiazePOXIDE HCL 25 MG CAPSULE PO SCH ×3 (05:48→18:30)
[2020-03-01] MEDS: hydrOXYzine PAMOATE 25 MG CAPSULE (FP) PO SCH ×4 (05:48→18:30)
[2020-03-01] MEDS: INDOMETHACIN 25 MG CAPSULE PO SCH (10:12)
[2020-03-01] MEDS: NICOTINE 7 MG/24 HOURS TOPICAL PATCH TD SCH (10:12)
[2020-03-01] MEDS: PRENATAL VITAMINS W/ FOLIC ACID TABLET (FP) PO SCH (10:12)
[2020-03-01] MEDS: FLUoxetine HCL 10 MG CAPSULE PO SCH (10:12)
[2020-03-01] MEDS: METHOCARBAMOL 500 MG TABLET PO PRN (13:13)
[2020-03-01 14:51] VITALS: BP 125/75; PULSE 59; TEMP 97.1
[2020-03-01] MEDS ORDERED: IBUPROFEN 400 MG TABLET (FP) PO ONE (16:27)
[2020-03-02] MEDS ORDERED: chlordiazePOXIDE HCL 10 MG CAPSULE PO PRN
[2020-03-02] MEDS ORDERED: chlordiazePOXIDE HCL 10 MG CAPSULE PO SCH (05:00)
[2020-03-03] MEDS ORDERED: chlordiazePOXIDE HCL 10 MG CAPSULE PO SCH (05:00)
[2020-03-04] MEDS ORDERED: chlordiazePOXIDE HCL 10 MG CAPSULE PO ONE (05:00)
== END 2020-03-01 18:30 | disposition left against medical advice (07) | DRG 894 ==
LOC: YASAS 10:53 → Y6N 13:19
PROVIDERS: ADMIT Allergy & Immunology; ATTEND Allergy & Immunology
PROC: HZ2ZZZZ Detoxification Services for Substance Abuse Treatment (ICD-10-PCS; principal; 2020-02-28)
DX: F10.230 Alcohol dependence with withdrawal, uncomplicated (principal); F14.20 Cocaine dependence, uncomplicated; F23 Brief psychotic disorder; F19.282 Other psychoactive substance dependence with psychoactive substance-induced sleep disorder; F20.0 Paranoid schizophrenia; F17.210 Nicotine dependence, cigarettes, uncomplicated; F19.24 Other psychoactive substance dependence with psychoactive substance-induced mood disorder; F41.9 Anxiety disorder, unspecified; F32.9 Major depressive disorder, single episode, unspecified; K21.9 Gastro-esophageal reflux disease without esophagitis; A53.0 Latent syphilis, unspecified as early or late; M54.5 Low back pain; G89.29 Other chronic pain; M1A.9XX1 Chronic gout, unspecified, with tophus (tophi); Z88.8 Allergy status to other drugs, medicaments and biological substances; Z91.19 Patient's noncompliance with other medical treatment and regimen; Z59.0 Homelessness; Z56.0 Unemployment, unspecified
CPT/HCPCS: 36415; 80053; 85027; 86593; 86780; 87389; C9803; U0003

== ENCOUNTER 2020-03-26 10:54 | Inpatient (IN) | payer OTHER ==
[2020-03-26] MEDS ORDERED: chlordiazePOXIDE HCL 25 MG CAPSULE PO PRN (12:02)
[2020-03-26] MEDS ORDERED: MAG HYDROX/AL HYDROX/SIMETH 30 ML UNIT-DOSE CUP PO PRN (12:02)
[2020-03-26] MEDS ORDERED: ACETAMINOPHEN 325 MG TABLET (FP) PO PRN (12:02)
[2020-03-26] MEDS ORDERED: MAGNESIUM HYDROX 2400MG/30ML ORAL SUSPENSION 30 ML CUP PO PRN (12:02)
[2020-03-26] MEDS ORDERED: IBUPROFEN 400 MG TABLET (FP) PO PRN (12:02)
[2020-03-26] MEDS ORDERED: MAGNESIUM CITRATE 300 ML BOTTLE PO PRN (12:02)
[2020-03-26] MEDS ORDERED: BISMUTH SUBSALICYLATE 262 MG/15 ML BTL PO PRN (12:02)
[2020-03-26] MEDS ORDERED: ONDANSETRON *ODT* 4 MG TABLET SL PRN (12:02)
[2020-03-26] MEDS ORDERED: NICOTINE POLACRILEX 2 MG GUM BUC PRN (12:02)
[2020-03-26 12:07] VITALS: BMI 28.7
[2020-03-26] MEDS: BACITRACIN 0.9 GM PACKET TP SCH ×2 (13:05→22:34)
[2020-03-26] MEDS: NICOTINE 7 MG/24 HOURS TOPICAL PATCH TD SCH (13:09)
[2020-03-26] MEDS: INDOMETHACIN 25 MG CAPSULE PO SCH ×2 (13:09→22:35)
[2020-03-26] MEDS: PRENATAL VITAMINS W/ FOLIC ACID TABLET (FP) PO SCH (13:10)
[2020-03-26] MEDS: hydrOXYzine PAMOATE 25 MG CAPSULE (FP) PO SCH ×3 (13:10→22:36)
[2020-03-26] MEDS: chlordiazePOXIDE HCL 25 MG CAPSULE PO SCH ×2 (17:45→22:35)
[2020-03-26 19:52] LABS: BASO % 0.8 % (0-2.0); EOS % 4.2 % (0-4.5); HEMATOCRIT 41.8 % (35.4-49); HEMOGLOBIN 14.7 GM/dL (11.7-16.9); LYMPH % 29.2 % (8-40); MCH 29.6 pg (25.7-33.7); MCHC 35.1 g/dl (32.0-35.9); MEAN CELL VOLUME 84.2 fl (80-96); MEAN PLT VOLUME 10.1 fl (7.5-11.1); MONO % 9.4 % (3.8-10.2); NEUT % 56.4 % (42.8-82.8); PLATELET COUNT 200 K/MM3 (134-434); RBC 4.96 M/mm3 (4.00-5.60); RDW 15.6 % (11.9-15.9); WHITE BLOOD COUNT 7.9 K/mm3 (4.0-10.0)
[2020-03-26 20:05] LABS: POTASSIUM 4.2 mmol/L (3.5-5.1)
[2020-03-26 20:16] LABS: BLOOD UREA NITROGEN 13.6 mg/dL (7-18); CALCIUM 9.4 mg/dL (8.5-10.1)
[2020-03-26 20:17] LABS: ALBUMIN 3.9 g/dl (3.4-5.0)
[2020-03-26 20:20] LABS: CREATININE 1.1 mg/dL (0.55-1.3)
[2020-03-26 20:21] LABS: BILIRUBIN,TOTAL 0.5 mg/dL (0.2-1)
[2020-03-26 20:22] LABS: TOT PROT 8.3 g/dl (6.4-8.2)
[2020-03-26] MEDS: MELATONIN 5 MG TABLETS PO SCH (22:34)
[2020-03-26] MEDS: THIAMINE HCL 100 MG TABLET (FP) PO SCH (22:35)
[2020-03-26] MEDS: METHOCARBAMOL 500 MG TABLET PO PRN (22:37)
[2020-03-27] MEDS: chlordiazePOXIDE HCL 25 MG CAPSULE PO SCH ×4 (06:31→22:15)
[2020-03-27] MEDS: hydrOXYzine PAMOATE 25 MG CAPSULE (FP) PO SCH ×5 (06:31→22:15)
[2020-03-27] MEDS: METHOCARBAMOL 500 MG TABLET PO PRN ×2 (06:32→17:54)
[2020-03-27] MEDS: BACITRACIN 0.9 GM PACKET TP SCH ×2 (10:45→22:15)
[2020-03-27] MEDS: INDOMETHACIN 25 MG CAPSULE PO SCH ×2 (10:46→22:15)
[2020-03-27] MEDS: ACETAMINOPHEN 325 MG TABLET (FP) PO PRN ×2 (10:47→17:56)
[2020-03-27] MEDS: PRENATAL VITAMINS W/ FOLIC ACID TABLET (FP) PO SCH (10:47)
[2020-03-27] MEDS: FLUoxetine HCL 20 MG CAPSULE PO SCH (10:48)
[2020-03-27] MEDS: NICOTINE 7 MG/24 HOURS TOPICAL PATCH TD SCH (10:48)
[2020-03-27] MEDS ORDERED: guaiFENesin 200 MG/10 ML 10 ML UNIT-DOSE CUPS PO PRN (11:49)
[2020-03-27] MEDS: MENTHOL/PHENOL 1 EACH UD MM PRN (16:09)
[2020-03-27] MEDS: THIAMINE HCL 100 MG TABLET (FP) PO SCH (22:15)
[2020-03-27] MEDS: MELATONIN 5 MG TABLETS PO SCH (22:15)
[2020-03-27] MEDS: OLANZapine 2.5 MG TABLET PO SCH (23:59)
[2020-03-28] MEDS: chlordiazePOXIDE HCL 25 MG CAPSULE PO SCH ×4 (06:48→22:29)
[2020-03-28] MEDS: hydrOXYzine PAMOATE 25 MG CAPSULE (FP) PO SCH ×5 (06:49→21:35)
[2020-03-28] MEDS: ACETAMINOPHEN 325 MG TABLET (FP) PO PRN ×2 (06:50→21:36)
[2020-03-28] MEDS: METHOCARBAMOL 500 MG TABLET PO PRN (06:50)
[2020-03-28] MEDS: BACITRACIN 0.9 GM PACKET TP SCH ×2 (10:17→21:35)
[2020-03-28] MEDS: INDOMETHACIN 25 MG CAPSULE PO SCH ×2 (10:17→21:35)
[2020-03-28] MEDS: PRENATAL VITAMINS W/ FOLIC ACID TABLET (FP) PO SCH (10:17)
[2020-03-28] MEDS: FLUoxetine HCL 20 MG CAPSULE PO SCH (10:17)
[2020-03-28] MEDS: NICOTINE 7 MG/24 HOURS TOPICAL PATCH TD SCH (10:18)
[2020-03-28] MEDS: MENTHOL/PHENOL 1 EACH UD MM PRN (17:56)
[2020-03-28] MEDS: OLANZapine 2.5 MG TABLET PO SCH (21:35)
[2020-03-28] MEDS: THIAMINE HCL 100 MG TABLET (FP) PO SCH (21:35)
[2020-03-28] MEDS: MELATONIN 5 MG TABLETS PO SCH (21:35)
[2020-03-29] MEDS ORDERED: chlordiazePOXIDE HCL 10 MG CAPSULE PO PRN
[2020-03-29] MEDS: hydrOXYzine PAMOATE 25 MG CAPSULE (FP) PO SCH ×3 (07:46→13:41)
[2020-03-29] MEDS: METHOCARBAMOL 500 MG TABLET PO PRN (07:46)
[2020-03-29] MEDS: chlordiazePOXIDE HCL 10 MG CAPSULE PO SCH ×2 (07:46→10:02)
[2020-03-29] MEDS: ACETAMINOPHEN 325 MG TABLET (FP) PO PRN (07:49)
[2020-03-29 09:14] VITALS: TEMP 97.5
[2020-03-29] MEDS: FLUoxetine HCL 20 MG CAPSULE PO SCH (09:33)
[2020-03-29] MEDS: BACITRACIN 0.9 GM PACKET TP SCH (09:34)
[2020-03-29] MEDS: INDOMETHACIN 25 MG CAPSULE PO SCH (09:34)
[2020-03-29] MEDS: PRENATAL VITAMINS W/ FOLIC ACID TABLET (FP) PO SCH (09:34)
[2020-03-29] MEDS: NICOTINE 7 MG/24 HOURS TOPICAL PATCH TD SCH (09:35)
[2020-03-29 13:39] VITALS: BP 103/71; PULSE 65
[2020-03-30] MEDS ORDERED: chlordiazePOXIDE HCL 10 MG CAPSULE PO SCH (05:00)
[2020-03-31] MEDS ORDERED: chlordiazePOXIDE HCL 10 MG CAPSULE PO ONE (05:00)
== END 2020-03-29 15:07 | disposition left against medical advice (07) | DRG 894 ==
LOC: YASAS 10:54 → Y3N 12:01
PROVIDERS: ADMIT Allergy & Immunology; ATTEND Allergy & Immunology
PROC: HZ2ZZZZ Detoxification Services for Substance Abuse Treatment (ICD-10-PCS; principal; 2020-03-26)
DX: F10.230 Alcohol dependence with withdrawal, uncomplicated (principal); F14.20 Cocaine dependence, uncomplicated; F20.0 Paranoid schizophrenia; F19.282 Other psychoactive substance dependence with psychoactive substance-induced sleep disorder; F17.210 Nicotine dependence, cigarettes, uncomplicated; F41.8 Other specified anxiety disorders; K21.9 Gastro-esophageal reflux disease without esophagitis; M10.9 Gout, unspecified; M54.5 Low back pain; G89.29 Other chronic pain; R07.0 Pain in throat; Z87.828 Personal history of other (healed) physical injury and trauma; Z88.8 Allergy status to other drugs, medicaments and biological substances; Z56.0 Unemployment, unspecified; Z59.0 Homelessness
CPT/HCPCS: 36415; 80053; 85025; 86593; 86780; C9803; U0003

== ENCOUNTER 2020-05-16 11:04 | Inpatient (IN) | payer OTHER ==
[2020-05-16 11:33] VITALS: BMI 29.2
[2020-05-16] MEDS ORDERED: hydrOXYzine PAMOATE 25 MG CAPSULE (FP) PO PRN (12:44)
[2020-05-16] MEDS ORDERED: MAG HYDROX/AL HYDROX/SIMETH 30 ML UNIT-DOSE CUP PO PRN (12:44)
[2020-05-16] MEDS ORDERED: IBUPROFEN 400 MG TABLET (FP) PO PRN (12:44)
[2020-05-16] MEDS ORDERED: MAGNESIUM HYDROX 2400MG/30ML ORAL SUSPENSION 30 ML CUP PO PRN (12:44)
[2020-05-16] MEDS ORDERED: BISMUTH SUBSALICYLATE 524 MG/30 ML UD PO PRN (12:44)
[2020-05-16] MEDS ORDERED: ACETAMINOPHEN 325 MG TABLET (FP) PO PRN (12:44)
[2020-05-16] MEDS ORDERED: ONDANSETRON *ODT* 4 MG TABLET SL PRN (12:44)
[2020-05-16] MEDS ORDERED: MAGNESIUM CITRATE 300 ML BOTTLE PO PRN (12:44)
[2020-05-16] MEDS ORDERED: chlordiazePOXIDE HCL 25 MG CAPSULE PO PRN (12:44)
[2020-05-16] MEDS ORDERED: MENTHOL/PHENOL 1 EACH UD MM PRN (12:44)
[2020-05-16] MEDS ORDERED: chlordiazePOXIDE HCL 25 MG CAPSULE PO ONE (12:44)
[2020-05-16] MEDS ORDERED: METHOCARBAMOL 500 MG TABLET PO PRN (12:44)
[2020-05-16] MEDS: LIDOCAINE 5% TOPICAL PATCH TP SCH (13:25)
[2020-05-16] MEDS: chlordiazePOXIDE HCL 25 MG CAPSULE PO SCH ×2 (18:46→22:56)
[2020-05-16] MEDS: ACETAMINOPHEN 325 MG TABLET (FP) PO PRN (18:47)
[2020-05-16] MEDS: MELATONIN 5 MG TABLETS PO SCH (22:55)
[2020-05-16] MEDS: THIAMINE HCL 100 MG TABLET (FP) PO SCH (22:55)
[2020-05-16] MEDS: LIDOCAINE PATCH REMOVAL MC SCH (22:55)
[2020-05-17] MEDS: chlordiazePOXIDE HCL 25 MG CAPSULE PO SCH ×4 (05:39→22:28)
[2020-05-17] MEDS: ACETAMINOPHEN 325 MG TABLET (FP) PO PRN (05:41)
[2020-05-17 09:23] LABS: HEMATOCRIT 38.9 % (35.4-49); HEMOGLOBIN 13.5 GM/dL (11.7-16.9); MCH 28.9 pg (25.7-33.7); MCHC 34.7 g/dl (32.0-35.9); MEAN CELL VOLUME 83.2 fl (80-96); MEAN PLT VOLUME 10.1 fl (7.5-11.1); PLATELET COUNT 164 K/MM3 (134-434); RBC 4.68 M/mm3 (4.00-5.60); RDW 15.8 % (11.9-15.9); WHITE BLOOD COUNT 6.6 K/mm3 (4.0-10.0)
[2020-05-17 09:27] LABS: POTASSIUM 4.3 mmol/L (3.5-5.1)
[2020-05-17 09:30] LABS: ALBUMIN 3.1 g/dl (3.4-5.0); CALCIUM 8.6 mg/dL (8.5-10.1)
[2020-05-17 09:31] LABS: BLOOD UREA NITROGEN 12.4 mg/dL (7-18)
[2020-05-17 09:33] LABS: CREATININE 1.1 mg/dL (0.55-1.3)
[2020-05-17 09:35] LABS: BILIRUBIN,TOTAL 0.9 mg/dL (0.2-1); TOT PROT 6.7 g/dl (6.4-8.2)
[2020-05-17] MEDS: LIDOCAINE 5% TOPICAL PATCH TP SCH (10:40)
[2020-05-17] MEDS: PRENATAL VITAMINS W/ FOLIC ACID TABLET (FP) PO SCH (10:40)
[2020-05-17] MEDS: FLUoxetine HCL 10 MG CAPSULE PO SCH (10:40)
[2020-05-17] MEDS: hydrOXYzine PAMOATE 25 MG CAPSULE (FP) PO PRN (14:37)
[2020-05-17] MEDS: THIAMINE HCL 100 MG TABLET (FP) PO SCH (22:29)
[2020-05-17] MEDS: MELATONIN 5 MG TABLETS PO SCH (22:29)
[2020-05-17] MEDS: LIDOCAINE PATCH REMOVAL MC SCH (22:29)
[2020-05-18] MEDS: chlordiazePOXIDE HCL 25 MG CAPSULE PO SCH ×4 (06:22→22:11)
[2020-05-18] MEDS: FLUoxetine HCL 10 MG CAPSULE PO SCH (10:16)
[2020-05-18] MEDS: PRENATAL VITAMINS W/ FOLIC ACID TABLET (FP) PO SCH (10:16)
[2020-05-18] MEDS: NALTREXONE HCL 50 MG TABLET PO SCH (13:31)
[2020-05-18] MEDS: LIDOCAINE 5% TOPICAL PATCH TP SCH (13:31)
[2020-05-18] MEDS: hydrOXYzine PAMOATE 25 MG CAPSULE (FP) PO PRN (14:07)
[2020-05-18] MEDS ORDERED: OLANZapine 2.5 MG TABLET PO ONE (14:28)
[2020-05-18] MEDS: OLANZapine 2.5 MG TABLET PO SCH ×2 (18:03→22:11)
[2020-05-18] MEDS: THIAMINE HCL 100 MG TABLET (FP) PO SCH (22:11)
[2020-05-18] MEDS: MELATONIN 5 MG TABLETS PO SCH (22:12)
[2020-05-18] MEDS: LIDOCAINE PATCH REMOVAL MC SCH (22:12)
[2020-05-19] MEDS ORDERED: chlordiazePOXIDE HCL 10 MG CAPSULE PO PRN
[2020-05-19] MEDS: chlordiazePOXIDE HCL 10 MG CAPSULE PO SCH ×2 (05:40→10:03)
[2020-05-19] MEDS: NALTREXONE HCL 50 MG TABLET PO SCH (10:02)
[2020-05-19] MEDS: LIDOCAINE 5% TOPICAL PATCH TP SCH (10:03)
[2020-05-19] MEDS: PRENATAL VITAMINS W/ FOLIC ACID TABLET (FP) PO SCH (10:03)
[2020-05-19] MEDS: FLUoxetine HCL 10 MG CAPSULE PO SCH (10:03)
[2020-05-19 12:58] VITALS: BP 105/71; PULSE 98; TEMP 98.1
[2020-05-20] MEDS ORDERED: chlordiazePOXIDE HCL 10 MG CAPSULE PO SCH (05:00)
[2020-05-21] MEDS ORDERED: chlordiazePOXIDE HCL 10 MG CAPSULE PO ONE (05:00)
== END 2020-05-19 12:53 | disposition home or self-care (01) | DRG 896 ==
LOC: YASAS 11:04 → Y6N 12:24
PROVIDERS: ADMIT Allergy & Immunology; ATTEND Allergy & Immunology
PROC: HZ2ZZZZ Detoxification Services for Substance Abuse Treatment (ICD-10-PCS; principal; 2020-05-16)
DX: F10.230 Alcohol dependence with withdrawal, uncomplicated (principal); J18.9 Pneumonia, unspecified organism; F20.0 Paranoid schizophrenia; F19.282 Other psychoactive substance dependence with psychoactive substance-induced sleep disorder; F17.210 Nicotine dependence, cigarettes, uncomplicated; F19.24 Other psychoactive substance dependence with psychoactive substance-induced mood disorder; J44.9 Chronic obstructive pulmonary disease, unspecified; J84.10 Pulmonary fibrosis, unspecified; K21.9 Gastro-esophageal reflux disease without esophagitis; M1A.9XX1 Chronic gout, unspecified, with tophus (tophi); M54.5 Low back pain; G89.29 Other chronic pain; Z98.890 Other specified postprocedural states; Z86.19 Personal history of other infectious and parasitic diseases; Z88.8 Allergy status to other drugs, medicaments and biological substances
CPT/HCPCS: 36415; 80053; 85027; 86593; 86780; C9803; U0003; U0005

== ENCOUNTER 2020-06-19 13:15 | Inpatient (IN) | payer MEDICARE, OTHER ==
[2020-06-19 14:34] VITALS: BMI 27.9
[2020-06-19] MEDS ORDERED: hydrOXYzine PAMOATE 25 MG CAPSULE (FP) PO PRN (20:25)
[2020-06-19] MEDS ORDERED: METHOCARBAMOL 500 MG TABLET PO PRN (20:25)
[2020-06-19] MEDS ORDERED: MAGNESIUM CITRATE 300 ML BOTTLE PO PRN (20:25)
[2020-06-19] MEDS ORDERED: MENTHOL/PHENOL 1 EACH UD MM PRN (20:25)
[2020-06-19] MEDS ORDERED: NICOTINE POLACRILEX 2 MG GUM BUC PRN (20:25)
[2020-06-19] MEDS ORDERED: ACETAMINOPHEN 325 MG TABLET (FP) PO PRN (20:25)
[2020-06-19] MEDS ORDERED: MAGNESIUM HYDROX 2400MG/30ML ORAL SUSPENSION 30 ML CUP PO PRN (20:25)
[2020-06-19] MEDS ORDERED: BISMUTH SUBSALICYLATE 524 MG/30 ML UD PO PRN (20:25)
[2020-06-19] MEDS ORDERED: chlordiazePOXIDE HCL 25 MG CAPSULE PO PRN (20:25)
[2020-06-19] MEDS: MELATONIN 5 MG TABLETS PO SCH (22:51)
[2020-06-19] MEDS: chlordiazePOXIDE HCL 25 MG CAPSULE PO SCH (22:51)
[2020-06-19] MEDS: THIAMINE HCL 100 MG TABLET (FP) PO SCH (22:51)
[2020-06-20] MEDS: chlordiazePOXIDE HCL 25 MG CAPSULE PO SCH ×4 (05:56→22:40)
[2020-06-20] MEDS: MAG HYDROX/AL HYDROX/SIMETH 30 ML UNIT-DOSE CUP PO PRN (09:45)
[2020-06-20] MEDS: PRENATAL VITAMINS W/ FOLIC ACID TABLET (FP) PO SCH (10:44)
[2020-06-20] MEDS: ACETAMINOPHEN 325 MG TABLET (FP) PO PRN ×2 (10:44→18:13)
[2020-06-20 10:51] LABS: ALBUMIN 3.6 g/dl (3.4-5.0); BLOOD UREA NITROGEN 12.2 mg/dL (7-18)
[2020-06-20 10:52] LABS: CALCIUM 8.7 mg/dL (8.5-10.1)
[2020-06-20 10:54] LABS: CREATININE 1.2 mg/dL (0.55-1.3); HEMATOCRIT 40.3 % (35.4-49); HEMOGLOBIN 14.5 GM/dL (11.7-16.9); MCH 29.3 pg (25.7-33.7); MCHC 35.9 g/dl (32.0-35.9); MEAN CELL VOLUME 81.5 fl (80-96); MEAN PLT VOLUME 9.2 fl (7.5-11.1); PLATELET COUNT 169 K/MM3 (134-434); RBC 4.94 M/mm3 (4.00-5.60); RDW 16.4 % (11.9-15.9)
[2020-06-20 10:55] LABS: BILIRUBIN,TOTAL 0.7 mg/dL (0.2-1); TOT PROT 7.1 g/dl (6.4-8.2)
[2020-06-20] MEDS: OLANZapine 2.5 MG TABLET PO SCH (15:27)
[2020-06-20] MEDS: THIAMINE HCL 100 MG TABLET (FP) PO SCH (22:40)
[2020-06-20] MEDS: MELATONIN 5 MG TABLETS PO SCH (22:40)
[2020-06-21] MEDS: ACETAMINOPHEN 325 MG TABLET (FP) PO PRN (06:27)
[2020-06-21] MEDS: chlordiazePOXIDE HCL 25 MG CAPSULE PO SCH ×4 (06:27→22:35)
[2020-06-21] MEDS: PRENATAL VITAMINS W/ FOLIC ACID TABLET (FP) PO SCH (10:14)
[2020-06-21] MEDS: OLANZapine 2.5 MG TABLET PO SCH (10:16)
[2020-06-21] MEDS: FLUoxetine HCL 10 MG CAPSULE PO SCH (10:16)
[2020-06-21] MEDS: IBUPROFEN 400 MG TABLET (FP) PO PRN ×2 (10:17→22:36)
[2020-06-21] MEDS: ONDANSETRON *ODT* 4 MG TABLET SL PRN (10:17)
[2020-06-21] MEDS: MAG HYDROX/AL HYDROX/SIMETH 30 ML UNIT-DOSE CUP PO PRN (17:39)
[2020-06-21] MEDS: MELATONIN 5 MG TABLETS PO SCH (22:35)
[2020-06-21] MEDS: THIAMINE HCL 100 MG TABLET (FP) PO SCH (22:35)
[2020-06-22] MEDS ORDERED: chlordiazePOXIDE HCL 10 MG CAPSULE PO PRN
[2020-06-22] MEDS: chlordiazePOXIDE HCL 10 MG CAPSULE PO SCH ×2 (07:20→10:40)
[2020-06-22] MEDS: PRENATAL VITAMINS W/ FOLIC ACID TABLET (FP) PO SCH (10:39)
[2020-06-22] MEDS: FLUoxetine HCL 10 MG CAPSULE PO SCH (10:40)
[2020-06-22] MEDS: OLANZapine 2.5 MG TABLET PO SCH (10:40)
[2020-06-22] MEDS: ONDANSETRON *ODT* 4 MG TABLET SL PRN (10:42)
[2020-06-22] MEDS: ACETAMINOPHEN 325 MG TABLET (FP) PO PRN (10:43)
[2020-06-22 13:07] VITALS: BP 106/67; PULSE 62; TEMP 97.1
[2020-06-23] MEDS ORDERED: chlordiazePOXIDE HCL 10 MG CAPSULE PO SCH (05:00)
[2020-06-24] MEDS ORDERED: chlordiazePOXIDE HCL 10 MG CAPSULE PO ONE (05:00)
== END 2020-06-22 14:26 | disposition home or self-care (01) | DRG 897 ==
LOC: YASAS 13:15 → Y3N 18:57
PROVIDERS: ADMIT Allergy & Immunology; ATTEND Allergy & Immunology
PROC: HZ2ZZZZ Detoxification Services for Substance Abuse Treatment (ICD-10-PCS; principal; 2020-06-19)
DX: F10.230 Alcohol dependence with withdrawal, uncomplicated (principal); F14.20 Cocaine dependence, uncomplicated; F19.280 Other psychoactive substance dependence with psychoactive substance-induced anxiety disorder; F19.282 Other psychoactive substance dependence with psychoactive substance-induced sleep disorder; F17.210 Nicotine dependence, cigarettes, uncomplicated; F20.9 Schizophrenia, unspecified; F19.24 Other psychoactive substance dependence with psychoactive substance-induced mood disorder; F32.9 Major depressive disorder, single episode, unspecified; F41.8 Other specified anxiety disorders; J44.9 Chronic obstructive pulmonary disease, unspecified; M10.9 Gout, unspecified; M54.5 Low back pain; G89.29 Other chronic pain; Z88.8 Allergy status to other drugs, medicaments and biological substances; Z86.19 Personal history of other infectious and parasitic diseases; Z87.01 Personal history of pneumonia (recurrent)
CPT/HCPCS: 36415; 80053; 85027; 86593; 86780; C9803; Q0162; U0003; U0005

== ENCOUNTER 2020-07-28 16:19 | Inpatient (IN) | payer OTHER ==
[2020-07-28 18:22] VITALS: BMI 27.9
[2020-07-29] MEDS ORDERED: MENTHOL/PHENOL 1 EACH UD MM PRN (00:29)
[2020-07-29] MEDS ORDERED: MAGNESIUM HYDROX 2400MG/30ML ORAL SUSPENSION 30 ML CUP PO PRN (00:29)
[2020-07-29] MEDS ORDERED: MAGNESIUM CITRATE 300 ML BOTTLE PO PRN (00:29)
[2020-07-29] MEDS ORDERED: NICOTINE POLACRILEX 2 MG GUM BUC PRN (00:29)
[2020-07-29] MEDS ORDERED: ONDANSETRON *ODT* 4 MG TABLET SL PRN (00:29)
[2020-07-29] MEDS ORDERED: ACETAMINOPHEN 325 MG TABLET (FP) PO PRN ×2 (00:29)
[2020-07-29] MEDS ORDERED: BISMUTH SUBSALICYLATE 524 MG/30 ML PO PRN (00:29)
[2020-07-29] MEDS ORDERED: diazePAM 5 MG TABLET PO PRN (10:21)
[2020-07-29] MEDS: PRENATAL VITAMINS W/ FOLIC ACID TABLET (FP) PO SCH (10:36)
[2020-07-29] MEDS: FLUoxetine HCL 10 MG CAPSULE PO SCH (10:36)
[2020-07-29] MEDS: NICOTINE 14 MG/24 HOURS TOPICAL PATCH TD SCH (10:37)
[2020-07-29] MEDS: diazePAM 5 MG TABLET PO SCH ×2 (10:37→17:52)
[2020-07-29] MEDS: IBUPROFEN 400 MG TABLET (FP) PO PRN (10:39)
[2020-07-29 11:15] LABS: HEMATOCRIT 42.2 % (35.4-49); HEMOGLOBIN 14.5 GM/dL (11.7-16.9); MCH 28.3 pg (25.7-33.7); MCHC 34.4 g/dl (32.0-35.9); MEAN CELL VOLUME 82.3 fl (80-96); MEAN PLT VOLUME 9.9 fl (7.5-11.1); PLATELET COUNT 195 10^3/uL (134-434); RBC 5.13 M/mm3 (4.00-5.60); RDW 16.2 % (11.9-15.9); WHITE BLOOD COUNT 7.4 K/mm3 (4.0-10.0)
[2020-07-29 11:17] LABS: ALBUMIN 3.4 g/dl (3.4-5.0); BLOOD UREA NITROGEN 16.4 mg/dL (7-18); CALCIUM 9.2 mg/dL (8.5-10.1)
[2020-07-29 11:22] LABS: BILIRUBIN,TOTAL 0.6 mg/dL (0.2-1); TOT PROT 7.1 g/dl (6.4-8.2)
[2020-07-29] MEDS: MAG HYDROX/AL HYDROX/SIMETH 30 ML UNIT-DOSE CUP PO PRN (13:56)
[2020-07-29] MEDS ORDERED: OLANZapine 2.5 MG TABLET PO SCH (22:00)
[2020-07-29] MEDS ORDERED: OLANZapine 5 MG TABLET PO SCH (22:00)
[2020-07-30] MEDS: MELATONIN 5 MG TABLETS PO SCH ×2 (00:07→22:31)
[2020-07-30] MEDS: THIAMINE HCL 100 MG TABLET (FP) PO SCH ×2 (00:12→22:31)
[2020-07-30] MEDS: diazePAM 5 MG TABLET PO SCH ×5 (00:12→22:30)
[2020-07-30] MEDS: IBUPROFEN 400 MG TABLET (FP) PO PRN ×2 (05:19→22:32)
[2020-07-30] MEDS: PRENATAL VITAMINS W/ FOLIC ACID TABLET (FP) PO SCH (10:16)
[2020-07-30] MEDS: FLUoxetine HCL 10 MG CAPSULE PO SCH (10:17)
[2020-07-30] MEDS: NICOTINE 14 MG/24 HOURS TOPICAL PATCH TD SCH (10:18)
[2020-07-30] MEDS: OLANZapine 2.5 MG TABLET PO SCH (11:32)
[2020-07-30] MEDS: MAG HYDROX/AL HYDROX/SIMETH 30 ML UNIT-DOSE CUP PO PRN (22:32)
[2020-07-30] MEDS: METHOCARBAMOL 500 MG TABLET PO PRN (22:32)
[2020-07-31] MEDS: diazePAM 5 MG TABLET PO SCH ×3 (05:22→22:58)
[2020-07-31] MEDS: PRENATAL VITAMINS W/ FOLIC ACID TABLET (FP) PO SCH (10:22)
[2020-07-31] MEDS: FLUoxetine HCL 10 MG CAPSULE PO SCH (10:22)
[2020-07-31] MEDS: NICOTINE 14 MG/24 HOURS TOPICAL PATCH TD SCH (10:22)
[2020-07-31] MEDS: OLANZapine 2.5 MG TABLET PO SCH (10:22)
[2020-07-31] MEDS: MELATONIN 5 MG TABLETS PO SCH (22:57)
[2020-07-31] MEDS: THIAMINE HCL 100 MG TABLET (FP) PO SCH (22:57)
[2020-08-01] MEDS: diazePAM 5 MG TABLET PO SCH ×2 (05:30→17:40)
[2020-08-01] MEDS: PRENATAL VITAMINS W/ FOLIC ACID TABLET (FP) PO SCH (10:35)
[2020-08-01] MEDS: NICOTINE 14 MG/24 HOURS TOPICAL PATCH TD SCH (10:36)
[2020-08-01] MEDS: METHOCARBAMOL 500 MG TABLET PO PRN (10:37)
[2020-08-01] MEDS: IBUPROFEN 400 MG TABLET (FP) PO PRN ×2 (10:37→23:30)
[2020-08-01] MEDS: OLANZapine 2.5 MG TABLET PO SCH (12:39)
[2020-08-01] MEDS: FLUoxetine HCL 10 MG CAPSULE PO SCH (12:39)
[2020-08-01] MEDS: MAG HYDROX/AL HYDROX/SIMETH 30 ML UNIT-DOSE CUP PO PRN (17:41)
[2020-08-01] MEDS: MELATONIN 5 MG TABLETS PO SCH (23:29)
[2020-08-01] MEDS: THIAMINE HCL 100 MG TABLET (FP) PO SCH (23:29)
[2020-08-02] MEDS ORDERED: diazePAM 5 MG TABLET PO ONE (06:00)
[2020-08-02] MEDS: NICOTINE 14 MG/24 HOURS TOPICAL PATCH TD SCH (10:02)
[2020-08-02] MEDS: FLUoxetine HCL 10 MG CAPSULE PO SCH (10:02)
[2020-08-02] MEDS: PRENATAL VITAMINS W/ FOLIC ACID TABLET (FP) PO SCH (10:02)
[2020-08-02] MEDS: OLANZapine 2.5 MG TABLET PO SCH (10:02)
[2020-08-02] MEDS: MELATONIN 5 MG TABLETS PO SCH (22:26)
[2020-08-02] MEDS: THIAMINE HCL 100 MG TABLET (FP) PO SCH (22:26)
[2020-08-03] MEDS ORDERED: diazePAM 5 MG TABLET PO ONE (05:00)
[2020-08-03 09:48] VITALS: BP 126/66; PULSE 68; TEMP 98.3
[2020-08-03] MEDS: OLANZapine 2.5 MG TABLET PO SCH (10:46)
[2020-08-03] MEDS: NICOTINE 14 MG/24 HOURS TOPICAL PATCH TD SCH (10:46)
[2020-08-03] MEDS: FLUoxetine HCL 10 MG CAPSULE PO SCH (10:46)
[2020-08-03] MEDS: PRENATAL VITAMINS W/ FOLIC ACID TABLET (FP) PO SCH (10:46)
== END 2020-08-03 11:31 | disposition home or self-care (01) | DRG 897 ==
LOC: YASAS 16:19 → Y6N 22:49 → UNDOADMIN 22:49
PROVIDERS: ADMIT Allergy & Immunology; ATTEND Allergy & Immunology
PROC: HZ2ZZZZ Detoxification Services for Substance Abuse Treatment (ICD-10-PCS; principal; 2020-07-28)
DX: F10.230 Alcohol dependence with withdrawal, uncomplicated (principal); F14.20 Cocaine dependence, uncomplicated; F20.0 Paranoid schizophrenia; F17.210 Nicotine dependence, cigarettes, uncomplicated; J44.9 Chronic obstructive pulmonary disease, unspecified; J84.10 Pulmonary fibrosis, unspecified; K21.9 Gastro-esophageal reflux disease without esophagitis; M10.9 Gout, unspecified; M54.5 Low back pain; G89.29 Other chronic pain; Z86.19 Personal history of other infectious and parasitic diseases; Z88.8 Allergy status to other drugs, medicaments and biological substances; Z59.0 Homelessness; Z56.0 Unemployment, unspecified; Z87.01 Personal history of pneumonia (recurrent)
CPT/HCPCS: 36415; 80053; 85027; 86593; 86780; 93005; 93010; C9803; U0003; U0005

== ENCOUNTER 2020-08-26 15:57 | Inpatient (IN) | payer OTHER ==
[2020-08-26] MEDS ORDERED: MAGNESIUM CITRATE 300 ML BOTTLE PO PRN (20:55)
[2020-08-26] MEDS ORDERED: MENTHOL/PHENOL 1 EACH UD MM PRN (20:55)
[2020-08-26] MEDS ORDERED: BISMUTH SUBSALICYLATE 524 MG/30 ML PO PRN (20:55)
[2020-08-26] MEDS ORDERED: ACETAMINOPHEN 325 MG TABLET (FP) PO PRN ×2 (20:55)
[2020-08-26] MEDS ORDERED: P-EPHED 60MG/TRIPROLIDI 2.5MG TABLET PO PRN (20:55)
[2020-08-26] MEDS ORDERED: MAGNESIUM HYDROX 2400MG/30ML ORAL SUSPENSION 30 ML CUP PO PRN (20:55)
[2020-08-26] MEDS ORDERED: DICYCLOMINE HCL 10 MG CAPSULE PO PRN (20:55)
[2020-08-26] MEDS ORDERED: ONDANSETRON *ODT* 4 MG TABLET SL PRN (20:55)
[2020-08-26] MEDS ORDERED: NICOTINE POLACRILEX 2 MG GUM BUC PRN (20:55)
[2020-08-26] MEDS ORDERED: guaiFENesin 200 MG/10 ML 10 ML UNIT-DOSE CUPS PO PRN (20:55)
[2020-08-26] MEDS ORDERED: hydrOXYzine PAMOATE 25 MG CAPSULE (FP) PO PRN (20:55)
[2020-08-26 23:07] VITALS: BMI 28.4
[2020-08-27] MEDS: PRENATAL VITAMINS W/ FOLIC ACID TABLET (FP) PO SCH (12:24)
[2020-08-27] MEDS: NICOTINE 14 MG/24 HOURS TOPICAL PATCH TD SCH (12:24)
[2020-08-27] MEDS: MELATONIN 5 MG TABLETS PO SCH ×2 (13:21→22:55)
[2020-08-27] MEDS: THIAMINE HCL 100 MG TABLET (FP) PO SCH ×2 (13:21→22:55)
[2020-08-27 13:33] LABS: HEMATOCRIT 41.5 % (35.4-49); HEMOGLOBIN 14.2 GM/dL (11.7-16.9); MCH 28.3 pg (25.7-33.7); MCHC 34.2 g/dl (32.0-35.9); MEAN CELL VOLUME 82.7 fl (80-96); MEAN PLT VOLUME 10.2 fl (7.5-11.1); PLATELET COUNT 181 10^3/uL (134-434); RBC 5.02 M/mm3 (4.00-5.60); RDW 15.4 % (11.9-15.9); WHITE BLOOD COUNT 7.9 K/mm3 (4.0-10.0)
[2020-08-27 13:37] LABS: CALCIUM 8.8 mg/dL (8.5-10.1)
[2020-08-27 13:38] LABS: ALBUMIN 3.6 g/dl (3.4-5.0); BLOOD UREA NITROGEN 12.4 mg/dL (7-18)
[2020-08-27 13:41] LABS: CREATININE 1.1 mg/dL (0.55-1.3)
[2020-08-27 13:43] LABS: BILIRUBIN,TOTAL 0.5 mg/dL (0.2-1); TOT PROT 7.4 g/dl (6.4-8.2)
[2020-08-27] MEDS ORDERED: diazePAM 5 MG TABLET PO PRN (15:36)
[2020-08-27] MEDS: diazePAM 5 MG TABLET PO SCH ×2 (17:53→22:55)
[2020-08-27] MEDS: IBUPROFEN 400 MG TABLET (FP) PO PRN (19:49)
[2020-08-27] MEDS: OLANZapine 2.5 MG TABLET PO SCH ×2 (22:55→23:15)
[2020-08-27] MEDS: MAG HYDROX/AL HYDROX/SIMETH 30 ML UNIT-DOSE CUP PO PRN (22:58)
[2020-08-28] MEDS: diazePAM 5 MG TABLET PO SCH ×4 (06:07→23:01)
[2020-08-28] MEDS: PRENATAL VITAMINS W/ FOLIC ACID TABLET (FP) PO SCH (11:12)
[2020-08-28] MEDS: NICOTINE 14 MG/24 HOURS TOPICAL PATCH TD SCH (11:12)
[2020-08-28] MEDS: FLUoxetine HCL 10 MG CAPSULE PO SCH (11:12)
[2020-08-28] MEDS: MAG HYDROX/AL HYDROX/SIMETH 30 ML UNIT-DOSE CUP PO PRN (12:49)
[2020-08-28] MEDS: OLANZapine 2.5 MG TABLET PO SCH (12:49)
[2020-08-28] MEDS: MELATONIN 5 MG TABLETS PO SCH (23:01)
[2020-08-28] MEDS: THIAMINE HCL 100 MG TABLET (FP) PO SCH (23:01)
[2020-08-29] MEDS: diazePAM 5 MG TABLET PO SCH ×3 (07:04→22:51)
[2020-08-29] MEDS: METHOCARBAMOL 500 MG TABLET PO PRN (07:06)
[2020-08-29] MEDS: IBUPROFEN 400 MG TABLET (FP) PO PRN (07:06)
[2020-08-29] MEDS: PRENATAL VITAMINS W/ FOLIC ACID TABLET (FP) PO SCH (10:21)
[2020-08-29] MEDS: FLUoxetine HCL 10 MG CAPSULE PO SCH (10:21)
[2020-08-29] MEDS: NICOTINE 14 MG/24 HOURS TOPICAL PATCH TD SCH (10:21)
[2020-08-29] MEDS: OLANZapine 2.5 MG TABLET PO SCH (10:21)
[2020-08-29] MEDS: THIAMINE HCL 100 MG TABLET (FP) PO SCH (22:53)
[2020-08-29] MEDS: MELATONIN 5 MG TABLETS PO SCH (22:53)
[2020-08-30] MEDS: diazePAM 5 MG TABLET PO SCH ×2 (06:01→17:09)
[2020-08-30] MEDS: PRENATAL VITAMINS W/ FOLIC ACID TABLET (FP) PO SCH (10:54)
[2020-08-30] MEDS: OLANZapine 2.5 MG TABLET PO SCH (10:54)
[2020-08-30] MEDS: METHOCARBAMOL 500 MG TABLET PO PRN (10:54)
[2020-08-30] MEDS: NICOTINE 14 MG/24 HOURS TOPICAL PATCH TD SCH (10:55)
[2020-08-30] MEDS: FLUoxetine HCL 10 MG CAPSULE PO SCH (10:55)
[2020-08-30] MEDS: THIAMINE HCL 100 MG TABLET (FP) PO SCH (22:09)
[2020-08-30] MEDS: MELATONIN 5 MG TABLETS PO SCH (22:09)
[2020-08-31] MEDS ORDERED: diazePAM 5 MG TABLET PO ONE (06:00)
[2020-08-31 09:30] VITALS: BP 127/81; PULSE 78; TEMP 97.4
[2020-08-31] MEDS: OLANZapine 2.5 MG TABLET PO SCH (10:31)
[2020-08-31] MEDS: NICOTINE 14 MG/24 HOURS TOPICAL PATCH TD SCH (10:31)
[2020-08-31] MEDS: PRENATAL VITAMINS W/ FOLIC ACID TABLET (FP) PO SCH (10:31)
[2020-08-31] MEDS: FLUoxetine HCL 10 MG CAPSULE PO SCH (10:31)
== END 2020-08-31 09:49 | disposition home or self-care (01) | DRG 897 ==
LOC: YASAS 15:57 → Y3N 08-27 10:15
PROVIDERS: ADMIT Allergy & Immunology; ATTEND Allergy & Immunology
PROC: HZ2ZZZZ Detoxification Services for Substance Abuse Treatment (ICD-10-PCS; principal; 2020-08-27)
DX: F10.230 Alcohol dependence with withdrawal, uncomplicated (principal); F14.20 Cocaine dependence, uncomplicated; F17.210 Nicotine dependence, cigarettes, uncomplicated; F10.282 Alcohol dependence with alcohol-induced sleep disorder; A53.0 Latent syphilis, unspecified as early or late; K21.9 Gastro-esophageal reflux disease without esophagitis; J44.9 Chronic obstructive pulmonary disease, unspecified; M1A.0711 Idiopathic chronic gout, right ankle and foot, with tophus (tophi); M54.5 Low back pain; G89.29 Other chronic pain; R63.8 Other symptoms and signs concerning food and fluid intake; Z87.01 Personal history of pneumonia (recurrent); Z88.8 Allergy status to other drugs, medicaments and biological substances; Z59.0 Homelessness; Z56.0 Unemployment, unspecified
CPT/HCPCS: 36415; 80053; 85027; 86593; 86780; C9803; U0003; U0005

== ENCOUNTER 2020-09-23 12:06 | Inpatient (IN) | payer OTHER ==
[2020-09-23 13:03] VITALS: BMI 29.3
[2020-09-23] MEDS ORDERED: BISMUTH SUBSALICYLATE 262 MG/15 ML BTL PO PRN (13:39)
[2020-09-23] MEDS ORDERED: MENTHOL/PHENOL 1 EACH UD MM PRN (13:39)
[2020-09-23] MEDS ORDERED: NICOTINE 10 MG CARTRIDGE (INHALER) IH PRN (13:39)
[2020-09-23] MEDS ORDERED: MAGNESIUM HYDROX 2400MG/30ML ORAL SUSPENSION 30 ML CUP PO PRN (13:39)
[2020-09-23] MEDS ORDERED: IBUPROFEN 400 MG TABLET (FP) PO PRN (13:39)
[2020-09-23] MEDS ORDERED: METHOCARBAMOL 500 MG TABLET PO PRN (13:39)
[2020-09-23] MEDS ORDERED: MAG HYDROX/AL HYDROX/SIMETH 30 ML UNIT-DOSE CUP PO PRN (13:39)
[2020-09-23] MEDS ORDERED: MAGNESIUM CITRATE 300 ML BOTTLE PO PRN (13:39)
[2020-09-23] MEDS ORDERED: ONDANSETRON *ODT* 4 MG TABLET SL PRN (13:39)
[2020-09-23] MEDS ORDERED: ACETAMINOPHEN 325 MG TABLET (FP) PO PRN ×2 (13:39)
[2020-09-23] MEDS: NICOTINE 7 MG/24 HOURS TOPICAL PATCH TD SCH (15:52)
[2020-09-23] MEDS: PRENATAL VITAMINS W/ FOLIC ACID TABLET (FP) PO SCH (15:52)
[2020-09-23] MEDS: hydrOXYzine PAMOATE 25 MG CAPSULE (FP) PO SCH ×3 (15:52→22:56)
[2020-09-23 16:00] LABS: ALBUMIN 3.8 g/dl (3.4-5.0); BLOOD UREA NITROGEN 15.6 mg/dL (7-18)
[2020-09-23 16:02] LABS: HEMATOCRIT 37.9 % (35.4-49); HEMOGLOBIN 13.4 GM/dL (11.7-16.9); MCH 28.8 pg (25.7-33.7); MCHC 35.4 g/dl (32.0-35.9); MEAN CELL VOLUME 81.4 fl (80-96); MEAN PLT VOLUME 9.8 fl (7.5-11.1); PLATELET COUNT 169 10^3/uL (134-434); RBC 4.66 M/mm3 (4.00-5.60); RDW 15.3 % (11.9-15.9); WHITE BLOOD COUNT 13.7 K/mm3 (4.0-10.0)
[2020-09-23 16:03] LABS: CREATININE 1.2 mg/dL (0.55-1.3)
[2020-09-23 16:05] LABS: BILIRUBIN,TOTAL 0.5 mg/dL (0.2-1); TOT PROT 7.8 g/dl (6.4-8.2)
[2020-09-23] MEDS ORDERED: THIAMINE HCL 100 MG TABLET (FP) PO SCH (22:00)
[2020-09-23] MEDS ORDERED: MELATONIN 5 MG TABLETS PO SCH (22:00)
[2020-09-24] MEDS: hydrOXYzine PAMOATE 25 MG CAPSULE (FP) PO SCH ×2 (06:09→11:10)
[2020-09-24 08:49] VITALS: BP 103/67; PULSE 75; TEMP 97.3
[2020-09-24] MEDS ORDERED: FLUoxetine HCL 10 MG CAPSULE PO SCH (10:00)
[2020-09-24] MEDS ORDERED: OLANZapine 7.5 MG TABLET PO SCH (10:00)
[2020-09-24] MEDS: NICOTINE 7 MG/24 HOURS TOPICAL PATCH TD SCH (10:21)
[2020-09-24] MEDS: PRENATAL VITAMINS W/ FOLIC ACID TABLET (FP) PO SCH (11:10)
== END 2020-09-24 13:03 | disposition other institution (70) | DRG 897 ==
LOC: YASAS 12:06 → Y3N 14:05
PROVIDERS: ADMIT Allergy & Immunology; ATTEND Allergy & Immunology
PROC: HZ2ZZZZ Detoxification Services for Substance Abuse Treatment (ICD-10-PCS; principal; 2020-09-23)
DX: F10.230 Alcohol dependence with withdrawal, uncomplicated (principal); F14.20 Cocaine dependence, uncomplicated; F20.0 Paranoid schizophrenia; F10.280 Alcohol dependence with alcohol-induced anxiety disorder; F10.282 Alcohol dependence with alcohol-induced sleep disorder; F17.210 Nicotine dependence, cigarettes, uncomplicated; F32.9 Major depressive disorder, single episode, unspecified; J44.9 Chronic obstructive pulmonary disease, unspecified; M54.5 Low back pain; G89.29 Other chronic pain; K21.9 Gastro-esophageal reflux disease without esophagitis; M10.9 Gout, unspecified; Z88.8 Allergy status to other drugs, medicaments and biological substances; Z86.19 Personal history of other infectious and parasitic diseases; Z56.0 Unemployment, unspecified; Z59.0 Homelessness
CPT/HCPCS: 36415; 80053; 85027; 86593; 86780; C9803; U0003; U0005

== ENCOUNTER 2020-09-24 12:10 | Inpatient (IN) | payer OTHER ==
[2020-09-24 14:15] VITALS: TEMP 97.1
[2020-09-24] MEDS ORDERED: ACETAMINOPHEN 325 MG TABLET (FP) PO PRN (14:29)
[2020-09-24] MEDS ORDERED: NICOTINE 10 MG CARTRIDGE (INHALER) IH PRN (14:29)
[2020-09-24] MEDS ORDERED: MAGNESIUM HYDROX 2400MG/30ML ORAL SUSPENSION 30 ML CUP PO PRN (14:29)
[2020-09-24] MEDS ORDERED: hydrOXYzine PAMOATE 25 MG CAPSULE (FP) PO PRN (14:29)
[2020-09-24] MEDS ORDERED: MAG HYDROX/AL HYDROX/SIMETH 30 ML UNIT-DOSE CUP PO PRN (14:29)
[2020-09-24] MEDS ORDERED: MENTHOL/PHENOL 1 EACH UD MM PRN (14:29)
[2020-09-24] MEDS ORDERED: LOPERAMIDE HCL 2 MG CAPSULE PO PRN (14:29)
[2020-09-24] MEDS ORDERED: MAGNESIUM CITRATE 300 ML BOTTLE PO PRN (14:29)
[2020-09-24] MEDS ORDERED: guaiFENesin 200 MG/10 ML 10 ML UNIT-DOSE CUPS PO PRN (14:29)
[2020-09-24] MEDS ORDERED: P-EPHED 60MG/TRIPROLIDI 2.5MG TABLET PO PRN (14:29)
[2020-09-24] MEDS ORDERED: PT OWN MED DRAWER 7, Y5N ONE (16:08)
[2020-09-24] MEDS ORDERED: THIAMINE HCL 100 MG TABLET (FP) PO SCH (22:00)
[2020-09-24] MEDS ORDERED: MELATONIN 5 MG TABLETS PO SCH (22:00)
[2020-09-24] MEDS: IBUPROFEN 400 MG TABLET (FP) PO PRN (22:54)
[2020-09-25 06:40] VITALS: BP 115/71; PULSE 61
[2020-09-25] MEDS ORDERED: PT OWN MED DRAWER 7, Y5N ONE (08:38)
[2020-09-25] MEDS: IBUPROFEN 400 MG TABLET (FP) PO PRN (09:57)
[2020-09-25] MEDS ORDERED: FLUoxetine HCL 10 MG CAPSULE PO SCH (10:00)
[2020-09-25] MEDS ORDERED: OLANZapine 7.5 MG TABLET PO SCH (10:00)
[2020-09-25] MEDS ORDERED: PRENATAL VITAMINS W/ FOLIC ACID TABLET (FP) PO SCH (10:00)
[2020-09-25] MEDS ORDERED: NICOTINE 7 MG/24 HOURS TOPICAL PATCH TD SCH (10:00)
== END 2020-09-25 20:51 | disposition left against medical advice (07) | DRG 894 ==
LOC: YASAS 12:10 → Y3E 12:12
PROVIDERS: ADMIT Allergy & Immunology; ATTEND Allergy & Immunology
PROC: HZ42ZZZ Group Counseling for Substance Abuse Treatment, Cognitive-Behavioral (ICD-10-PCS; principal; 2020-09-24)
DX: F10.20 Alcohol dependence, uncomplicated (principal); F14.20 Cocaine dependence, uncomplicated; F17.210 Nicotine dependence, cigarettes, uncomplicated; F41.8 Other specified anxiety disorders; J44.9 Chronic obstructive pulmonary disease, unspecified; K21.9 Gastro-esophageal reflux disease without esophagitis; M10.9 Gout, unspecified; Z86.19 Personal history of other infectious and parasitic diseases; Z88.8 Allergy status to other drugs, medicaments and biological substances

== ENCOUNTER 2020-10-23 13:39 | Inpatient (IN) | payer OTHER ==
[2020-10-23 16:17] VITALS: BMI 29.0
[2020-10-23] MEDS ORDERED: METHOCARBAMOL 500 MG TABLET PO PRN (20:54)
[2020-10-23] MEDS ORDERED: ACETAMINOPHEN 325 MG TABLET (FP) PO PRN ×2 (20:54)
[2020-10-23] MEDS ORDERED: MAGNESIUM CITRATE 300 ML BOTTLE PO PRN (20:54)
[2020-10-23] MEDS ORDERED: ONDANSETRON *ODT* 4 MG TABLET SL PRN (20:54)
[2020-10-23] MEDS ORDERED: BISMUTH SUBSALICYLATE 524 MG/30 ML PO PRN (20:54)
[2020-10-23] MEDS ORDERED: NICOTINE POLACRILEX 2 MG GUM BUC PRN (20:54)
[2020-10-23] MEDS ORDERED: MAGNESIUM HYDROX 2400MG/30ML ORAL SUSPENSION 30 ML CUP PO PRN (20:54)
[2020-10-23] MEDS ORDERED: MENTHOL/PHENOL 1 EACH UD MM PRN (20:54)
[2020-10-23] MEDS ORDERED: hydrOXYzine PAMOATE 25 MG CAPSULE (FP) PO PRN (20:54)
[2020-10-23] MEDS ORDERED: MAG HYDROX/AL HYDROX/SIMETH 30 ML UNIT-DOSE CUP PO PRN (20:54)
[2020-10-23] MEDS: IBUPROFEN 400 MG TABLET (FP) PO PRN (23:15)
[2020-10-23] MEDS: MELATONIN 5 MG TABLETS PO SCH (23:18)
[2020-10-23] MEDS: THIAMINE HCL 100 MG TABLET (FP) PO SCH (23:19)
[2020-10-24] MEDS ORDERED: diazePAM 5 MG TABLET PO PRN (01:14)
[2020-10-24] MEDS: diazePAM 5 MG TABLET PO SCH ×4 (06:05→22:36)
[2020-10-24] MEDS: PRENATAL VITAMINS W/ FOLIC ACID TABLET (FP) PO SCH (10:18)
[2020-10-24] MEDS: NICOTINE 14 MG/24 HOURS TOPICAL PATCH TD SCH (10:19)
[2020-10-24 13:01] LABS: HEMATOCRIT 40.5 % (35.4-49); HEMOGLOBIN 14.2 GM/dL (11.7-16.9); MCH 28.8 pg (25.7-33.7); MCHC 35.1 g/dl (32.0-35.9); MEAN PLT VOLUME 9.8 fl (7.5-11.1); PLATELET COUNT 185 10^3/uL (134-434); RBC 4.94 M/mm3 (4.00-5.60); RDW 15.7 % (11.9-15.9)
[2020-10-24 13:22] LABS: ALBUMIN 3.3 g/dl (3.4-5.0); BLOOD UREA NITROGEN 14.6 mg/dL (7-18)
[2020-10-24 13:25] LABS: CREATININE 1.2 mg/dL (0.55-1.3)
[2020-10-24 13:27] LABS: BILIRUBIN,TOTAL 0.4 mg/dL (0.2-1); TOT PROT 7.7 g/dl (6.4-8.2)
[2020-10-24] MEDS: MELATONIN 5 MG TABLETS PO SCH (22:35)
[2020-10-24] MEDS: THIAMINE HCL 100 MG TABLET (FP) PO SCH (22:36)
[2020-10-25] MEDS: diazePAM 5 MG TABLET PO SCH ×3 (06:47→22:06)
[2020-10-25] MEDS: OLANZapine 7.5 MG TABLET PO SCH (10:08)
[2020-10-25] MEDS: PRENATAL VITAMINS W/ FOLIC ACID TABLET (FP) PO SCH (10:08)
[2020-10-25] MEDS: FLUoxetine HCL 10 MG CAPSULE PO SCH (10:09)
[2020-10-25] MEDS: NICOTINE 14 MG/24 HOURS TOPICAL PATCH TD SCH (10:12)
[2020-10-25] MEDS: IBUPROFEN 400 MG TABLET (FP) PO PRN (10:13)
[2020-10-25] MEDS: THIAMINE HCL 100 MG TABLET (FP) PO SCH (22:06)
[2020-10-25] MEDS: MELATONIN 5 MG TABLETS PO SCH (22:07)
[2020-10-26] MEDS: diazePAM 5 MG TABLET PO SCH ×2 (06:14→17:59)
[2020-10-26] MEDS: PRENATAL VITAMINS W/ FOLIC ACID TABLET (FP) PO SCH (10:09)
[2020-10-26] MEDS: OLANZapine 7.5 MG TABLET PO SCH (10:09)
[2020-10-26] MEDS: FLUoxetine HCL 10 MG CAPSULE PO SCH (10:09)
[2020-10-26] MEDS: IBUPROFEN 400 MG TABLET (FP) PO PRN (10:11)
[2020-10-26] MEDS: NICOTINE 14 MG/24 HOURS TOPICAL PATCH TD SCH (10:13)
[2020-10-26] MEDS: THIAMINE HCL 100 MG TABLET (FP) PO SCH (22:08)
[2020-10-26] MEDS: MELATONIN 5 MG TABLETS PO SCH (22:09)
[2020-10-27] MEDS ORDERED: diazePAM 5 MG TABLET PO ONE (06:00)
[2020-10-27 06:11] VITALS: BP 105/68; PULSE 55; TEMP 98
== END 2020-10-27 09:54 | disposition home or self-care (01) | DRG 897 ==
LOC: YASAS 13:39 → UNDOADMIN 22:05 → Y6N 22:05 → UNDOADMIN 22:11 → Y6N 22:13
PROVIDERS: ADMIT Allergy & Immunology; ATTEND Allergy & Immunology
PROC: HZ2ZZZZ Detoxification Services for Substance Abuse Treatment (ICD-10-PCS; principal; 2020-10-23)
DX: F10.230 Alcohol dependence with withdrawal, uncomplicated (principal); F14.20 Cocaine dependence, uncomplicated; F19.280 Other psychoactive substance dependence with psychoactive substance-induced anxiety disorder; F19.282 Other psychoactive substance dependence with psychoactive substance-induced sleep disorder; F17.210 Nicotine dependence, cigarettes, uncomplicated; F19.24 Other psychoactive substance dependence with psychoactive substance-induced mood disorder; F25.0 Schizoaffective disorder, bipolar type; J44.9 Chronic obstructive pulmonary disease, unspecified; K21.9 Gastro-esophageal reflux disease without esophagitis; M1A.9XX1 Chronic gout, unspecified, with tophus (tophi); M54.5 Low back pain; G89.29 Other chronic pain; Z87.09 Personal history of other diseases of the respiratory system; Z88.8 Allergy status to other drugs, medicaments and biological substances; Z56.0 Unemployment, unspecified; Z59.0 Homelessness
CPT/HCPCS: 36415; 80053; 85027; 86593; 86780; 93005; 93010; C9803; U0003; U0005

== ENCOUNTER 2020-11-13 15:02 | Inpatient (IN) | payer OTHER ==
[2020-11-13 18:05] VITALS: BMI 29.3
[2020-11-14] MEDS ORDERED: MAGNESIUM CITRATE 300 ML BOTTLE PO PRN (02:19)
[2020-11-14] MEDS ORDERED: guaiFENesin 200 MG/10 ML 10 ML UNIT-DOSE CUPS PO PRN (02:19)
[2020-11-14] MEDS ORDERED: MAGNESIUM HYDROX 2400MG/30ML ORAL SUSPENSION 30 ML CUP PO PRN (02:19)
[2020-11-14] MEDS ORDERED: LOPERAMIDE HCL 2 MG CAPSULE PO PRN (02:19)
[2020-11-14] MEDS ORDERED: MAG HYDROX/AL HYDROX/SIMETH 30 ML UNIT-DOSE CUP PO PRN (02:19)
[2020-11-14] MEDS: NICOTINE 14 MG/24 HOURS TOPICAL PATCH TD SCH (10:51)
[2020-11-14] MEDS: PRENATAL VITAMINS W/ FOLIC ACID TABLET (FP) PO SCH (10:51)
[2020-11-14] MEDS: P-EPHED 60MG/TRIPROLIDI 2.5MG TABLET PO PRN ×2 (10:53→21:43)
[2020-11-14] MEDS: ACETAMINOPHEN 325 MG TABLET (FP) PO PRN ×2 (10:53→21:43)
[2020-11-14] MEDS: NICOTINE 10 MG CARTRIDGE (INHALER) IH PRN (10:55)
[2020-11-14 14:34] LABS: HEMATOCRIT 40.1 % (35.4-49); HEMOGLOBIN 14.1 GM/dL (11.7-16.9); MCH 28.6 pg (25.7-33.7); MCHC 35.1 g/dl (32.0-35.9); MEAN CELL VOLUME 81.3 fl (80-96); MEAN PLT VOLUME 9.9 fl (7.5-11.1); PLATELET COUNT 219 10^3/uL (134-434); RBC 4.94 M/mm3 (4.00-5.60); RDW 15.7 % (11.9-15.9); WHITE BLOOD COUNT 10.1 K/mm3 (4.0-10.0)
[2020-11-14] MEDS ORDERED: MASKS NR ONE (16:56)
[2020-11-14] MEDS: IBUPROFEN 400 MG TABLET (FP) PO PRN (16:57)
[2020-11-14] MEDS: METHOCARBAMOL 500 MG TABLET PO PRN (16:57)
[2020-11-14 18:41] LABS: CALCIUM 8.9 mg/dL (8.5-10.1)
[2020-11-14 18:42] LABS: ALBUMIN 3.3 g/dl (3.4-5.0); BLOOD UREA NITROGEN 13.8 mg/dL (7-18)
[2020-11-14 18:45] LABS: CREATININE 1.1 mg/dL (0.55-1.3)
[2020-11-14 18:46] LABS: TOT PROT 7.5 g/dl (6.4-8.2)
[2020-11-14 18:47] LABS: BILIRUBIN,TOTAL 0.4 mg/dL (0.2-1)
[2020-11-14] MEDS: THIAMINE HCL 100 MG TABLET (FP) PO SCH (21:41)
[2020-11-14] MEDS: MELATONIN 5 MG TABLETS PO SCH (21:41)
[2020-11-15] MEDS: FLUoxetine HCL 10 MG CAPSULE PO SCH (12:30)
[2020-11-15] MEDS: PRENATAL VITAMINS W/ FOLIC ACID TABLET (FP) PO SCH (12:30)
[2020-11-15] MEDS: NICOTINE 14 MG/24 HOURS TOPICAL PATCH TD SCH (12:30)
[2020-11-15] MEDS: NICOTINE 10 MG CARTRIDGE (INHALER) IH PRN (12:32)
[2020-11-15] MEDS: OLANZapine 7.5 MG TABLET PO SCH (14:29)
[2020-11-15 16:01] LABS: SYPHILIS W/ RPR CONF REACTIVE (NONREACTIVE)
[2020-11-15] MEDS: THIAMINE HCL 100 MG TABLET (FP) PO SCH (21:49)
[2020-11-15] MEDS: MELATONIN 5 MG TABLETS PO SCH (21:49)
[2020-11-16 07:43] VITALS: TEMP 97.2
[2020-11-16] MEDS: PRENATAL VITAMINS W/ FOLIC ACID TABLET (FP) PO SCH (10:15)
[2020-11-16] MEDS: NICOTINE 10 MG CARTRIDGE (INHALER) IH PRN ×2 (10:15→20:21)
[2020-11-16] MEDS: NICOTINE 14 MG/24 HOURS TOPICAL PATCH TD SCH (10:15)
[2020-11-16] MEDS: FLUoxetine HCL 10 MG CAPSULE PO SCH (10:16)
[2020-11-16] MEDS ORDERED: PT OWN MED DRAWER 7, Y5N ONE (10:18)
[2020-11-16] MEDS: IBUPROFEN 400 MG TABLET (FP) PO PRN (10:18)
[2020-11-16] MEDS: METHOCARBAMOL 500 MG TABLET PO PRN ×2 (10:18→21:42)
[2020-11-16] MEDS: OLANZapine 7.5 MG TABLET PO SCH (10:42)
[2020-11-16] MEDS: MELATONIN 5 MG TABLETS PO SCH (21:41)
[2020-11-16] MEDS: THIAMINE HCL 100 MG TABLET (FP) PO SCH (21:41)
[2020-11-16] MEDS: hydrOXYzine PAMOATE 50 MG CAPSULE (FP) PO PRN (21:41)
[2020-11-17 07:20] VITALS: BP 141/86; PULSE 57
[2020-11-17] MEDS: IBUPROFEN 400 MG TABLET (FP) PO PRN (07:46)
[2020-11-17] MEDS: METHOCARBAMOL 500 MG TABLET PO PRN ×2 (07:47→16:45)
[2020-11-17] MEDS: PRENATAL VITAMINS W/ FOLIC ACID TABLET (FP) PO SCH (10:07)
[2020-11-17] MEDS: FLUoxetine HCL 10 MG CAPSULE PO SCH (10:07)
[2020-11-17] MEDS: NICOTINE 14 MG/24 HOURS TOPICAL PATCH TD SCH (10:08)
[2020-11-17] MEDS: NICOTINE 10 MG CARTRIDGE (INHALER) IH PRN ×2 (10:09→16:45)
[2020-11-17] MEDS: OLANZapine 7.5 MG TABLET PO SCH (10:56)
[2020-11-17] MEDS: hydrOXYzine PAMOATE 50 MG CAPSULE (FP) PO PRN (16:45)
== END 2020-11-17 20:10 | disposition left against medical advice (07) | DRG 894 ==
LOC: YASAS 15:02 → Y5N 11-14 01:27
PROVIDERS: ADMIT Allergy & Immunology; ATTEND Allergy & Immunology
PROC: HZ42ZZZ Group Counseling for Substance Abuse Treatment, Cognitive-Behavioral (ICD-10-PCS; principal; 2020-11-14)
DX: F10.20 Alcohol dependence, uncomplicated (principal); F14.20 Cocaine dependence, uncomplicated; F20.0 Paranoid schizophrenia; F17.210 Nicotine dependence, cigarettes, uncomplicated; J44.9 Chronic obstructive pulmonary disease, unspecified; K21.9 Gastro-esophageal reflux disease without esophagitis; M1A.9XX1 Chronic gout, unspecified, with tophus (tophi); M54.50 Low back pain, unspecified; G89.29 Other chronic pain; Z86.19 Personal history of other infectious and parasitic diseases; Z87.09 Personal history of other diseases of the respiratory system; Z88.8 Allergy status to other drugs, medicaments and biological substances; Z56.0 Unemployment, unspecified; Z59.01 Sheltered homelessness
CPT/HCPCS: 36415; 80053; 85027; 86593; 86780; 86803; C9803; U0003; U0005

== ENCOUNTER 2020-12-15 14:15 | Inpatient (IN) | payer OTHER ==
[2020-12-15] MEDS ORDERED: MAGNESIUM CITRATE 300 ML BOTTLE PO PRN (14:28)
[2020-12-15] MEDS ORDERED: diazePAM 5 MG TABLET PO PRN (14:28)
[2020-12-15] MEDS ORDERED: ONDANSETRON *ODT* 4 MG TABLET SL PRN (14:28)
[2020-12-15] MEDS ORDERED: MAGNESIUM HYDROX 2400MG/30ML ORAL SUSPENSION 30 ML CUP PO PRN (14:28)
[2020-12-15] MEDS ORDERED: MAG HYDROX/AL HYDROX/SIMETH 30 ML UNIT-DOSE CUP PO PRN (14:28)
[2020-12-15] MEDS ORDERED: BISMUTH SUBSALICYLATE 262 MG/15 ML BTL PO PRN (14:28)
[2020-12-15] MEDS ORDERED: NICOTINE 10 MG CARTRIDGE (INHALER) IH PRN (14:28)
[2020-12-15] MEDS ORDERED: METHOCARBAMOL 500 MG TABLET PO PRN (14:28)
[2020-12-15] MEDS ORDERED: MENTHOL/PHENOL 1 EACH UD MM PRN (14:28)
[2020-12-15] MEDS ORDERED: ACETAMINOPHEN 325 MG TABLET (FP) PO PRN ×2 (14:28)
[2020-12-15 15:45] VITALS: BMI 28.1
[2020-12-15] MEDS: PRENATAL VITAMINS W/ FOLIC ACID TABLET (FP) PO SCH (19:23)
[2020-12-15] MEDS: NICOTINE 7 MG/24 HOURS TOPICAL PATCH TD SCH (19:23)
[2020-12-15] MEDS: diazePAM 5 MG TABLET PO SCH ×2 (19:23→23:41)
[2020-12-15] MEDS: hydrOXYzine PAMOATE 25 MG CAPSULE (FP) PO SCH ×2 (19:24→23:41)
[2020-12-15] MEDS: MELATONIN 5 MG TABLETS PO SCH (23:40)
[2020-12-15] MEDS: INDOMETHACIN 50 MG CAPSULE PO SCH (23:40)
[2020-12-15] MEDS: THIAMINE HCL 100 MG TABLET (FP) PO SCH (23:42)
[2020-12-16] MEDS: hydrOXYzine PAMOATE 25 MG CAPSULE (FP) PO SCH ×5 (05:56→22:46)
[2020-12-16] MEDS: diazePAM 5 MG TABLET PO SCH ×4 (05:56→22:41)
[2020-12-16 10:14] LABS: HEMATOCRIT 37.7 % (35.4-49); HEMOGLOBIN 13.5 GM/dL (11.7-16.9); MCH 28.1 pg (25.7-33.7); MCHC 35.8 g/dl (32.0-35.9); MEAN CELL VOLUME 78.4 fl (80-96); MEAN PLT VOLUME 9.3 fl (7.5-11.1); PLATELET COUNT 189 10^3/uL (134-434); WHITE BLOOD COUNT 8.8 K/mm3 (4.0-10.0)
[2020-12-16 10:30] LABS: ALBUMIN 2.9 g/dl (3.4-5.0); BLOOD UREA NITROGEN 9.5 mg/dL (7-18); CALCIUM 8.6 mg/dL (8.5-10.1)
[2020-12-16] MEDS: NICOTINE 7 MG/24 HOURS TOPICAL PATCH TD SCH (10:34)
[2020-12-16] MEDS: PRENATAL VITAMINS W/ FOLIC ACID TABLET (FP) PO SCH (10:34)
[2020-12-16 10:35] LABS: BILIRUBIN,TOTAL 0.5 mg/dL (0.2-1); TOT PROT 6.9 g/dl (6.4-8.2)
[2020-12-16] MEDS: INDOMETHACIN 50 MG CAPSULE PO SCH ×2 (10:35→22:40)
[2020-12-16] MEDS ORDERED: METHOCARBAMOL 750 MG TAB PO ONE (11:30)
[2020-12-16] MEDS ORDERED: METHYL SALICYLATE/MENTHOL OINT 30 GM TUBE TP PRN (11:32)
[2020-12-16] MEDS: OLANZapine 7.5 MG TABLET PO SCH (12:22)
[2020-12-16] MEDS: FLUoxetine HCL 10 MG CAPSULE PO SCH (12:22)
[2020-12-16] MEDS: THIAMINE HCL 100 MG TABLET (FP) PO SCH (22:40)
[2020-12-16] MEDS: MELATONIN 5 MG TABLETS PO SCH (22:46)
[2020-12-17] MEDS: hydrOXYzine PAMOATE 25 MG CAPSULE (FP) PO SCH ×5 (06:12→22:27)
[2020-12-17] MEDS: diazePAM 5 MG TABLET PO SCH ×3 (06:12→22:26)
[2020-12-17] MEDS: OLANZapine 7.5 MG TABLET PO SCH (10:25)
[2020-12-17] MEDS: FLUoxetine HCL 10 MG CAPSULE PO SCH (10:25)
[2020-12-17] MEDS: INDOMETHACIN 50 MG CAPSULE PO SCH ×2 (10:25→22:25)
[2020-12-17] MEDS: NICOTINE 7 MG/24 HOURS TOPICAL PATCH TD SCH (10:25)
[2020-12-17] MEDS: PRENATAL VITAMINS W/ FOLIC ACID TABLET (FP) PO SCH (10:25)
[2020-12-17] MEDS: THIAMINE HCL 100 MG TABLET (FP) PO SCH (22:25)
[2020-12-17] MEDS: MELATONIN 5 MG TABLETS PO SCH (22:27)
[2020-12-18] MEDS: hydrOXYzine PAMOATE 25 MG CAPSULE (FP) PO SCH ×5 (07:04→22:12)
[2020-12-18] MEDS: diazePAM 5 MG TABLET PO SCH ×3 (07:05→18:40)
[2020-12-18] MEDS: FLUoxetine HCL 10 MG CAPSULE PO SCH (10:42)
[2020-12-18] MEDS: NICOTINE 7 MG/24 HOURS TOPICAL PATCH TD SCH (10:42)
[2020-12-18] MEDS: INDOMETHACIN 50 MG CAPSULE PO SCH ×2 (10:42→22:12)
[2020-12-18] MEDS: PRENATAL VITAMINS W/ FOLIC ACID TABLET (FP) PO SCH (10:42)
[2020-12-18] MEDS: OLANZapine 7.5 MG TABLET PO SCH (10:43)
[2020-12-18] MEDS: THIAMINE HCL 100 MG TABLET (FP) PO SCH (22:12)
[2020-12-18] MEDS: MELATONIN 5 MG TABLETS PO SCH (22:12)
[2020-12-19] MEDS ORDERED: diazePAM 5 MG TABLET PO ONE (06:00)
[2020-12-19] MEDS: hydrOXYzine PAMOATE 25 MG CAPSULE (FP) PO SCH ×2 (06:44→10:07)
[2020-12-19] MEDS: INDOMETHACIN 50 MG CAPSULE PO SCH (10:04)
[2020-12-19] MEDS: FLUoxetine HCL 10 MG CAPSULE PO SCH (10:04)
[2020-12-19] MEDS: NICOTINE 7 MG/24 HOURS TOPICAL PATCH TD SCH (10:05)
[2020-12-19] MEDS: OLANZapine 7.5 MG TABLET PO SCH (10:05)
[2020-12-19] MEDS: PRENATAL VITAMINS W/ FOLIC ACID TABLET (FP) PO SCH (10:07)
[2020-12-19 10:09] VITALS: BP 131/77; PULSE 81; TEMP 97.7
== END 2020-12-19 10:00 | disposition home or self-care (01) | DRG 897 ==
LOC: YASAS 14:15 → Y6N 17:09
PROVIDERS: ADMIT Allergy & Immunology; ATTEND Allergy & Immunology
PROC: HZ2ZZZZ Detoxification Services for Substance Abuse Treatment (ICD-10-PCS; principal; 2020-12-15)
DX: F10.230 Alcohol dependence with withdrawal, uncomplicated (principal); F14.20 Cocaine dependence, uncomplicated; F20.0 Paranoid schizophrenia; F17.210 Nicotine dependence, cigarettes, uncomplicated; J44.9 Chronic obstructive pulmonary disease, unspecified; M1A.9XX1 Chronic gout, unspecified, with tophus (tophi); M54.50 Low back pain, unspecified; G89.29 Other chronic pain; A53.0 Latent syphilis, unspecified as early or late; Z59.01 Sheltered homelessness; Z86.19 Personal history of other infectious and parasitic diseases; Z88.8 Allergy status to other drugs, medicaments and biological substances
CPT/HCPCS: 36415; 80053; 85027; 86593; 86780; C9803; U0003; U0005

== ENCOUNTER 2021-01-23 13:22 | Inpatient (IN) | payer OTHER ==
[2021-01-23 14:03] VITALS: BMI 29.2
[2021-01-23] MEDS ORDERED: ACETAMINOPHEN 325 MG TABLET (FP) PO PRN ×2 (15:02)
[2021-01-23] MEDS ORDERED: BISMUTH SUBSALICYLATE 524 MG/30 ML PO PRN (15:02)
[2021-01-23] MEDS ORDERED: ONDANSETRON *ODT* 4 MG TABLET SL PRN (15:02)
[2021-01-23] MEDS ORDERED: MAGNESIUM HYDROX 2400MG/30ML ORAL SUSPENSION 30 ML CUP PO PRN (15:02)
[2021-01-23] MEDS ORDERED: MAG HYDROX/AL HYDROX/SIMETH 30 ML UNIT-DOSE CUP PO PRN (15:02)
[2021-01-23] MEDS ORDERED: MAGNESIUM CITRATE 300 ML BOTTLE PO PRN (15:02)
[2021-01-23] MEDS ORDERED: MENTHOL/PHENOL 1 EACH UD MM PRN (15:02)
[2021-01-23] MEDS ORDERED: NICOTINE POLACRILEX 2 MG GUM BUC PRN (15:02)
[2021-01-23] MEDS: hydrOXYzine PAMOATE 25 MG CAPSULE (FP) PO PRN (17:09)
[2021-01-23] MEDS: IBUPROFEN 400 MG TABLET (FP) PO PRN (17:10)
[2021-01-23] MEDS: METHOCARBAMOL 500 MG TABLET PO PRN (17:11)
[2021-01-23] MEDS: THIAMINE HCL 100 MG TABLET (FP) PO SCH (22:35)
[2021-01-23] MEDS: MELATONIN 5 MG TABLETS PO SCH (22:35)
[2021-01-24 09:55] LABS: HEMATOCRIT 37.9 % (35.4-49); HEMOGLOBIN 13.2 GM/dL (11.7-16.9); MEAN PLT VOLUME 9.5 fl (7.5-11.1); PLATELET COUNT 153 10^3/uL (134-434); RBC 4.74 M/mm3 (4.00-5.60); RDW 16.8 % (11.9-15.9)
[2021-01-24 10:01] LABS: CALCIUM 8.5 mg/dL (8.5-10.1)
[2021-01-24 10:02] LABS: ALBUMIN 2.9 g/dl (3.4-5.0); BLOOD UREA NITROGEN 9.7 mg/dL (7-18)
[2021-01-24 10:06] LABS: BILIRUBIN,TOTAL 0.4 mg/dL (0.2-1); CREATININE 1.1 mg/dL (0.55-1.3); TOT PROT 7.1 g/dl (6.4-8.2)
[2021-01-24] MEDS ORDERED: OLANZapine 7.5 MG TABLET PO SCH ×2 (10:15→22:00)
[2021-01-24] MEDS: PRENATAL VITAMINS W/ FOLIC ACID TABLET (FP) PO SCH (10:27)
[2021-01-24] MEDS: FLUoxetine HCL 10 MG CAPSULE PO SCH (10:27)
[2021-01-24] MEDS: IBUPROFEN 400 MG TABLET (FP) PO PRN (10:29)
[2021-01-24] MEDS: hydrOXYzine PAMOATE 25 MG CAPSULE (FP) PO PRN (10:29)
[2021-01-24] MEDS: METHOCARBAMOL 500 MG TABLET PO PRN (10:29)
[2021-01-24] MEDS: NICOTINE 10 MG CARTRIDGE (INHALER) IH PRN (10:30)
[2021-01-24] MEDS ORDERED: PNEUMOC 13-VAL CONJ-DIP CRM/PF 0.5 ML DISP.SYRIN IM ONE (12:00)
[2021-01-24] MEDS: OLANZAPINE 5 MG, OLANZAPINE 2.5 MG PO SCH (12:24)
[2021-01-24] MEDS: MELATONIN 5 MG TABLETS PO SCH (22:39)
[2021-01-24] MEDS: THIAMINE HCL 100 MG TABLET (FP) PO SCH (22:39)
[2021-01-25] MEDS: NICOTINE 10 MG CARTRIDGE (INHALER) IH PRN (08:49)
[2021-01-25 09:19] VITALS: BP 105/67; PULSE 77; TEMP 97.8
[2021-01-25] MEDS: PRENATAL VITAMINS W/ FOLIC ACID TABLET (FP) PO SCH (10:22)
[2021-01-25] MEDS: IBUPROFEN 400 MG TABLET (FP) PO PRN (10:23)
[2021-01-25] MEDS: METHOCARBAMOL 500 MG TABLET PO PRN (10:23)
[2021-01-25] MEDS: FLUoxetine HCL 10 MG CAPSULE PO SCH ×2 (10:24→10:31)
[2021-01-25] MEDS: OLANZAPINE 5 MG, OLANZAPINE 2.5 MG PO SCH (10:27)
== END 2021-01-25 10:55 | disposition home or self-care (01) | DRG 897 ==
LOC: YASAS 13:22 → Y3N 16:05
PROVIDERS: ADMIT Allergy & Immunology; ATTEND Allergy & Immunology
PROC: HZ2ZZZZ Detoxification Services for Substance Abuse Treatment (ICD-10-PCS; principal; 2021-01-23)
DX: F10.230 Alcohol dependence with withdrawal, uncomplicated (principal); F14.20 Cocaine dependence, uncomplicated; F20.0 Paranoid schizophrenia; F10.282 Alcohol dependence with alcohol-induced sleep disorder; F17.210 Nicotine dependence, cigarettes, uncomplicated; F25.9 Schizoaffective disorder, unspecified; J44.9 Chronic obstructive pulmonary disease, unspecified; M1A.9XX1 Chronic gout, unspecified, with tophus (tophi); M19.90 Unspecified osteoarthritis, unspecified site; M54.59 Other low back pain; G89.29 Other chronic pain; R29.2 Abnormal reflex; Z99.89 Dependence on other enabling machines and devices; Z88.8 Allergy status to other drugs, medicaments and biological substances; Z86.19 Personal history of other infectious and parasitic diseases; Z56.0 Unemployment, unspecified; Z59.01 Sheltered homelessness
CPT/HCPCS: 36415; 80053; 85027; 86593; 86780; C9803; U0003; U0005

== ENCOUNTER 2021-02-13 15:05 | Inpatient (IN) | payer MEDICARE, OTHER ==
[2021-02-13 17:22] VITALS: BMI 29.3
[2021-02-13] MEDS ORDERED: MAGNESIUM HYDROX 2400MG/30ML ORAL SUSPENSION 30 ML CUP PO PRN (17:45)
[2021-02-13] MEDS ORDERED: chlordiazePOXIDE HCL 25 MG CAPSULE PO PRN (17:45)
[2021-02-13] MEDS ORDERED: NICOTINE 10 MG CARTRIDGE (INHALER) IH PRN (17:45)
[2021-02-13] MEDS ORDERED: IBUPROFEN 400 MG TABLET (FP) PO PRN (17:45)
[2021-02-13] MEDS ORDERED: ACETAMINOPHEN 325 MG TABLET (FP) PO PRN ×2 (17:45)
[2021-02-13] MEDS ORDERED: MAGNESIUM CITRATE 300 ML BOTTLE PO PRN (17:45)
[2021-02-13] MEDS ORDERED: BISMUTH SUBSALICYLATE 524 MG/30 ML PO PRN (17:45)
[2021-02-13] MEDS ORDERED: MENTHOL/PHENOL 1 EACH UD MM PRN (17:45)
[2021-02-13] MEDS ORDERED: ONDANSETRON *ODT* 4 MG TABLET SL PRN (17:45)
[2021-02-13] MEDS ORDERED: MAG HYDROX/AL HYDROX/SIMETH 30 ML UNIT-DOSE CUP PO PRN (17:45)
[2021-02-13] MEDS ORDERED: METHOCARBAMOL 500 MG TABLET PO PRN (17:45)
[2021-02-13] MEDS ORDERED: THIAMINE HCL 100 MG TABLET (FP) PO SCH (22:00)
[2021-02-13] MEDS ORDERED: MELATONIN 5 MG TABLETS PO SCH (22:00)
[2021-02-13] MEDS: hydrOXYzine PAMOATE 25 MG CAPSULE (FP) PO SCH ×2 (23:37→23:45)
[2021-02-13] MEDS: chlordiazePOXIDE HCL 25 MG CAPSULE PO SCH (23:38)
[2021-02-14] MEDS: chlordiazePOXIDE HCL 25 MG CAPSULE PO SCH ×4 (05:35→21:05)
[2021-02-14] MEDS: hydrOXYzine PAMOATE 25 MG CAPSULE (FP) PO SCH ×4 (05:35→18:04)
[2021-02-14] MEDS ORDERED: PRENATAL VITAMINS W/ FOLIC ACID TABLET (FP) PO SCH (10:00)
[2021-02-14] MEDS ORDERED: NICOTINE 21 MG/24 HOURS TOPICAL PATCH TD SCH (10:00)
[2021-02-14] MEDS ORDERED: OLANZapine 7.5 MG TABLET PO SCH ×2 (12:00→20:15)
[2021-02-14] MEDS ORDERED: OLANZapine 2.5 MG TABLET PO SCH ×2 (13:25→20:15)
[2021-02-14] MEDS ORDERED: predniSONE 20 MG TABLET (UD) PO SCH (14:00)
[2021-02-14 21:01] VITALS: BP 150/90; PULSE 67; TEMP 98
[2021-02-15] MEDS ORDERED: chlordiazePOXIDE HCL 25 MG CAPSULE PO SCH (05:00)
[2021-02-16] MEDS ORDERED: chlordiazePOXIDE HCL 10 MG CAPSULE PO PRN
[2021-02-16] MEDS ORDERED: chlordiazePOXIDE HCL 10 MG CAPSULE PO SCH (05:00)
[2021-02-17] MEDS ORDERED: chlordiazePOXIDE HCL 10 MG CAPSULE PO SCH (05:00)
[2021-02-18] MEDS ORDERED: chlordiazePOXIDE HCL 10 MG CAPSULE PO ONE (05:00)
== END 2021-02-14 21:02 | disposition left against medical advice (07) | DRG 894 ==
LOC: YASAS 15:05 → Y6N 20:55
PROVIDERS: ADMIT Allergy & Immunology; ATTEND Allergy & Immunology
PROC: HZ2ZZZZ Detoxification Services for Substance Abuse Treatment (ICD-10-PCS; principal; 2021-02-13)
DX: F10.230 Alcohol dependence with withdrawal, uncomplicated (principal); F14.20 Cocaine dependence, uncomplicated; F23 Brief psychotic disorder; F19.280 Other psychoactive substance dependence with psychoactive substance-induced anxiety disorder; F17.210 Nicotine dependence, cigarettes, uncomplicated; F20.9 Schizophrenia, unspecified; F10.282 Alcohol dependence with alcohol-induced sleep disorder; F41.9 Anxiety disorder, unspecified; F19.24 Other psychoactive substance dependence with psychoactive substance-induced mood disorder; F32.9 Major depressive disorder, single episode, unspecified; G47.00 Insomnia, unspecified; J44.9 Chronic obstructive pulmonary disease, unspecified; M1A.9XX1 Chronic gout, unspecified, with tophus (tophi); M54.50 Low back pain, unspecified; G89.29 Other chronic pain; Z86.19 Personal history of other infectious and parasitic diseases; Z99.89 Dependence on other enabling machines and devices; Z59.01 Sheltered homelessness
CPT/HCPCS: C9803; U0003; U0005

== ENCOUNTER 2021-03-09 14:15 | Inpatient (IN) | payer OTHER ==
[2021-03-09 16:54] VITALS: BMI 26.9
[2021-03-09] MEDS ORDERED: MAG HYDROX/AL HYDROX/SIMETH 30 ML UNIT-DOSE CUP PO PRN (18:43)
[2021-03-09] MEDS ORDERED: METHOCARBAMOL 500 MG TABLET PO PRN (18:43)
[2021-03-09] MEDS ORDERED: chlordiazePOXIDE HCL 25 MG CAPSULE PO PRN (18:43)
[2021-03-09] MEDS ORDERED: MENTHOL/PHENOL 1 EACH UD MM PRN (18:43)
[2021-03-09] MEDS ORDERED: MAGNESIUM HYDROX 2400MG/30ML ORAL SUSPENSION 30 ML CUP PO PRN (18:43)
[2021-03-09] MEDS ORDERED: MAGNESIUM CITRATE 300 ML BOTTLE PO PRN (18:43)
[2021-03-09] MEDS ORDERED: ACETAMINOPHEN 325 MG TABLET (FP) PO PRN ×2 (18:43)
[2021-03-09] MEDS ORDERED: BISMUTH SUBSALICYLATE 524 MG/30 ML PO PRN (18:43)
[2021-03-09] MEDS ORDERED: ONDANSETRON *ODT* 4 MG TABLET SL PRN (18:43)
[2021-03-09] MEDS: chlordiazePOXIDE HCL 25 MG CAPSULE PO SCH ×2 (19:01→22:25)
[2021-03-09] MEDS: PRENATAL VITAMINS W/ FOLIC ACID TABLET (FP) PO SCH (19:02)
[2021-03-09] MEDS: NICOTINE 14 MG/24 HOURS TOPICAL PATCH TD SCH (19:03)
[2021-03-09] MEDS: NICOTINE 10 MG CARTRIDGE (INHALER) IH PRN (19:05)
[2021-03-09] MEDS: hydrOXYzine PAMOATE 25 MG CAPSULE (FP) PO SCH (22:24)
[2021-03-09] MEDS: MELATONIN 5 MG TABLETS PO SCH (22:25)
[2021-03-09] MEDS: THIAMINE HCL 100 MG TABLET (FP) PO SCH (22:25)
[2021-03-10] MEDS: hydrOXYzine PAMOATE 25 MG CAPSULE (FP) PO SCH ×5 (05:37→22:29)
[2021-03-10] MEDS: chlordiazePOXIDE HCL 25 MG CAPSULE PO SCH ×4 (05:38→22:29)
[2021-03-10] MEDS: PRENATAL VITAMINS W/ FOLIC ACID TABLET (FP) PO SCH (10:26)
[2021-03-10] MEDS: NICOTINE 14 MG/24 HOURS TOPICAL PATCH TD SCH (10:28)
[2021-03-10 10:32] LABS: HEMATOCRIT 40.2 % (35.4-49); HEMOGLOBIN 13.4 GM/dL (11.7-16.9); MCHC 33.4 g/dl (32.0-35.9); MEAN CELL VOLUME 80.9 fl (80-96); MEAN PLT VOLUME 9.4 fl (7.5-11.1); PLATELET COUNT 204 10^3/uL (134-434); RBC 4.97 M/mm3 (4.00-5.60); RDW 15.9 % (11.9-15.9); WHITE BLOOD COUNT 7.2 K/mm3 (4.0-10.0)
[2021-03-10 10:44] LABS: ALBUMIN 3.2 g/dl (3.4-5.0); CALCIUM 9.2 mg/dL (8.5-10.1)
[2021-03-10 10:51] LABS: BILIRUBIN,TOTAL 0.4 mg/dL (0.2-1)
[2021-03-10] MEDS: IBUPROFEN 400 MG TABLET (FP) PO PRN (17:33)
[2021-03-10] MEDS: THIAMINE HCL 100 MG TABLET (FP) PO SCH (22:29)
[2021-03-10] MEDS: MELATONIN 5 MG TABLETS PO SCH (22:29)
[2021-03-11] MEDS: chlordiazePOXIDE HCL 25 MG CAPSULE PO SCH ×2 (05:01→11:01)
[2021-03-11] MEDS: hydrOXYzine PAMOATE 25 MG CAPSULE (FP) PO SCH ×3 (05:01→14:04)
[2021-03-11] MEDS: NICOTINE 14 MG/24 HOURS TOPICAL PATCH TD SCH (11:00)
[2021-03-11] MEDS: PRENATAL VITAMINS W/ FOLIC ACID TABLET (FP) PO SCH (11:00)
[2021-03-11] MEDS: NICOTINE 10 MG CARTRIDGE (INHALER) IH PRN (11:07)
[2021-03-11 13:02] VITALS: BP 111/55; PULSE 60; TEMP 97.8
[2021-03-11] MEDS: IBUPROFEN 400 MG TABLET (FP) PO PRN (14:04)
[2021-03-12] MEDS ORDERED: chlordiazePOXIDE HCL 10 MG CAPSULE PO PRN
[2021-03-12] MEDS ORDERED: chlordiazePOXIDE HCL 10 MG CAPSULE PO SCH (05:00)
[2021-03-13] MEDS ORDERED: chlordiazePOXIDE HCL 10 MG CAPSULE PO SCH (05:00)
[2021-03-14] MEDS ORDERED: chlordiazePOXIDE HCL 10 MG CAPSULE PO ONE (05:00)
== END 2021-03-11 14:25 | disposition left against medical advice (07) | DRG 894 ==
LOC: YASAS 14:15 → Y3N 16:53
PROVIDERS: ADMIT Allergy & Immunology; ATTEND Allergy & Immunology
PROC: HZ2ZZZZ Detoxification Services for Substance Abuse Treatment (ICD-10-PCS; principal; 2021-03-09)
DX: F10.230 Alcohol dependence with withdrawal, uncomplicated (principal); F14.20 Cocaine dependence, uncomplicated; F17.210 Nicotine dependence, cigarettes, uncomplicated; F20.9 Schizophrenia, unspecified; F19.24 Other psychoactive substance dependence with psychoactive substance-induced mood disorder; K21.9 Gastro-esophageal reflux disease without esophagitis; M54.59 Other low back pain; G89.29 Other chronic pain; G47.00 Insomnia, unspecified; Z88.8 Allergy status to other drugs, medicaments and biological substances; Z91.19 Patient's noncompliance with other medical treatment and regimen; Z86.19 Personal history of other infectious and parasitic diseases; Z56.0 Unemployment, unspecified; Z59.00 Homelessness unspecified
CPT/HCPCS: 36415; 80053; 85027; 86593; 86780; C9803; U0003; U0005

== ENCOUNTER 2021-04-13 14:03 | Inpatient (IN) | payer MEDICARE, OTHER ==
[2021-04-13] MEDS ORDERED: ACETAMINOPHEN 325 MG TABLET (FP) PO PRN (14:32)
[2021-04-13] MEDS ORDERED: BISMUTH SUBSALICYLATE 524 MG/30 ML PO PRN (14:32)
[2021-04-13] MEDS ORDERED: NICOTINE 10 MG CARTRIDGE (INHALER) IH PRN (14:32)
[2021-04-13] MEDS ORDERED: LOPERAMIDE HCL 2 MG CAPSULE PO PRN (14:32)
[2021-04-13] MEDS ORDERED: chlordiazePOXIDE HCL 25 MG CAPSULE PO PRN (14:32)
[2021-04-13] MEDS ORDERED: MENTHOL/PHENOL 1 EACH UD MM PRN (14:32)
[2021-04-13] MEDS ORDERED: ONDANSETRON *ODT* 4 MG TABLET SL PRN (14:32)
[2021-04-13] MEDS ORDERED: MAG HYDROX/AL HYDROX/SIMETH 30 ML UNIT-DOSE CUP PO PRN (14:32)
[2021-04-13] MEDS ORDERED: MAGNESIUM HYDROX 2400MG/30ML ORAL SUSPENSION 30 ML CUP PO PRN (14:32)
[2021-04-13] MEDS ORDERED: MAGNESIUM CITRATE 300 ML BOTTLE PO PRN (14:32)
[2021-04-13 15:35] VITALS: BMI 28.1
[2021-04-13] MEDS: NICOTINE 14 MG/24 HOURS TOPICAL PATCH TD SCH ×2 (18:18→18:25)
[2021-04-13] MEDS: chlordiazePOXIDE HCL 25 MG CAPSULE PO SCH ×2 (18:19→22:29)
[2021-04-13] MEDS: hydrOXYzine PAMOATE 25 MG CAPSULE (FP) PO SCH ×2 (18:20→22:29)
[2021-04-13] MEDS: PRENATAL VITAMINS W/ FOLIC ACID TABLET (FP) PO SCH (18:20)
[2021-04-13] MEDS: ACETAMINOPHEN 325 MG TABLET (FP) PO PRN (18:22)
[2021-04-13] MEDS: THIAMINE HCL 100 MG TABLET (FP) PO SCH (22:29)
[2021-04-13] MEDS: MELATONIN 5 MG TABLETS PO SCH (22:29)
[2021-04-14] MEDS: hydrOXYzine PAMOATE 25 MG CAPSULE (FP) PO SCH ×5 (06:01→22:13)
[2021-04-14] MEDS: chlordiazePOXIDE HCL 25 MG CAPSULE PO SCH ×4 (06:01→22:14)
[2021-04-14] MEDS: ACETAMINOPHEN 325 MG TABLET (FP) PO PRN (06:02)
[2021-04-14] MEDS: METHOCARBAMOL 500 MG TABLET PO PRN ×2 (06:02→14:30)
[2021-04-14] MEDS: FLUoxetine HCL 10 MG CAPSULE PO SCH (10:10)
[2021-04-14] MEDS: NICOTINE 14 MG/24 HOURS TOPICAL PATCH TD SCH (10:11)
[2021-04-14] MEDS: PRENATAL VITAMINS W/ FOLIC ACID TABLET (FP) PO SCH (10:11)
[2021-04-14] MEDS: IBUPROFEN 400 MG TABLET (FP) PO PRN (10:13)
[2021-04-14] MEDS: OLANZapine 7.5 MG TABLET PO SCH (10:33)
[2021-04-14] MEDS ORDERED: FLU VACC QS2021-22(6MOS UP)/PF 60 MCG/0.5 ML SYRINGE IM ONE (13:00)
[2021-04-14 14:12] LABS: HEMATOCRIT 40.4 % (35.4-49); MCHC 34.6 g/dl (32.0-35.9); MEAN PLT VOLUME 9.4 fl (7.5-11.1); PLATELET COUNT 182 10^3/uL (134-434); RBC 4.98 M/mm3 (4.00-5.60); RDW 16.6 % (11.9-15.9); WHITE BLOOD COUNT 7.9 K/mm3 (4.0-10.0)
[2021-04-14 14:15] LABS: CALCIUM 8.7 mg/dL (8.5-10.1)
[2021-04-14 14:16] LABS: ALBUMIN 3.5 g/dl (3.4-5.0); BLOOD UREA NITROGEN 13.8 mg/dL (7-18)
[2021-04-14 14:19] LABS: CREATININE 1.1 mg/dL (0.55-1.3)
[2021-04-14 14:20] LABS: BILIRUBIN,TOTAL 0.9 mg/dL (0.2-1)
[2021-04-14 14:21] LABS: TOT PROT 7.3 g/dl (6.4-8.2)
[2021-04-14] MEDS: MELATONIN 5 MG TABLETS PO SCH (22:13)
[2021-04-14] MEDS: THIAMINE HCL 100 MG TABLET (FP) PO SCH (22:13)
[2021-04-15] MEDS: hydrOXYzine PAMOATE 25 MG CAPSULE (FP) PO SCH ×5 (05:53→22:26)
[2021-04-15] MEDS: chlordiazePOXIDE HCL 25 MG CAPSULE PO SCH ×4 (05:53→22:27)
[2021-04-15] MEDS: IBUPROFEN 400 MG TABLET (FP) PO PRN (05:55)
[2021-04-15] MEDS: METHOCARBAMOL 500 MG TABLET PO PRN ×2 (05:55→22:27)
[2021-04-15] MEDS: NICOTINE 14 MG/24 HOURS TOPICAL PATCH TD SCH (09:53)
[2021-04-15] MEDS: LIDOCAINE 5% TOPICAL PATCH TP SCH (09:54)
[2021-04-15] MEDS: PRENATAL VITAMINS W/ FOLIC ACID TABLET (FP) PO SCH (09:54)
[2021-04-15] MEDS: FLUoxetine HCL 10 MG CAPSULE PO SCH (09:55)
[2021-04-15] MEDS: OLANZapine 7.5 MG TABLET PO SCH (09:55)
[2021-04-15] MEDS ORDERED: LIDOCAINE PATCH REMOVAL MC SCH (22:00)
[2021-04-15] MEDS: THIAMINE HCL 100 MG TABLET (FP) PO SCH (22:26)
[2021-04-15] MEDS: MELATONIN 5 MG TABLETS PO SCH (22:29)
[2021-04-16] MEDS ORDERED: chlordiazePOXIDE HCL 10 MG CAPSULE PO PRN
[2021-04-16] MEDS: hydrOXYzine PAMOATE 25 MG CAPSULE (FP) PO SCH ×2 (06:57→10:12)
[2021-04-16] MEDS: chlordiazePOXIDE HCL 10 MG CAPSULE PO SCH ×2 (06:57→10:11)
[2021-04-16] MEDS: LIDOCAINE 5% TOPICAL PATCH TP SCH (10:11)
[2021-04-16] MEDS: FLUoxetine HCL 10 MG CAPSULE PO SCH (10:11)
[2021-04-16] MEDS: NICOTINE 14 MG/24 HOURS TOPICAL PATCH TD SCH (10:11)
[2021-04-16] MEDS: PRENATAL VITAMINS W/ FOLIC ACID TABLET (FP) PO SCH (10:12)
[2021-04-16] MEDS: OLANZapine 7.5 MG TABLET PO SCH (10:14)
[2021-04-16 12:50] VITALS: BP 120/68; PULSE 78; TEMP 98.2
[2021-04-16] MEDS ORDERED: hydrOXYzine PAMOATE 25 MG CAPSULE (FP) PO PRN (13:39)
[2021-04-16 14:08] LABS: SARS-CoV-2 NAA Not Detected (Not Detected)
[2021-04-17] MEDS ORDERED: chlordiazePOXIDE HCL 10 MG CAPSULE PO SCH (05:00)
[2021-04-18] MEDS ORDERED: chlordiazePOXIDE HCL 10 MG CAPSULE PO ONE (05:00)
== END 2021-04-16 14:36 | disposition home or self-care (01) | DRG 897 ==
LOC: YASAS 14:03 → Y3N 16:44
PROVIDERS: ADMIT Allergy & Immunology; ATTEND Allergy & Immunology
PROC: HZ2ZZZZ Detoxification Services for Substance Abuse Treatment (ICD-10-PCS; principal; 2021-04-13)
DX: F10.230 Alcohol dependence with withdrawal, uncomplicated (principal); F14.20 Cocaine dependence, uncomplicated; F20.0 Paranoid schizophrenia; F17.210 Nicotine dependence, cigarettes, uncomplicated; F12.90 Cannabis use, unspecified, uncomplicated; F10.282 Alcohol dependence with alcohol-induced sleep disorder; F19.24 Other psychoactive substance dependence with psychoactive substance-induced mood disorder; G47.00 Insomnia, unspecified; J44.9 Chronic obstructive pulmonary disease, unspecified; K21.9 Gastro-esophageal reflux disease without esophagitis; M1A.9XX1 Chronic gout, unspecified, with tophus (tophi); M54.50 Low back pain, unspecified; G89.29 Other chronic pain; Z99.89 Dependence on other enabling machines and devices; Z88.8 Allergy status to other drugs, medicaments and biological substances; Z56.0 Unemployment, unspecified; Z59.00 Homelessness unspecified
CPT/HCPCS: 36415; 80053; 85027; 86593; 86780; 90686; C9803-CS; G0008; U0003; U0005

== ENCOUNTER 2021-05-17 12:07 | Inpatient (IN) | payer OTHER ==
[2021-05-17 13:18] VITALS: BMI 29.2
[2021-05-17] MEDS ORDERED: MENTHOL/PHENOL 1 EACH UD MM PRN (14:27)
[2021-05-17] MEDS ORDERED: MAG HYDROX/AL HYDROX/SIMETH 30 ML UNIT-DOSE CUP PO PRN (14:27)
[2021-05-17] MEDS ORDERED: DICYCLOMINE HCL 10 MG CAPSULE PO PRN (14:27)
[2021-05-17] MEDS ORDERED: MAGNESIUM CITRATE 300 ML BOTTLE PO PRN (14:27)
[2021-05-17] MEDS ORDERED: BISMUTH SUBSALICYLATE 262 MG/15 ML BTL PO PRN (14:27)
[2021-05-17] MEDS ORDERED: ACETAMINOPHEN 325 MG TABLET (FP) PO PRN ×2 (14:27)
[2021-05-17] MEDS ORDERED: chlordiazePOXIDE HCL 25 MG CAPSULE PO PRN (14:27)
[2021-05-17] MEDS ORDERED: ONDANSETRON *ODT* 4 MG TABLET SL PRN (14:27)
[2021-05-17] MEDS ORDERED: MAGNESIUM HYDROX 2400MG/30ML ORAL SUSPENSION 30 ML CUP PO PRN (14:27)
[2021-05-17] MEDS ORDERED: NICOTINE 10 MG CARTRIDGE (INHALER) IH PRN (14:27)
[2021-05-17] MEDS ORDERED: LOPERAMIDE HCL 2 MG CAPSULE PO PRN (14:27)
[2021-05-17] MEDS: PRENATAL VITAMINS W/ FOLIC ACID TABLET (FP) PO SCH (17:34)
[2021-05-17] MEDS: chlordiazePOXIDE HCL 25 MG CAPSULE PO SCH ×2 (17:34→22:29)
[2021-05-17] MEDS: hydrOXYzine PAMOATE 25 MG CAPSULE (FP) PO SCH ×2 (17:34→22:31)
[2021-05-17] MEDS: THIAMINE HCL 100 MG TABLET (FP) PO SCH (22:31)
[2021-05-17] MEDS: MELATONIN 5 MG TABLETS PO SCH (22:31)
[2021-05-18] MEDS: chlordiazePOXIDE HCL 25 MG CAPSULE PO SCH ×4 (05:59→22:19)
[2021-05-18] MEDS: hydrOXYzine PAMOATE 25 MG CAPSULE (FP) PO SCH ×5 (06:00→22:19)
[2021-05-18] MEDS: METHOCARBAMOL 500 MG TABLET PO PRN (10:06)
[2021-05-18] MEDS: IBUPROFEN 400 MG TABLET (FP) PO PRN (10:09)
[2021-05-18] MEDS: PRENATAL VITAMINS W/ FOLIC ACID TABLET (FP) PO SCH (10:11)
[2021-05-18 11:10] LABS: ALBUMIN 3.8 g/dl (3.4-5.0); BLOOD UREA NITROGEN 18.8 mg/dL (7-18); CALCIUM 9.4 mg/dL (8.5-10.1)
[2021-05-18 11:13] LABS: CREATININE 1.2 mg/dL (0.55-1.3)
[2021-05-18 11:15] LABS: BILIRUBIN,TOTAL 0.4 mg/dL (0.2-1); TOT PROT 8.5 g/dl (6.4-8.2)
[2021-05-18 12:16] LABS: HEMATOCRIT 39.8 % (35.4-49); HEMOGLOBIN 13.7 GM/dL (11.7-16.9); MCH 27.5 pg (25.7-33.7); MCHC 34.4 g/dl (32.0-35.9); MEAN PLT VOLUME 10.5 fl (7.5-11.1); PLATELET COUNT 209 10^3/uL (134-434); RBC 4.98 M/mm3 (4.00-5.60); RDW 16.2 % (11.9-15.9); WHITE BLOOD COUNT 8.3 K/mm3 (4.0-10.0)
[2021-05-18] MEDS: MELATONIN 5 MG TABLETS PO SCH (22:19)
[2021-05-18] MEDS: THIAMINE HCL 100 MG TABLET (FP) PO SCH (22:19)
[2021-05-19] MEDS: hydrOXYzine PAMOATE 25 MG CAPSULE (FP) PO SCH ×5 (05:44→22:05)
[2021-05-19] MEDS: chlordiazePOXIDE HCL 25 MG CAPSULE PO SCH ×4 (05:44→22:06)
[2021-05-19] MEDS: OLANZapine 2.5 MG TABLET PO SCH (10:15)
[2021-05-19] MEDS: PRENATAL VITAMINS W/ FOLIC ACID TABLET (FP) PO SCH (10:15)
[2021-05-19] MEDS: METHOCARBAMOL 500 MG TABLET PO PRN (10:18)
[2021-05-19] MEDS: IBUPROFEN 400 MG TABLET (FP) PO PRN (10:18)
[2021-05-19] MEDS: THIAMINE HCL 100 MG TABLET (FP) PO SCH (22:05)
[2021-05-19] MEDS: MELATONIN 5 MG TABLETS PO SCH (22:07)
[2021-05-20] MEDS ORDERED: chlordiazePOXIDE HCL 10 MG CAPSULE PO PRN
[2021-05-20] MEDS: chlordiazePOXIDE HCL 10 MG CAPSULE PO SCH ×3 (06:13→17:36)
[2021-05-20] MEDS: hydrOXYzine PAMOATE 25 MG CAPSULE (FP) PO SCH ×4 (06:14→17:38)
[2021-05-20] MEDS: METHOCARBAMOL 500 MG TABLET PO PRN (06:14)
[2021-05-20] MEDS: IBUPROFEN 400 MG TABLET (FP) PO PRN (06:36)
[2021-05-20] MEDS: OLANZapine 2.5 MG TABLET PO SCH (10:44)
[2021-05-20] MEDS: PRENATAL VITAMINS W/ FOLIC ACID TABLET (FP) PO SCH (10:46)
[2021-05-20 18:29] VITALS: BP 109/66; PULSE 78; TEMP 97.3
[2021-05-21] MEDS ORDERED: chlordiazePOXIDE HCL 10 MG CAPSULE PO SCH (05:00)
[2021-05-22] MEDS ORDERED: chlordiazePOXIDE HCL 10 MG CAPSULE PO ONE (05:00)
== END 2021-05-20 19:10 | disposition home or self-care (01) | DRG 897 ==
LOC: YASAS 12:07 → Y3N 14:24
PROVIDERS: ADMIT Allergy & Immunology; ATTEND Allergy & Immunology
PROC: HZ2ZZZZ Detoxification Services for Substance Abuse Treatment (ICD-10-PCS; principal; 2021-05-16)
DX: F10.230 Alcohol dependence with withdrawal, uncomplicated (principal); F14.20 Cocaine dependence, uncomplicated; F20.0 Paranoid schizophrenia; F17.210 Nicotine dependence, cigarettes, uncomplicated; F41.9 Anxiety disorder, unspecified; F32.A Depression, unspecified; K21.9 Gastro-esophageal reflux disease without esophagitis; M54.59 Other low back pain; G89.29 Other chronic pain; M10.9 Gout, unspecified; Z88.8 Allergy status to other drugs, medicaments and biological substances; Z91.19 Patient's noncompliance with other medical treatment and regimen; Z86.19 Personal history of other infectious and parasitic diseases; Z56.0 Unemployment, unspecified
CPT/HCPCS: 36415; 80053; 85027; 86593; 86780; 87811

== ENCOUNTER 2021-07-16 18:14 | Inpatient (IN) | payer OTHER ==
[2021-07-16] MEDS ORDERED: ACETAMINOPHEN 325 MG TABLET (FP) PO PRN ×2 (21:10)
[2021-07-16] MEDS ORDERED: IBUPROFEN 400 MG TABLET (FP) PO PRN (21:10)
[2021-07-16] MEDS ORDERED: chlordiazePOXIDE HCL 25 MG CAPSULE PO PRN (21:10)
[2021-07-16] MEDS ORDERED: DICYCLOMINE HCL 10 MG CAPSULE PO PRN (21:10)
[2021-07-16] MEDS ORDERED: MAGNESIUM CITRATE 300 ML BOTTLE PO PRN (21:10)
[2021-07-16] MEDS ORDERED: BENZOCAINE/MENTHOL (CHLORASEPTIC ) LOZENGE MM PRN (21:10)
[2021-07-16] MEDS ORDERED: MAG HYDROX/AL HYDROX/SIMETH 30 ML UNIT-DOSE CUP PO PRN (21:10)
[2021-07-16] MEDS ORDERED: BISMUTH SUBSALICYLATE 524 MG/30 ML PO PRN (21:10)
[2021-07-16] MEDS ORDERED: LOPERAMIDE HCL 2 MG CAPSULE PO PRN (21:10)
[2021-07-16] MEDS ORDERED: MAGNESIUM HYDROX 2400MG/30ML ORAL SUSPENSION 30 ML CUP PO PRN (21:10)
[2021-07-16] MEDS ORDERED: IBUPROFEN 600 MG TABLET (FP) PO PRN (21:10)
[2021-07-16] MEDS ORDERED: ONDANSETRON *ODT* 4 MG TABLET SL PRN (21:10)
[2021-07-16] MEDS ORDERED: NICOTINE 10 MG CARTRIDGE (INHALER) IH PRN (21:10)
[2021-07-16] MEDS ORDERED: CALAMINE 8% TOPICAL LOTION 177 ML BOTTLE TP PRN (21:30)
[2021-07-17] MEDS: hydrOXYzine PAMOATE 25 MG CAPSULE (FP) PO SCH ×6 (00:35→23:16)
[2021-07-17] MEDS: THIAMINE HCL 100 MG TABLET (FP) PO SCH ×2 (00:35→23:16)
[2021-07-17] MEDS: chlordiazePOXIDE HCL 25 MG CAPSULE PO SCH ×5 (01:18→23:16)
[2021-07-17] MEDS: MELATONIN 5 MG TABLETS PO SCH ×2 (01:20→23:16)
[2021-07-17] MEDS: PRENATAL VITAMINS W/ FOLIC ACID TABLET (FP) PO SCH (10:36)
[2021-07-17 10:56] LABS: HEMATOCRIT 39.1 % (35.4-49); HEMOGLOBIN 13.5 GM/dL (11.7-16.9); MCH 27.6 pg (25.7-33.7); MCHC 34.5 g/dl (32.0-35.9); MEAN CELL VOLUME 80.1 fl (80-96); MEAN PLT VOLUME 10.1 fl (7.5-11.1); PLATELET COUNT 156 10^3/uL (134-434); RBC 4.89 M/mm3 (4.00-5.60); RDW 16.9 % (11.9-15.9); WHITE BLOOD COUNT 8.3 K/mm3 (4.0-10.0)
[2021-07-17 11:03] LABS: ALBUMIN 3.2 g/dl (3.4-5.0); CALCIUM 8.6 mg/dL (8.5-10.1)
[2021-07-17 11:06] LABS: CREATININE 0.8 mg/dL (0.55-1.3)
[2021-07-17 11:08] LABS: BILIRUBIN,TOTAL 0.5 mg/dL (0.2-1); TOT PROT 6.4 g/dl (6.4-8.2)
[2021-07-17] MEDS: OLANZapine 5 MG TABLET PO SCH (23:16)
[2021-07-18] MEDS: hydrOXYzine PAMOATE 25 MG CAPSULE (FP) PO SCH ×5 (06:36→21:07)
[2021-07-18] MEDS: chlordiazePOXIDE HCL 25 MG CAPSULE PO SCH ×4 (06:36→22:38)
[2021-07-18] MEDS ORDERED: OLANZapine 5 MG TABLET PO SCH (10:00)
[2021-07-18] MEDS: PRENATAL VITAMINS W/ FOLIC ACID TABLET (FP) PO SCH (10:59)
[2021-07-18] MEDS: METHOCARBAMOL 500 MG TABLET PO PRN ×2 (11:00→17:52)
[2021-07-18] MEDS: THIAMINE HCL 100 MG TABLET (FP) PO SCH (22:37)
[2021-07-18] MEDS: OLANZapine 5 MG TABLET PO SCH (22:37)
[2021-07-18] MEDS: MELATONIN 5 MG TABLETS PO SCH (22:37)
[2021-07-19] MEDS ORDERED: chlordiazePOXIDE HCL 10 MG CAPSULE PO PRN
[2021-07-19] MEDS: hydrOXYzine PAMOATE 25 MG CAPSULE (FP) PO SCH ×5 (06:23→22:32)
[2021-07-19] MEDS: chlordiazePOXIDE HCL 10 MG CAPSULE PO SCH ×4 (06:25→22:32)
[2021-07-19] MEDS: PRENATAL VITAMINS W/ FOLIC ACID TABLET (FP) PO SCH (10:15)
[2021-07-19] MEDS: METHOCARBAMOL 500 MG TABLET PO PRN (11:11)
[2021-07-19] MEDS: OLANZapine 5 MG TABLET PO SCH (22:32)
[2021-07-19] MEDS: THIAMINE HCL 100 MG TABLET (FP) PO SCH (22:32)
[2021-07-19] MEDS: MELATONIN 5 MG TABLETS PO SCH (22:32)
[2021-07-20] MEDS: hydrOXYzine PAMOATE 25 MG CAPSULE (FP) PO SCH ×5 (05:33→22:31)
[2021-07-20] MEDS: chlordiazePOXIDE HCL 10 MG CAPSULE PO SCH ×2 (05:33→18:08)
[2021-07-20] MEDS: PRENATAL VITAMINS W/ FOLIC ACID TABLET (FP) PO SCH (10:12)
[2021-07-20] MEDS: OLANZapine 5 MG TABLET PO SCH (22:31)
[2021-07-20] MEDS: MELATONIN 5 MG TABLETS PO SCH (22:31)
[2021-07-20] MEDS: THIAMINE HCL 100 MG TABLET (FP) PO SCH (22:31)
[2021-07-21] MEDS ORDERED: chlordiazePOXIDE HCL 10 MG CAPSULE PO ONE (05:00)
[2021-07-21] MEDS: hydrOXYzine PAMOATE 25 MG CAPSULE (FP) PO SCH ×2 (08:14→10:31)
[2021-07-21 09:37] VITALS: BP 140/80; PULSE 81; TEMP 97.1
[2021-07-21] MEDS: METHOCARBAMOL 500 MG TABLET PO PRN (10:30)
[2021-07-21] MEDS: PRENATAL VITAMINS W/ FOLIC ACID TABLET (FP) PO SCH (10:31)
== END 2021-07-21 10:38 | disposition home or self-care (01) | DRG 897 ==
LOC: YASAS 18:14 → Y3N 22:41
PROVIDERS: ADMIT Allergy & Immunology; ATTEND Surgery
PROC: HZ2ZZZZ Detoxification Services for Substance Abuse Treatment (ICD-10-PCS; principal; 2021-07-16)
DX: F10.230 Alcohol dependence with withdrawal, uncomplicated (principal); F14.20 Cocaine dependence, uncomplicated; F19.282 Other psychoactive substance dependence with psychoactive substance-induced sleep disorder; F20.0 Paranoid schizophrenia; F17.210 Nicotine dependence, cigarettes, uncomplicated; F19.24 Other psychoactive substance dependence with psychoactive substance-induced mood disorder; E88.09 Other disorders of plasma-protein metabolism, not elsewhere classified; K21.9 Gastro-esophageal reflux disease without esophagitis; M10.9 Gout, unspecified; M54.50 Low back pain, unspecified; G89.29 Other chronic pain; R03.0 Elevated blood-pressure reading, without diagnosis of hypertension; Z86.19 Personal history of other infectious and parasitic diseases; Z56.0 Unemployment, unspecified; Z59.00 Homelessness unspecified
CPT/HCPCS: 36415; 80053; 85027; 86593; 86780; C9803-CS; U0003; U0005

== ENCOUNTER 2021-08-22 08:36 | Inpatient (IN) | payer MEDICARE, OTHER ==
[2021-08-22 09:53] VITALS: BMI 28.4
[2021-08-22] MEDS ORDERED: MAGNESIUM HYDROX 2400MG/30ML ORAL SUSPENSION 30 ML CUP PO PRN (10:04)
[2021-08-22] MEDS ORDERED: MAG HYDROX/AL HYDROX/SIMETH 30 ML UNIT-DOSE CUP PO PRN (10:04)
[2021-08-22] MEDS ORDERED: BISMUTH SUBSALICYLATE 524 MG/30 ML PO PRN (10:04)
[2021-08-22] MEDS ORDERED: NICOTINE 10 MG CARTRIDGE (INHALER) IH PRN (10:04)
[2021-08-22] MEDS ORDERED: ACETAMINOPHEN 325 MG TABLET (FP) PO PRN ×2 (10:04)
[2021-08-22] MEDS ORDERED: LOPERAMIDE HCL 2 MG CAPSULE PO PRN (10:04)
[2021-08-22] MEDS ORDERED: chlordiazePOXIDE HCL 25 MG CAPSULE PO PRN (10:04)
[2021-08-22] MEDS ORDERED: BENZOCAINE/MENTHOL (CHLORASEPTIC ) LOZENGE MM PRN (10:04)
[2021-08-22] MEDS ORDERED: MAGNESIUM CITRATE 300 ML BOTTLE PO PRN (10:04)
[2021-08-22] MEDS ORDERED: IBUPROFEN 600 MG TABLET (FP) PO PRN (10:04)
[2021-08-22] MEDS ORDERED: DICYCLOMINE HCL 10 MG CAPSULE PO PRN (10:04)
[2021-08-22] MEDS ORDERED: ONDANSETRON *ODT* 4 MG TABLET SL PRN (10:04)
[2021-08-22] MEDS: IBUPROFEN 400 MG TABLET (FP) PO PRN ×2 (12:33→18:04)
[2021-08-22] MEDS: METHOCARBAMOL 500 MG TABLET PO PRN ×2 (12:33→18:05)
[2021-08-22] MEDS: chlordiazePOXIDE HCL 25 MG CAPSULE PO SCH ×3 (12:34→22:10)
[2021-08-22] MEDS: NICOTINE 7 MG/24 HOURS TOPICAL PATCH TD SCH (12:35)
[2021-08-22] MEDS: hydrOXYzine PAMOATE 25 MG CAPSULE (FP) PO SCH ×3 (15:25→22:10)
[2021-08-22] MEDS ORDERED: MELATONIN 5 MG TABLETS PO SCH (22:00)
[2021-08-22] MEDS: THIAMINE HCL 100 MG TABLET (FP) PO SCH (22:10)
[2021-08-23] MEDS: chlordiazePOXIDE HCL 25 MG CAPSULE PO SCH ×4 (07:17→22:07)
[2021-08-23] MEDS: hydrOXYzine PAMOATE 25 MG CAPSULE (FP) PO SCH ×5 (07:18→22:08)
[2021-08-23] MEDS: METHOCARBAMOL 500 MG TABLET PO PRN ×2 (10:13→20:31)
[2021-08-23] MEDS: IBUPROFEN 400 MG TABLET (FP) PO PRN ×2 (10:14→20:31)
[2021-08-23] MEDS: NICOTINE 7 MG/24 HOURS TOPICAL PATCH TD SCH (10:17)
[2021-08-23] MEDS: PRENATAL VITAMINS W/ FOLIC ACID TABLET (FP) PO SCH (10:18)
[2021-08-23] MEDS ORDERED: diphenhydrAMINE HCL 50 MG CAPSULE PO PRN (10:29)
[2021-08-23 11:56] LABS: HEMATOCRIT 41.1 % (35.4-49); HEMOGLOBIN 14.3 GM/dL (11.7-16.9); MCH 28.4 pg (25.7-33.7); MCHC 34.8 g/dl (32.0-35.9); MEAN CELL VOLUME 81.7 fl (80-96); MEAN PLT VOLUME 10.5 fl (7.5-11.1); PLATELET COUNT 134 10^3/uL (134-434); RBC 5.03 M/mm3 (4.00-5.60); RDW 16.6 % (11.9-15.9); WHITE BLOOD COUNT 7.7 K/mm3 (4.0-10.0)
[2021-08-23 12:21] LABS: BLOOD UREA NITROGEN 13.6 mg/dL (7-18)
[2021-08-23 12:22] LABS: ALBUMIN 3.4 g/dl (3.4-5.0)
[2021-08-23 12:24] LABS: CALCIUM 8.5 mg/dL (8.5-10.1)
[2021-08-23 12:25] LABS: BILIRUBIN,TOTAL 0.5 mg/dL (0.2-1); TOT PROT 7.3 g/dl (6.4-8.2)
[2021-08-23] MEDS: THIAMINE HCL 100 MG TABLET (FP) PO SCH (22:07)
[2021-08-24] MEDS: hydrOXYzine PAMOATE 25 MG CAPSULE (FP) PO SCH ×5 (05:14→22:15)
[2021-08-24] MEDS: chlordiazePOXIDE HCL 25 MG CAPSULE PO SCH ×4 (05:14→22:13)
[2021-08-24] MEDS ORDERED: OLANZapine 2.5 MG TABLET PO SCH (10:00)
[2021-08-24] MEDS: METHOCARBAMOL 500 MG TABLET PO PRN (10:12)
[2021-08-24] MEDS: IBUPROFEN 400 MG TABLET (FP) PO PRN (10:12)
[2021-08-24] MEDS: PRENATAL VITAMINS W/ FOLIC ACID TABLET (FP) PO SCH (10:12)
[2021-08-24] MEDS: NICOTINE 7 MG/24 HOURS TOPICAL PATCH TD SCH (10:14)
[2021-08-24] MEDS: THIAMINE HCL 100 MG TABLET (FP) PO SCH (22:15)
[2021-08-25] MEDS ORDERED: chlordiazePOXIDE HCL 10 MG CAPSULE PO PRN
[2021-08-25] MEDS: METHOCARBAMOL 500 MG TABLET PO PRN (04:06)
[2021-08-25] MEDS: IBUPROFEN 400 MG TABLET (FP) PO PRN (04:06)
[2021-08-25] MEDS ORDERED: chlordiazePOXIDE HCL 10 MG CAPSULE PO SCH (05:00)
[2021-08-25] MEDS: hydrOXYzine PAMOATE 25 MG CAPSULE (FP) PO SCH (05:54)
[2021-08-25 06:18] VITALS: BP 121/69; PULSE 60; TEMP 97.3
[2021-08-26] MEDS ORDERED: chlordiazePOXIDE HCL 10 MG CAPSULE PO SCH (05:00)
[2021-08-27] MEDS ORDERED: chlordiazePOXIDE HCL 10 MG CAPSULE PO ONE (05:00)
== END 2021-08-25 06:00 | disposition left against medical advice (07) | DRG 894 ==
LOC: YASAS 08:36 → Y6N 12:11
PROVIDERS: ADMIT Allergy & Immunology; ATTEND Surgery
PROC: HZ2ZZZZ Detoxification Services for Substance Abuse Treatment (ICD-10-PCS; principal; 2021-08-22)
DX: F10.230 Alcohol dependence with withdrawal, uncomplicated (principal); F14.20 Cocaine dependence, uncomplicated; F23 Brief psychotic disorder; F12.10 Cannabis abuse, uncomplicated; F17.210 Nicotine dependence, cigarettes, uncomplicated; F10.282 Alcohol dependence with alcohol-induced sleep disorder; F41.9 Anxiety disorder, unspecified; J41.1 Mucopurulent chronic bronchitis; K21.9 Gastro-esophageal reflux disease without esophagitis; M1A.0711 Idiopathic chronic gout, right ankle and foot, with tophus (tophi); M15.9 Polyosteoarthritis, unspecified; M54.50 Low back pain, unspecified; G89.29 Other chronic pain; Z99.89 Dependence on other enabling machines and devices; Z88.8 Allergy status to other drugs, medicaments and biological substances
CPT/HCPCS: 36415; 80053; 85027; 86593; 86780; C9803-CS; U0003; U0005

== ENCOUNTER 2021-09-25 13:47 | Inpatient (IN) | payer OTHER ==
[2021-09-25 16:31] VITALS: BMI 27.3
[2021-09-25] MEDS ORDERED: MELATONIN 5 MG TABLETS PO PRN (20:43)
[2021-09-25] MEDS ORDERED: BISMUTH SUBSALICYLATE 524 MG/30 ML PO PRN (20:43)
[2021-09-25] MEDS ORDERED: guaiFENesin 200 MG/10 ML 10 ML UNIT-DOSE CUPS PO PRN (20:43)
[2021-09-25] MEDS ORDERED: METHOCARBAMOL 500 MG TABLET PO PRN (20:43)
[2021-09-25] MEDS ORDERED: BENZOCAINE/MENTHOL (CHLORASEPTIC ) LOZENGE MM PRN (20:43)
[2021-09-25] MEDS ORDERED: MAGNESIUM CITRATE 300 ML BOTTLE PO PRN (20:43)
[2021-09-25] MEDS ORDERED: MAG HYDROX/AL HYDROX/SIMETH 30 ML UNIT-DOSE CUP PO PRN (20:43)
[2021-09-25] MEDS ORDERED: IBUPROFEN 400 MG TABLET (FP) PO PRN (20:43)
[2021-09-25] MEDS ORDERED: NICOTINE POLACRILEX 2 MG GUM BUC PRN (20:43)
[2021-09-25] MEDS ORDERED: DICYCLOMINE HCL 10 MG CAPSULE PO PRN (20:43)
[2021-09-25] MEDS ORDERED: LOPERAMIDE HCL 2 MG CAPSULE PO PRN (20:43)
[2021-09-25] MEDS ORDERED: ACETAMINOPHEN 325 MG TABLET (FP) PO PRN ×2 (20:43)
[2021-09-25] MEDS ORDERED: P-EPHED 60MG/TRIPROLIDI 2.5MG TABLET PO PRN (20:43)
[2021-09-25] MEDS ORDERED: MAGNESIUM HYDROX 2400MG/30ML ORAL SUSPENSION 30 ML CUP PO PRN (20:43)
[2021-09-25] MEDS ORDERED: IBUPROFEN 600 MG TABLET (FP) PO PRN (20:43)
[2021-09-25] MEDS: hydrOXYzine PAMOATE 25 MG CAPSULE (FP) PO PRN (23:01)
[2021-09-25] MEDS: THIAMINE HCL 100 MG TABLET (FP) PO SCH (23:01)
[2021-09-26] MEDS: PRENATAL VITAMINS W/ FOLIC ACID TABLET (FP) PO SCH (10:43)
[2021-09-26] MEDS: hydrOXYzine PAMOATE 25 MG CAPSULE (FP) PO PRN (10:44)
[2021-09-26 10:49] LABS: HEMATOCRIT 40.8 % (35.4-49); HEMOGLOBIN 14.3 GM/dL (11.7-16.9); MCH 28.2 pg (25.7-33.7); MEAN CELL VOLUME 80.3 fl (80-96); MEAN PLT VOLUME 9.8 fl (7.5-11.1); PLATELET COUNT 165 10^3/uL (134-434); RBC 5.08 M/mm3 (4.00-5.60); RDW 16.2 % (11.9-15.9); WHITE BLOOD COUNT 7.6 K/mm3 (4.0-10.0)
[2021-09-26 11:26] LABS: CALCIUM 8.7 mg/dL (8.5-10.1)
[2021-09-26 11:27] LABS: ALBUMIN 3.5 g/dl (3.4-5.0); BLOOD UREA NITROGEN 21.4 mg/dL (7-18)
[2021-09-26 11:29] LABS: CREATININE 1.2 mg/dL (0.55-1.3)
[2021-09-26 11:31] LABS: BILIRUBIN,TOTAL 0.6 mg/dL (0.2-1); TOT PROT 7.3 g/dl (6.4-8.2)
[2021-09-26] MEDS ORDERED: OLANZapine 5 MG TABLET PO ONE (12:00)
[2021-09-26] MEDS ORDERED: FLUoxetine HCL 10 MG CAPSULE PO ONE (12:00)
[2021-09-26] MEDS: THIAMINE HCL 100 MG TABLET (FP) PO SCH (23:43)
[2021-09-27 06:03] VITALS: BP 137/81; PULSE 62; RESP 18; TEMP 97.7
[2021-09-27] MEDS ORDERED: OLANZapine 5 MG TABLET PO SCH (10:00)
[2021-09-27] MEDS ORDERED: FLUoxetine HCL 10 MG CAPSULE PO SCH (10:00)
[2021-09-27] MEDS: PRENATAL VITAMINS W/ FOLIC ACID TABLET (FP) PO SCH (10:15)
== END 2021-09-27 10:20 | disposition home or self-care (01) | DRG 897 ==
LOC: YASAS 13:47 → Y6N 22:02
PROVIDERS: ADMIT Allergy & Immunology; ATTEND Surgery
PROC: HZ2ZZZZ Detoxification Services for Substance Abuse Treatment (ICD-10-PCS; principal; 2021-09-25)
DX: F10.230 Alcohol dependence with withdrawal, uncomplicated (principal); F14.20 Cocaine dependence, uncomplicated; F20.0 Paranoid schizophrenia; F17.210 Nicotine dependence, cigarettes, uncomplicated; F19.24 Other psychoactive substance dependence with psychoactive substance-induced mood disorder; F41.8 Other specified anxiety disorders; F32.A Depression, unspecified; Z99.89 Dependence on other enabling machines and devices; Z88.8 Allergy status to other drugs, medicaments and biological substances
CPT/HCPCS: 36415; 80053; 85027; 86593; 86780; 87811; C9803-CS; U0003; U0005

== ENCOUNTER 2021-10-18 14:37 | Inpatient (IN) | payer OTHER ==
[2021-10-18 15:39] VITALS: BMI 27.3
[2021-10-18] MEDS ORDERED: IBUPROFEN 600 MG TABLET (FP) PO PRN (16:53)
[2021-10-18] MEDS ORDERED: MAG HYDROX/AL HYDROX/SIMETH 30 ML UNIT-DOSE CUP PO PRN (16:53)
[2021-10-18] MEDS ORDERED: ACETAMINOPHEN 325 MG TABLET (FP) PO PRN ×2 (16:53)
[2021-10-18] MEDS ORDERED: BENZOCAINE/MENTHOL (CHLORASEPTIC ) LOZENGE MM PRN (16:53)
[2021-10-18] MEDS ORDERED: MAGNESIUM HYDROX 2400MG/30ML ORAL SUSPENSION 30 ML CUP PO PRN (16:53)
[2021-10-18] MEDS ORDERED: MAGNESIUM CITRATE 300 ML BOTTLE PO PRN (16:53)
[2021-10-18] MEDS ORDERED: METHOCARBAMOL 500 MG TABLET PO PRN (16:53)
[2021-10-18] MEDS ORDERED: LOPERAMIDE HCL 2 MG CAPSULE PO PRN (16:53)
[2021-10-18] MEDS ORDERED: NICOTINE POLACRILEX 2 MG GUM BUC PRN (16:53)
[2021-10-18] MEDS ORDERED: IBUPROFEN 400 MG TABLET (FP) PO PRN (16:53)
[2021-10-18] MEDS ORDERED: BISMUTH SUBSALICYLATE 524 MG/30 ML PO PRN (16:53)
[2021-10-18] MEDS ORDERED: DICYCLOMINE HCL 10 MG CAPSULE PO PRN (16:53)
[2021-10-18] MEDS ORDERED: ONDANSETRON *ODT* 4 MG TABLET SL PRN (16:53)
[2021-10-18] MEDS ORDERED: MELATONIN 5 MG TABLETS PO SCH (22:00)
[2021-10-18] MEDS ORDERED: THIAMINE HCL 100 MG TABLET (FP) PO SCH (22:00)
[2021-10-19 09:32] VITALS: BP 105/60; PULSE 55; RESP 19; TEMP 98.2
[2021-10-19] MEDS ORDERED: NICOTINE 14 MG/24 HOURS TOPICAL PATCH TD SCH (10:00)
[2021-10-19] MEDS ORDERED: PRENATAL VITAMINS W/ FOLIC ACID TABLET (FP) PO SCH (10:00)
[2021-10-19] MEDS ORDERED: FLUoxetine HCL 10 MG CAPSULE PO SCH (10:45)
[2021-10-19 11:06] LABS: HEMATOCRIT 39.9 % (35.4-49); HEMOGLOBIN 13.6 GM/dL (11.7-16.9); MCH 27.6 pg (25.7-33.7); MCHC 34.1 g/dl (32.0-35.9); MEAN CELL VOLUME 81.1 fl (80-96); MEAN PLT VOLUME 9.9 fl (7.5-11.1); PLATELET COUNT 203 10^3/uL (134-434); RBC 4.92 M/mm3 (4.00-5.60); RDW 16.2 % (11.9-15.9); WHITE BLOOD COUNT 7.2 K/mm3 (4.0-10.0)
[2021-10-19 11:07] LABS: CALCIUM 8.6 mg/dL (8.5-10.1)
[2021-10-19 11:08] LABS: ALBUMIN 3.1 g/dl (3.4-5.0); BLOOD UREA NITROGEN 12.8 mg/dL (7-18)
[2021-10-19 11:11] LABS: CREATININE 1.1 mg/dL (0.55-1.3)
[2021-10-19 11:12] LABS: BILIRUBIN,TOTAL 0.5 mg/dL (0.2-1); TOT PROT 6.8 g/dl (6.4-8.2)
[2021-10-19] MEDS ORDERED: OLANZapine 5 MG TABLET PO SCH (22:00)
== END 2021-10-19 11:41 | disposition home or self-care (01) | DRG 897 ==
LOC: YASAS 14:37 → Y6N 17:53
PROVIDERS: ADMIT Allergy & Immunology; ATTEND Surgery
PROC: HZ2ZZZZ Detoxification Services for Substance Abuse Treatment (ICD-10-PCS; principal; 2021-10-18)
DX: F10.230 Alcohol dependence with withdrawal, uncomplicated (principal); F14.20 Cocaine dependence, uncomplicated; F20.0 Paranoid schizophrenia; F19.282 Other psychoactive substance dependence with psychoactive substance-induced sleep disorder; F17.210 Nicotine dependence, cigarettes, uncomplicated; F25.1 Schizoaffective disorder, depressive type; F19.24 Other psychoactive substance dependence with psychoactive substance-induced mood disorder; M10.9 Gout, unspecified; Z88.8 Allergy status to other drugs, medicaments and biological substances; Z86.19 Personal history of other infectious and parasitic diseases; Z56.0 Unemployment, unspecified; Z59.01 Sheltered homelessness
CPT/HCPCS: 36415; 80053; 85027; 86593; 86780; 87811; C9803-CS; U0003; U0005

== ENCOUNTER 2021-11-30 13:49 | Inpatient (IN) | payer OTHER ==
[2021-11-30 14:53] VITALS: BMI 28.3
[2021-11-30] MEDS ORDERED: BENZOCAINE/MENTHOL (CHLORASEPTIC ) LOZENGE MM PRN (17:53)
[2021-11-30] MEDS ORDERED: MAGNESIUM CITRATE 300 ML BOTTLE PO PRN (17:53)
[2021-11-30] MEDS ORDERED: METHOCARBAMOL 500 MG TABLET PO PRN (17:53)
[2021-11-30] MEDS ORDERED: ACETAMINOPHEN 325 MG TABLET (FP) PO PRN ×2 (17:53)
[2021-11-30] MEDS ORDERED: LOPERAMIDE HCL 2 MG CAPSULE PO PRN (17:53)
[2021-11-30] MEDS ORDERED: BISMUTH SUBSALICYLATE 524 MG/30 ML PO PRN (17:53)
[2021-11-30] MEDS ORDERED: DICYCLOMINE HCL 10 MG CAPSULE PO PRN (17:53)
[2021-11-30] MEDS ORDERED: ONDANSETRON *ODT* 4 MG TABLET SL PRN (17:53)
[2021-11-30] MEDS ORDERED: IBUPROFEN 400 MG TABLET (FP) PO PRN (17:53)
[2021-11-30] MEDS ORDERED: MAGNESIUM HYDROX 2400MG/30ML ORAL SUSPENSION 30 ML CUP PO PRN (17:53)
[2021-11-30] MEDS ORDERED: hydrOXYzine PAMOATE 25 MG CAPSULE (FP) PO PRN (17:53)
[2021-11-30] MEDS ORDERED: MAG HYDROX/AL HYDROX/SIMETH 30 ML UNIT-DOSE CUP PO PRN (17:53)
[2021-11-30] MEDS ORDERED: MELATONIN 5 MG TABLETS PO PRN (17:54)
[2021-11-30] MEDS ORDERED: THIAMINE HCL 100 MG TABLET (FP) PO SCH (22:00)
[2021-11-30] MEDS: IBUPROFEN 600 MG TABLET (FP) PO PRN (22:55)
[2021-12-01 09:22] VITALS: TEMP 97.5
[2021-12-01] MEDS ORDERED: PRENATAL VITAMINS W/ FOLIC ACID TABLET (FP) PO SCH (10:00)
[2021-12-01] MEDS ORDERED: chlordiazePOXIDE HCL 25 MG CAPSULE PO PRN (10:39)
[2021-12-01] MEDS ORDERED: chlordiazePOXIDE HCL 25 MG CAPSULE PO SCH (11:00)
[2021-12-01] MEDS: IBUPROFEN 600 MG TABLET (FP) PO PRN (11:31)
[2021-12-01 13:02] VITALS: BP 115/71; PULSE 62; RESP 16
[2021-12-02] MEDS ORDERED: OLANZapine 5 MG TABLET PO SCH (10:00)
[2021-12-02] MEDS ORDERED: FLUoxetine HCL 10 MG CAPSULE PO SCH (10:00)
[2021-12-03] MEDS ORDERED: chlordiazePOXIDE HCL 25 MG CAPSULE PO SCH (05:00)
[2021-12-04] MEDS ORDERED: chlordiazePOXIDE HCL 10 MG CAPSULE PO PRN
[2021-12-04] MEDS ORDERED: chlordiazePOXIDE HCL 10 MG CAPSULE PO SCH (05:00)
[2021-12-05] MEDS ORDERED: chlordiazePOXIDE HCL 10 MG CAPSULE PO SCH (05:00)
[2021-12-06] MEDS ORDERED: chlordiazePOXIDE HCL 10 MG CAPSULE PO ONE (05:00)
== END 2021-12-01 17:24 | disposition left against medical advice (07) | DRG 894 ==
LOC: YASAS 13:49 → Y3N 19:55
PROVIDERS: ADMIT Allergy & Immunology; ATTEND Surgery
PROC: HZ2ZZZZ Detoxification Services for Substance Abuse Treatment (ICD-10-PCS; principal; 2021-11-30)
DX: F10.230 Alcohol dependence with withdrawal, uncomplicated (principal); U07.1 COVID-19; F14.20 Cocaine dependence, uncomplicated; F17.210 Nicotine dependence, cigarettes, uncomplicated; F25.1 Schizoaffective disorder, depressive type; F41.9 Anxiety disorder, unspecified; F32.A Depression, unspecified; M10.9 Gout, unspecified; M54.50 Low back pain, unspecified; G89.29 Other chronic pain; Z86.19 Personal history of other infectious and parasitic diseases; Z88.8 Allergy status to other drugs, medicaments and biological substances
CPT/HCPCS: C9803-CS; U0003; U0005

== ENCOUNTER 2022-01-22 10:15 | Inpatient (IN) | payer OTHER ==
[2022-01-22 12:44] VITALS: BMI 26.9
[2022-01-22] MEDS ORDERED: NALOXONE HCL (KLOXXADO) 8 MG SPRAY NS PRN (13:20)
[2022-01-22] MEDS ORDERED: BENZOCAINE/MENTHOL (CHLORASEPTIC ) LOZENGE MM PRN (13:20)
[2022-01-22] MEDS ORDERED: POLYETHYLENE GLYCOL (HEALTHYLAX) 3350 17 GM PACKET PO PRN (13:20)
[2022-01-22] MEDS ORDERED: MAG HYDROX/AL HYDROX/SIMETH 30 ML UNIT-DOSE CUP PO PRN (13:20)
[2022-01-22] MEDS ORDERED: IBUPROFEN 600 MG TABLET (FP) PO PRN (13:20)
[2022-01-22] MEDS ORDERED: MAGNESIUM HYDROX 2400MG/30ML ORAL SUSPENSION 30 ML CUP PO PRN (13:20)
[2022-01-22] MEDS ORDERED: DICYCLOMINE HCL 10 MG CAPSULE PO PRN (13:20)
[2022-01-22] MEDS ORDERED: LORazepam 1 MG TABLET PO PRN (13:20)
[2022-01-22] MEDS ORDERED: BISMUTH SUBSALICYLATE 524 MG/30 ML PO PRN (13:20)
[2022-01-22] MEDS ORDERED: NICOTINE POLACRILEX 4 MG GUM BUC PRN (13:20)
[2022-01-22] MEDS ORDERED: ONDANSETRON *ODT* 4 MG TABLET SL PRN (13:20)
[2022-01-22] MEDS ORDERED: LORazepam 2 MG TABLET PO ONE (13:20)
[2022-01-22] MEDS ORDERED: hydrOXYzine PAMOATE 25 MG CAPSULE (FP) PO PRN (13:20)
[2022-01-22] MEDS ORDERED: ACETAMINOPHEN 325 MG TABLET (FP) PO PRN ×2 (13:20)
[2022-01-22] MEDS ORDERED: METHOCARBAMOL 500 MG TABLET PO PRN (13:20)
[2022-01-22] MEDS ORDERED: LOPERAMIDE HCL 2 MG CAPSULE PO PRN (13:20)
[2022-01-22] MEDS: METHYL SALICYLATE/MENTHOL OINT 30 GM TUBE TP SCH ×2 (15:59→23:51)
[2022-01-22] MEDS ORDERED: LORazepam 2 MG TABLET PO SCH (17:00)
[2022-01-22] MEDS: LORazepam 2 MG TABLET PO SCH ×2 (19:43→23:52)
[2022-01-22] MEDS ORDERED: OLANZapine 2.5 MG TABLET PO SCH (22:00)
[2022-01-22] MEDS: MELATONIN 5 MG TABLETS PO SCH (23:53)
[2022-01-22] MEDS: THIAMINE HCL 100 MG TABLET (FP) PO SCH (23:53)
[2022-01-23] MEDS: LORazepam 1 MG TABLET PO SCH ×4 (06:26→22:41)
[2022-01-23] MEDS: LORazepam 2 MG TABLET PO SCH (07:37)
[2022-01-23 09:43] LABS: HEMATOCRIT 42.2 % (35.4-49); HEMOGLOBIN 14.4 GM/dL (11.7-16.9); MEAN CELL VOLUME 82.2 fl (80-96); MEAN PLT VOLUME 9.6 fl (7.5-11.1); PLATELET COUNT 158 10^3/uL (134-434); RBC 5.14 M/mm3 (4.00-5.60); RDW 15.6 % (11.9-15.9); WHITE BLOOD COUNT 6.4 K/mm3 (4.0-10.0)
[2022-01-23 10:06] LABS: ALBUMIN 3.5 g/dl (3.4-5.0); BLOOD UREA NITROGEN 11.6 mg/dL (7-18)
[2022-01-23 10:07] LABS: BILIRUBIN,TOTAL 0.8 mg/dL (0.2-1); TOT PROT 7.4 g/dl (6.4-8.2)
[2022-01-23 10:08] LABS: CREATININE 1.1 mg/dL (0.55-1.3)
[2022-01-23 10:09] LABS: CALCIUM 9.2 mg/dL (8.5-10.1)
[2022-01-23] MEDS: PRENATAL VITAMINS W/ FOLIC ACID TABLET (FP) PO SCH (10:31)
[2022-01-23] MEDS: TAMSULOSIN HCL 0.4 MG CAP PO SCH (10:31)
[2022-01-23] MEDS: IBUPROFEN 400 MG TABLET (FP) PO PRN (10:32)
[2022-01-23] MEDS: NICOTINE 10 MG CARTRIDGE (INHALER) IH PRN (10:33)
[2022-01-23] MEDS: METHYL SALICYLATE/MENTHOL OINT 30 GM TUBE TP SCH ×2 (10:34→22:40)
[2022-01-23] MEDS: OLANZapine 5 MG TABLET PO SCH (12:33)
[2022-01-23 22:10] VITALS: RESP 18
[2022-01-23] MEDS: THIAMINE HCL 100 MG TABLET (FP) PO SCH (22:41)
[2022-01-23] MEDS: MELATONIN 5 MG TABLETS PO SCH (22:41)
[2022-01-24] MEDS: LORazepam 1 MG TABLET PO SCH ×2 (05:33→10:43)
[2022-01-24] MEDS: IBUPROFEN 400 MG TABLET (FP) PO PRN (09:07)
[2022-01-24 09:34] VITALS: BP 133/77; PULSE 100; TEMP 97.5
[2022-01-24] MEDS: OLANZapine 5 MG TABLET PO SCH (10:42)
[2022-01-24] MEDS: PRENATAL VITAMINS W/ FOLIC ACID TABLET (FP) PO SCH (10:42)
[2022-01-24] MEDS: TAMSULOSIN HCL 0.4 MG CAP PO SCH (10:42)
[2022-01-24] MEDS: METHYL SALICYLATE/MENTHOL OINT 30 GM TUBE TP SCH (10:43)
[2022-01-24] MEDS: NICOTINE 10 MG CARTRIDGE (INHALER) IH PRN (12:58)
[2022-01-25] MEDS ORDERED: LORazepam 0.5 MG TABLET PO PRN
[2022-01-25] MEDS ORDERED: LORazepam 0.5 MG TABLET PO SCH (05:00)
[2022-01-26] MEDS ORDERED: LORazepam 0.5 MG TABLET PO ONE (05:00)
== END 2022-01-24 13:14 | disposition left against medical advice (07) | DRG 894 ==
LOC: YASAS 10:15 → Y3N 14:12
PROVIDERS: ADMIT Allergy & Immunology; ATTEND Surgery
PROC: HZ2ZZZZ Detoxification Services for Substance Abuse Treatment (ICD-10-PCS; principal; 2022-01-22)
DX: F10.230 Alcohol dependence with withdrawal, uncomplicated (principal); F14.20 Cocaine dependence, uncomplicated; F17.210 Nicotine dependence, cigarettes, uncomplicated; F19.24 Other psychoactive substance dependence with psychoactive substance-induced mood disorder; F25.0 Schizoaffective disorder, bipolar type; J44.9 Chronic obstructive pulmonary disease, unspecified; K21.9 Gastro-esophageal reflux disease without esophagitis; M10.9 Gout, unspecified; N40.0 Benign prostatic hyperplasia without lower urinary tract symptoms; M54.50 Low back pain, unspecified; G89.29 Other chronic pain; Z86.718 Personal history of other venous thrombosis and embolism; Z88.8 Allergy status to other drugs, medicaments and biological substances; Z86.19 Personal history of other infectious and parasitic diseases
CPT/HCPCS: 36415; 80053; 85027; 86593; 86780; C9803-CS; U0003; U0005

== ENCOUNTER 2022-03-11 14:41 | Inpatient (IN) | payer OTHER ==
[2022-03-11 15:56] VITALS: BMI 26.4
[2022-03-11] MEDS ORDERED: ACETAMINOPHEN 325 MG TABLET (FP) PO PRN ×2 (17:19)
[2022-03-11] MEDS ORDERED: hydrOXYzine PAMOATE 25 MG CAPSULE (FP) PO PRN (17:19)
[2022-03-11] MEDS ORDERED: NALOXONE HCL (KLOXXADO) 8 MG SPRAY NS PRN (17:19)
[2022-03-11] MEDS ORDERED: MAGNESIUM HYDROX 2400MG/30ML ORAL SUSPENSION 30 ML CUP PO PRN (17:19)
[2022-03-11] MEDS ORDERED: POLYETHYLENE GLYCOL (HEALTHYLAX) 3350 17 GM PACKET PO PRN (17:19)
[2022-03-11] MEDS ORDERED: BISMUTH SUBSALICYLATE 524 MG/30 ML PO PRN (17:19)
[2022-03-11] MEDS ORDERED: BENZOCAINE/MENTHOL (CHLORASEPTIC ) LOZENGE MM PRN (17:19)
[2022-03-11] MEDS ORDERED: LOPERAMIDE HCL 2 MG CAPSULE PO PRN (17:19)
[2022-03-11] MEDS ORDERED: chlordiazePOXIDE HCL 25 MG CAPSULE PO PRN (17:19)
[2022-03-11] MEDS ORDERED: ONDANSETRON *ODT* 4 MG TABLET SL PRN (17:19)
[2022-03-11] MEDS ORDERED: DICYCLOMINE HCL 10 MG CAPSULE PO PRN (17:19)
[2022-03-11] MEDS: METHOCARBAMOL 500 MG TABLET PO PRN (18:27)
[2022-03-11] MEDS: IBUPROFEN 600 MG TABLET (FP) PO PRN (18:27)
[2022-03-11] MEDS: THIAMINE HCL 100 MG TABLET (FP) PO SCH (21:05)
[2022-03-11] MEDS: MELATONIN 5 MG TABLETS PO SCH (22:26)
[2022-03-11] MEDS: chlordiazePOXIDE HCL 25 MG CAPSULE PO SCH (22:29)
[2022-03-12] MEDS: chlordiazePOXIDE HCL 25 MG CAPSULE PO SCH ×4 (05:23→22:29)
[2022-03-12] MEDS: PRENATAL VITAMINS W/ FOLIC ACID TABLET (FP) PO SCH (10:27)
[2022-03-12] MEDS: IBUPROFEN 400 MG TABLET (FP) PO PRN ×2 (10:30→17:41)
[2022-03-12] MEDS: NICOTINE 10 MG CARTRIDGE (INHALER) IH PRN (10:31)
[2022-03-12] MEDS: METHOCARBAMOL 500 MG TABLET PO PRN ×2 (10:31→17:41)
[2022-03-12] MEDS: MAG HYDROX/AL HYDROX/SIMETH 30 ML UNIT-DOSE CUP PO PRN (10:35)
[2022-03-12 11:03] LABS: HEMOGLOBIN 12.5 GM/dL (11.7-16.9); MCH 27.7 pg (25.7-33.7); MCHC 33.8 g/dl (32.0-35.9); MEAN CELL VOLUME 82.1 fl (80-96); MEAN PLT VOLUME 9.6 fl (7.5-11.1); PLATELET COUNT 184 10^3/uL (134-434); RBC 4.51 M/mm3 (4.00-5.60); RDW 16.5 % (11.9-15.9); WHITE BLOOD COUNT 7.6 K/mm3 (4.0-10.0)
[2022-03-12 11:19] LABS: CALCIUM 8.5 mg/dL (8.5-10.1)
[2022-03-12 11:20] LABS: BLOOD UREA NITROGEN 10.4 mg/dL (7-18)
[2022-03-12 11:23] LABS: CREATININE 0.9 mg/dL (0.55-1.3)
[2022-03-12 11:24] LABS: BILIRUBIN,TOTAL 0.4 mg/dL (0.2-1); TOT PROT 6.5 g/dl (6.4-8.2)
[2022-03-12] MEDS: OLANZapine 5 MG TABLET PO SCH (22:27)
[2022-03-12] MEDS: MELATONIN 5 MG TABLETS PO SCH (22:28)
[2022-03-12] MEDS: THIAMINE HCL 100 MG TABLET (FP) PO SCH (22:29)
[2022-03-13] MEDS: chlordiazePOXIDE HCL 25 MG CAPSULE PO SCH ×3 (06:18→18:06)
[2022-03-13] MEDS: PRENATAL VITAMINS W/ FOLIC ACID TABLET (FP) PO SCH (10:23)
[2022-03-13] MEDS: METHOCARBAMOL 500 MG TABLET PO PRN (10:25)
[2022-03-13] MEDS: IBUPROFEN 400 MG TABLET (FP) PO PRN (10:25)
[2022-03-13] MEDS: NICOTINE 10 MG CARTRIDGE (INHALER) IH PRN (10:26)
[2022-03-13] MEDS: MAG HYDROX/AL HYDROX/SIMETH 30 ML UNIT-DOSE CUP PO PRN (16:11)
[2022-03-13] MEDS: IBUPROFEN 600 MG TABLET (FP) PO PRN (18:04)
[2022-03-13] MEDS ORDERED: TAMSULOSIN HCL 0.4 MG CAP PO ONE (19:04)
[2022-03-13] MEDS: MELATONIN 5 MG TABLETS PO SCH (23:59)
[2022-03-14] MEDS: OLANZapine 5 MG TABLET PO SCH
[2022-03-14] MEDS ORDERED: chlordiazePOXIDE HCL 10 MG CAPSULE PO PRN
[2022-03-14] MEDS: chlordiazePOXIDE HCL 25 MG CAPSULE PO SCH
[2022-03-14] MEDS: THIAMINE HCL 100 MG TABLET (FP) PO SCH
[2022-03-14] MEDS ORDERED: chlordiazePOXIDE HCL 10 MG CAPSULE PO SCH (05:00)
[2022-03-14] MEDS ORDERED: TAMSULOSIN HCL 0.4 MG CAP PO SCH (08:30)
[2022-03-14] MEDS ORDERED: PANTOPRAZOLE 40 MG TABLET PO SCH (10:00)
[2022-03-14 10:01] VITALS: BP 134/87; PULSE 86; RESP 16; TEMP 97
[2022-03-15] MEDS ORDERED: chlordiazePOXIDE HCL 10 MG CAPSULE PO SCH (05:00)
[2022-03-16] MEDS ORDERED: chlordiazePOXIDE HCL 10 MG CAPSULE PO ONE (05:00)
== END 2022-03-14 09:38 | disposition home or self-care (01) | DRG 897 ==
LOC: YASAS 14:41 → Y3N 17:35
PROVIDERS: ADMIT Allergy & Immunology; ATTEND Family Medicine
PROC: HZ2ZZZZ Detoxification Services for Substance Abuse Treatment (ICD-10-PCS; principal; 2022-03-11)
DX: F10.230 Alcohol dependence with withdrawal, uncomplicated (principal); F14.20 Cocaine dependence, uncomplicated; F17.210 Nicotine dependence, cigarettes, uncomplicated; F20.9 Schizophrenia, unspecified; F31.9 Bipolar disorder, unspecified; K21.9 Gastro-esophageal reflux disease without esophagitis; M25.572 Pain in left ankle and joints of left foot; M10.9 Gout, unspecified; M54.50 Low back pain, unspecified; G89.29 Other chronic pain; Z86.19 Personal history of other infectious and parasitic diseases; Z88.8 Allergy status to other drugs, medicaments and biological substances
CPT/HCPCS: 36415; 80053; 85027; 86593; 86780; C9803-CS; U0003; U0005

== ENCOUNTER 2022-05-07 12:14 | Inpatient (IN) | payer OTHER ==
[2022-05-07 12:47] VITALS: BMI 24.3
[2022-05-07] MEDS ORDERED: MAG HYDROX/AL HYDROX/SIMETH 30 ML UNIT-DOSE CUP PO PRN (14:15)
[2022-05-07] MEDS ORDERED: LOPERAMIDE HCL 2 MG CAPSULE PO PRN (14:15)
[2022-05-07] MEDS ORDERED: BENZONATATE 200 MG CAPSULE PO PRN (14:15)
[2022-05-07] MEDS ORDERED: NALOXONE HCL 0.4 MG/ML VIAL IM PRN (14:15)
[2022-05-07] MEDS ORDERED: chlordiazePOXIDE HCL 25 MG CAPSULE PO PRN (14:15)
[2022-05-07] MEDS ORDERED: POLYETHYLENE GLYCOL (HEALTHYLAX) 3350 17 GM PACKET PO PRN (14:15)
[2022-05-07] MEDS ORDERED: ONDANSETRON *ODT* 4 MG TABLET SL PRN (14:15)
[2022-05-07] MEDS ORDERED: BISMUTH SUBSALICYLATE 524 MG/30 ML PO PRN (14:15)
[2022-05-07] MEDS ORDERED: MAGNESIUM HYDROX 2400MG/30ML ORAL SUSPENSION 30 ML CUP PO PRN (14:15)
[2022-05-07] MEDS ORDERED: guaiFENesin 600 MG TABLET.ER (FP) PO PRN (14:15)
[2022-05-07] MEDS ORDERED: NICOTINE 10 MG CARTRIDGE (INHALER) IH PRN (14:15)
[2022-05-07] MEDS ORDERED: hydrOXYzine PAMOATE 25 MG CAPSULE (FP) PO PRN (14:15)
[2022-05-07] MEDS ORDERED: IBUPROFEN 400 MG TABLET (FP) PO PRN (14:15)
[2022-05-07] MEDS ORDERED: DICYCLOMINE HCL 10 MG CAPSULE PO PRN (14:15)
[2022-05-07] MEDS ORDERED: chlordiazePOXIDE HCL 25 MG CAPSULE PO ONE (14:15)
[2022-05-07] MEDS ORDERED: BENZOCAINE/MENTHOL (CHLORASEPTIC ) LOZENGE MM PRN (14:15)
[2022-05-07] MEDS ORDERED: NALOXONE HCL (KLOXXADO) 8 MG SPRAY NS PRN (14:15)
[2022-05-07] MEDS ORDERED: METHOCARBAMOL 500 MG TABLET PO PRN (14:15)
[2022-05-07] MEDS ORDERED: NICOTINE POLACRILEX 4 MG GUM BUC PRN (14:20)
[2022-05-07] MEDS ORDERED: chlordiazePOXIDE HCL 25 MG CAPSULE ONE (15:17)
[2022-05-07] MEDS: chlordiazePOXIDE HCL 25 MG CAPSULE PO SCH ×2 (17:57→22:45)
[2022-05-07] MEDS: THIAMINE HCL 100 MG TABLET (FP) PO SCH (22:44)
[2022-05-07] MEDS: MELATONIN 5 MG TABLETS PO SCH (22:44)
[2022-05-07] MEDS: IBUPROFEN 600 MG TABLET (FP) PO PRN (22:46)
[2022-05-08] MEDS: chlordiazePOXIDE HCL 25 MG CAPSULE PO SCH ×4 (06:00→22:22)
[2022-05-08] MEDS ORDERED: TAMSULOSIN HCL 0.4 MG CAP PO SCH (08:30)
[2022-05-08] MEDS: TAMSULOSIN HCL 0.4 MG CAP PO SCH (09:24)
[2022-05-08] MEDS: PRENATAL VITAMINS W/ FOLIC ACID TABLET (FP) PO SCH (10:26)
[2022-05-08] MEDS: IBUPROFEN 600 MG TABLET (FP) PO PRN (10:27)
[2022-05-08 10:28] LABS: CALCIUM 9.1 mg/dL (8.5-10.1)
[2022-05-08 10:29] LABS: ALBUMIN 3.2 g/dl (3.4-5.0); BLOOD UREA NITROGEN 13.2 mg/dL (7-18); HEMATOCRIT 38.8 % (35.4-49); HEMOGLOBIN 13.6 GM/dL (11.7-16.9); MCH 28.2 pg (25.7-33.7); MEAN CELL VOLUME 80.4 fl (80-96); MEAN PLT VOLUME 9.5 fl (7.5-11.1); PLATELET COUNT 165 10^3/uL (134-434); RBC 4.83 M/mm3 (4.00-5.60); RDW 16.2 % (11.9-15.9); WHITE BLOOD COUNT 6.8 K/mm3 (4.0-10.0)
[2022-05-08 10:34] LABS: BILIRUBIN,TOTAL 0.6 mg/dL (0.2-1); TOT PROT 7.1 g/dl (6.4-8.2)
[2022-05-08] MEDS ORDERED: OLANZapine 2.5 MG TABLET PO ONE ×3 (10:58→14:00)
[2022-05-08] MEDS: INDOMETHACIN 50 MG CAPSULE PO SCH ×2 (13:53→22:21)
[2022-05-08] MEDS: THIAMINE HCL 100 MG TABLET (FP) PO SCH (22:22)
[2022-05-08] MEDS: MELATONIN 5 MG TABLETS PO SCH (22:22)
[2022-05-09] MEDS: ACETAMINOPHEN 325 MG TABLET (FP) PO PRN ×2 (03:48→10:16)
[2022-05-09] MEDS: chlordiazePOXIDE HCL 25 MG CAPSULE PO SCH ×4 (06:49→22:38)
[2022-05-09] MEDS: TAMSULOSIN HCL 0.4 MG CAP PO SCH (09:03)
[2022-05-09] MEDS: PRENATAL VITAMINS W/ FOLIC ACID TABLET (FP) PO SCH (10:13)
[2022-05-09] MEDS: OLANZapine 2.5 MG TABLET PO SCH (10:13)
[2022-05-09] MEDS: INDOMETHACIN 25 MG CAPSULE PO SCH ×2 (10:13→22:38)
[2022-05-09] MEDS ORDERED: diphenhydrAMINE HCL 50 MG CAPSULE PO PRN (10:54)
[2022-05-09] MEDS: THIAMINE HCL 100 MG TABLET (FP) PO SCH (22:38)
[2022-05-10] MEDS ORDERED: chlordiazePOXIDE HCL 10 MG CAPSULE PO PRN
[2022-05-10] MEDS: chlordiazePOXIDE HCL 10 MG CAPSULE PO SCH ×4 (05:20→22:36)
[2022-05-10] MEDS: TAMSULOSIN HCL 0.4 MG CAP PO SCH (08:56)
[2022-05-10] MEDS: INDOMETHACIN 25 MG CAPSULE PO SCH ×2 (10:08→22:36)
[2022-05-10] MEDS: OLANZapine 2.5 MG TABLET PO SCH (10:08)
[2022-05-10] MEDS: PRENATAL VITAMINS W/ FOLIC ACID TABLET (FP) PO SCH (10:08)
[2022-05-10] MEDS: ACETAMINOPHEN 325 MG TABLET (FP) PO PRN (10:11)
[2022-05-10] MEDS: METHOCARBAMOL 500 MG TABLET PO PRN (17:27)
[2022-05-10 21:23] VITALS: TEMP 97.7
[2022-05-10] MEDS: THIAMINE HCL 100 MG TABLET (FP) PO SCH (22:38)
[2022-05-11] MEDS ORDERED: chlordiazePOXIDE HCL 10 MG CAPSULE PO SCH (05:00)
[2022-05-11] MEDS: TAMSULOSIN HCL 0.4 MG CAP PO SCH (09:10)
[2022-05-11 09:57] VITALS: BP 101/61; PULSE 63; RESP 16
[2022-05-11] MEDS: INDOMETHACIN 25 MG CAPSULE PO SCH (11:23)
[2022-05-11] MEDS: METHOCARBAMOL 500 MG TABLET PO PRN (11:23)
[2022-05-11] MEDS: PRENATAL VITAMINS W/ FOLIC ACID TABLET (FP) PO SCH (11:24)
[2022-05-11] MEDS: ACETAMINOPHEN 325 MG TABLET (FP) PO PRN (11:24)
[2022-05-11] MEDS: OLANZapine 2.5 MG TABLET PO SCH (11:26)
[2022-05-12] MEDS ORDERED: chlordiazePOXIDE HCL 10 MG CAPSULE PO ONE (05:00)
== END 2022-05-11 12:09 | disposition home or self-care (01) | DRG 897 ==
LOC: YASAS 12:14 → Y3N 14:14
PROVIDERS: ADMIT Allergy & Immunology; ATTEND Surgery
PROC: HZ2ZZZZ Detoxification Services for Substance Abuse Treatment (ICD-10-PCS; principal; 2022-05-07)
DX: F10.230 Alcohol dependence with withdrawal, uncomplicated (principal); F14.20 Cocaine dependence, uncomplicated; F17.210 Nicotine dependence, cigarettes, uncomplicated; F19.24 Other psychoactive substance dependence with psychoactive substance-induced mood disorder; F25.1 Schizoaffective disorder, depressive type; K21.9 Gastro-esophageal reflux disease without esophagitis; M1A.20X0 Drug-induced chronic gout, unspecified site, without tophus (tophi); M54.50 Low back pain, unspecified; G89.29 Other chronic pain; R94.31 Abnormal electrocardiogram [ECG] [EKG]; Z86.19 Personal history of other infectious and parasitic diseases; Z88.8 Allergy status to other drugs, medicaments and biological substances
CPT/HCPCS: 36415; 80053; 85027; 86593; 86780; 87811; C9803-CS; U0003; U0005

== ENCOUNTER 2022-07-06 09:45 | Inpatient (IN) | payer OTHER ==
[2022-07-06 10:37] VITALS: BMI 26.6
[2022-07-06] MEDS ORDERED: NALOXONE HCL (KLOXXADO) 8 MG SPRAY NS PRN (11:26)
[2022-07-06] MEDS ORDERED: LOPERAMIDE HCL 2 MG CAPSULE PO PRN (11:26)
[2022-07-06] MEDS ORDERED: NALOXONE HCL 0.4 MG/ML VIAL IM PRN (11:26)
[2022-07-06] MEDS ORDERED: DICYCLOMINE HCL 10 MG CAPSULE PO PRN (11:26)
[2022-07-06] MEDS ORDERED: POLYETHYLENE GLYCOL (HEALTHYLAX) 3350 17 GM PACKET PO PRN (11:26)
[2022-07-06] MEDS ORDERED: BENZONATATE 200 MG CAPSULE PO PRN (11:26)
[2022-07-06] MEDS ORDERED: NICOTINE 10 MG CARTRIDGE (INHALER) IH PRN (11:26)
[2022-07-06] MEDS ORDERED: BISMUTH SUBSALICYLATE 524 MG/30 ML PO PRN (11:26)
[2022-07-06] MEDS ORDERED: MAGNESIUM HYDROX 2400MG/30ML ORAL SUSPENSION 30 ML CUP PO PRN (11:26)
[2022-07-06] MEDS ORDERED: BENZOCAINE/MENTHOL (CHLORASEPTIC ) LOZENGE MM PRN (11:26)
[2022-07-06] MEDS ORDERED: guaiFENesin 600 MG TABLET.ER (FP) PO PRN (11:26)
[2022-07-06] MEDS ORDERED: MAG HYDROX/AL HYDROX/SIMETH 30 ML UNIT-DOSE CUP PO PRN (11:26)
[2022-07-06] MEDS ORDERED: IBUPROFEN 400 MG TABLET (FP) PO PRN (11:26)
[2022-07-06] MEDS ORDERED: ACETAMINOPHEN 325 MG TABLET (FP) PO PRN (11:26)
[2022-07-06] MEDS ORDERED: ONDANSETRON *ODT* 4 MG TABLET SL PRN (11:26)
[2022-07-06] MEDS ORDERED: IBUPROFEN 600 MG TABLET (FP) PO PRN (11:26)
[2022-07-06] MEDS: METHOCARBAMOL 500 MG TABLET PO PRN ×3 (12:04→22:31)
[2022-07-06] MEDS ORDERED: METHOCARBAMOL 500 MG TABLET ONE (12:24)
[2022-07-06] MEDS: hydrOXYzine PAMOATE 25 MG CAPSULE (FP) PO PRN ×2 (12:41→22:31)
[2022-07-06 14:05] LABS: HEMATOCRIT 36.8 % (35.4-49); HEMOGLOBIN 12.8 GM/dL (11.7-16.9); MCH 27.9 pg (25.7-33.7); MCHC 34.9 g/dl (32.0-35.9); MEAN CELL VOLUME 79.9 fl (80-96); PLATELET COUNT 174 10^3/uL (134-434); RBC 4.61 M/mm3 (4.00-5.60); RDW 16.6 % (11.9-15.9); WHITE BLOOD COUNT 6.9 K/mm3 (4.0-10.0)
[2022-07-06 15:24] LABS: POTASSIUM 4.3 mmol/L (3.5-5.1)
[2022-07-06 15:38] LABS: ALBUMIN 3.4 g/dl (3.4-5.0); BLOOD UREA NITROGEN 12.2 mg/dL (7-18); CALCIUM 8.9 mg/dL (8.5-10.1)
[2022-07-06 15:41] LABS: CREATININE 0.8 mg/dL (0.55-1.3)
[2022-07-06 15:43] LABS: BILIRUBIN,TOTAL 0.8 mg/dL (0.2-1); TOT PROT 7.4 g/dl (6.4-8.2)
[2022-07-06] MEDS: THIAMINE HCL 100 MG TABLET (FP) PO SCH (22:32)
[2022-07-06] MEDS: MELATONIN 5 MG TABLETS PO SCH (22:33)
[2022-07-07] MEDS ORDERED: diazePAM 5 MG TABLET PO PRN (09:42)
[2022-07-07] MEDS: NICOTINE 14 MG/24 HOURS TOPICAL PATCH TD SCH (10:31)
[2022-07-07] MEDS: PRENATAL VITAMINS W/ FOLIC ACID TABLET (FP) PO SCH (10:31)
[2022-07-07] MEDS: hydrOXYzine PAMOATE 25 MG CAPSULE (FP) PO PRN ×2 (10:34→22:16)
[2022-07-07] MEDS: METHOCARBAMOL 500 MG TABLET PO PRN ×2 (10:34→22:16)
[2022-07-07] MEDS: diazePAM 5 MG TABLET PO SCH ×3 (10:35→22:17)
[2022-07-07] MEDS: TAMSULOSIN HCL 0.4 MG CAP PO SCH (10:39)
[2022-07-07] MEDS: THIAMINE HCL 100 MG TABLET (FP) PO SCH (22:15)
[2022-07-07] MEDS: MELATONIN 5 MG TABLETS PO SCH (22:17)
[2022-07-08] MEDS ORDERED: diazePAM 5 MG TABLET PO SCH (06:00)
[2022-07-08 09:30] VITALS: BP 137/77; PULSE 62; RESP 18; TEMP 97.8
[2022-07-08] MEDS ORDERED: OLANZapine 2.5 MG TABLET PO SCH (10:00)
[2022-07-08] MEDS: NICOTINE 14 MG/24 HOURS TOPICAL PATCH TD SCH (10:07)
[2022-07-08] MEDS: PRENATAL VITAMINS W/ FOLIC ACID TABLET (FP) PO SCH (10:08)
[2022-07-08] MEDS: TAMSULOSIN HCL 0.4 MG CAP PO SCH (10:08)
[2022-07-09] MEDS ORDERED: diazePAM 5 MG TABLET PO ONE (06:00)
== END 2022-07-08 11:23 | disposition home or self-care (01) | DRG 897 ==
LOC: YASAS 09:45 → Y6N 11:51
PROVIDERS: ADMIT Allergy & Immunology; ATTEND Surgery
PROC: HZ2ZZZZ Detoxification Services for Substance Abuse Treatment (ICD-10-PCS; principal; 2022-07-06)
DX: F10.230 Alcohol dependence with withdrawal, uncomplicated (principal); F14.20 Cocaine dependence, uncomplicated; F19.282 Other psychoactive substance dependence with psychoactive substance-induced sleep disorder; F17.210 Nicotine dependence, cigarettes, uncomplicated; F20.9 Schizophrenia, unspecified; F19.24 Other psychoactive substance dependence with psychoactive substance-induced mood disorder; J44.9 Chronic obstructive pulmonary disease, unspecified; K21.9 Gastro-esophageal reflux disease without esophagitis; M10.9 Gout, unspecified; M54.50 Low back pain, unspecified; G89.29 Other chronic pain; Z86.19 Personal history of other infectious and parasitic diseases; Z88.8 Allergy status to other drugs, medicaments and biological substances
CPT/HCPCS: 36415; 80053; 82140; 85027; 86593; 86780; C9803-CS; U0003; U0005

== ENCOUNTER 2022-08-05 13:32 | Inpatient (IN) | payer OTHER ==
[2022-08-05 14:03] VITALS: BMI 24.6
[2022-08-05] MEDS ORDERED: POLYETHYLENE GLYCOL (HEALTHYLAX) 3350 17 GM PACKET PO PRN (18:44)
[2022-08-05] MEDS ORDERED: ACETAMINOPHEN 325 MG TABLET (FP) PO PRN (18:44)
[2022-08-05] MEDS ORDERED: MAGNESIUM HYDROX 2400MG/30ML ORAL SUSPENSION 30 ML CUP PO PRN (18:44)
[2022-08-05] MEDS ORDERED: NICOTINE 10 MG CARTRIDGE (INHALER) IH PRN (18:44)
[2022-08-05] MEDS ORDERED: MAG HYDROX/AL HYDROX/SIMETH 30 ML UNIT-DOSE CUP PO PRN (18:44)
[2022-08-05] MEDS ORDERED: BISMUTH SUBSALICYLATE 524 MG/30 ML PO PRN (18:44)
[2022-08-05] MEDS ORDERED: BENZOCAINE/MENTHOL (CHLORASEPTIC ) LOZENGE MM PRN (18:44)
[2022-08-05] MEDS ORDERED: BENZONATATE 200 MG CAPSULE PO PRN (18:44)
[2022-08-05] MEDS ORDERED: LOPERAMIDE HCL 2 MG CAPSULE PO PRN (18:44)
[2022-08-05] MEDS ORDERED: DICYCLOMINE HCL 10 MG CAPSULE PO PRN (18:44)
[2022-08-05] MEDS ORDERED: NALOXONE HCL (KLOXXADO) 8 MG SPRAY NS PRN (18:44)
[2022-08-05] MEDS ORDERED: NICOTINE POLACRILEX 2 MG GUM BUC PRN (18:44)
[2022-08-05] MEDS ORDERED: NALOXONE HCL 0.4 MG/ML VIAL IM PRN (18:44)
[2022-08-05] MEDS ORDERED: guaiFENesin 600 MG TABLET.ER (FP) PO PRN (18:44)
[2022-08-05] MEDS ORDERED: IBUPROFEN 600 MG TABLET (FP) PO PRN (18:44)
[2022-08-05] MEDS: MELATONIN 5 MG TABLETS PO SCH (23:10)
[2022-08-05] MEDS: THIAMINE HCL 100 MG TABLET (FP) PO SCH (23:11)
[2022-08-05] MEDS: LORazepam 2 MG TABLET PO SCH (23:52)
[2022-08-06] MEDS: LORazepam 1 MG TABLET PO PRN ×4 (05:22→17:29)
[2022-08-06] MEDS: LORazepam 2 MG TABLET PO SCH ×3 (05:29→18:27)
[2022-08-06] MEDS: METHOCARBAMOL 500 MG TABLET PO PRN ×2 (10:37→17:55)
[2022-08-06] MEDS: hydrOXYzine PAMOATE 25 MG CAPSULE (FP) PO PRN ×2 (10:37→22:54)
[2022-08-06] MEDS: PRENATAL VITAMINS W/ FOLIC ACID TABLET (FP) PO SCH (10:37)
[2022-08-06] MEDS ORDERED: LORazepam 1 MG TABLET PO SCH (17:05)
[2022-08-06] MEDS: THIAMINE HCL 100 MG TABLET (FP) PO SCH (22:52)
[2022-08-06] MEDS: OLANZapine 2.5 MG TABLET PO SCH (22:52)
[2022-08-06] MEDS: MELATONIN 5 MG TABLETS PO SCH (22:53)
[2022-08-07] MEDS: LORazepam 1 MG TABLET PO SCH ×4 (05:53→22:17)
[2022-08-07] MEDS: PRENATAL VITAMINS W/ FOLIC ACID TABLET (FP) PO SCH (10:54)
[2022-08-07] MEDS: IBUPROFEN 400 MG TABLET (FP) PO PRN (10:57)
[2022-08-07] MEDS: METHOCARBAMOL 500 MG TABLET PO PRN ×2 (10:57→22:19)
[2022-08-07] MEDS ORDERED: TAMSULOSIN HCL 0.4 MG CAP PO SCH (22:00)
[2022-08-07] MEDS: THIAMINE HCL 100 MG TABLET (FP) PO SCH (22:17)
[2022-08-07] MEDS: MELATONIN 5 MG TABLETS PO SCH (22:17)
[2022-08-07] MEDS: OLANZapine 2.5 MG TABLET PO SCH (22:17)
[2022-08-08] MEDS ORDERED: LORazepam 0.5 MG TABLET PO PRN
[2022-08-08] MEDS: LORazepam 0.5 MG TABLET PO SCH ×3 (05:43→17:49)
[2022-08-08] MEDS: PRENATAL VITAMINS W/ FOLIC ACID TABLET (FP) PO SCH (10:17)
[2022-08-08] MEDS: IBUPROFEN 400 MG TABLET (FP) PO PRN (10:19)
[2022-08-08] MEDS: METHOCARBAMOL 500 MG TABLET PO PRN ×2 (10:19→17:27)
[2022-08-08 17:39] VITALS: BP 118/71; PULSE 62; RESP 18; TEMP 97.5
[2022-08-09] MEDS ORDERED: LORazepam 0.5 MG TABLET PO ONE (05:00)
== END 2022-08-08 18:27 | disposition home or self-care (01) | DRG 897 ==
LOC: YASAS 13:32 → Y6N 19:09
PROVIDERS: ADMIT Allergy & Immunology; ATTEND Surgery
PROC: HZ2ZZZZ Detoxification Services for Substance Abuse Treatment (ICD-10-PCS; principal; 2022-08-05)
DX: F10.230 Alcohol dependence with withdrawal, uncomplicated (principal); F14.20 Cocaine dependence, uncomplicated; F12.20 Cannabis dependence, uncomplicated; F17.210 Nicotine dependence, cigarettes, uncomplicated; F19.24 Other psychoactive substance dependence with psychoactive substance-induced mood disorder; F20.9 Schizophrenia, unspecified; M54.50 Low back pain, unspecified; G89.29 Other chronic pain; Z86.19 Personal history of other infectious and parasitic diseases; Z88.8 Allergy status to other drugs, medicaments and biological substances
CPT/HCPCS: 87635; 87811; 93005; 93010

== ENCOUNTER 2022-10-03 14:54 | Inpatient (IN) | payer OTHER ==
[2022-10-03 19:43] VITALS: BMI 26.6
[2022-10-03] MEDS ORDERED: ONDANSETRON *ODT* 4 MG TABLET SL PRN (20:17)
[2022-10-03] MEDS ORDERED: guaiFENesin 600 MG TABLET.ER (FP) PO PRN (20:17)
[2022-10-03] MEDS ORDERED: BENZONATATE 200 MG CAPSULE PO PRN (20:17)
[2022-10-03] MEDS ORDERED: MAGNESIUM HYDROX 2400MG/30ML ORAL SUSPENSION 30 ML CUP PO PRN (20:17)
[2022-10-03] MEDS ORDERED: NICOTINE POLACRILEX 2 MG GUM BUC PRN (20:17)
[2022-10-03] MEDS ORDERED: P-EPHED 60MG/TRIPROLIDI 2.5MG TABLET PO PRN (20:17)
[2022-10-03] MEDS ORDERED: IBUPROFEN 400 MG TABLET (FP) PO PRN (20:17)
[2022-10-03] MEDS ORDERED: BENZOCAINE/MENTHOL (CHLORASEPTIC ) LOZENGE MM PRN (20:17)
[2022-10-03] MEDS ORDERED: LOPERAMIDE HCL 2 MG CAPSULE PO PRN (20:17)
[2022-10-03] MEDS ORDERED: MAG HYDROX/AL HYDROX/SIMETH 30 ML UNIT-DOSE CUP PO PRN (20:17)
[2022-10-03] MEDS ORDERED: BISMUTH SUBSALICYLATE 524 MG/30 ML PO PRN (20:17)
[2022-10-03] MEDS ORDERED: IBUPROFEN 600 MG TABLET (FP) PO PRN (20:17)
[2022-10-03] MEDS ORDERED: DICYCLOMINE HCL 10 MG CAPSULE PO PRN (20:17)
[2022-10-03] MEDS ORDERED: POLYETHYLENE GLYCOL (HEALTHYLAX) 3350 17 GM PACKET PO PRN (20:17)
[2022-10-03] MEDS: THIAMINE HCL 100 MG TABLET (FP) PO SCH (21:41)
[2022-10-03] MEDS: METHOCARBAMOL 500 MG TABLET PO PRN (21:41)
[2022-10-03] MEDS: TAMSULOSIN HCL 0.4 MG CAP PO SCH (21:41)
[2022-10-03] MEDS: MELATONIN 5 MG TABLETS PO SCH (21:41)
[2022-10-04] MEDS: PRENATAL VITAMINS W/ FOLIC ACID TABLET (FP) PO SCH (09:40)
[2022-10-04 10:46] LABS: HEMATOCRIT 35.4 % (35.4-49); HEMOGLOBIN 12.5 GM/dL (11.7-16.9); MCH 28.3 pg (25.7-33.7); MCHC 35.2 g/dl (32.0-35.9); MEAN CELL VOLUME 80.5 fl (80-96); MEAN PLT VOLUME 9.4 fl (7.5-11.1); PLATELET COUNT 192 10^3/uL (134-434); RDW 15.6 % (11.9-15.9); WHITE BLOOD COUNT 8.2 K/mm3 (4.0-10.0)
[2022-10-04 11:08] LABS: POTASSIUM 4.2 mmol/L (3.5-5.1)
[2022-10-04 12:00] LABS: CALCIUM 8.6 mg/dL (8.5-10.1)
[2022-10-04 12:01] LABS: BLOOD UREA NITROGEN 12.1 mg/dL (7-18)
[2022-10-04 12:04] LABS: CREATININE 0.9 mg/dL (0.55-1.3)
[2022-10-04 12:06] LABS: BILIRUBIN,TOTAL 0.3 mg/dL (0.2-1); TOT PROT 6.6 g/dl (6.4-8.2)
[2022-10-04] MEDS: METHOCARBAMOL 500 MG TABLET PO PRN ×2 (14:54→22:33)
[2022-10-04] MEDS ORDERED: OLANZapine 2.5 MG TABLET PO SCH (22:00)
[2022-10-04] MEDS: MELATONIN 5 MG TABLETS PO SCH (22:32)
[2022-10-04] MEDS: ACETAMINOPHEN 325 MG TABLET (FP) PO PRN (22:33)
[2022-10-04] MEDS: THIAMINE HCL 100 MG TABLET (FP) PO SCH (22:33)
[2022-10-04] MEDS: TAMSULOSIN HCL 0.4 MG CAP PO SCH (22:33)
[2022-10-05 06:26] VITALS: RESP 18
[2022-10-05] MEDS: PRENATAL VITAMINS W/ FOLIC ACID TABLET (FP) PO SCH (09:13)
[2022-10-05] MEDS: ACETAMINOPHEN 325 MG TABLET (FP) PO PRN (09:13)
[2022-10-05 09:21] VITALS: BP 95/63; PULSE 95; TEMP 97.6
== END 2022-10-05 09:47 | disposition home or self-care (01) | DRG 897 ==
LOC: YASAS 14:54 → Y3N 20:35
PROVIDERS: ADMIT Allergy & Immunology; ATTEND Surgery
PROC: HZ2ZZZZ Detoxification Services for Substance Abuse Treatment (ICD-10-PCS; principal; 2022-10-03)
DX: F10.20 Alcohol dependence, uncomplicated (principal); F14.20 Cocaine dependence, uncomplicated; F12.20 Cannabis dependence, uncomplicated; F17.210 Nicotine dependence, cigarettes, uncomplicated; F19.24 Other psychoactive substance dependence with psychoactive substance-induced mood disorder; K21.9 Gastro-esophageal reflux disease without esophagitis; Z86.59 Personal history of other mental and behavioral disorders; Z56.0 Unemployment, unspecified; Z59.00 Homelessness unspecified; Z88.8 Allergy status to other drugs, medicaments and biological substances; Z91.199 Patient's noncompliance with other medical treatment and regimen due to unspecified reason
CPT/HCPCS: 36415; 80053; 85027; 86593; 86780; 87635

== ENCOUNTER 2023-01-17 12:32 | Inpatient (IN) | payer OTHER ==
[2023-01-17 13:06] VITALS: BMI 25.5
[2023-01-17] MEDS ORDERED: MAG HYDROX/AL HYDROX/SIMETH 30 ML UNIT-DOSE CUP PO PRN (14:11)
[2023-01-17] MEDS ORDERED: IBUPROFEN 400 MG TABLET (FP) PO PRN (14:11)
[2023-01-17] MEDS ORDERED: BENZONATATE 200 MG CAPSULE PO PRN (14:11)
[2023-01-17] MEDS ORDERED: ACETAMINOPHEN 325 MG TABLET (FP) PO PRN (14:11)
[2023-01-17] MEDS ORDERED: IBUPROFEN 600 MG TABLET (FP) PO PRN (14:11)
[2023-01-17] MEDS ORDERED: POLYETHYLENE GLYCOL (HEALTHYLAX) 3350 17 GM PACKET PO PRN (14:11)
[2023-01-17] MEDS ORDERED: DICYCLOMINE HCL 10 MG CAPSULE PO PRN (14:11)
[2023-01-17] MEDS ORDERED: MAGNESIUM HYDROX 2400MG/30ML ORAL SUSPENSION 30 ML CUP PO PRN (14:11)
[2023-01-17] MEDS ORDERED: NALOXONE HCL 0.4 MG/ML VIAL IM PRN (14:11)
[2023-01-17] MEDS ORDERED: guaiFENesin 600 MG TABLET.ER (FP) PO PRN (14:11)
[2023-01-17] MEDS ORDERED: BISMUTH SUBSALICYLATE 262 MG/15 ML BTL PO PRN (14:11)
[2023-01-17] MEDS ORDERED: hydrOXYzine PAMOATE 25 MG CAPSULE (FP) PO PRN (14:11)
[2023-01-17] MEDS ORDERED: BENZOCAINE/MENTHOL (CHLORASEPTIC ) LOZENGE MM PRN (14:11)
[2023-01-17] MEDS ORDERED: NALOXONE HCL (KLOXXADO) 8 MG SPRAY NS PRN (14:11)
[2023-01-17] MEDS ORDERED: LOPERAMIDE HCL 2 MG CAPSULE PO PRN (14:11)
[2023-01-17] MEDS ORDERED: ONDANSETRON *ODT* 4 MG TABLET SL PRN (14:11)
[2023-01-17] MEDS ORDERED: PRENATAL VITAMINS W/ FOLIC ACID TABLET (FP) PO ONE (15:11)
[2023-01-17] MEDS: PRENATAL VITAMINS W/ FOLIC ACID TABLET (FP) PO SCH (15:12)
[2023-01-17] MEDS: METHOCARBAMOL 500 MG TABLET PO PRN ×2 (15:56→22:51)
[2023-01-17] MEDS: MELATONIN 5 MG TABLETS PO SCH (22:51)
[2023-01-17] MEDS: THIAMINE HCL 100 MG TABLET (FP) PO SCH (22:51)
[2023-01-18] MEDS ORDERED: COLLOIDAL OATMEAL 1 BAR EACH TP PRN (09:49)
[2023-01-18] MEDS ORDERED: chlordiazePOXIDE HCL 25 MG CAPSULE PO PRN (09:49)
[2023-01-18] MEDS: PRENATAL VITAMINS W/ FOLIC ACID TABLET (FP) PO SCH (10:15)
[2023-01-18] MEDS: chlordiazePOXIDE HCL 25 MG CAPSULE PO SCH ×3 (10:15→22:24)
[2023-01-18] MEDS: METHOCARBAMOL 500 MG TABLET PO PRN (10:17)
[2023-01-18] MEDS ORDERED: TAMSULOSIN HCL 0.4 MG CAP PO SCH (22:00)
[2023-01-18] MEDS: MELATONIN 5 MG TABLETS PO SCH (22:24)
[2023-01-18] MEDS: THIAMINE HCL 100 MG TABLET (FP) PO SCH (22:24)
[2023-01-19] MEDS: chlordiazePOXIDE HCL 25 MG CAPSULE PO SCH ×2 (05:22→10:11)
[2023-01-19] MEDS: PRENATAL VITAMINS W/ FOLIC ACID TABLET (FP) PO SCH (10:11)
[2023-01-19] MEDS: METHOCARBAMOL 500 MG TABLET PO PRN (10:13)
[2023-01-19 13:23] VITALS: BP 149/88; PULSE 60; RESP 18; TEMP 98.2
[2023-01-20] MEDS ORDERED: chlordiazePOXIDE HCL 25 MG CAPSULE PO SCH (05:00)
[2023-01-21] MEDS ORDERED: chlordiazePOXIDE HCL 10 MG CAPSULE PO PRN
[2023-01-21] MEDS ORDERED: chlordiazePOXIDE HCL 10 MG CAPSULE PO SCH (05:00)
[2023-01-22] MEDS ORDERED: chlordiazePOXIDE HCL 10 MG CAPSULE PO SCH (05:00)
[2023-01-23] MEDS ORDERED: chlordiazePOXIDE HCL 10 MG CAPSULE PO ONE (05:00)
== END 2023-01-19 13:25 | disposition left against medical advice (07) | DRG 894 ==
LOC: YASAS 12:32 → Y3N 14:42
PROVIDERS: ADMIT Allergy & Immunology; ATTEND Surgery
PROC: HZ2ZZZZ Detoxification Services for Substance Abuse Treatment (ICD-10-PCS; principal; 2023-01-17)
DX: F10.230 Alcohol dependence with withdrawal, uncomplicated (principal); F14.20 Cocaine dependence, uncomplicated; F17.210 Nicotine dependence, cigarettes, uncomplicated; F20.9 Schizophrenia, unspecified; F41.9 Anxiety disorder, unspecified; F32.A Depression, unspecified; K21.9 Gastro-esophageal reflux disease without esophagitis; M1A.20X0 Drug-induced chronic gout, unspecified site, without tophus (tophi); M54.50 Low back pain, unspecified; G89.29 Other chronic pain; N40.0 Benign prostatic hyperplasia without lower urinary tract symptoms; Z86.19 Personal history of other infectious and parasitic diseases; Z88.8 Allergy status to other drugs, medicaments and biological substances
CPT/HCPCS: 87635; 87811

== ENCOUNTER 2023-03-18 11:03 | Inpatient (IN) | payer OTHER ==
[2023-03-18 11:43] VITALS: BMI 23.6
[2023-03-18] MEDS ORDERED: METHOCARBAMOL 500 MG TABLET PO PRN (13:52)
[2023-03-18] MEDS ORDERED: MAG HYDROX/AL HYDROX/SIMETH 30 ML UNIT-DOSE CUP PO PRN (13:52)
[2023-03-18] MEDS ORDERED: IBUPROFEN 600 MG TABLET (FP) PO PRN (13:52)
[2023-03-18] MEDS ORDERED: BENZOCAINE/MENTHOL (CHLORASEPTIC ) LOZENGE MM PRN (13:52)
[2023-03-18] MEDS ORDERED: NALOXONE HCL 0.4 MG/ML VIAL IM PRN (13:52)
[2023-03-18] MEDS ORDERED: hydrOXYzine PAMOATE 25 MG CAPSULE (FP) PO PRN (13:52)
[2023-03-18] MEDS ORDERED: POLYETHYLENE GLYCOL (HEALTHYLAX) 3350 17 GM PACKET PO PRN (13:52)
[2023-03-18] MEDS ORDERED: LOPERAMIDE HCL 2 MG CAPSULE PO PRN (13:52)
[2023-03-18] MEDS ORDERED: ONDANSETRON *ODT* 4 MG TABLET SL PRN (13:52)
[2023-03-18] MEDS ORDERED: guaiFENesin 600 MG TABLET.ER (FP) PO PRN (13:52)
[2023-03-18] MEDS ORDERED: BENZONATATE 200 MG CAPSULE PO PRN (13:52)
[2023-03-18] MEDS ORDERED: NALOXONE HCL (KLOXXADO) 8 MG SPRAY NS PRN (13:52)
[2023-03-18] MEDS ORDERED: NICOTINE 21 MG/24 HOURS TOPICAL PATCH TD PRN (13:52)
[2023-03-18] MEDS ORDERED: ACETAMINOPHEN 325 MG TABLET (FP) PO PRN (13:52)
[2023-03-18] MEDS ORDERED: NICOTINE POLACRILEX 2 MG LOZENGE BC PRN (13:52)
[2023-03-18] MEDS ORDERED: BISMUTH SUBSALICYLATE 524 MG/30 ML PO PRN (13:52)
[2023-03-18] MEDS ORDERED: MAGNESIUM HYDROX 2400MG/30ML ORAL SUSPENSION 30 ML CUP PO PRN (13:52)
[2023-03-18] MEDS ORDERED: IBUPROFEN 400 MG TABLET (FP) PO PRN (13:52)
[2023-03-18] MEDS ORDERED: DICYCLOMINE HCL 10 MG CAPSULE PO PRN (13:52)
[2023-03-18 20:51] VITALS: RESP 16
[2023-03-18] MEDS ORDERED: THIAMINE HCL 100 MG TABLET (FP) PO SCH (22:00)
[2023-03-18] MEDS ORDERED: MELATONIN 5 MG TABLETS PO SCH (22:00)
[2023-03-19 06:06] VITALS: BP 113/72; PULSE 68; TEMP 98.3
[2023-03-19] MEDS ORDERED: PATIENT'S OWN MEDICATION (NON-FORMULARY) (Meloxicam [Meloxicam] 7.5 MG Tablet) PO SCH (10:00)
[2023-03-19] MEDS ORDERED: PRENATAL VITAMINS W/ FOLIC ACID TABLET (FP) PO SCH (10:00)
[2023-03-19] MEDS ORDERED: OLANZapine 2.5 MG TABLET PO SCH (13:00)
== END 2023-03-19 09:49 | disposition left against medical advice (07) | DRG 894 ==
LOC: YASAS 11:03 → Y3N 15:32
PROVIDERS: ADMIT Allergy & Immunology; ATTEND Allergy & Immunology
PROC: HZ2ZZZZ Detoxification Services for Substance Abuse Treatment (ICD-10-PCS; principal; 2023-03-18)
DX: F10.230 Alcohol dependence with withdrawal, uncomplicated (principal); U07.1 COVID-19; F17.210 Nicotine dependence, cigarettes, uncomplicated; F19.24 Other psychoactive substance dependence with psychoactive substance-induced mood disorder; K21.9 Gastro-esophageal reflux disease without esophagitis; M54.50 Low back pain, unspecified; G89.29 Other chronic pain; N40.1 Benign prostatic hyperplasia with lower urinary tract symptoms; R35.1 Nocturia; Z86.59 Personal history of other mental and behavioral disorders; Z88.8 Allergy status to other drugs, medicaments and biological substances
CPT/HCPCS: 87635; 93005; 93010

== ENCOUNTER 2023-09-24 15:56 | Inpatient (IN) | payer OTHER ==
[2023-09-24 17:34] VITALS: BMI 22.9
[2023-09-24] MEDS ORDERED: ONDANSETRON *ODT* 4 MG TABLET SL PRN (20:02)
[2023-09-24] MEDS ORDERED: LOPERAMIDE HCL 2 MG CAPSULE PO PRN (20:02)
[2023-09-24] MEDS ORDERED: IBUPROFEN 400 MG TABLET (FP) PO PRN (20:02)
[2023-09-24] MEDS ORDERED: guaiFENesin 600 MG TABLET.ER (FP) PO PRN (20:02)
[2023-09-24] MEDS ORDERED: ACETAMINOPHEN 325 MG TABLET (FP) PO PRN (20:02)
[2023-09-24] MEDS ORDERED: NALOXONE (NARCAN) HCL 4 MG/0.1 ML SPRAY NS PRN (20:02)
[2023-09-24] MEDS ORDERED: BENZOCAINE/MENTHOL (CHLORASEPTIC ) LOZENGE MM PRN (20:02)
[2023-09-24] MEDS ORDERED: NALOXONE HCL 0.4 MG/ML VIAL IM PRN (20:02)
[2023-09-24] MEDS ORDERED: MAGNESIUM HYDROX 2400MG/30ML ORAL SUSPENSION 30 ML CUP PO PRN (20:02)
[2023-09-24] MEDS ORDERED: POLYETHYLENE GLYCOL (HEALTHYLAX) 3350 17 GM PACKET PO PRN (20:02)
[2023-09-24] MEDS ORDERED: BENZONATATE 200 MG CAPSULE PO PRN (20:02)
[2023-09-24] MEDS: chlordiazePOXIDE HCL 25 MG CAPSULE PO SCH (22:22)
[2023-09-24] MEDS: THIAMINE 100 MG TABLET PO SCH (22:23)
[2023-09-24] MEDS: MAG HYDROX/AL HYDROX/SIMETH 30 ML UNIT-DOSE CUP PO PRN (22:24)
[2023-09-24] MEDS: MELATONIN 5 MG TABLETS PO SCH (22:25)
[2023-09-25] MEDS: TAMSULOSIN HCL 0.4 MG CAP PO SCH (08:10)
[2023-09-25] MEDS: OLANZapine 2.5 MG TABLET PO SCH (10:16)
[2023-09-25] MEDS: IBUPROFEN 600 MG TABLET (FP) PO PRN (10:16)
[2023-09-25] MEDS: PRENATAL VITAMINS W/ FOLIC ACID TABLET (FP) PO SCH (10:16)
[2023-09-25 11:14] LABS: HEMATOCRIT 36.2 % (35.4-49); HEMOGLOBIN 12.7 GM/dL (11.7-16.9); MCH 28.8 pg (25.7-33.7); MCHC 35.1 g/dl (32.0-35.9); MEAN PLT VOLUME 9.8 fl (7.5-11.1); PLATELET COUNT 145 10^3/uL (134-434); RBC 4.41 M/mm3 (4.00-5.60); RDW 17.2 % (11.9-15.9); WHITE BLOOD COUNT 6.5 K/mm3 (4.0-10.0)
[2023-09-25 11:26] LABS: CHLORIDE 106 mmol/L (98-107); SODIUM 139 mmol/L (136-145)
[2023-09-25 11:28] LABS: CALCIUM 8.7 mg/dL (8.5-10.1)
[2023-09-25 11:29] LABS: ALBUMIN 3.1 g/dl (3.4-5.0); ANION GAP 6 mmol/L (4-13); BLOOD UREA NITROGEN 15.1 mg/dL (7-18); CO2 28 mmol/L (21-32); GLUCOSE,RANDOM 93 mg/dL (74-106)
[2023-09-25 11:31] LABS: SGOT/AST 13 U/L (15-37); SGPT/ALT 15 U/L (13-61)
[2023-09-25 11:35] LABS: ALK PHOS 57 U/L (45-117); BILIRUBIN,TOTAL 0.4 mg/dL (0.2-1); TOT PROT 6.9 g/dl (6.4-8.2)
[2023-09-25] MEDS: DICYCLOMINE HCL 10 MG CAPSULE PO PRN (17:17)
[2023-09-25] MEDS: METHOCARBAMOL 500 MG TABLET PO PRN (17:17)
[2023-09-25] MEDS: chlordiazePOXIDE HCL 25 MG CAPSULE PO PRN (17:17)
[2023-09-25] MEDS: diphenhydrAMINE HCL 25 MG CAPSULE (FP) PO PRN (22:06)
[2023-09-25] MEDS: BISMUTH SUBSALICYLATE 524 MG/30 ML PO PRN (22:09)
[2023-09-26] MEDS: chlordiazePOXIDE HCL 25 MG CAPSULE PO SCH (06:01)
[2023-09-27] MEDS ORDERED: chlordiazePOXIDE HCL 10 MG CAPSULE PO PRN
[2023-09-27] MEDS: chlordiazePOXIDE HCL 10 MG CAPSULE PO SCH (05:47)
[2023-09-27] MEDS: hydrOXYzine PAMOATE 25 MG CAPSULE (FP) PO PRN (09:42)
[2023-09-27 19:49] LABS: EPI CELLS 3 /uL (0-25.1); HYALINE CASTS 0 /uL (0-3.1); PH,URINE 7.5 (5.0-8.0); URINE APPEARANCE CLOUDY; URINE BILIRUBIN NEGATIVE (NEGATIVE); URINE COLOR YELLOW; URINE GLUCOSE (UA) NEGATIVE (NEGATIVE); URINE KETONE NEGATIVE (NEGATIVE); URINE LEUK ESTERASE 3+ (NEGATIVE); URINE NITRITE POSITIVE (NEGATIVE); URINE PROTEIN NEGATIVE (NEGATIVE); URINE RBC 12 /uL (0-23.9); URINE UROBILINOGEN 0.2 mg/dL (0.2-1.0); URINE WBC 1288 /uL (0-25.8)
[2023-09-28] MEDS: chlordiazePOXIDE HCL 10 MG CAPSULE PO SCH (05:52)
[2023-09-28 08:40] VITALS: TEMP 98.7
[2023-09-28] MEDS: NALTREXONE HCL 50 MG TABLET PO SCH (13:26)
[2023-09-28 13:37] VITALS: BP 123/75; PULSE 68; RESP 16
[2023-09-28] MEDS ORDERED: SULFAMETHOXAZOLE/TRIMETHOPRIM 800MG/160MG D.S. TABLET PO SCH (22:00)
[2023-09-29] MEDS ORDERED: chlordiazePOXIDE HCL 10 MG CAPSULE PO ONE (05:00)
[2023-09-29] MEDS ORDERED: INDOMETHACIN 25 MG CAPSULE PO SCH (10:00)
== END 2023-09-28 15:46 | disposition home or self-care (01) | DRG 897 ==
LOC: YASAS 15:56 → SUATTDRO 15:56 → Y6N 19:17
PROVIDERS: ADMIT Allergy & Immunology; ATTEND Surgery
PROC: HZ2ZZZZ Detoxification Services for Substance Abuse Treatment (ICD-10-PCS; principal; 2023-09-24)
DX: F10.230 Alcohol dependence with withdrawal, uncomplicated (principal); F14.20 Cocaine dependence, uncomplicated; F12.20 Cannabis dependence, uncomplicated; F17.210 Nicotine dependence, cigarettes, uncomplicated; F20.9 Schizophrenia, unspecified; F19.94 Other psychoactive substance use, unspecified with psychoactive substance-induced mood disorder; F41.9 Anxiety disorder, unspecified; N40.1 Benign prostatic hyperplasia with lower urinary tract symptoms; M54.59 Other low back pain; G89.29 Other chronic pain; J44.9 Chronic obstructive pulmonary disease, unspecified; K21.9 Gastro-esophageal reflux disease without esophagitis; M1A.20X0 Drug-induced chronic gout, unspecified site, without tophus (tophi); Z88.8 Allergy status to other drugs, medicaments and biological substances; Z86.19 Personal history of other infectious and parasitic diseases; Z56.0 Unemployment, unspecified
CPT/HCPCS: 36415; 80053; 80305; 80307; 81003; 82140; 85027; 86593; 86780; 93005; 93010

== ENCOUNTER 2024-02-26 10:32 | Inpatient (IN) | payer OTHER ==
[2024-02-26 11:02] VITALS: BMI 22.8
[2024-02-26] MEDS ORDERED: DICYCLOMINE HCL 10 MG CAPSULE PO PRN (11:36)
[2024-02-26] MEDS ORDERED: ONDANSETRON *ODT* 4 MG TABLET SL PRN (11:36)
[2024-02-26] MEDS ORDERED: BISMUTH SUBSALICYLATE 262 MG/15 ML BTL PO PRN (11:36)
[2024-02-26] MEDS ORDERED: NALOXONE (NARCAN) HCL 4 MG/0.1 ML SPRAY NS PRN (11:36)
[2024-02-26] MEDS ORDERED: POLYETHYLENE GLYCOL (HEALTHYLAX) 3350 17 GM PACKET PO PRN (11:36)
[2024-02-26] MEDS ORDERED: NICOTINE POLACRILEX 2 MG GUM BUC PRN (11:36)
[2024-02-26] MEDS ORDERED: LOPERAMIDE HCL 2 MG CAPSULE PO PRN (11:36)
[2024-02-26] MEDS ORDERED: guaiFENesin 600 MG TABLET.ER (FP) PO PRN (11:36)
[2024-02-26] MEDS ORDERED: BENZOCAINE/MENTHOL (CHLORASEPTIC ) LOZENGE MM PRN (11:36)
[2024-02-26] MEDS ORDERED: MAGNESIUM HYDROX 2400MG/30ML ORAL SUSPENSION 30 ML CUP PO PRN (11:36)
[2024-02-26] MEDS ORDERED: MAG HYDROX/AL HYDROX/SIMETH 30 ML UNIT-DOSE CUP PO PRN (11:36)
[2024-02-26] MEDS ORDERED: BENZONATATE 200 MG CAPSULE PO PRN (11:36)
[2024-02-26] MEDS ORDERED: ACETAMINOPHEN 325 MG TABLET (FP) PO PRN (11:36)
[2024-02-26] MEDS ORDERED: chlordiazePOXIDE HCL 25 MG CAPSULE PO PRN (11:36)
[2024-02-26] MEDS: LIDOCAINE 5% TOPICAL PATCH TP SCH (12:27)
[2024-02-26] MEDS: TAMSULOSIN HCL 0.4 MG CAP PO SCH (12:28)
[2024-02-26] MEDS: OLANZapine 2.5 MG TABLET PO SCH (15:28)
[2024-02-26] MEDS: chlordiazePOXIDE HCL 25 MG CAPSULE PO SCH (17:40)
[2024-02-26] MEDS: NALTREXONE HCL 50 MG TABLET PO ONE (17:42)
[2024-02-26] MEDS: THIAMINE 100 MG TABLET PO SCH (22:19)
[2024-02-26] MEDS: MELATONIN 5 MG TABLETS PO SCH (22:21)
[2024-02-26] MEDS: LIDOCAINE PATCH REMOVAL MC SCH (22:21)
[2024-02-27] MEDS: PRENATAL VITAMINS W/ FOLIC ACID TABLET (FP) PO SCH (10:23)
[2024-02-27] MEDS: NICOTINE 14 MG/24 HOURS TOPICAL PATCH TD SCH (10:24)
[2024-02-27] MEDS: IBUPROFEN 400 MG TABLET (FP) PO PRN (10:26)
[2024-02-27] MEDS: NALTREXONE HCL 50 MG TABLET PO SCH (10:26)
[2024-02-27] MEDS: IBUPROFEN 600 MG TABLET (FP) PO PRN (17:17)
[2024-02-28] MEDS: chlordiazePOXIDE HCL 25 MG CAPSULE PO SCH (05:25)
[2024-02-28] MEDS: METHOCARBAMOL 500 MG TABLET PO PRN (08:50)
[2024-02-28] MEDS: hydrOXYzine PAMOATE 25 MG CAPSULE (FP) PO PRN (08:50)
[2024-02-28 13:27] VITALS: BP 109/66; PULSE 89; RESP 16; TEMP 96.9
[2024-02-28 15:02] LABS: HEMATOCRIT 37.4 % (35.4-49); HEMOGLOBIN 12.5 GM/dL (11.7-16.9); MCH 28.3 pg (25.7-33.7); MCHC 33.5 g/dl (32.0-35.9); MEAN CELL VOLUME 84.4 fl (80-96); MEAN PLT VOLUME 9.5 fl (7.5-11.1); PLATELET COUNT 149 10^3/uL (134-434); RBC 4.43 M/mm3 (4.00-5.60); RDW 15.4 % (11.9-15.9); WHITE BLOOD COUNT 6.5 K/mm3 (4.0-10.0)
[2024-02-28 15:22] LABS: CREATININE 0.9 mg/dL (0.55-1.3)
[2024-02-28 15:23] LABS: BILIRUBIN,TOTAL 0.3 mg/dL (0.2-1); TOT PROT 6.6 g/dl (6.4-8.2)
[2024-02-28 15:24] LABS: BLOOD UREA NITROGEN 6.8 mg/dL (7-18)
[2024-02-28 15:34] LABS: CALCIUM 9.1 mg/dL (8.5-10.1)
[2024-02-28] MEDS: NALOXONE (NYS OPIOID OVERDOSE PROGRAM) 4 MG/0.1 ML SPRAY NS SCH (15:34)
[2024-02-29] MEDS ORDERED: chlordiazePOXIDE HCL 10 MG CAPSULE PO PRN
[2024-02-29] MEDS ORDERED: chlordiazePOXIDE HCL 10 MG CAPSULE PO SCH (05:00)
[2024-03-01] MEDS ORDERED: chlordiazePOXIDE HCL 10 MG CAPSULE PO SCH (05:00)
[2024-03-02] MEDS ORDERED: chlordiazePOXIDE HCL 10 MG CAPSULE PO ONE (05:00)
== END 2024-02-28 15:15 | disposition home or self-care (01) | DRG 897 ==
LOC: YASAS 10:32 → Y6N 11:47
PROVIDERS: ADMIT Allergy & Immunology; ATTEND Allergy & Immunology
PROC: HZ2ZZZZ Detoxification Services for Substance Abuse Treatment (ICD-10-PCS; principal; 2024-02-26)
DX: F10.230 Alcohol dependence with withdrawal, uncomplicated (principal); F14.20 Cocaine dependence, uncomplicated; F19.282 Other psychoactive substance dependence with psychoactive substance-induced sleep disorder; F19.280 Other psychoactive substance dependence with psychoactive substance-induced anxiety disorder; F12.20 Cannabis dependence, uncomplicated; F17.210 Nicotine dependence, cigarettes, uncomplicated; F20.9 Schizophrenia, unspecified; M1A.20X0 Drug-induced chronic gout, unspecified site, without tophus (tophi); M25.572 Pain in left ankle and joints of left foot; M54.50 Low back pain, unspecified; G89.29 Other chronic pain; N40.1 Benign prostatic hyperplasia with lower urinary tract symptoms; R35.0 Frequency of micturition; R76.11 Nonspecific reaction to tuberculin skin test without active tuberculosis; Z99.89 Dependence on other enabling machines and devices; Z88.8 Allergy status to other drugs, medicaments and biological substances
CPT/HCPCS: 36415; 71046-TC-FY; 80053; 80305; 80307; 85027; 86593; 86780

== ENCOUNTER 2024-03-29 18:29 | Inpatient (IN) | payer OTHER ==
[2024-03-29] MEDS ORDERED: POLYETHYLENE GLYCOL (HEALTHYLAX) 3350 17 GM PACKET PO PRN (19:43)
[2024-03-29] MEDS ORDERED: guaiFENesin 600 MG TABLET.ER (FP) PO PRN (19:43)
[2024-03-29] MEDS ORDERED: BENZOCAINE/MENTHOL (CHLORASEPTIC ) LOZENGE MM PRN (19:43)
[2024-03-29] MEDS ORDERED: NALOXONE HCL 0.4 MG/ML VIAL IVPUSH PRN (19:43)
[2024-03-29] MEDS ORDERED: LOPERAMIDE HCL 2 MG CAPSULE PO PRN (19:43)
[2024-03-29] MEDS ORDERED: NICOTINE POLACRILEX 2 MG GUM BUC PRN (19:43)
[2024-03-29] MEDS ORDERED: BENZONATATE 200 MG CAPSULE PO PRN (19:43)
[2024-03-29] MEDS ORDERED: NALOXONE (NARCAN) HCL 4 MG/0.1 ML SPRAY NS PRN (19:43)
[2024-03-29] MEDS ORDERED: IBUPROFEN 400 MG TABLET (FP) PO PRN (19:43)
[2024-03-29] MEDS ORDERED: P-EPHED 60MG/TRIPROLIDI 2.5MG TABLET PO PRN (19:43)
[2024-03-29] MEDS: THIAMINE 100 MG TABLET PO SCH (22:59)
[2024-03-29] MEDS: MELATONIN 5 MG TABLETS PO SCH (22:59)
[2024-03-29 23:40] VITALS: BMI 25.5
[2024-03-30] MEDS: PRENATAL VITAMINS W/ FOLIC ACID TABLET (FP) PO SCH (09:47)
[2024-03-30] MEDS: OLANZapine 5 MG TABLET PO SCH (09:48)
[2024-03-30] MEDS: NICOTINE POLACRILEX 2 MG LOZENGE BC PRN (09:49)
[2024-03-30] MEDS: MAG HYDROX/AL HYDROX/SIMETH 30 ML UNIT-DOSE CUP PO PRN (09:50)
[2024-03-30] MEDS: ACETAMINOPHEN 325 MG TABLET (FP) PO PRN (09:50)
[2024-03-30] MEDS ORDERED: OLANZapine 2.5 MG TABLET PO SCH (10:00)
[2024-03-30] MEDS: IBUPROFEN 600 MG TABLET (FP) PO PRN (19:13)
[2024-04-01] MEDS: MAGNESIUM HYDROX 2400MG/30ML ORAL SUSPENSION 30 ML CUP PO PRN (09:39)
[2024-04-01] MEDS: TAMSULOSIN HCL 0.4 MG CAP PO SCH (11:21)
[2024-04-01] MEDS: FAMOTIDINE 20 MG TABLET PO SCH (11:21)
[2024-04-01] MEDS: METHOCARBAMOL 500 MG TABLET PO PRN (11:21)
[2024-04-02] MEDS: OLANZapine 2.5 MG TABLET PO SCH (10:23)
[2024-04-02 17:08] VITALS: BP 134/85; PULSE 79; RESP 16; TEMP 97.7
== END 2024-04-02 18:30 | disposition left against medical advice (07) | DRG 894 ==
LOC: YASAS 18:29 → Y3W 22:43 → Y5N 04-02 17:37 → Y3W 04-02 17:39
PROVIDERS: ADMIT Allergy & Immunology; ATTEND Psychiatry & Neurology Pain Medicine
PROC: HZ42ZZZ Group Counseling for Substance Abuse Treatment, Cognitive-Behavioral (ICD-10-PCS; principal; 2024-03-29)
DX: F10.20 Alcohol dependence, uncomplicated (principal); F14.20 Cocaine dependence, uncomplicated; F19.282 Other psychoactive substance dependence with psychoactive substance-induced sleep disorder; Z59.00 Homelessness unspecified; F17.210 Nicotine dependence, cigarettes, uncomplicated; F20.9 Schizophrenia, unspecified; F19.24 Other psychoactive substance dependence with psychoactive substance-induced mood disorder; J44.9 Chronic obstructive pulmonary disease, unspecified; K21.9 Gastro-esophageal reflux disease without esophagitis; N40.1 Benign prostatic hyperplasia with lower urinary tract symptoms; R35.1 Nocturia; M54.50 Low back pain, unspecified; G89.29 Other chronic pain; Z87.01 Personal history of pneumonia (recurrent); Z86.11 Personal history of tuberculosis; Z86.19 Personal history of other infectious and parasitic diseases; Z56.0 Unemployment, unspecified; Z88.8 Allergy status to other drugs, medicaments and biological substances
CPT/HCPCS: 80305; 80307; 87811

== ENCOUNTER 2024-09-07 10:38 | Inpatient (IN) | payer OTHER ==
[2024-09-07 10:55] VITALS: BMI 20.9
[2024-09-07] MEDS ORDERED: MAGNESIUM HYDROX 2400MG/30ML ORAL SUSPENSION 30 ML CUP PO PRN (12:27)
[2024-09-07] MEDS ORDERED: POLYETHYLENE GLYCOL (HEALTHYLAX) 3350 17 GM PACKET PO PRN (12:27)
[2024-09-07] MEDS ORDERED: NALOXONE (NARCAN) HCL 4 MG/0.1 ML SPRAY NS PRN (12:27)
[2024-09-07] MEDS ORDERED: BISMUTH SUBSALICYLATE 524 MG/30 ML PO PRN (12:27)
[2024-09-07] MEDS ORDERED: guaiFENesin 600 MG TABLET.ER (FP) PO PRN (12:27)
[2024-09-07] MEDS ORDERED: NICOTINE 14 MG/24 HOURS TOPICAL PATCH TD PRN (12:27)
[2024-09-07] MEDS ORDERED: BENZONATATE 200 MG CAPSULE PO PRN (12:27)
[2024-09-07] MEDS ORDERED: BENZOCAINE/MENTHOL (CHLORASEPTIC ) LOZENGE MM PRN (12:27)
[2024-09-07] MEDS ORDERED: LOPERAMIDE HCL 2 MG CAPSULE PO PRN (12:27)
[2024-09-07] MEDS ORDERED: NICOTINE POLACRILEX 2 MG LOZENGE BC PRN (12:27)
[2024-09-07] MEDS: IBUPROFEN 600 MG TABLET (FP) PO PRN (13:47)
[2024-09-07] MEDS: METHOCARBAMOL 500 MG TABLET PO PRN (13:47)
[2024-09-07] MEDS: ONDANSETRON *ODT* 4 MG TABLET SL PRN (13:53)
[2024-09-07] MEDS: MELATONIN 5 MG TABLETS PO SCH (22:23)
[2024-09-07] MEDS: THIAMINE 100 MG TABLET PO SCH (22:23)
[2024-09-08] MEDS: IBUPROFEN 400 MG TABLET (FP) PO PRN (05:59)
[2024-09-08 09:26] LABS: ABSOLUTE IMMATURE GRANULOCYTES 0.02 x10^3/uL (0.0-0.031); BASOPHILS # 0.04 x10^3/uL (0.01-0.08); EOSINOPHIL % 10.2 % (0.8-7.0); EOSINOPHILS # 0.61 x10^3/uL (0.04-0.54); MCHC 35.9 g/dl (32.3-36.5); MEAN CELL VOLUME 81.0 fl (79.0-92.2); MEAN PLT VOLUME 11.5 fl (9.4-12.4); MONOCYTE # 0.57 x10^3/uL (0.30-0.82); MONOCYTE % 9.6 % (5.3-12.2); RDW 15.2 % (12.2-16.1)
[2024-09-08 09:35] LABS: CO2 27.0 mmol/L (21-32); GLUCOSE,RANDOM 107.0 mg/dL (74-106)
[2024-09-08 09:38] LABS: CREATININE 0.9 mg/dL (0.55-1.3); SGOT/AST 23.0 U/L (15-37)
[2024-09-08 09:40] LABS: SGPT/ALT 26.0 U/L (13-61); TOT PROT 7.5 g/dl (6.4-8.2)
[2024-09-08 09:41] LABS: ALK PHOS 59.0 U/L (45-117)
[2024-09-08] MEDS: PRENATAL VITAMINS W/ FOLIC ACID TABLET (FP) PO SCH (10:43)
[2024-09-08] MEDS: PANTOPRAZOLE 40 MG TABLET PO SCH (13:54)
[2024-09-08] MEDS: MAG HYDROX/AL HYDROX/SIMETH 30 ML UNIT-DOSE CUP PO PRN (15:24)
[2024-09-08] MEDS: DICYCLOMINE HCL 10 MG CAPSULE PO PRN (22:34)
[2024-09-08] MEDS: diphenhydrAMINE HCL 25 MG CAPSULE (FP) PO SCH (22:34)
[2024-09-09 06:40] VITALS: BP 115/83; PULSE 62; RESP 16; TEMP 97.7
[2024-09-09] MEDS: ACETAMINOPHEN 325 MG TABLET (FP) PO PRN (09:47)
== END 2024-09-09 11:26 | disposition left against medical advice (07) | DRG 897 ==
LOC: YASAS 10:38 → Y6N 13:09
PROVIDERS: ADMIT Allergy & Immunology; ATTEND Allergy & Immunology
PROC: HZ2ZZZZ Detoxification Services for Substance Abuse Treatment (ICD-10-PCS; principal; 2024-09-07)
DX: F10.230 Alcohol dependence with withdrawal, uncomplicated (principal); F14.20 Cocaine dependence, uncomplicated; F20.0 Paranoid schizophrenia; F17.210 Nicotine dependence, cigarettes, uncomplicated; F31.9 Bipolar disorder, unspecified; J44.9 Chronic obstructive pulmonary disease, unspecified; L30.9 Dermatitis, unspecified; N40.1 Benign prostatic hyperplasia with lower urinary tract symptoms; R35.1 Nocturia; R63.4 Abnormal weight loss; Z68.21 Body mass index [BMI] 21.0-21.9, adult; Z88.8 Allergy status to other drugs, medicaments and biological substances; F91.8 Other conduct disorders; Z91.199 Patient's noncompliance with other medical treatment and regimen due to unspecified reason
CPT/HCPCS: 36415; 80053; 80305; 85025; 86593; 86780; 93005; 93010; Q0162